=== PATIENT | female | born 1955 | race Two or more races ===

== ENCOUNTER 2020-11-15 09:48 | Outpatient (REF) | payer OTHER, SELFPAY ==
[2020-11-15 10:21] LABS: MANUAL DIFF FLAG NO
[2020-11-15 10:27] LABS: Basophils Percent Auto 0.5 % (0-2); Eosinophils Absolute Auto 0.2 X10*3/uL (0.0-0.4); Eosinophils Percent Auto 2.9 % (0-4); Hematocrit 39.3 % (37-47); Hemoglobin 12.4 g/dl (12.0-16.0); Imm Gran Abs Auto 0.01 X10*3/uL (0.00-0.03); Imm Gran Pct Auto 0.2 % (0.0-0.4); Lymphocytes Absolute Auto 2.2 X10*3/uL (1.2-4.9); Lymphocytes Percent Auto 37.9 % (20-40); Mean Corpuscular HGB Conc 31.6 g/dl (31.0-35.0); Mean Corpuscular Hemoglobin 28.5 pg (27.0-33.0); Mean Corpuscular Volume 90.3 fL (80-98); Mean Platelet Volume 10.1 fL (9.4-12.3); Monocytes Absolute Auto 0.3 X10*3/uL (0.1-1.2); Monocytes Percent Auto 5.8 % (2-11); Neutrophils Absolute Auto 3.1 X10*3/uL (2.0-8.3); Neutrophils Percent Auto 52.7 % (45-73); Platelet Count 253 X10*3/uL (160-400); Red Blood Count 4.35 X10*6/uL (4.20-5.50); Red Cell Distribution Width 13.2 % (11.0-16.0); White Blood Count 5.8 X10*3/uL (4.8-10.8)
[2020-11-15 11:10] LABS: HIV AB/AG Nonreactive (Nonreactive); HIV Num 1 0.16 S/CO (0.00-0.99)
[2020-11-15 11:30] LABS: Syphilis Screen Nonreactive (Nonreactive)
[2020-11-17 13:02] LABS: C. trachomatis RNA TMA NOT DETECTED; N. gonorrhoeae RNA TMA NOT DETECTED
== END 2020-11-15 09:49 | disposition home or self-care (01) ==
LOC: HO.LAB 09:48
DX: Z11.4 Encounter for screening for human immunodeficiency virus [HIV] (principal); Z11.3 Encounter for screening for infections with a predominantly sexual mode of transmission; Z01.84 Encounter for antibody response examination; Z20.2 Contact with and (suspected) exposure to infections with a predominantly sexual mode of transmission
CPT/HCPCS: 36415; 85025; 86780; 87389; 87491; 87591

== ENCOUNTER 2021-10-14 08:28 | Outpatient (REF) | payer OTHER, SELFPAY ==
[2021-10-14 08:46] LABS: MANUAL DIFF FLAG NO
[2021-10-14 09:32] LABS: Basophils Percent Auto 0.5 % (0-2); Eosinophils Absolute Auto 0.2 X10*3/uL (0.0-0.4); Eosinophils Percent Auto 3.6 % (0-4); Hematocrit 39.4 % (37.0-47.0); Hemoglobin 12.5 g/dl (12.0-16.0); Imm Gran Abs Auto 0.01 X10*3/uL (0.00-0.03); Imm Gran Pct Auto 0.2 % (0.0-0.4); Immature Retic Fraction 9.4 % (3.0-15.9); Lymphocytes Absolute Auto 2.6 X10*3/uL (1.2-4.9); Lymphocytes Percent Auto 40.7 % (20-40); Mean Corpuscular HGB Conc 31.7 g/dl (31.0-35.0); Mean Corpuscular Hemoglobin 28.6 pg (27.0-33.0); Mean Corpuscular Volume 90.2 fL (80.0-98.0); Mean Platelet Volume 10.5 fL (9.4-12.3); Monocytes Absolute Auto 0.4 X10*3/uL (0.1-1.2); Monocytes Percent Auto 6.2 % (2-11); Neutrophils Absolute Auto 3.2 x10*3/uL (2.0-8.3); Neutrophils Percent Auto 48.8 % (45-73); Platelet Count 249 X10*3/uL (160-400); Red Blood Count 4.37 X10*6/uL (4.20-5.50); Red Cell Distribution Width 13.3 % (11.0-16.0); Retic HGB Equivalent 32.9 pg (30.0-35.0); Reticulocyte Percent 1.1 % (0.5-1.8); Reticulocytes Absolute 0.049 X10*6/uL (0.026-0.095); White Blood Count 6.4 X10*3/uL (4.8-10.8)
[2021-10-14 09:43] LABS: Estimated Average Glucose 126 mg/dL
[2021-10-14 10:00] LABS: Alanine Aminotransferase 17 U/L (0-31); Albumin Level 4.1 g/dL (3.5-5.0); Alkaline Phosphatase 65 U/L (39-117); Anion Gap 14 (12-20); Aspartate Amino Transferase 21 U/L (5-31); Bilirubin Total 0.4 mg/dL (0.0-1.0); Blood Urea Nitrogen 17 mg/dL (9-16); Calcium 9.5 mg/dL (8.4-10.2); Carbon Dioxide 27 mmol/L (22-29); Chloride 107 mmol/L (96-108); Cholesterol 177 mg/dL; Estimated Glomerular Filt Rate > 60; Glucose Random 117 mg/dL (60-115); HDL Cholesterol 73 mg/dL; Iron 54 mcg/dL (30-160); LDL Cholesterol Calculated 89 mg/dl; Percent Iron Saturation 17 % (15-50); Potassium 4.7 mmol/L (3.3-5.1); Sodium 143 mmol/L (135-145); Total Iron Binding Capacity 315 mcg/dL (228-428); Total Protein 6.9 g/dL (6.5-8.0); Triglycerides 77 mg/dL; Unsaturated Iron Binding 261 ug/dL
[2021-10-14 10:23] LABS: Ferritin 31 ng/mL (10-250); Free T4 (Free Thyroxine) 1.11 ng/dL (0.71-1.85); Thyroid Stimulating Hormone 0.75 uIU/mL (0.32-4.0); Vitamin D 25-OH Total 28.7 ng/mL (>30)
[2021-10-14 11:20] LABS: Folate 15.6 ng/mL (> or = 4.0); Vitamin B12 161 pg/mL (200-900)
== END 2021-10-14 08:29 | disposition home or self-care (01) ==
LOC: HO.LAB 08:28
PROVIDERS: PCP Internal Medicine; Visit Provider Internal Medicine
DX: R73.02 Impaired glucose tolerance (oral) (principal); E78.00 Pure hypercholesterolemia, unspecified; I10 Essential (primary) hypertension; E03.9 Hypothyroidism, unspecified
CPT/HCPCS: 36415; 80053; 80061; 82306; 82607; 82728; 82746; 83036; 83540; 84439; 84443; 85025; 85045

== ENCOUNTER 2022-01-10 08:25 | Outpatient (REF) | payer OTHER, SELFPAY ==
[2022-01-11 13:11] LABS: BV Int Neg Control Negative (Negative); BV Int Pos Control Positive (Positive)
[2022-01-13 20:02] LABS: HPV mRNA E6/E7 rflx Not Detected (Not Detected)
== END 2022-01-10 08:26 | disposition home or self-care (01) ==
LOC: HO.LAB 08:25
PROVIDERS: PCP Internal Medicine; Visit Provider Advanced Practice Midwife
DX: Z01.411 Encounter for gynecological examination (general) (routine) with abnormal findings (principal); Z11.51 Encounter for screening for human papillomavirus (HPV); L29.2 Pruritus vulvae
CPT/HCPCS: 87480; 87510; 87624; 87660; 88142

== ENCOUNTER 2022-03-21 08:23 | Outpatient (REF) | payer OTHER, SELFPAY ==
--- NOTE | ~2022-03-21 | MM_ITS ---
EXAMINATION: MM SCREENING DIGITAL BREAST TOMOSYNTHESIS, BILATERAL CLINICAL INFORMATION: Screening. Asymptomatic. No prior breast imaging. Age 67. Family history breast cancer, sister. The lifetime risk of breast cancer based on the Tyrer-Cuzick Model is 8%. COMPARISON: None (current study represents initial baseline exam). TECHNIQUE: Digital breast tomosynthesis is performed in both the craniocaudal and mediolateral oblique views along with computer-aided detection (CAD). Synthesized 2D images are generated from the tomosynthesis. FINDINGS: There are scattered areas of fibroglandular density (ACR BI-RADS breast composition Category b). There is fine fibronodular parenchymal pattern. Left breast shows no dominant nodularity. Neither breast shows architectural abnormality or abnormal calcifications. The bilateral axilla and skin contours are unremarkable. Right breast has nodule posterior upper outer quadrant measuring approximately 0.9 x 0.5 cm. Margins are incompletely defined. There may be some punctate rim calcifications. As this represents initial mammography, patient will be recalled for additional views to fully characterize baseline appearance. MM/MM tomosynthesis screening BI IMPRESSION: Right: -Nodule posterior upper outer quadrant with incompletely defined margins and question of punctate rim calcification. As this represents initial mammography, patient will be recalled for additional views to fully characterize baseline appearance. Left: -No mammographic evidence of malignancy. ASSESSMENT: BI-RADS 0: Incomplete - Need Additional Imaging Evaluation RECOMMENDATION: 1. Additional views of the right breast (spot magnification CC, spot magnification ML). 2. Targeted ultrasound right breast. 3. Radiology department staff will contact the patient for additional imaging. This patient's information was entered into a reminder system with a target due date for their next mammogram.
== END 2022-03-21 08:24 | disposition home or self-care (01) ==
LOC: HO.MAMMO 08:23
PROVIDERS: PCP Internal Medicine; Visit Provider Internal Medicine
DX: Z12.31 Encounter for screening mammogram for malignant neoplasm of breast (principal)
CPT/HCPCS: 77063; 77067

== ENCOUNTER 2022-03-28 07:45 | Outpatient (REF) | payer OTHER, SELFPAY ==
--- NOTE | ~2022-03-28 | US_ITS ---
EXAMINATION: MM DIAGNOSTIC DIGITAL MAMMOGRAPHY, RIGHT US DIAGNOSTIC ULTRASOUND BREAST, RIGHT CLINICAL INFORMATION: Recall from screening for nodule with incompletely defined margins and possible calcification posterior upper outer right breast on baseline mammography. Age 67. Family history breast cancer, sister. TC score 8%. COMPARISON: Mammography: 03/21/2022 (baseline, BI-RADS 0). TECHNIQUE: Digital mammography is performed in the following views: Magnification CC, magnification ML. Ultrasound right breast is targeted to the upper outer quadrant. Grayscale imaging and color Doppler are performed without and with harmonics. FINDINGS: There are scattered areas of fibroglandular density (ACR BI-RADS breast composition Category b). The additional views confirm a nodule posterior upper outer breast with a few fine calcifications overlying this area. Margins are incompletely defined. Chronicity is unknown Ultrasound demonstrates hypoechoic nearly anechoic nodule posterior 9:00-10:00 position approximately 10 cm from nipple measuring around 0.5 cm. Some of the margins are slightly ill-defined. There is an internal echogenic focus without shadowing. On some images, scant color flow is questionably present. There is mild increased through-transmission of sound. Results are discussed with the patient at time of visit, using an cobol programmer. Ultrasound-guided core biopsy of the nodule is recommended. Results and recommendation called to office (CHELY Ayala) for Dr. Lazaro on 03/28/2022. US/US breast RT limited IMPRESSION: -Subcentimeter strongly hypoechoic nodule with incompletely defined margins posterior upper outer right breast. ASSESSMENT: BI-RADS 4: Suspicious RECOMMENDATION: Ultrasound-guided core biopsy.
== END 2022-03-28 07:46 | disposition home or self-care (01) ==
LOC: HO.MAMMO 07:45
PROVIDERS: Visit Provider Internal Medicine
DX: R92.2 Inconclusive mammogram (principal)
CPT/HCPCS: 76642; 77061; 77065

== ENCOUNTER 2022-03-31 09:33 | Outpatient (REF) | payer OTHER, SELFPAY ==
--- NOTE | ~2022-03-31 | MM_ITS ---
PROCEDURE: US GUIDED BREAST BIOPSY, RIGHT CLINICAL INFORMATION: Right breast nodule 9:00 position COMPARISON: March 28, 2022 and March 21, 2022 PROCEDURAL DETAILS: The details of the procedure, as well as the risks, benefits, and alternatives to the procedure were explained to the patient in detail and all of her questions were answered, after which written informed consent was obtained. Site and side were confirmed. Prior to the procedure, sonography revealed 2 adjacent circumscribed hypoechoic lesions one which appears to contain calcification at the 9:00 position approximately 10 cm from the nipple.. A time-out was performed, the lesion intended for biopsy was targeted, and the skin of the right breast was then prepped and draped in the usual sterile fashion. Using sonographic guidance, sterile technique, and 1% lidocaine without epinephrine for local anesthesia, multiple automated core biopsies were obtained through the targeted area with a 14G spring loaded Achieve core biopsy device. There was real-time confirmation of appropriate needle passage. Sampling was documented. At the completion of tissue sampling, a single butterfly shaped metallic clip was deposited at the biopsy site. There was no evidence of immediate complication. SPECIMEN: 3 14-gauge core samples were obtained prior to the lesions no longer being seen with them being partially cystic. DIGITAL POST-PROCEDURE MAMMOGRAPHY: Breast density: The tissue is heterogeneously dense which may obscure small masses. BI-RADS version 5, category C. There are no new mammographic findings demonstrated. The postprocedure 2-view direct digital mammogram reveals satisfactory positioning of the biopsy clip. The patient tolerated the procedure well and, after assuring adequate hemostasis, was discharged in good condition after reviewing postbiopsy breast care instructions. Final pathology results are pending. MM/MM diagnostic mammo unilat RT IMPRESSION: 1. No immediate complication from ultrasound-guided percutaneous biopsy right breast. 2. Ultrasound was used to localize and guide marker clip placement. 3. The 2-view direct digital postprocedure mammogram reveals satisfactory positioning of the biopsy clip. 4. Final pathology results are pending. A separate report with final recommendations will be issued once these results are made available.
[2022-03-31] MEDS: Lidocaine HCl 1 % 20 ML VIAL 9 ML SUBCUT (11:29)
[2022-03-31] MEDS: Sodium Bicarbonate 8.4% 50 MEQ/50 ML VIAL SUBCUT (11:31)
== END 2022-03-31 09:34 | disposition home or self-care (01) ==
LOC: HO.MAMMO 09:33
PROVIDERS: PCP Internal Medicine; Visit Provider Surgery
DX: R92.8 Other abnormal and inconclusive findings on diagnostic imaging of breast (principal)
CPT/HCPCS: 19083; 77062; 77065; 88305; 99202

== ENCOUNTER → 2022-04-04 13:43 | Outpatient (BNVA) | payer OTHER, SELFPAY | PROVIDERS: PCP Internal Medicine; Referring Provider Internal Medicine; Visit Provider Surgery | DX: R92.8 Other abnormal and inconclusive findings on diagnostic imaging of breast (principal) | CPT/HCPCS: 99212 ==

== ENCOUNTER 2022-05-08 10:28 | Outpatient (REF) | payer OTHER, SELFPAY ==
--- NOTE | ~2022-05-08 | XR_ITS ---
EXAMINATION: XR HIP, RIGHT CLINICAL INFORMATION: Pain COMPARISON: None TECHNIQUE: Two views of the right hip. FINDINGS: Bones and soft tissues are normal. No fracture. Alignment is anatomic. Hip joint space is maintained. XR/XR hip RT min 2V IMPRESSION: Unremarkable right hip exam.
== END 2022-05-08 10:29 | disposition home or self-care (01) ==
LOC: HO.XRAY 10:28
PROVIDERS: PCP Internal Medicine; Visit Provider Internal Medicine
DX: M25.551 Pain in right hip (principal)
CPT/HCPCS: 73502

== ENCOUNTER 2022-08-16 07:36 | Outpatient (REF) | payer OTHER, SELFPAY ==
[2022-08-16 08:22] LABS: Estimated Average Glucose 126 mg/dL
[2022-08-16 08:31] LABS: Alanine Aminotransferase 18 U/L (0-31); Albumin Level 4.1 g/dL (3.5-5.0); Alkaline Phosphatase 66 U/L (39-117); Anion Gap 15 (12-20); Aspartate Amino Transferase 21 U/L (5-31); Bilirubin Total 0.5 mg/dL (0.0-1.0); Blood Urea Nitrogen 20 mg/dL (9-16); Calcium 9.7 mg/dL (8.4-10.2); Carbon Dioxide 27 mmol/L (22-29); Chloride 106 mmol/L (96-108); Estimated Glomerular Filt Rate > 60; Glucose Random 123 mg/dL (60-115); Potassium 4.3 mmol/L (3.3-5.1); Sodium 144 mmol/L (135-145); Total Protein 6.9 g/dL (6.5-8.0)
[2022-08-16 08:52] LABS: Vitamin D 25-OH Total 28.8 ng/mL (>30)
[2022-08-16 09:03] LABS: Folate 14.5 ng/mL (> or = 4.0); Vitamin B12 683 pg/mL (200-900)
[2022-08-20 14:32] LABS: Intrinsic Factor Antibodies Negative (Negative)
[2022-08-23 00:33] LABS: Parietal Cell Antibody 77.7 Unit (<=20.0)
== END 2022-08-16 07:37 | disposition home or self-care (01) ==
LOC: HO.LAB 07:36
PROVIDERS: PCP Internal Medicine; Visit Provider Internal Medicine
DX: R73.02 Impaired glucose tolerance (oral) (principal); E53.8 Deficiency of other specified B group vitamins
CPT/HCPCS: 36415; 80053; 82306; 82607; 82746; 83036; 83516; 86340

== ENCOUNTER 2022-11-27 14:18 | Emergency (ER) | payer OTHER, SELFPAY ==
--- NOTE | ~2022-11-27 | XR_ITS ---
EXAMINATION: XR LUMBAR SPINE CLINICAL INFORMATION: Reason for Exam back pain s/p heavy lifting bags COMPARISON: None TECHNIQUE: Frontal lateral and coned-down L5-S1 frontal lateral FINDINGS: Five [id number] lumbar vertebrae were identified maintaining normal height and alignments. Narrowing of intervertebral disc spaces suggest underlying degenerative disc disease. Paravertebral soft tissues are unremarkable. There are radiolucencies, most likely superimposed bowel gas.. No radiographic evidence of osteolytic or osteoblastic lesions. XR/XR lumbar spine 2-3V IMPRESSION: Degenerative disc disease, no fracture.
[2022-11-27 16:29] VITALS: BP 146/66; PULSE 75; RESP 16; TEMP 36.4; O2SAT 98; BMI 27.3
--- NOTE | 2022-11-27 16:30 | ED_ITS ---
HPI - Back Pain/Injury General Chief Complaint: Back Pain/Injury Stated Complaint: back pain Time Seen by Provider: 11/27/22 20:04 Source: patient Mode of arrival: ambulatory Limitations: language barrier (Kazakh-speaking) History of Present Illness HPI Narrative: 67-year-old female who is Kazakh-speaking presenting to the ED with complaints of lower back pain since Sunday after she was heavy lifting some bags. Reports she has had this pain in the past and was so she had a muscle spasm and was given muscle relaxants in the past that helped although she took those muscle relaxants and no symptomatic relief. She denies any fevers, chest pain or shortness of breath, urinary symptoms, saddle anesthesias, bladder or bowel incontinence or retention, IV drug use, recent falls, hematuria, abdominal pain or any other symptoms complaints or concerns at this time. MD elicited complaint: back pain and back injury Onset (ago): day(s) (4) Timing: constant Severity: mild Similar Symptoms Previously: Yes Quality: aching Location: lumbar spine Radiation: none Exacerbating factors: movement and lifting Relieving factors: none Context: while lifting, turning/twisting and bending Associated symptoms: denies other symptoms Treatments prior to arrival: NSAIDS, acetaminophen and other (And tramadol along with muscle relaxers and no symptomatic relief) Work related injury: No Related Data Previous Rx's Medication Instructions Recorded cetirizine 10 mg tablet 10 mg PO DAILY 90 days #90 tabs 10/27/21 metoprolol succinate 25 mg 25 mg PO DAILY #90 tabs 03/23/22 tablet,extended release 24 hr simvastatin 20 mg tablet 20 mg PO DAILY #90 tabs 05/22/22 cyanocobalamin (vitamin B-12) 1,000 mcg PO DAILY #90 caps 06/05/22 1,000 mcg capsule tizanidine 4 mg tablet 4 mg PO BID PRN muscle spasticity 07/17/22 #30 tabs betamethasone, augmented 0.05 % 1 appl topical BID allergic 09/21/22 topical ointment reaction 7 days #45 grams levothyroxine 75 mcg tablet 75 mcg PO DAILY #90 tabs 10/04/22 tramadol 50 mg tablet 50 mg PO BID 30 days #60 tabs 10/23/22 albuterol sulfate 90 mcg/actuation 2 puff inhalation Q4-6H PRN for 10/29/22 aerosol inhaler muscle spasm #8.5 ea zolpidem 5 mg tablet 5 mg PO BEDTIME #30 tabs 11/21/22 cyclobenzaprine 10 mg tablet 10 mg PO Q8H #10 tabs 11/27/22 naproxen 500 mg tablet 500 mg PO BID PRN pain #10 tabs 11/27/22 oxycodone 5 mg tablet 5 mg PO Q6H PRN pain #10 tabs 11/27/22 Allergies Allergy/AdvReac Type Severity Reaction Status Date / Time No Known Allergies Allergy Verified 08/18/22 09:56 Review of Systems Review of Systems: Constitutional : No trauma, No Weight loss, No Fever, No Chills, ENT/Mouth : No Hearing loss, No Ear Pain, No Nasal Congestion, No Sinus Pain, No Hoarseness, No sore throat, No Rhinorrhea, No Swallowing Difficulty Cardiovascular : No Chest Pain, No SOB Respiratory : No Cough, No Dyspnea Gastrointestinal : No Nausea, No Vomiting, No Diarrhea, No abdominal Pain, No Hematochezia, No Melena Genitourinary : No Dysuria, No Urinary Frequency, No Hematuria, No Urinary or Bowel Incontinence/retention Musculoskeletal : + Back pain, No neck pain, No joint stiffness, No joint swelling Skin : No Skin Lesions, No rash or signs of infection Neuro : No Weakness, No radiation, No Numbness, No Paresthesias, No headache, no loss of bowel or bladder incontinence, no saddle anesthesia, Focal weakness, No radiation Denies history of IV drug usage. Yes all other systems are reviewed and are ne [facility] Past Medical History Attestation statement: The following information was validated with the patient. Source: old records reviewed and nursing notes reviewed Medical History Breast cancer screening by mammogram Carpal tunnel syndrome Hypercholesterolemia Hypertension Hypothyroid Impaired glucose tolerance Insomnia Overweight (BMI 25.0-29.9) Vitamin B12 deficiency Family History Family History Father No problems noted. Mother No problems noted. Sister History of breast cancer, Onset Age: 50 Social History Social History Housing: Apartment Alcohol intake: never Patient Tobacco Use Status: Never used Tobacco Tobacco use type: Cigarette e-Cigarette/Vaping Use: Never Used Second Hand Smoke Exposure: No Advance Directives: No Advance Directives Information Provided: No service: No Current occupational status: retired Cognitive needs: No Hearing needs: No Vision needs: Yes Physical Exam Vital Signs: Vital Signs: Last Vital Signs Temp 98.8 F 11/27/22 20:05 Pulse 73 11/27/22 20:05 Resp 16 11/27/22 20:05 BP 152/82 H 11/27/22 20:05 Pulse Ox 98 11/27/22 20:05 O2 Del Method 11/27/22 20:05 BMI result Body Mass Index 27.3 vital signs have been reviewed as normal and appeared to be correct. Blood pressure normal. Heart rate normal. Respiration rate normal. Temperature normal. Oxygen saturation normal. Appearance: Alert. Oriented X3. No acute distress. Head: Normal external exam. Normocephalic. Atraumatic. No Lewis signs noted. No raccoon eyes noted Eyes: PERRLA. EOMI. Conjunctiva and sclera normal. Eyelids normal. ENT: EAC normal. TM's Normal. Pharynx normal. Uvula midline. Moist mucous membranes. No trismus noted. No drooling noted. No muffled voice noted. Neck: Normal inspection. Neck supple. FROM. No adenopathy. Thyroid Normal. No meningeal signs. No neck mass noted. CVS: Normal heart rate and rhythm. Heart sound normal. No murmurs noted. Pulses normal throughout. Respiratory: No respiratory distress. Painless inspiration. Breath sounds normal. No wheezes/rales/rhonchi noted. Chest nontender. No accessory muscle usage noted or decreased air movement noted. Abdomen: Soft and nontender. Bowel sounds normal in all 4 quadrants. No distention noted. No organomegaly noted. No visible injury noted. Back: No CVA tenderness. Full range of motion noted. No obvious deformities, or edema. Mild para-spinal muscular tenderness from lumbar region to coccyx. Full ROM in back and lower extremities. 5/5 strength hip extension/flexion, abduction, adduction. Mild Lumbar pain with hip flexion against resistance. Straight leg raise test negative on right; Straight leg raise test negative on left; Reflexes normal ankle and knee bilaterally; EHL motor strength normal bilaterally. No rashes/lesion/induration/fluctuance or signs infection noted. Skin: Skin warm and dry. Normal skin color. Normal skin turgor. No rashes/lesions/lacerations noted. Extremities: No lower extremity edema. Extremities exhibit normal range of motion. Extremities nontender. Neuro: Oriented X 3. No motor deficit. No sensory deficit. Reflexes normal. Patient has a normal steady gait. Course Course Course Narrative: Pt c likely muscular pain, but could be herniated disc. Neuro exam shows no deficits. Not c/w AAA/epidural abscess/dissection.No high risk Hx (Incont, fever, immunosupp, recent surgery/LP, coag, signif trauma, wt loss, puls mass, hx/o Ca, TB, or IVDU) to warrant MRI/CT today. Not c/w Pyelo/UTI/kidney stone/spinal fx. Not cauda equina syndrome. X-ray imaging obtained and negative for any acute processes only revealed chronic changes. Therefore at this time will DC home with symptomatic treatment instructions return if any new or worsening symptoms follow up with primary care provider. Patient understands agrees with this plan. Medical Decision Making Independent Interpretation I performed an independent interpretation of an: Plain X-Ray Interpretation: Lumbar spine x-ray FINDINGS:? Five [id number] lumbar vertebrae were identified maintaining normal height and alignments. Narrowing of intervertebral disc spaces suggest underlying degenerative disc disease. ? Paravertebral soft tissues are unremarkable. There are radiolucencies, most likely superimposed bowel gas.. No radiographic evidence of osteolytic or osteoblastic lesions. XR/XR lumbar spine 2-3V IMPRESSION: Degenerative disc disease, no fracture. Radiology Impression Discussion of test interpretation with radiology: I have reviewed the radiologist's reading. Discharge Plan Discharge Clinical Impression: Degenerative disc disease, lumbar Patient Disposition: Home, Self-Care Instructions: Degenerative Disc Disease (ED) Prescriptions: New naproxen 500 mg tablet 500 mg PO BID PRN (Reason: pain) Qty: 10 0RF cyclobenzaprine 10 mg tablet 10 mg PO Q8H Qty: 10 0RF oxycodone 5 mg tablet 5 mg PO Q6H PRN (Reason: pain) Qty: 10 0RF Rx Instructions: Partial Fill upon patient request. No Action cetirizine 10 mg tablet 10 mg PO DAILY 90 Days Qty: 90 3RF metoprolol succinate 25 mg tablet extended release 24 hr 25 mg PO DAILY Qty: 90 3RF simvastatin 20 mg tablet 20 mg PO DAILY Qty: 90 3RF cyanocobalamin (vitamin B-12) 1,000 mcg capsule 1,000 mcg PO DAILY Qty: 90 3RF tizanidine 4 mg tablet 4 mg PO BID PRN (Reason: muscle spasticity) Qty: 30 3RF betamethasone, augmented 0.05 % ointment 1 appl topical BID 7 Days Qty: 45 0RF Rx Instructions: may use for up to 2 wks then every other day for 2 wks, then prn for two wks levothyroxine 75 mcg tablet 75 mcg PO DAILY Qty: 90 1RF tramadol 50 mg tablet 50 mg PO BID 30 Days Qty: 60 1RF albuterol sulfate 90 mcg/actuation HFA aerosol inhaler 2 puff inhalation Q4-6H PRN (Reason: for muscle spasm) Qty: 8.5 0RF zolpidem 5 mg tablet 5 mg PO BEDTIME Qty: 30 1RF Referrals: Po,Fran Childers MD [Primary Care Provider] - Print Language: Kazakh
[2022-11-27 20:05] VITALS: BP 152/82; PULSE 73; RESP 16; TEMP 37.1; O2SAT 98
== END 2022-11-27 20:36 | disposition home or self-care (01) ==
PROVIDERS: Emergency Provider Internal Medicine; PCP Internal Medicine
DX: M51.36 Other intervertebral disc degeneration, lumbar region (principal); I10 Essential (primary) hypertension; E78.00 Pure hypercholesterolemia, unspecified; Z79.02 Long term (current) use of antithrombotics/antiplatelets; Z79.899 Other long term (current) drug therapy
CPT/HCPCS: 72100; 99282; 99283

== ENCOUNTER 2022-12-21 08:20 | Outpatient (REF) | payer OTHER, SELFPAY ==
[2022-12-21 08:32] LABS: MANUAL DIFF FLAG NO
[2022-12-21 08:57] LABS: Basophils Absolute Auto 0.1 X10*3/uL (0.0-0.2); Basophils Percent Auto 0.8 % (0-2); Eosinophils Absolute Auto 0.3 X10*3/uL (0.0-0.4); Eosinophils Percent Auto 5.1 % (0-4); Hematocrit 37.6 % (37.0-47.0); Imm Gran Abs Auto 0.02 X10*3/uL (0.00-0.03); Imm Gran Pct Auto 0.3 % (0.0-0.4); Lymphocytes Absolute Auto 2.9 X10*3/uL (1.2-4.9); Lymphocytes Percent Auto 44.1 % (20-40); Mean Corpuscular HGB Conc 31.9 g/dl (31.0-35.0); Mean Corpuscular Volume 87.6 fL (80.0-98.0); Mean Platelet Volume 10.2 fL (9.4-12.3); Monocytes Absolute Auto 0.4 X10*3/uL (0.1-1.2); Monocytes Percent Auto 6.5 % (2-11); Neutrophils Absolute Auto 2.8 x10*3/uL (2.0-8.3); Neutrophils Percent Auto 43.2 % (45-73); Platelet Count 284 X10*3/uL (160-400); Red Blood Count 4.29 X10*6/uL (4.20-5.50); Red Cell Distribution Width 14.3 % (11.0-16.0); White Blood Count 6.5 X10*3/uL (4.8-10.8)
[2022-12-21 09:15] LABS: Estimated Average Glucose 128 mg/dL; Hemoglobin A1c % 6.1 %
[2022-12-21 09:43] LABS: Alanine Aminotransferase 39 U/L (0-31); Albumin Level 4.1 g/dL (3.5-5.0); Alkaline Phosphatase 67 U/L (39-117); Anion Gap 14 (12-20); Aspartate Amino Transferase 35 U/L (5-31); Bilirubin Total 0.4 mg/dL (0.0-1.0); Blood Urea Nitrogen 19 mg/dL (9-16); Calcium 9.4 mg/dL (8.4-10.2); Carbon Dioxide 27 mmol/L (22-29); Chloride 105 mmol/L (96-108); Cholesterol 176 mg/dL; Estimated Glomerular Filt Rate > 60; Glucose Random 121 mg/dL (60-115); HDL Cholesterol 76 mg/dL; Iron 55 mcg/dL (30-160); LDL Cholesterol Calculated 90 mg/dl; Percent Iron Saturation 18 % (15-50); Potassium 4.1 mmol/L (3.3-5.1); Sodium 142 mmol/L (135-145); Total Iron Binding Capacity 311 mcg/dL (228-428); Total Protein 6.9 g/dL (6.5-8.0); Triglycerides 53 mg/dL; Unsaturated Iron Binding 256 ug/dL
[2022-12-21 10:00] LABS: Ferritin 14 ng/mL (10-250); Free T4 (Free Thyroxine) 1.09 ng/dL (0.71-1.85); Thyroid Stimulating Hormone 1.91 uIU/mL (0.32-4.0); Vitamin D 25-OH Total 26.1 ng/mL (>30)
[2022-12-21 10:12] LABS: Folate 16.7 ng/mL (> or = 4.0); Vitamin B12 841 pg/mL (200-900)
== END 2022-12-21 08:21 | disposition home or self-care (01) ==
LOC: HO.LAB 08:20
PROVIDERS: PCP Internal Medicine; Visit Provider Internal Medicine
DX: E03.9 Hypothyroidism, unspecified (principal); R73.02 Impaired glucose tolerance (oral); E78.00 Pure hypercholesterolemia, unspecified
CPT/HCPCS: 36415; 80053; 80061; 82306; 82607; 82728; 82746; 83036; 83540; 84439; 84443; 85025

== ENCOUNTER → 2023-01-17 08:36 | Outpatient (BNVA) | payer OTHER, SELFPAY | PROVIDERS: PCP Internal Medicine; Visit Provider Anesthesiology | DX: M46.1 Sacroiliitis, not elsewhere classified (principal); M54.50 Low back pain, unspecified | CPT/HCPCS: 99202 ==

== ENCOUNTER 2023-03-23 07:45 | Outpatient (REF) | payer OTHER, SELFPAY ==
--- NOTE | ~2023-03-23 | MM_ITS ---
EXAMINATION: MM SCREENING DIGITAL BREAST TOMOSYNTHESIS, BILATERAL CLINICAL INFORMATION: Screening. Asymptomatic. Benign right ultrasound guided biopsy 03/31/2022 (breast parenchyma with portion of cyst wall and associated stromal fibrosis and mild chronic inflammation. No atypia or malignancy). The lifetime risk of breast cancer based on the Tyrer-Cuzick Model is 8%. COMPARISON: Mammography: 03/31/2022, 03/28/2022, 03/21/2022 (baseline), ultrasound right breast 03/31/2022, 03/28/2022. TECHNIQUE: Digital breast tomosynthesis is performed in both the craniocaudal and mediolateral oblique views along with computer-aided detection (CAD). Synthesized 2D images are generated from the tomosynthesis. FINDINGS: There are scattered areas of fibroglandular density (ACR BI-RADS breast composition Category b). There is fine fibronodular parenchymal pattern without significant mass or architectural abnormality or developing density. No abnormal calcifications. Small circumscribed nodularity periareolar 12:00 right breast is stable. There is a biopsy clip marker overlying the nodular asymmetry posterior 9:30 right breast. The axilla and skin contours are unremarkable. MM/MM tomosynthesis screening BI IMPRESSION: No mammographic evidence of malignancy. ASSESSMENT: BI-RADS 2: Benign RECOMMENDATION: Routine annual mammography screening. This patient's information was entered into a reminder system with a target due date for their next mammogram.
== END 2023-03-23 07:46 | disposition home or self-care (01) ==
LOC: HO.MAMMO 07:45
PROVIDERS: PCP Internal Medicine; Visit Provider Internal Medicine
DX: Z12.31 Encounter for screening mammogram for malignant neoplasm of breast (principal)
CPT/HCPCS: 77063; 77067

== ENCOUNTER → 2023-04-05 08:35 | Outpatient (BNVA) | payer OTHER, SELFPAY | PROVIDERS: PCP Internal Medicine; Visit Provider Advanced Practice Midwife ==

== ENCOUNTER 2023-04-16 08:19 | Emergency (ER) | payer OTHER, SELFPAY ==
--- NOTE | ~2023-04-16 | XR_ITS ---
EXAMINATION: XR FOOT, RIGHT CLINICAL INFORMATION: Right foot pain COMPARISON: None available. TECHNIQUE: AP, lateral, and oblique views of the right foot. FINDINGS: The bones and soft tissues are normal. No fracture. There is a small calcaneal heel enthesophyte. Alignment is anatomic. Joint spaces are maintained. XR/XR foot RT 2V IMPRESSION: Small calcaneal heel enthesophyte. No visible acute fracture, dislocation or subluxation seen.
[2023-04-16 08:24] VITALS: BP 100/77; PULSE 81; RESP 16; TEMP 36.6; O2SAT 96; BMI 26.4
[2023-04-16 08:58] VITALS: BP 106/70; PULSE 74; RESP 18; TEMP 36.8; O2SAT 95
--- NOTE | 2023-04-16 09:10 | ED_ITS ---
HPI - General Adult General Chief complaint: Extremity Problem Stated complaint: r heel pain Time Seen by Provider: 04/16/23 09:08 Source: patient and youth development specialist Mode of arrival: ambulatory Limitations: language barrier History of Present Illness HPI narrative: Patient is a 68 year old assigned female at with a history of HTN presenting to the emergency department today with right foot pain. Patient states that for the last month she has had right heel pain that goes into the rest of her foot and up into her knee. Patient states that she was seen at a clinic where she was given oral steroids and NSAIDs but they do not seem to be helping. Patient denies any dizziness, lightheadedness, abdominal pain, nausea, vomiting, fever, chills, blurry vision, double vision, loss of vision, chest pain, difficulty breathing, shortness of breath, back pain, night sweats, pain with urination, increased urinary frequency, increased urinary urgency, blood in her urine or stool, syncope or a near syncopal episode, recent trauma or falls, bowel incontinence, bladder incontinence, bowel retention, bladder retention, or any other complaints at this time. Onset (ago): month(s) (1) Location: right and lower extremity Severity: mild Severity scale (1-10): 3 Relieving factors: none Exacerbating factors: movement Associated symptoms: denies other symptoms Treatments prior to arrival: NSAID and other (oral steroids) Related Data Previous Rx's Medication Instructions Recorded cetirizine 10 mg tablet 10 mg PO DAILY 90 days #90 tabs 10/27/21 simvastatin 20 mg tablet 20 mg PO DAILY #90 tabs 05/22/22 cyanocobalamin (vitamin B-12) 1,000 mcg PO DAILY #90 caps 06/05/22 1,000 mcg capsule betamethasone, augmented 0.05 % 1 appl topical BID allergic 09/21/22 topical ointment reaction 7 days #45 grams cyclobenzaprine 10 mg tablet 10 mg PO Q8H #10 tabs 11/27/22 lidocaine 5 % topical patch 1 patch topical DAILY #30 ea 12/22/22 tizanidine 4 mg tablet 4 mg PO BID PRN muscle spasticity 01/26/23 #30 tabs albuterol sulfate 90 mcg/actuation 2 puff inhalation Q4-6H PRN for 01/28/23 aerosol inhaler (Ventolin HFA) wheezing #18 ea metoprolol succinate 25 mg 25 mg PO DAILY #90 tabs 03/08/23 tablet,extended release 24 hr tramadol 50 mg tablet 50 mg PO BID 30 days #60 tabs 03/26/23 zolpidem 5 mg tablet 5 mg PO BEDTIME #30 tabs 03/26/23 levothyroxine 75 mcg tablet 75 mcg PO DAILY #90 tabs 03/28/23 Allergies Allergy/AdvReac Type Severity Reaction Status Date / Time No Known Allergies Allergy Verified 04/05/23 08:48 Review of Systems Constitutional: Constitutional: Reports no additional constitutional complaints, Denies chills, Denies fever(s) and Denies night sweats Eyes: Eyes: Reports no additional eye complaints, Denies blurry vision, Denies change in vision, Denies diplopia, Denies eye discharge, Denies loss of vision and Denies eye pain ENT: Denies dizziness Cardiovascular: Cardiovascular: Reports no additional cardiovascular complaints, Denies chest pain, Denies lightheadedness, Denies Loss of Consciousness and Denies dyspnea Respiratory: Respiratory: Reports no additional respiratory complaints and Denies dyspnea Gastrointestinal: Gastrointestinal: Reports no additional gastrointestinal complaints, Denies abdominal pain, Denies melena, Denies hematochezia, Denies change in bowel habits and Denies change in stool character Genitourinary: Genitourinary: Denies hematuria, Denies urinary frequency, Denies dysuria, Denies urinary incontinence, Denies urinary hesitancy and Denies urinary urgency Musculoskeletal: Musculoskeletal: Reports no additional musculoskeletal complaints, Denies numbness and Denies tingling Comments: right foot pain Neurologic: Denies dizziness, Denies loss of vision, Denies numbness and Denies tingling Psychiatric: Psychiatric: Reports no additional psychiatric complaints Endocrine: Endocrine: Reports no additional endocrine complaints Hematologic/Lymphatic: Hematologic/Lymphatic: Reports no additional hematologic/lymphatic complaints Allergic/Immunologic: Allergic/Immunologic: Reports no additional allergic/immunologic complaints PMFSH Past Medical History Attestation statement: The following information was validated with the patient. Source: old records reviewed and nursing notes reviewed Medical History Breast cancer screening by mammogram Carpal tunnel syndrome Hypercholesterolemia Hypertension Hypothyroid Impaired glucose tolerance Insomnia Overweight (BMI 25.0-29.9) Vitamin B12 deficiency Family History Family History Father No problems noted. Mother No problems noted. Sister History of breast cancer, Onset Age: 50 Social History Social History Housing: Apartment Alcohol intake: never Patient Tobacco Use Status: Never used Tobacco Tobacco use type: Cigarette Smoked in Last 30 Days: No e-Cigarette/Vaping Use: Never Used Second Hand Smoke Exposure: No Use of substances other than those prescribed or required for medical reasons: No Advance Directives: No Advance Directives Information Provided: No service: No Current occupational status: retired Sexual orientation: Straight/Heterosexual Gender identity: Female Cognitive needs: No Hearing needs: No Vision needs: Yes Physical Exam ED Vital Signs: Vital Signs - 24 hr 04/16/23 08:24 04/16/23 08:58 Temperature 98 F 98.2 F Pulse Rate 81 74 Respiratory Rate 16 18 Blood Pressure 100/77 106/70 Pulse Oximetry 96 95 Oxygen Delivery Method Room Air Room Air BMI result Body Mass Index 26.4 Const General: cooperative, no acute distress, alert and awake Nutritional Appearance: well nourished Orientation/consciousness: patient oriented x3 Limitations: no limitations HENMT Head: Yes normal to inspection and Yes atraumatic Ears: hearing grossly normal bilaterally and external ears normal General nose exam: Normal external nose present, no nasal discharge noted and no epistaxis Face and sinus: Yes normal facial exam, No abrasion and No laceration Mouth: Normal oral and palatal mucosa present, no drooling and no muffled voice Eyes General: appearance normal, both eyes and all related structures Periorbital: periorbital findings normal Eyelids: Yes eyelids normal Conjunctivae: conjunctivae normal Pupils: Equal, round and reactive pupils present EOM: EOMs intact bilaterally Neck Neck: Yes normal visual inspection, Yes full ROM and Yes no lymphadenopathy Chest Chest palpation & inspection: normal inspection of the chest Resp Effort & Inspection: normal respiratory effort and able to speak in complete sentences GI Inspection: Yes normal to inspection Neuro General: patient oriented x3 and moves all extremities Cranial nerves: Yes Equal, round and reactive pupils present Cognition (Neuro): normal cognition Motor exam (neuro): 5/5 motor strength present throughout Sensory Exam: Normal double simultaneous stimulation for sensation Coordination: [id number] test normal Extrem General: Yes normal to inspection, Yes full ROM and Yes capillary refill normal Psych Appearance: grossly normal Mental Status: mental status grossly normal Affect: normal affect Attitude: cooperative Thought process: Normal thought process present Thought content: Normal thought content present Insight: Good insight present (Psych) Medical Decision Making Medical Decision Making MDM Narrative: Patient is a 68 year old assigned female at with a history of HTN presenting to the emergency department today with right heel pain. Patient's physical exam was unremarkable. Patient's right foot x-ray showed no acute process. I explained my physical exam findings as well as all test results to the patient. I answered all questions asked by the patient. I stressed the importance of the patient taking her medication as prescribed. I stressed the importance of the patient following up with her primary care provider and an orthopedic provider or papier mache molder. I stressed the importance of the patient returning to the emergency department immediately if her symptoms were to worsen or if she were to develop any dizziness, shortness of breath, difficulty breathing, chest pain, blurry vision, loss of vision, nausea, vomiting, abdominal pain, fever, chills, back pain, or any other complaints. Patient verbalized agreement and understanding with this treatment plan and discharge. Differential Diagnosis Differential Diagnoses: The differential diagnosis associated with the presentation includes right foot pain, plantar fasciitis Independent Interpretation I performed an independent interpretation of an: Plain X-Ray Interpretation: My interpretation is in agreement with the radiologist's impression of this imaging study. EXAMINATION: XR FOOT, RIGHT CLINICAL INFORMATION: Right foot pain? COMPARISON: None available.? TECHNIQUE: AP, lateral, and oblique views of the right foot. FINDINGS: The bones and soft tissues are normal. No fracture. There is a small calcaneal heel enthesophyte. Alignment is anatomic. Joint spaces are maintained.? XR/XR foot RT 2V IMPRESSION: Small calcaneal heel enthesophyte. No visible acute fracture, dislocation or subluxation seen. Dictated By: Edgard Hernandez MD Signed By: Electronically signed by Edgard Hernandez MD 04/16/23 0920 Discharge Plan Discharge Clinical Impression: Plantar fasciitis Patient Disposition: Home, Self-Care Instructions: Plantar Fasciitis (ED), Plantar Fasciitis Exercises (ED) Additional Instructions: Follow up with your primary care provider and an orthopedic provider or social media content specialist. Return to the emergency department immediately if your symptoms worsen or if you develop any dizziness, shortness of breath, difficulty breathing, chest pain, blurry vision, loss of vision, nausea, vomiting, abdominal pain, fever, chills, back pain, or any other complaints. Dominic un seguimiento con ortiz proveedor de atenci?n primaria y un proveedor ortop?dico o un especialista en pies. Regrese al departamento de emergencias de inmediato si sergey s?ntomas empeoran o si presenta mareos, falta de aire, dificultad para respirar, dolor de pecho, visi?n borrosa, p?rdida de la visi?n, n?useas, v?mitos, dolor abdominal, fiebre, escalofr?os, dolor de espalda o cualquier otras quejas. Prescriptions: No Action cetirizine 10 mg tablet 10 mg PO DAILY 90 Days Qty: 90 3RF simvastatin 20 mg tablet 20 mg PO DAILY Qty: 90 3RF cyanocobalamin (vitamin B-12) 1,000 mcg capsule 1,000 mcg PO DAILY Qty: 90 3RF betamethasone, augmented 0.05 % ointment 1 appl topical BID 7 Days Qty: 45 0RF Rx Instructions: may use for up to 2 wks then every other day for 2 wks, then prn for two wks tizanidine 4 mg tablet 4 mg PO BID PRN (Reason: muscle spasticity) Qty: 30 3RF albuterol sulfate [Ventolin HFA] 90 mcg/actuation HFA aerosol inhaler 2 puff inhalation Q4-6H PRN (Reason: for wheezing) Qty: 18 2RF metoprolol succinate 25 mg tablet extended release 24 hr 25 mg PO DAILY Qty: 90 3RF tramadol 50 mg tablet 50 mg PO BID 30 Days Qty: 60 1RF zolpidem 5 mg tablet 5 mg PO BEDTIME Qty: 30 1RF levothyroxine 75 mcg tablet 75 mcg PO DAILY Qty: 90 1RF cyclobenzaprine 10 mg tablet 10 mg PO Q8H Qty: 10 0RF lidocaine 5 % adhesive patch,medicated 1 patch topical DAILY Qty: 30 0RF Rx Instructions: leave on most painful area for up to 12 hrs [place] [facility] [place] [facility] [place]Provider Group] (Call to establish and follow up with an orthopedic provider. Llame para establecer y hacer un seguimiento con un proveedor ortop?dico.) Asim Almendarez DPM [Physician] - (Call to establish and follow up with a social media content specialist. Llame para establecer y hacer un seguimiento con un especialista en pies.) Fran Lazaro MD [Primary Care Provider] - Interventions: ED Discharge Assessment Last Done: 04/16/23 09:37 Discharge Date/Time: 04/16/23 09:39 Print Language: Australian
== END 2023-04-16 09:39 | disposition home or self-care (01) ==
PROVIDERS: Emergency Provider Emergency Medicine; PCP Internal Medicine
DX: M72.2 Plantar fascial fibromatosis (principal); M79.671 Pain in right foot; Z79.899 Other long term (current) drug therapy
CPT/HCPCS: 73620; 99283; 99284

== ENCOUNTER 2023-06-12 08:25 | Outpatient (REF) | payer OTHER, SELFPAY ==
[2023-06-12 09:28] LABS: Estimated Average Glucose 120 mg/dL; Hemoglobin A1c % 5.8 %
[2023-06-12 09:44] LABS: Alanine Aminotransferase 13 U/L (0-31); Albumin Level 3.9 g/dL (3.5-5.0); Alkaline Phosphatase 65 U/L (39-117); Anion Gap 11 (12-20); Aspartate Amino Transferase 17 U/L (5-31); Bilirubin Total 0.4 mg/dL (0.0-1.0); Blood Urea Nitrogen 18 mg/dL (9-16); Calcium 9.5 mg/dL (8.4-10.2); Carbon Dioxide 28 mmol/L (22-29); Chloride 107 mmol/L (96-108); Cholesterol 170 mg/dL; Estimated Glomerular Filt Rate > 60; Glucose Random 115 mg/dL (60-115); HDL Cholesterol 77 mg/dL; LDL Cholesterol Calculated 83 mg/dl; Potassium 4.2 mmol/L (3.3-5.1); Sodium 142 mmol/L (135-145); Total Protein 7.1 g/dL (6.5-8.0); Triglycerides 54 mg/dL
== END 2023-06-12 08:26 | disposition home or self-care (01) ==
LOC: HO.LAB 08:25
PROVIDERS: PCP Internal Medicine; Visit Provider Internal Medicine
DX: E78.00 Pure hypercholesterolemia, unspecified (principal); R73.02 Impaired glucose tolerance (oral)
CPT/HCPCS: 36415; 80053; 80061; 83036

== ENCOUNTER 2023-06-15 10:24 | Outpatient (AMB) | payer OTHER, SELFPAY ==
--- NOTE | 2023-06-15 10:33 | A.OFFPC_ITS ---
Vital Signs 06/15/23 10:35 06/15/23 11:49 Height 5 ft Weight 131 lb 2 oz BMI 25.6 BP 104/60 130/70 Blood Pressure Location Lt brachial Lt brachial Position Sitting Sitting Pulse 64 Pulse Source Pulse Oximeter Pulse Oximetry (%) 96 Oxygen Delivery Method Room Air Intake Visit Reasons: PE Intake Note: pt is here for her annual exam [employer]ate Of Chiropract[employer] Required: Yes [employer] Language: Georgian Allergies No Known Allergies Allergy (Verified 06/15/23 10:34) Medication List - Last Reconciled 06/15/23 by Fran Lazaro MD albuterol sulfate 90 mcg/actuation (Ventolin HFA) 2 puffs inhalation Q4-6H PRN betamethasone, augmented 0.05 % 1 appl topical BID 7 days cyanocobalamin (vitamin B-12) 1,000 mcg PO DAILY cyclobenzaprine 10 mg PO Q8H levothyroxine 75 mcg PO DAILY lidocaine 5% 1 patch topical DAILY metoprolol succinate ER 25 mg PO DAILY miscellaneous medical supply 1 ea miscellaneous DAILY naproxen 500 mg PO BID PRN simvastatin 20 mg PO DAILY tramadol 50 mg PO BID 30 days zolpidem 5 mg PO BEDTIME Tobacco use date assessed: 04/24/23 Fall risk assessment: No Falls in past year Last assessed Fall Risk: 06/15/23 Dental Screening Dental Screen Date: 06/15/23 Did you have a dental visit in the last 12 months?: No Did you have a dental problem in the last 6 months where you did not have access to dental care?: No Was dental information given to patient?: Patient declined HPI PE HPI Details 68-year-old overweight female with impaired glucose tolerance hypothyroidism hypercholesterolemia hypertension asthma last seen in November 2022 blood work was requested is here for physical exam mammogram is up-to-date patient refused colonoscopy. Patient was seen by the nurse practitioner in March 2023 for heel pain podiatry referral done. Patient has complained of back pain and was sent to pain management after review of procedures advised physical therapy patient has refused. Patient is here for physical exam. Robb [id number] R foot pain- has not seen information security officer. but pain is better. vertigo PFSH Medical History (Updated 06/15/23 @ 11:15 by Fran Lazaro MD) Annual physical exam Breast cancer screening by mammogram Carpal tunnel syndrome Cervical cancer screening Colon cancer screening declined Colonoscopy refused Headache Hypercholesterolemia Hypertension Hypothyroid Impaired glucose tolerance Insomnia Overweight (BMI 25.0-29.9) Plantar fasciitis Vitamin B12 deficiency Family History Father No problems noted. Mother No problems noted. Sister History of breast cancer, Onset Age: 50 Social History Housing: Apartment Alcohol intake: never Patient Tobacco Use Status: Never used Tobacco Tobacco use type: Cigarette e-Cigarette/Vaping Use: Never Used Second Hand Smoke Exposure: No service: No Current occupational status: retired Sexual orientation: Straight/Heterosexual Gender identity: Female Cognitive needs: No Hearing needs: No Vision needs: Yes Female Reproductive History Menstrual Age of Menarche: 16 Questionnaire Thrive Questionnaire Date Thrive assessed: 04/24/23 DAVID-7 AMB Questionnaire DAVID-7 Date DAVID - 7 assessed: 04/24/23 Source: Developed by Drs. Torres Anderson, Leida Obrien, Sony Treadwell and colleagues, with an educational farooq from [employer]. Review of Systems Const Denies poor appetite and Denies weakness Eyes Denies no additional complaints ENT Reports Normal hearing present, Denies dizziness, Denies nasal congestion, Denies tinnitus and Denies sore throat Card Denies chest pain, Denies syncope, Denies rapid heart rate and Denies dyspnea Resp Denies cough and Denies dyspnea GI Denies change in stool character, Reports constipation, Denies diarrhea, Denies nausea and Denies vomiting Denies urinary frequency, Denies difficulty voiding and Denies dysuria Neuro Reports Normal hearing present, Denies confusion, Denies dizziness, Denies syncope and Denies weakness Psych Denies confusion Physical exam (Primary Care) Vital Signs: Last Vital Signs Pulse 64 06/15/23 10:35 BP 130/70 06/15/23 11:49 Pulse Ox 96 06/15/23 10:35 Oxygen Delivery Method Room Air 06/15/23 10:35 BMI result Body Mass Index 25.6 Tobacco/Smoking Status: Tobacco use Status Tobacco use date assessed 04/24/23 06/15/23 10:35 Patient Tobacco Use Status Never used Tobacco 06/15/23 10:35 Tobacco use type Cigarette 06/15/23 10:35 e-Cigarette/Vaping Use Never Used 06/15/23 10:35 Thrive Assessment: Date of Thrive Assessment Date Thrive assessed 04/24/23 06/15/23 10:35 Const General: No confusion Orientation/consciousness: No confusion HENMT Head: Yes normocephalic Ears: external ears normal and TM's normal bilaterally Face and sinus: Yes normal facial exam Mouth: moist mucous membranes Throat: Yes tonsils normal Eyes Conjunctivae: conjunctivae normal Pupils: Equal, round and reactive pupils present and Pupil accommodation reflex normal Direct Ophthalmoscopy: normal light reflex Neck Neck: No lymphadenopathy Thyroid: Thyroid normal Chest Chest palpation & inspection: normal inspection of the chest Resp Effort & Inspection: normal respiratory effort and no audible wheezes Auscultation: clear to auscultation bilaterally, no crackles, no wheezes and lung sounds not diminished Cardio Rate: regular rate Rhythm: regular rhythm Peripheral pulses: radial pulses present and dorsalis pedis present GI Palpation (GI): no masses Auscultation: normal bowel sounds and normoactive bowel sounds Rectal Exam - Female: deferred Skin General skin exam: no rashes or lesions noted Rashes: no rashes Neuro General: No confusion Cranial nerves: Yes Equal, round and reactive pupils present and Yes Normal hearing present Cognition (Neuro): normal cognition Gait exam (Neuro): Normal gait present Motor exam (neuro): 5/5 motor strength present throughout Deep tendon reflexes (DTR's): Right brachioradialis reflex intensity grade: 2+, Left brachioradialis reflex intensity grade: 2+, Right patellar reflex intensity grade: 2+ and Left patellar reflex intensity grade: 2+ Extrem General: No edema Immunizations Tenivac (PF) Performing Provider: Fran Lazaro MD Administered by: Omar Sanchez CMA on 06/15/23 11:59 Dose Route Admin Location Lot Number Expiration Date NDC Adult Care Provider 0.5 mL IM Left Deltoid [id number] 03/31/24 [address]-4 [employer] VIS Given Date VIS Provided VIS Publication Date 06/15/23 Single Vaccine 21 Eligibility Eligibility Date Funding Source Not VFC Eligible 06/15/23 State funds Assessment and Plan Assessment & Plan (1) Annual physical exam: Code(s): Z00.00 - Encounter for general adult medical examination without abnormal findings (2) Plantar fasciitis: Code(s): M72.2 - Plantar fascial fibromatosis Plan: Patient was sent to podiatry but this has resolved (3) Low back pain: Code(s): M54.50 - Low back pain, unspecified Plan: Patient has been advised physical therapy (4) Pernicious anemia: Comment: July 2022 positive anti parietal cell antibody Code(s): D51.0 - Vitamin B12 deficiency anemia due to intrinsic factor deficiency Plan: Continue with vitamin B12 (5) Osteopenia: Code(s): M85.80 - Other specified disorders of bone density and structure, unspecified site Plan: Patient is advised to have bone density but declined (6) Overweight (BMI 25.0-29.9): Code(s): E66.3 - Overweight Plan: Diet and exercise (7) Impaired glucose tolerance: Code(s): R73.02 - Impaired glucose tolerance (oral) Plan: Decrease the amount of carbohydrate intake, pasta, bread, rice and potatoes are all sugar and that is aside from all the sweet stuff, remember that fruits are good but they are Sweet also. (8) Asthma: Code(s): J45.909 - Unspecified asthma, uncomplicated Plan: Continue with inhaler as needed (9) Hypothyroid: Code(s): E03.9 - Hypothyroidism, unspecified Plan: Continue with thyroid medication (10) Hypercholesterolemia: Code(s): E78.00 - Pure hypercholesterolemia, unspecified Plan: Avoid fried foods, chicken skin, eggs, butter margarine, pastries and meat. Be it pork or beef they have a lot of cholesterol LDL goal of less than 130 and triglyceride of less than 150 patient is on simvastatin 20 mg once a day (11) Hypertension: Code(s): I10 - Essential (primary) hypertension Plan: Continue with blood pressure medication. Decrease salt intake and exercise Orders: Orders Free T4 (Free Thyroxine) Today E03.9 - Hypothyroidism, unspecified Thyroid Stimulating Hormone Today E03.9 - Hypothyroidism, unspecified Complete Blood Count Auto Diff Today I10 - Essential (primary) hypertension Td Immunization Today Z23 - Encounter for immunization Coding Level of Care Code Est Pt Prev Care >65y(64115) Diagnoses Annual physical exam Z00.00 Plantar fasciitis M72.2 Low back pain M54.50 Pernicious anemia D51.0 Osteopenia M85.80 Overweight (BMI 25.0-29.9) E66.3 Impaired glucose tolerance R73.02 Asthma J45.909 Hypothyroid E03.9 Hypercholesterolemia E78.00 Hypertension I10
[2023-06-15 10:35] VITALS: BP 104/60; PULSE 64; O2SAT 96; BMI 25.6
[2023-06-15 11:49] VITALS: BP 130/70
== END 2023-06-15 12:01 | disposition home or self-care (01) ==
PROVIDERS: Visit Provider Internal Medicine
DX: Z00.00 Encounter for general adult medical examination without abnormal findings (principal); M72.2 Plantar fascial fibromatosis; M54.50 Low back pain, unspecified; J45.909 Unspecified asthma, uncomplicated; D51.0 Vitamin B12 deficiency anemia due to intrinsic factor deficiency; M85.80 Other specified disorders of bone density and structure, unspecified site; E66.3 Overweight; R73.02 Impaired glucose tolerance (oral); E03.9 Hypothyroidism, unspecified; E78.00 Pure hypercholesterolemia, unspecified; I10 Essential (primary) hypertension; Z23 Encounter for immunization
CPT/HCPCS: 90471; 90714; 99397

== ENCOUNTER 2023-06-15 12:04 | Outpatient (REF) | payer OTHER, SELFPAY ==
[2023-06-15 13:55] LABS: MANUAL DIFF FLAG NO
[2023-06-15 15:04] LABS: Basophils Absolute Auto 0.1 X10*3/uL (0.0-0.2); Basophils Percent Auto 0.9 % (0-2); Eosinophils Absolute Auto 0.1 X10*3/uL (0.0-0.4); Eosinophils Percent Auto 2.4 % (0-4); Hematocrit 34.9 % (37.0-47.0); Hemoglobin 10.9 g/dl (12.0-16.0); Imm Gran Abs Auto 0.01 X10*3/uL (0.00-0.03); Imm Gran Pct Auto 0.2 % (0.0-0.4); Lymphocytes Absolute Auto 2.1 X10*3/uL (1.2-4.9); Lymphocytes Percent Auto 35.8 % (20-40); Mean Corpuscular HGB Conc 31.2 g/dl (31.0-35.0); Mean Corpuscular Hemoglobin 26.8 pg (27.0-33.0); Mean Corpuscular Volume 85.7 fL (80.0-98.0); Mean Platelet Volume 10.7 fL (9.4-12.3); Monocytes Absolute Auto 0.4 X10*3/uL (0.1-1.2); Monocytes Percent Auto 6.3 % (2-11); Neutrophils Absolute Auto 3.1 x10*3/uL (2.0-8.3); Neutrophils Percent Auto 54.4 % (45-73); Platelet Count 286 X10*3/uL (160-400); Red Blood Count 4.07 X10*6/uL (4.20-5.50); Red Cell Distribution Width 14.2 % (11.0-16.0); White Blood Count 5.8 X10*3/uL (4.8-10.8)
[2023-06-15 15:53] LABS: Free T4 (Free Thyroxine) 1.32 ng/dL (0.71-1.85)
== END 2023-06-15 12:05 | disposition home or self-care (01) ==
LOC: HO.LAB 12:04
PROVIDERS: PCP Internal Medicine; Visit Provider Internal Medicine
DX: E03.9 Hypothyroidism, unspecified (principal); I10 Essential (primary) hypertension
CPT/HCPCS: 36415; 84439; 84443; 85025

== ENCOUNTER 2023-09-18 08:19 | Emergency (ER) | payer OTHER, SELFPAY ==
[2023-09-18 08:41] VITALS: BP 135/89; PULSE 76; RESP 18; TEMP 36.6; O2SAT 99; BMI 25.4
[2023-09-18 09:01] LABS: MANUAL DIFF FLAG NO
[2023-09-18 09:03] LABS: Appearance Urine Clear; Color Urine Yellow; Glucose Urine UA Negative (Negative); Leukocyte Esterase Urine Moderate (2+) (Negative); Nitrite Urine Negative (Negative); PH 5.5 (5.0-9.0); UMIC TRIGGER UACC YES; Urine Blood Negative (Negative); Urine Ketones Negative (Negative); Urine Protein Negative (Neg-Trace)
[2023-09-18 09:04] LABS: Basophils Absolute Auto 0.1 X10*3/uL (0.0-0.2); Basophils Percent Auto 0.8 % (0-2); Eosinophils Absolute Auto 0.3 X10*3/uL (0.0-0.4); Eosinophils Percent Auto 4.2 % (0-4); Hematocrit 36.9 % (37.0-47.0); Hemoglobin 11.6 g/dl (12.0-16.0); Imm Gran Abs Auto 0.02 X10*3/uL (0.00-0.03); Imm Gran Pct Auto 0.3 % (0.0-0.4); Lymphocytes Absolute Auto 2.2 X10*3/uL (1.2-4.9); Mean Corpuscular HGB Conc 31.4 g/dl (31.0-35.0); Mean Corpuscular Hemoglobin 27.1 pg (27.0-33.0); Mean Corpuscular Volume 86.2 fL (80.0-98.0); Mean Platelet Volume 10.1 fL (9.4-12.3); Monocytes Absolute Auto 0.4 X10*3/uL (0.1-1.2); Monocytes Percent Auto 5.6 % (2-11); Neutrophils Absolute Auto 3.5 x10*3/uL (2.0-8.3); Neutrophils Percent Auto 55.1 % (45-73); Platelet Count 285 X10*3/uL (160-400); Red Blood Count 4.28 X10*6/uL (4.20-5.50); Red Cell Distribution Width 14.9 % (11.0-16.0); White Blood Count 6.4 X10*3/uL (4.8-10.8)
[2023-09-18 09:20] LABS: Bacteria Urine None Seen (None Seen); Hyaline Casts Urine 0-2 /LPF (0-2); Other Crystals Urine Present; Squamous Epithelial Cell Urine 0-2 /HPF (0-2); UACC Culture Trigger YES
[2023-09-18 09:30] LABS: Alanine Aminotransferase 15 U/L (0-31); Albumin Level 4.1 g/dL (3.5-5.0); Alkaline Phosphatase 70 U/L (39-117); Anion Gap 16 (12-20); Aspartate Amino Transferase 21 U/L (5-31); Bilirubin Total 0.3 mg/dL (0.0-1.0); Blood Urea Nitrogen 14 mg/dL (9-16); Calcium 9.7 mg/dL (8.4-10.2); Carbon Dioxide 26 mmol/L (22-29); Chloride 105 mmol/L (96-108); Estimated Glomerular Filt Rate > 60; Glucose Random 128 mg/dL (60-115); Sodium 143 mmol/L (135-145); Total Protein 7.3 g/dL (6.5-8.0)
[2023-09-18 13:46] VITALS: BP 156/79; PULSE 89; RESP 22; TEMP 36.6; O2SAT 99
--- NOTE | 2023-09-18 13:51 | PC.NURSE ---
md chen @ bedside. talking well. +CMS.
--- NOTE | 2023-09-18 13:59 | ED_ITS ---
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 Recent epigastric pain and reflux with a lot of gas. Patient with some dysuria MD elicited complaint: abdominal pain Pertinent past history: gastrointestinal bleeding and past UTI Onset (ago): day(s) Pain Consistency: intermittent Related Data Previous Rx's Medication Instructions Recorded betamethasone, augmented 0.05 % 1 appl topical BID allergic 09/21/22 topical ointment reaction 7 days #45 grams cyclobenzaprine 10 mg tablet 10 mg PO Q8H #10 tabs 11/27/22 metoprolol succinate 25 mg 25 mg PO DAILY #90 tabs 03/08/23 tablet,extended release 24 hr levothyroxine 75 mcg tablet 75 mcg PO DAILY #90 tabs 03/28/23 miscellaneous medical supply 1 ea miscellaneous DAILY #1 ea 04/24/23 naproxen 500 mg tablet 500 mg PO BID PRN pain #14 tabs 04/24/23 lidocaine 5 % topical patch 1 patch topical DAILY #30 ea 05/02/23 simvastatin 20 mg tablet 20 mg PO DAILY #90 tabs 05/11/23 ferrous sulfate 325 mg (65 mg 325 mg PO DAILY #90 tabs 06/18/23 iron) tablet (Feosol) tramadol 50 mg tablet 50 mg PO BID 30 days #60 tabs 07/04/23 albuterol sulfate 90 mcg/actuation 2 puff inhalation Q4-6H PRN for 07/08/23 aerosol inhaler (Ventolin HFA) wheezing #18 ea cyanocobalamin (vitamin B-12) 1,000 mcg PO DAILY #90 caps 07/23/23 1,000 mcg capsule zolpidem 5 mg tablet 5 mg PO BEDTIME #30 tabs 07/23/23 ascorbate calcium (vitamin C) 500 500 mg PO DAILY #90 tabs 09/14/23 mg tablet cephalexin 500 mg capsule 500 mg PO Q6H 7 days #28 caps 09/18/23 pantoprazole 40 mg tablet,delayed 40 mg PO DAILY #20 tabs 09/18/23 release (Protonix) Allergies Allergy/AdvReac Type Severity Reaction Status Date / Time No Known Allergies Allergy Verified 09/18/23 08:45 Review of Systems Review of Systems Yes all other systems are reviewed and are negative Denies Sensory deficit (Neuro) [facility] Past Medical History Medical History Plantar fasciitis Annual physical exam Headache Cervical cancer screening Breast cancer screening by mammogram Colon cancer screening declined Colonoscopy refused Overweight (BMI 25.0-29.9) Vitamin B12 deficiency Impaired glucose tolerance Hypothyroid Hypercholesterolemia Hypertension Insomnia Carpal tunnel syndrome Family History Family History Father No problems noted. Mother No problems noted. Sister History of breast cancer, Onset Age: 50 Social History Social History Housing: Apartment Alcohol intake: never Patient Tobacco Use Status: Never used Tobacco Tobacco use type: Cigarette Smoked in Last 30 Days: No e-Cigarette/Vaping Use: Never Used Second Hand Smoke Exposure: No Use of substances other than those prescribed or required for medical reasons: No Advance Directives: No Advance Directives Information Provided: Yes service: No Current occupational status: retired Sexual orientation: Straight/Heterosexual Gender identity: Female Cognitive needs: No Hearing needs: No Vision needs: Yes Physical Exam ED Vital Signs: Vital Signs - 24 hr 09/18/23 08:41 09/18/23 13:46 Temperature 97.9 F 98 F Pulse Rate 76 89 Respiratory Rate 18 22 H Blood Pressure 135/89 156/79 H Pulse Oximetry 99 99 Oxygen Delivery Method Room Air Room Air BMI result Body Mass Index 25.4 Const General: healthy appearing Nutritional Appearance: average body habitus Orientation/consciousness: oriented to person and patient oriented x3 Limitations: no limitations HENMT Head: Yes normal to inspection Ears: external ears normal General nose exam: Normal external nose present Mouth: Normal oral and palatal mucosa present and oropharynx normal Throat: Yes posterior oropharynx normal Eyes General: appearance normal, both eyes and all related structures Neck Neck: Yes normal visual inspection Chest Chest palpation & inspection: normal inspection of the chest Resp Auscultation: clear to auscultation bilaterally Cardio Jugular venous distension: no JVD Rate: regular rate Rhythm: regular rhythm Heart sounds: S1 normal heart sound present and S2 normal heart sound present GI Inspection: Yes normal to inspection Palpation (GI): Soft to palpation, nontender and No hepatosplenomegaly present Auscultation: normal bowel sounds General: Yes no CVA tenderness Back/Spine/Pelvis Back: no CVA tenderness Skin General skin exam: no rashes or lesions noted Neuro General: oriented to person and patient oriented x3 Cranial nerves: Yes CN's II-XII intact bilaterally Motor exam (neuro): 5/5 motor strength present throughout Sensory Exam: No Sensory deficit (Neuro) Extrem General: Yes normal to inspection Psych Appearance: grossly normal Course Reevaluation(s) Reevaluation #1: pateint with symptoms consistent with gastritis and reflux and symptoms and UA consistent with UTI will start protonix and keflex and dc home Time: 14:04 Medical Decision Making Differential Diagnosis Differential Diagnoses: The differential diagnosis associated with the presentation includes (biliary colic, appendicitis, UTI, renal colic diverticulitis were all considered) Admission/Observation Consideration of admission/observation: Escalation of care including admission/observation considered (upon arrival patient considered for admission) Lab Data MDM Lab Attestation statement: I reviewed the patient's lab results. (normal wBC, normal LFTs, UA consistent with infection) 09/18/23 08:56 09/18/23 08:56 Labs: Lab Results 09/18/23 Range/Units 08:56 WBC 6.4 (4.8-10.8) X10*3/uL RBC 4.28 (4.20-5.50) X10*6/uL Hgb 11.6 L (12.0-16.0) g/dl Hct 36.9 L (37.0-47.0) % MCV 86.2 (80.0-98.0) fL MCH 27.1 (27.0-33.0) pg MCHC 31.4 (31.0-35.0) g/dl RDW 14.9 (11.0-16.0) % Plt Count 285 (160-400) X10*3/uL MPV 10.1 (9.4-12.3) fL Immature Gran % (Auto) 0.3 (0.0-0.4) % Neut % (Auto) 55.1 (45-73) % Lymph % (Auto) 34.0 (20-40) % [place] % (Auto) 5.6 (2-11) % Eos % (Auto) 4.2 H (0-4) % Baso % (Auto) 0.8 (0-2) % Lymph # (Auto) 2.2 (1.2-4.9) X10*3/uL [place] # (Auto) 0.4 (0.1-1.2) X10*3/uL Eos # (Auto) 0.3 (0.0-0.4) X10*3/uL Baso # (Auto) 0.1 (0.0-0.2) X10*3/uL Abs Immat Gran (auto) 0.02 (0.00-0.03) X10*3/uL Absolute Neuts (auto) 3.5 (2.0-8.3) x10*3/uL Absolute Nucleated RBC 0.000 (0.0-0.012) X10*3/uL Nucleated RBC % (auto) 0.0 (0.0-0.2) /100WBC Sodium 143 (135-145) mmol/L Potassium 4.0 (3.3-5.1) mmol/L Chloride 105 (96-108) mmol/L Carbon Dioxide 26 (22-29) mmol/L Anion Gap 16 (12-20) BUN 14 (9-16) mg/dL Creatinine 0.73 (0.5-1.4) mg/dL Estim Creat Clear Calc 60.0 Estimated GFR > 60 Random Glucose 128 H (60-115) mg/dL Calcium 9.7 (8.4-10.2) mg/dL Total Bilirubin 0.3 (0.0-1.0) mg/dL AST 21 (5-31) U/L ALT 15 (0-31) U/L Alkaline Phosphatase 70 (39-117) U/L Total Protein 7.3 (6.5-8.0) g/dL Albumin 4.1 (3.5-5.0) g/dL Urine Color Yellow Urine Appearance Clear Urine pH 5.5 (5.0-9.0) Ur Specific [place] 1.020 (1.005-1.025) Urine Protein Negative (Neg-Trace) mg/dL Urine Glucose (UA) Negative (Negative) mg/dL Urine Ketones Negative (Negative) mg/dL Urine Blood Negative (Negative) Urine Nitrite Negative (Negative) Ur Leukocyte Esterase Moderate (2+) H (Negative) Urine RBC 3-5 H (0-2) /HPF Urine WBC 11-20 H (0-5) /HPF Ur Squamous Epith Cells 0-2 (0-2) /HPF Other Crystals Present Urine Bacteria None Seen (None Seen) Hyaline Casts 0-2 (0-2) /LPF Tests considered The following testing was considered but not selected: Ct of abdomen considered but patient with nonfocal abdominal exam Discharge Plan Discharge Clinical Impression: Gastritis and duodenitis, Urinary tract infection Patient Disposition: Home, Self-Care Instructions: Gastritis (DC), Urinary Tract Infection in Women (DC), Duodenitis (ED) Prescriptions: New pantoprazole [Protonix] 40 mg tablet,delayed release (DR/EC) 40 mg PO DAILY Qty: 20 0RF cephalexin 500 mg capsule 500 mg PO Q6H 7 Days Qty: 28 0RF No Action betamethasone, augmented 0.05 % ointment 1 appl topical BID 7 Days Qty: 45 0RF Rx Instructions: may use for up to 2 wks then every other day for 2 wks, then prn for two wks metoprolol succinate 25 mg tablet extended release 24 hr 25 mg PO DAILY Qty: 90 3RF levothyroxine 75 mcg tablet 75 mcg PO DAILY Qty: 90 1RF lidocaine 5 % adhesive patch,medicated 1 patch topical DAILY Qty: 30 3RF Rx Instructions: leave on most painful area for up to 12 hrs simvastatin 20 mg tablet 20 mg PO DAILY Qty: 90 3RF ferrous sulfate [Feosol] 325 mg (65 mg iron) tablet 325 mg PO DAILY Qty: 90 1RF tramadol 50 mg tablet 50 mg PO BID 30 Days Qty: 60 1RF albuterol sulfate [Ventolin HFA] 90 mcg/actuation HFA aerosol inhaler 2 puff inhalation Q4-6H PRN (Reason: for wheezing) Qty: 18 2RF cyanocobalamin (vitamin B-12) 1,000 mcg capsule 1,000 mcg PO DAILY Qty: 90 3RF zolpidem 5 mg tablet 5 mg PO BEDTIME Qty: 30 1RF ascorbate calcium (vitamin C) 500 mg tablet 500 mg PO DAILY Qty: 90 1RF cyclobenzaprine 10 mg tablet 10 mg PO Q8H Qty: 10 0RF naproxen 500 mg tablet 500 mg PO BID PRN (Reason: pain) Qty: 14 0RF miscellaneous medical supply Kit 1 ea miscellaneous DAILY Qty: 1 0RF Rx Instructions: Plantar fasciitis daily support relief size Medium x 1 pair. Referrals: Fran Lazaro MD [Primary Care Provider] - 1 week
[2023-09-18 14:27] VITALS: BP 139/70; PULSE 69; RESP 14; O2SAT 100
[2023-09-18] MEDS: Famotidine 20 MG TABLET PO (15:11)
[2023-09-18 15:12] VITALS: BP 142/71; PULSE 68; RESP 16; O2SAT 98
== END 2023-09-18 15:22 | disposition home or self-care (01) ==
PROVIDERS: Emergency Provider Emergency Medicine; PCP Internal Medicine
DX: K29.70 Gastritis, unspecified, without bleeding (principal); K29.80 Duodenitis without bleeding; N39.0 Urinary tract infection, site not specified; I10 Essential (primary) hypertension; E78.00 Pure hypercholesterolemia, unspecified; Z79.899 Other long term (current) drug therapy
CPT/HCPCS: 36415; 80053; 81001; 81003; 85025; 87086; 99283; 99284

== ENCOUNTER 2023-09-28 08:21 | Outpatient (AMB) | payer OTHER, SELFPAY ==
[2023-09-28 08:39] VITALS: BP 140/72; PULSE 67; O2SAT 97; BMI 25.6
--- NOTE | 2023-09-28 08:39 | A.OFFPC_ITS ---
Vital Signs 09/28/23 08:39 Height 5 ft Weight 131 lb BMI 25.6 BP 140/72 H Blood Pressure Location Lt brachial Position Sitting Pulse 67 Pulse Source Pulse Oximeter Pulse Oximetry (%) 97 Oxygen Delivery Method Room Air Intake Visit Reasons: 3 month f/u Allergies No Known Allergies Allergy (Verified 09/28/23 08:40) Medication List - Last Reconciled 09/28/23 by Fran Lazaro MD albuterol sulfate 90 mcg/actuation (Ventolin HFA) 2 puffs inhalation Q4-6H PRN ascorbate calcium (vitamin C) 500 mg PO DAILY betamethasone, augmented 0.05 % 1 appl topical BID 7 days cyanocobalamin (vitamin B-12) 1,000 mcg PO DAILY cyclobenzaprine 10 mg PO Q8H ferrous sulfate (Feosol) 325 mg PO DAILY levothyroxine 75 mcg PO DAILY lidocaine 5% 1 patch topical DAILY metoprolol succinate ER 25 mg PO DAILY miscellaneous medical supply 1 ea miscellaneous DAILY naproxen 500 mg PO BID PRN sennosides-docusate sodium 8.6-50 mg (Senna-S) 2 tab-caps (2 x 8.6-50 mg) PO BEDTIME simvastatin 20 mg PO DAILY tramadol 50 mg PO BID 30 days zolpidem 5 mg PO BEDTIME Tobacco use date assessed: 04/24/23 Fall risk assessment: No Falls in past year Last assessed Fall Risk: 09/28/23 Dental Screening Dental Screen Date: 09/28/23 Did you have a dental visit in the last 12 months?: Yes Did you have a dental problem in the last 6 months where you did not have access to dental care?: No Was dental information given to patient?: Patient has dentist HPI 3 month f/u HPI Details Ckant-giwqt-fdnm-old overweight female with a history of anemia impaired glucose tolerance hypothyroidism asthma hypercholesterolemia hypertension last seen in May 2023. Patient had some back pain sent for physical therapy as well as plantar fasciitis sent for podiatry. Mammogram is up-to-date. Review of the notes August 2023 was in the ER for abdominal pain with ladder gas diagnosis UTI and gastritis placed on pantoprazole as well as an antibiotic. Paitnet still complains of lower abd pain Mary [phone] ( [phone]) lower abd pain lower. interpret, no n no v dicsused that lower abd - 3 weeks nonradiating, intermittent BM this week constipated. as for urination no dysuria, no frequency. had treatment. [facility] Medical History Plantar fasciitis Annual physical exam Headache Cervical cancer screening Breast cancer screening by mammogram Colon cancer screening declined Colonoscopy refused Overweight (BMI 25.0-29.9) Vitamin B12 deficiency Impaired glucose tolerance Hypothyroid Hypercholesterolemia Hypertension Insomnia Carpal tunnel syndrome Family History Father No problems noted. Mother No problems noted. Sister History of breast cancer, Onset Age: 50 Social History Housing: Apartment Alcohol intake: never Patient Tobacco Use Status: Never used Tobacco Tobacco use type: Cigarette e-Cigarette/Vaping Use: Never Used Second Hand Smoke Exposure: No service: No Current occupational status: retired Sexual orientation: Straight/Heterosexual Gender identity: Female Cognitive needs: No Hearing needs: No Vision needs: Yes Female Reproductive History Menstrual Age of Menarche: 16 Questionnaire Thrive Questionnaire Date Thrive assessed: 04/24/23 DAVID-7 AMB Questionnaire DAVID-7 Date DAVID - 7 assessed: 04/24/23 Source: Developed by Drs. Torres Anderson, Leida Obrien, Sony Treadwell and colleagues, with an educational farooq from [employer]. Physical exam (Primary Care) Vital Signs: Last Vital Signs Pulse 67 09/28/23 08:39 BP 140/72 H 09/28/23 08:39 Pulse Ox 97 09/28/23 08:39 Oxygen Delivery Method Room Air 09/28/23 08:39 BMI result Body Mass Index 25.6 Tobacco/Smoking Status: Tobacco use Status Tobacco use date assessed 04/24/23 09/28/23 08:46 Patient Tobacco Use Status Never used Tobacco 09/28/23 08:46 Tobacco use type Cigarette 09/28/23 08:46 e-Cigarette/Vaping Use Never Used 09/28/23 08:46 Thrive Assessment: Date of Thrive Assessment Date Thrive assessed 04/24/23 09/28/23 08:46 Const General: alert; No acute distress Eyes Conjunctivae: conjunctivae normal Resp Auscultation: clear to auscultation bilaterally Cardio Rate: regular rate Rhythm: regular rhythm GI Inspection: Yes normal to inspection Extrem General: Yes normal to inspection and No edema Assessment and Plan Assessment & Plan (1) Overweight (BMI 25.0-29.9): Code(s): E66.3 - Overweight Plan: Diet and exercise (2) Impaired glucose tolerance: Code(s): R73.02 - Impaired glucose tolerance (oral) Plan: Decrease the amount of carbohydrate intake, pasta, bread, rice and potatoes are all sugar and that is aside from all the sweet stuff, remember that fruits are good but they are Sweet also. (3) Hypothyroid: Code(s): E03.9 - Hypothyroidism, unspecified Plan: Continue with thyroid medication May 2023 last blood work had low tsh and has been advised to repeat test 4 weeks after but this was not done - advised to continue (4) Hypercholesterolemia: Code(s): E78.00 - Pure hypercholesterolemia, unspecified Plan: Avoid fried foods, chicken skin, eggs, butter margarine, pastries and meat. Be it pork or beef they have a lot of cholesterol LDL goal of less than 130 and triglyceride of less than 150 patient is on simvastatin 20 mg once a day (5) Hypertension: Code(s): I10 - Essential (primary) hypertension Plan: Continue with blood pressure medication. Decrease salt intake and exercise on metoprolol 25 mg once a day (6) Constipation: Code(s): K59.00 - Constipation, unspecified Plan: increase oral fruids, eat more fiber and keep active- do understand iron makes the problem of constipation- (7) Vitamin B12 deficiency: Code(s): E53.8 - Deficiency of other specified B group vitamins Plan: retest (8) Colon cancer screening: Code(s): Z12.11 - Encounter for screening for malignant neoplasm of colon Orders: Referrals Gastroenterology Referral Z12.11 - Encounter for screening for malignant neoplasm of colon Medications: New sennosides-docusate sodium 8.6-50 mg (Senna-S) 2 tab-caps (2 x 8.6-50 mg) PO BEDTIME 60 tabs 1RF K59.00 - Constipation, unspecified simethicone 125 mg PO TID-QID PRN 30 caps 1RF abdominal distention K59.00 - Constipation, unspecified Coding Level of Care Code Est Pt Level 4 (87018) Diagnoses Overweight (BMI 25.0-29.9) E66.3 Impaired glucose tolerance R73.02 Hypothyroid E03.9 Hypercholesterolemia E78.00 Hypertension I10 Constipation K59.00 Vitamin B12 deficiency E53.8 Colon cancer screening Z12.11
== END 2023-09-28 09:25 | disposition home or self-care (01) ==
PROVIDERS: PCP Internal Medicine; Visit Provider Internal Medicine
DX: E66.3 Overweight (principal); R73.02 Impaired glucose tolerance (oral); E03.9 Hypothyroidism, unspecified; E78.00 Pure hypercholesterolemia, unspecified; I10 Essential (primary) hypertension; K59.00 Constipation, unspecified; E53.8 Deficiency of other specified B group vitamins; Z12.11 Encounter for screening for malignant neoplasm of colon
CPT/HCPCS: 99214

== ENCOUNTER 2023-09-28 09:36 | Outpatient (REF) | payer OTHER, SELFPAY ==
[2023-09-28 10:03] LABS: MANUAL DIFF FLAG NO
[2023-09-28 10:53] LABS: Basophils Absolute Auto 0.1 X10*3/uL (0.0-0.2); Eosinophils Absolute Auto 0.4 X10*3/uL (0.0-0.4); Eosinophils Percent Auto 6.2 % (0-4); Hematocrit 37.6 % (37.0-47.0); Hemoglobin 11.7 g/dl (12.0-16.0); Imm Gran Abs Auto 0.02 X10*3/uL (0.00-0.03); Imm Gran Pct Auto 0.3 % (0.0-0.4); Immature Retic Fraction 7.5 % (3.0-15.9); Lymphocytes Percent Auto 34.8 % (20-40); Mean Corpuscular HGB Conc 31.1 g/dl (31.0-35.0); Mean Corpuscular Hemoglobin 26.8 pg (27.0-33.0); Mean Corpuscular Volume 86.2 fL (80.0-98.0); Mean Platelet Volume 10.1 fL (9.4-12.3); Monocytes Absolute Auto 0.3 X10*3/uL (0.1-1.2); Monocytes Percent Auto 5.1 % (2-11); Neutrophils Absolute Auto 3.1 x10*3/uL (2.0-8.3); Neutrophils Percent Auto 52.6 % (45-73); Platelet Count 279 X10*3/uL (160-400); Red Blood Count 4.36 X10*6/uL (4.20-5.50); Red Cell Distribution Width 14.7 % (11.0-16.0); Retic HGB Equivalent 30.7 pg (30.0-35.0); Reticulocyte Percent 0.8 % (0.5-1.8); Reticulocytes Absolute 0.034 X10*6/uL (0.026-0.095); White Blood Count 5.8 X10*3/uL (4.8-10.8)
[2023-09-28 11:32] LABS: Iron 41 mcg/dL (30-160); Percent Iron Saturation 15 % (15-50); Total Iron Binding Capacity 280 mcg/dL (228-428); Unsaturated Iron Binding 239 ug/dL
[2023-09-28 11:55] LABS: Ferritin 20 ng/mL (10-250); Free T4 (Free Thyroxine) 1.15 ng/dL (0.71-1.85); Thyroid Stimulating Hormone 0.65 uIU/mL (0.32-4.0)
[2023-09-28 11:58] LABS: Folate 13.6 ng/mL (> or = 4.0); Vitamin B12 620 pg/mL (200-900)
== END 2023-09-28 09:37 | disposition home or self-care (01) ==
LOC: HO.LAB 09:36
PROVIDERS: PCP Internal Medicine; Visit Provider Internal Medicine
DX: D64.9 Anemia, unspecified (principal); E03.9 Hypothyroidism, unspecified
CPT/HCPCS: 36415; 82607; 82728; 82746; 83540; 84439; 84443; 85025; 85045

== ENCOUNTER 2023-10-02 08:23 | Outpatient (REF) | payer OTHER, SELFPAY ==
[2023-10-02 09:39] LABS: Appearance Urine Clear; Color Urine Yellow; Glucose Urine UA Negative (Negative); Leukocyte Esterase Urine Moderate (2+) (Negative); Nitrite Urine Negative (Negative); PH 5.5 (5.0-9.0); Specific Gravity - Urine 1.025 (1.005-1.025); UMIC TRIGGER UACC YES; Urine Blood Negative (Negative); Urine Ketones Negative (Negative); Urine Protein Negative (Neg-Trace)
[2023-10-02 09:44] LABS: Bacteria Urine None Seen (None Seen); Hyaline Casts Urine 0-2 /LPF (0-2); UACC Culture Trigger YES; WBC Urine 21-50 /HPF (0-5)
== END 2023-10-02 08:24 | disposition home or self-care (01) ==
LOC: HO.LAB 08:23
PROVIDERS: PCP Internal Medicine; Visit Provider Internal Medicine
DX: R30.0 Dysuria (principal); M54.50 Low back pain, unspecified
CPT/HCPCS: 81001; 87086

== ENCOUNTER 2023-10-23 08:18 | Emergency (ER) | payer OTHER, SELFPAY ==
--- NOTE | ~2023-10-23 | XR_ITS ---
EXAMINATION: XR WRIST, RIGHT CLINICAL INFORMATION: Pain after fall 2 months ago. COMPARISON: None available. TECHNIQUE: PA, lateral, and oblique views of the right wrist. FINDINGS: The bones and soft tissues are normal. No fracture. Alignment is anatomic with normal joint spaces. No erosions or abnormal soft tissue calcifications. XR/XR wrist RT min 3V IMPRESSION: Unremarkable right wrist exam
[2023-10-23 08:29] VITALS: BP 112/69; PULSE 69; RESP 16; TEMP 36.4; O2SAT 98; BMI 25.5
--- NOTE | 2023-10-23 09:27 | ED.EXTPRO ---
HPI - Extremity Problem General Chief complaint: Extremity Injury, Upper Stated complaint: R Wrist Hand Pain S/P Fall 2 Months Ago Time Seen by Provider: 10/23/23 09:02 Source: patient and manager international Mode of arrival: ambulatory Limitations: language barrier History of Present Illness HPI Narrative: Patient is a 68-year-old szyos-hsxy-ezrvffzh Georgian-speaking female presenting to the emergency department with complaint of right hand pain. Patient reports that she slipped due to her slippers 2 months ago and fell onto outstretched hands. States she initially had an abrasion to which she applied [id number] ointment to. States abrasion has since improved and denies pain at rest but reports pain when she bumps affected area of hand. Has used Tylenol intermittently with good relief. Denies any numbness or tingling. MD Complaint: extremity pain Onset (ago): month(s) Pain Consistency: intermittent Location: right and upper extremity Quality: aching Radiation: none Relieving factors: rest Associated symptoms: denies other symptoms Related Data Previous Rx's Medication Instructions Recorded betamethasone, augmented 0.05 % 1 appl topical BID allergic 09/21/22 topical ointment reaction 7 days #45 grams cyclobenzaprine 10 mg tablet 10 mg PO Q8H #10 tabs 11/27/22 metoprolol succinate 25 mg 25 mg PO DAILY #90 tabs 03/08/23 tablet,extended release 24 hr miscellaneous medical supply 1 ea miscellaneous DAILY #1 ea 04/24/23 naproxen 500 mg tablet 500 mg PO BID PRN pain #14 tabs 04/24/23 lidocaine 5 % topical patch 1 patch topical DAILY #30 ea 05/02/23 simvastatin 20 mg tablet 20 mg PO DAILY #90 tabs 05/11/23 ferrous sulfate 325 mg (65 mg 325 mg PO DAILY #90 tabs 06/18/23 iron) tablet (Feosol) cyanocobalamin (vitamin B-12) 1,000 mcg PO DAILY #90 caps 07/23/23 1,000 mcg capsule ascorbate calcium (vitamin C) 500 500 mg PO DAILY #90 tabs 09/14/23 mg tablet zolpidem 5 mg tablet 5 mg PO BEDTIME #30 tabs 09/24/23 levothyroxine 75 mcg tablet 75 mcg PO DAILY #90 tabs 09/25/23 sennosides 8.6 mg-docusate sodium 2 tab-cap (2 x 8.6-50 mg) PO 09/28/23 50 mg tablet (Senna-S) BEDTIME #60 tabs simethicone 125 mg capsule 125 mg PO TID-QID PRN abdominal 09/28/23 distention #30 caps tramadol 50 mg tablet 50 mg PO BID 30 days #60 tabs 09/28/23 albuterol sulfate 90 mcg/actuation 2 puff inhalation Q4-6H PRN for 10/02/23 aerosol inhaler (Ventolin HFA) wheezing #18 ea Allergies Allergy/AdvReac Type Severity Reaction Status Date / Time No Known Allergies Allergy Verified 09/28/23 08:40 Review of Systems Review of Systems: As per HPI. Yes all other systems are reviewed and are negative Constitutional: Constitutional: Reports as per HPI [facility] Past Medical History Medical History Plantar fasciitis Annual physical exam Headache Cervical cancer screening Breast cancer screening by mammogram Colon cancer screening declined Colonoscopy refused Overweight (BMI 25.0-29.9) Vitamin B12 deficiency Impaired glucose tolerance Hypothyroid Hypercholesterolemia Hypertension Insomnia Carpal tunnel syndrome Family History Family History Father No problems noted. Mother No problems noted. Sister History of breast cancer, Onset Age: 50 Social History Housing: Apartment Alcohol intake: never Patient Tobacco Use Status: Never used Tobacco Tobacco use type: Cigarette e-Cigarette/Vaping Use: Never Used Second Hand Smoke Exposure: No Advance Directives: No service: No Current occupational status: retired Sexual orientation: Straight/Heterosexual Gender identity: Female Cognitive needs: No Hearing needs: No Vision needs: Yes Physical Exam Vital Signs: Vital Signs: Last Vital Signs Temp 97.6 F 10/23/23 08:29 Pulse 69 10/23/23 08:29 Resp 16 10/23/23 08:29 BP 112/69 10/23/23 08:29 Pulse Ox 98 10/23/23 08:29 O2 Del Method Room Air 10/23/23 08:29 BMI result Body Mass Index 25.5 Vital signs have been reviewed and appear to be correct. Blood pressure normal. Heart rate normal. Respiratory rate normal. Temperature normal. Oxygen saturation normal. Const: General: cooperative, healthy appearing and no acute distress Orientation/consciousness: oriented to person, oriented to place, oriented to time and patient oriented x3 Limitations: no limitations HEENT: Head: Yes normocephalic and Yes atraumatic Ears: external ears normal General nose exam: Normal external nose present Face and sinus: Yes face symmetric Mouth: oropharynx normal and moist mucous membranes Throat: Yes uvula midline Eyes: Pupils: Equal, round and reactive pupils present Neck: Neck: Yes normal visual inspection and Yes supple Resp: Effort & Inspection: normal respiratory effort and able to speak in complete sentences Auscultation: clear to auscultation bilaterally Cardio: Rate: regular rate Rhythm: regular rhythm Heart sounds: S1 normal heart sound present and S2 normal heart sound present GI: Palpation (GI): Soft to palpation and nontender Auscultation: normoactive bowel sounds : General: Yes no CVA tenderness Back/Spine/Pelvis: Back: no CVA tenderness Skin: General skin exam: elasticity normal and turgor normal Neuro: General: oriented to person, oriented to place, oriented to time, patient oriented x3, moves all extremities, no focal motor deficits and CN's II-XI intact bilaterally Cranial nerves: Yes Equal, round and reactive pupils present Cognition (Neuro): normal cognition Extrem: General: Yes full ROM, Yes no pedal edema and Yes no calf tenderness Right upper extremity: Extremity exam: right hand Details: normal to inspection, normal capillary refill, neuromotor exam abnormal, neurosensory exam normal, tenderness Location: of the palm (over pisiform) and normal ROM of fingers Psych: Mental Status: mental status grossly normal Affect: normal affect Thought process: Normal thought process present Medical Decision Making Medical Decision Making MDM Narrative: Patient is a 68-year-old fjeqf-gtvi-ibtynkzz Georgian-speaking female presenting to the emergency department with complaint of right hand pain. On exam patient is awake, A+Ox3, VS WNL, afebrile, normal neurological exam without focal deficits, physical exam findings as above. Given reported symptoms and physical exam findings, initial differential includes contusion, fracture. X-ray notable for no acute fracture. My interpretation is in agreement with the radiologist's interpretation. Discussed with patient that it is possible she had minor fracture initially which has since healed, but pain is likely due to contusion. Advised patient to apply ice to affected area with acute episodes of pain. Will refer to ortho for any ongoing symptoms. Return precautions discussed. Patient verbalized understanding of and agreement with plan. Differential Diagnosis Differential Diagnoses: The differential diagnosis associated with the presentation includes As per MDM. Independent Interpretation I performed an independent interpretation of an: Plain X-Ray Interpretation: no acute fracture Radiology Impression Discussion of test interpretation with radiology: I have reviewed the radiologist's reading. Radiologist Impression: XR/XR wrist RT min 3V IMPRESSION: Unremarkable right wrist exam External Record Review External record reviewed: Inpatient record, Office record and Outpatient record Discharge Plan Discharge Clinical Impression: Hand pain, right Patient Disposition: Home, Self-Care Instructions: Contusion in Adults (ED) Additional Instructions: Hoy lo evaluaron en el departamento de emergencias por dolor en la mano derecha. Ortiz radiograf?a no mostr? evidencia de fractura. Es posible que haya tenido pascual daisy?a fractura en el momento inicial de la lesi?n y que ya haya sanado. Si es necesario, puede karyn 650 mg de Tylenol o 600 mg de ibuprofeno cada 6 horas seg?n sea necesario para el dolor. Tambi?n puede aplicar hielo en el ?valorie judie 10 a 15 minutos seguidos varias veces al d?a, teniendo cuidado de no aplicar hielo directamente sobre la piel. Lo derivan a [employer] por cualquier s?ntoma continuo; llame a ortiz consultorio para programar pascual angus si es necesario. Regrese al departamento de emergencias si presenta nuevo entumecimiento, hormigueo, debilidad o cambio de color en la mano. Prescriptions: No Action betamethasone, augmented 0.05 % ointment 1 appl topical BID 7 Days Qty: 45 0RF Rx Instructions: may use for up to 2 wks then every other day for 2 wks, then prn for two wks metoprolol succinate 25 mg tablet extended release 24 hr 25 mg PO DAILY Qty: 90 3RF lidocaine 5 % adhesive patch,medicated 1 patch topical DAILY Qty: 30 3RF Rx Instructions: leave on most painful area for up to 12 hrs simvastatin 20 mg tablet 20 mg PO DAILY Qty: 90 3RF ferrous sulfate [Feosol] 325 mg (65 mg iron) tablet 325 mg PO DAILY Qty: 90 1RF cyanocobalamin (vitamin B-12) 1,000 mcg capsule 1,000 mcg PO DAILY Qty: 90 3RF ascorbate calcium (vitamin C) 500 mg tablet 500 mg PO DAILY Qty: 90 1RF zolpidem 5 mg tablet 5 mg PO BEDTIME Qty: 30 1RF levothyroxine 75 mcg tablet 75 mcg PO DAILY Qty: 90 1RF tramadol 50 mg tablet 50 mg PO BID 30 Days Qty: 60 1RF albuterol sulfate [Ventolin HFA] 90 mcg/actuation HFA aerosol inhaler 2 puff inhalation Q4-6H PRN (Reason: for wheezing) Qty: 18 2RF cyclobenzaprine 10 mg tablet 10 mg PO Q8H Qty: 10 0RF naproxen 500 mg tablet 500 mg PO BID PRN (Reason: pain) Qty: 14 0RF miscellaneous medical supply Kit 1 ea miscellaneous DAILY Qty: 1 0RF Rx Instructions: Plantar fasciitis daily support relief size Medium x 1 pair. sennosides-docusate sodium [Senna-S] 8.6-50 mg tablet 2 tab-cap PO BEDTIME Qty: 60 1RF simethicone 125 mg capsule 125 mg PO TID-QID PRN (Reason: abdominal distention) Qty: 30 1RF Referrals: [facility] [Provider Group] Print Language: Georgian
--- NOTE | 2023-10-23 09:57 | PC.NURSE ---
patient a&ox3, pt c/o rt hand pain 03/05, pt + csm/pulses, will be discharged shortly
== END 2023-10-23 10:02 | disposition home or self-care (01) ==
PROVIDERS: Emergency Provider Emergency Medicine; PCP Internal Medicine
DX: M79.641 Pain in right hand (principal); I10 Essential (primary) hypertension; E78.00 Pure hypercholesterolemia, unspecified; Z79.899 Other long term (current) drug therapy; Z79.02 Long term (current) use of antithrombotics/antiplatelets
CPT/HCPCS: 73110; 99282; 99283

== ENCOUNTER 2023-11-09 09:34 | Outpatient (AMB) | payer OTHER, SELFPAY ==
--- NOTE | 2023-11-09 09:41 | MHC.OFFVIS ---
Intake Vital Signs 11/09/23 09:48 Height 5 ft Weight 129 lb 3.054 oz BMI 25.2 BP 143/73 H Blood Pressure Location Lt brachial Position Sitting Pulse 76 Intake Visit Reasons: Colonoscopy Screening Intake Note: Patient presents to in office visit today as a new patient for colonoscopy screening. CC: Patient c/o abdominal pain for about 2 months, a lot of gas, acid reflux, and heartburn. Patient has never had colonoscopy done before. Assistant Distribution Manager Required: Yes Accompanied by: Self / Same As Patient Allergies No Known Allergies Allergy (Verified 11/09/23 09:51) HPI Colonoscopy Screening HPI Details 68-year-old female here for a preprocedural meeting to discuss a screening colonoscopy. She is referred by Fran Lazaro of [facility] primary care. PMX Asthma Hypertension Hypothyroid High cholesterol Pernicious anemia Impaired glucose tolerance Osteopenia Shingles Sacroiliitis Plantar fasciitis Constipation Insomnia Carpal tunnel syndrome * SURGICAL HISTORY Pt denies * ALLERGIES: NKDA * [employer] LABS: Laboratory Tests 09/18/23 09/18/23 09/28/23 08:56 08:56 10:02 WBC 5.8 Hgb 11.7 L Hct 37.6 MCV 86.2 MCH Plt Count Estimated GFR > 60 Ferritin 20 Total Bilirubin 0.3 AST 21 ALT 15 Alkaline Phosphata se 70 TSH 09/28/23 10:02 WBC Hgb Hct MCV MCH 26.8 L Plt Count 279 Estimated GFR Ferritin Total Bilirubin AST ALT Alkaline Phosphata se TSH 0.65 TODAY'S VISIT [place] [facility] She has declined colonoscopy in the past because she was fearful of anesthesia. I spend a great deal of time educating her about the difference between full anesthesia and sedation and how safe the current sedation is. In the end she agrees to the procedure. This is a very long appointment because I have to go over much of the sedation and the procedure in great and gentle detail in order to ease her fears. She has occasional CIC that resolves with diet/water changes, no rectal bleeding. She experiences pain in the mid to lower abdomen that happens frequently and then I will start burping. She was given a gas pill by her PCP but it does not help. She also has borborygmus. This was of sudden onset about 2 mos ago and she thought it was because I was using vitamin C, so I stopped, but this did not help it. She has a LOT of bloating and gas. Her appetite is good and I eat a lot, but she is losing weight. She has lost 15 lbs over the past 8 mos, but admits I walk a lot, but her exercise level has not changed. She is completely naive to anesthesia and sedation. Her asthma is well controlled and she denies any cardiac problems. NO ID problems. No know FHX of crc o r polyps Return office visit in 6 weeks to go over labs and of course after the procedure. [facility] Medical History Plantar fasciitis Annual physical exam Headache Cervical cancer screening Breast cancer screening by mammogram Colon cancer screening declined Colonoscopy refused Overweight (BMI 25.0-29.9) Vitamin B12 deficiency Impaired glucose tolerance Hypothyroid Hypercholesterolemia Hypertension Insomnia Carpal tunnel syndrome Surgical History No pertinent past surgical history Family History Father No problems noted. Mother No problems noted. Sister History of breast cancer, Onset Age: 50 Social History Housing: Apartment Alcohol intake: never Patient Tobacco Use Status: Never used Tobacco Tobacco use type: Cigarette e-Cigarette/Vaping Use: Never Used Second Hand Smoke Exposure: No service: No Current occupational status: retired Sexual orientation: Straight/Heterosexual Gender identity: Female Cognitive needs: No Hearing needs: No Vision needs: Yes Female Reproductive History Menstrual Age of Menarche: 16 Review of Systems Const Denies fatigue, Denies fever(s), Denies night sweats, Denies poor appetite and Denies weight loss Eyes Reports requires corrective lenses ENT Reports Normal hearing present, Denies dental pain, Denies dysphagia, Denies hearing loss, Denies mouth pain, Denies odynophagia, Denies throat swelling, Denies tongue swelling and Reports other (Dentition adequate) GI Denies abdominal pain, Denies melena, Denies bloating, Denies hematochezia, Denies constipation, Denies GI cramping, Denies dysphagia, Denies excessive flatus, Denies early satiety, Denies heartburn, Denies diarrhea, Denies nausea, Denies odynophagia, Denies vomiting and Denies hematemesis Skin/Breast Denies pruritus, Denies lesions, Denies rash and Denies jaundice Neuro Reports Normal hearing present and Denies Abnormal speech present Endo Denies fatigue Aller/Immun Denies throat swelling and Denies tongue swelling Physical Exam Vital Signs: Last Vital Signs Pulse 76 11/09/23 09:48 BP 143/73 H 11/09/23 09:48 BMI result Body Mass Index 25.2 Const General: cooperative, no acute distress, well developed and well groomed Nutritional Appearance: average body habitus and well nourished Orientation/consciousness: oriented to person, oriented to place and oriented to time Limitations: language barrier HEENT Head: Yes normocephalic and Yes atraumatic Eyes General: appearance normal, both eyes and all related structures Pupils: Equal, round and reactive pupils present Neck Neck: Yes normal visual inspection and Yes no lymphadenopathy Thyroid: Thyroid normal Resp Effort & Inspection: normal respiratory effort and able to speak in complete sentences Auscultation: clear to auscultation bilaterally Cardio Rate: regular rate Rhythm: regular rhythm Heart sounds: Normal, physiologic split S2 sound present Peripheral pulses: radial pulses present and posterior tibial pulses present GI Inspection: No distended and No Abdominal panniculus present Palpation (GI): Soft to palpation, nontender, no guarding, not rigid and No hepatosplenomegaly present Percussion: Yes normal to percussion Auscultation: normal bowel sounds Rectal Exam - Female: deferred Skin General skin exam: no rashes or lesions noted, turgor normal, skin not dry, no jaundice, No spider nevi and no striae Rashes: no rashes Nails: normal Neuro General: oriented to person, oriented to place and oriented to time Cranial nerves: Yes Equal, round and reactive pupils present and Yes Normal hearing present Speech: No Abnormal speech present Extrem General: Yes normal to inspection, No clubbing, No cyanosis and No edema Psych Appearance: grossly normal and well kempt Mental Status: mental status grossly normal Speech and movement: Normal speech and movement present Affect: normal affect Attitude: cooperative Thought process: Normal thought process present and not confabulating Thought content: Normal thought content present Insight: Limited insight present (Psych) Judgement: Limited judgement present (Psych) Assessment & Plan Assessment & Plan (1) Pre-op examination: Code(s): Z01.818 - Encounter for other preprocedural examination (2) Asthma: Code(s): J45.909 - Unspecified asthma, uncomplicated (3) Abdominal cramping: Code(s): R10.9 - Unspecified abdominal pain (4) Abdominal pain: Code(s): R10.9 - Unspecified abdominal pain (5) Impaired glucose tolerance: Code(s): R73.02 - Impaired glucose tolerance (oral) (6) Abnormal weight loss: Code(s): R63.4 - Abnormal weight loss Plan [place] [employer] She has declined colonoscopy in the past because she was fearful of anesthesia. I spend a great deal of time educating her about the difference between full anesthesia and sedation and how safe the current sedation is. In the end she agrees to the procedure. This is a very long appointment because I have to go over much of the sedation and the procedure in great and gentle detail in order to ease her fears. She has occasional CIC that resolves with diet/water changes, no rectal bleeding. She experiences pain in the mid to lower abdomen that happens frequently and then I will start burping. She was given a gas pill by her PCP but it does not help. She also has borborygmus. This was of sudden onset about 2 mos ago and she thought it was because I was using vitamin C, so I stopped, but this did not help it. She has a LOT of bloating and gas. Her appetite is good and I eat a lot, but she is losing weight. She has lost 15 lbs over the past 8 mos, but admits I walk a lot, but her exercise level has not changed. She is completely naive to anesthesia and sedation. Her asthma is well controlled and she denies any cardiac problems. NO ID problems. No know FHX of crc o r polyps Return office visit in 6 weeks to go over labs and of course after the procedure. Orders: Orders US abdomen complete Today R10.9 - Unspecified abdominal pain Glucose 2 Hour PP Today R63.4 - Abnormal weight loss, R73.02 - Impaired glucose tolerance (oral) Colonoscopy - GI Use Only Today Z01.818 - Encounter for other preprocedural examination Hemoglobin A1c Today R63.4 - Abnormal weight loss, R73.02 - Impaired glucose tolerance (oral) UA CC w/rflx Micro + Cult Today R63.4 - Abnormal weight loss, R73.02 - Impaired glucose tolerance (oral) Medications: New sodium,potassium,mag sulfates 17.5-3.13-1.6 gram (Suprep Bowel Prep Kit) 480 mL orally; FOR COLONOSCOPY PREP 354 mL 0RF dicyclomine 10 mg PO QID 120 caps 6RF R10.9 - Unspecified abdominal pain Coding Level of Care Code New Pt Level 3 (98784) Diagnoses Pre-op examination Z01.818 Asthma J45.909 Abdominal cramping R10.9 Abdominal pain R10.9 Impaired glucose tolerance R73.02 Abnormal weight loss R63.4
[2023-11-09 09:48] VITALS: BP 143/73; PULSE 76; BMI 25.2
== END 2023-11-09 11:11 | disposition home or self-care (01) ==
PROVIDERS: PCP Internal Medicine; Visit Provider Nurse Practitioner
DX: R10.9 Unspecified abdominal pain (principal); R63.4 Abnormal weight loss; Z01.818 Encounter for other preprocedural examination; Z12.11 Encounter for screening for malignant neoplasm of colon; R73.02 Impaired glucose tolerance (oral)
CPT/HCPCS: 99203

== ENCOUNTER 2023-11-09 09:34 | Outpatient (REF) | payer OTHER, SELFPAY ==
[2023-11-09 12:14] LABS: Glucose 2 Hour PP 104 mg/dL (60-115)
[2023-11-09 12:23] LABS: Estimated Average Glucose 126 mg/dL
[2023-11-09 18:45] LABS: Appearance Urine Clear; Color Urine Yellow; Glucose Urine UA Negative (Negative); Leukocyte Esterase Urine Trace (Negative); Nitrite Urine Negative (Negative); Specific Gravity - Urine >= 1.030 (1.005-1.025); UMIC TRIGGER UACC YES; Urine Blood Negative (Negative); Urine Ketones Trace mg/dL (Negative); Urine Protein Negative (Neg-Trace)
[2023-11-09 18:54] LABS: Bacteria Urine None Seen (None Seen); Hyaline Casts Urine 0-2 /LPF (0-2); WBC Urine 0-5 /HPF (0-5)
== END 2023-11-09 09:35 | disposition home or self-care (01) ==
LOC: HO.LAB 09:34
PROVIDERS: PCP Internal Medicine; Visit Provider Nurse Practitioner
DX: Z01.818 Encounter for other preprocedural examination (principal); R63.4 Abnormal weight loss; R73.02 Impaired glucose tolerance (oral)
CPT/HCPCS: 36415; 81001; 82947; 83036; 99202

== ENCOUNTER 2023-12-11 08:35 | Outpatient (REF) | payer OTHER, SELFPAY ==
--- NOTE | ~2023-12-11 | US_ITS ---
EXAMINATION: US ABDOMEN COMPLETE CLINICAL INFORMATION: Unspecified abdominal pain. COMPARISON: None available. TECHNIQUE: Real-time imaging of the abdominal viscera. FINDINGS: PANCREAS: Normal. ABDOMINAL AORTA: The proximal, mid, and distal segments are normal in caliber. INFERIOR VENA CAVA: Visualized portions are normal. LIVER: Liver has normal size and contour. 2 x 1.8 x 2.4 cm lobulated cyst in the left lobe has thin septation. There is a 1.2 x 1 x 1 cm simple cyst in the right lobe. No liver imaging follow-up is recommended for these cysts. No intrahepatic bile duct dilatation. GALLBLADDER: Normal. The gallbladder is physiologically distended without evidence of stones, sludge, polyps, wall thickening or pericholecystic fluid. COMMON BILE DUCT: Normal in caliber measuring 0.5 cm in diameter. RIGHT KIDNEY: Normal. No hydronephrosis. No renal calculi or focal parenchymal lesions. The kidney measures 8.7 cm in maximum dimension. LEFT KIDNEY: No hydronephrosis or renal calculi. The kidney measures 9.9 cm in maximum dimension. There are 1.8 cm and 1 cm simple cysts of the left kidney. No renal imaging follow-up is recommended for simple cysts. SPLEEN: Normal. The spleen measures 8.7 cm in maximum dimension. FREE FLUID: None. US/US abdomen complete IMPRESSION: * No specific source of abdominal pain is identified. * No evidence of cholelithiasis, cholecystitis or biliary tract obstruction. * Incidentally noted are benign liver and renal cysts.
== END 2023-12-11 08:36 | disposition home or self-care (01) ==
LOC: HO.US 08:35
PROVIDERS: PCP Internal Medicine; Visit Provider Nurse Practitioner
DX: R10.9 Unspecified abdominal pain (principal)
CPT/HCPCS: 76700

== ENCOUNTER 2023-12-13 16:08 | Emergency (ER) | payer OTHER, SELFPAY ==
[2023-12-13 16:30] VITALS: BP 152/67; PULSE 74; RESP 16; TEMP 36.4; O2SAT 98; BMI 24.4
[2023-12-13 16:55] LABS: MANUAL DIFF FLAG NO
[2023-12-13 17:04] LABS: Basophils Percent Auto 0.2 % (0-2); Eosinophils Absolute Auto 0.1 X10*3/uL (0.0-0.4); Eosinophils Percent Auto 1.2 % (0-4); Hematocrit 37.1 % (37.0-47.0); Hemoglobin 11.6 g/dl (12.0-16.0); Imm Gran Abs Auto 0.01 X10*3/uL (0.00-0.03); Imm Gran Pct Auto 0.2 % (0.0-0.4); Lymphocytes Absolute Auto 2.4 X10*3/uL (1.2-4.9); Lymphocytes Percent Auto 40.3 % (20-40); Mean Corpuscular HGB Conc 31.3 g/dl (31.0-35.0); Mean Corpuscular Hemoglobin 26.1 pg (27.0-33.0); Mean Corpuscular Volume 83.4 fL (80.0-98.0); Mean Platelet Volume 9.8 fL (9.4-12.3); Monocytes Absolute Auto 0.4 X10*3/uL (0.1-1.2); Monocytes Percent Auto 6.2 % (2-11); Neutrophils Absolute Auto 3.1 x10*3/uL (2.0-8.3); Neutrophils Percent Auto 51.9 % (45-73); Platelet Count 279 X10*3/uL (160-400); Red Blood Count 4.45 X10*6/uL (4.20-5.50); Red Cell Distribution Width 14.1 % (11.0-16.0); White Blood Count 5.9 X10*3/uL (4.8-10.8)
[2023-12-13 17:10] LABS: IDNOW Serial# 152EDE1D; Influenza A Negative (Negative); Influenza B2 Negative (Negative)
[2023-12-13 17:11] LABS: Anion Gap 16 (12-20); Blood Urea Nitrogen 12 mg/dL (9-16); Calcium 9.4 mg/dL (8.4-10.2); Carbon Dioxide 25 mmol/L (22-29); Chloride 105 mmol/L (96-108); Estimated Glomerular Filt Rate > 60; Glucose Random 102 mg/dL (60-115); Potassium 3.9 mmol/L (3.3-5.1); Sodium 142 mmol/L (135-145)
[2023-12-13 19:42] VITALS: BP 158/83; PULSE 68; RESP 16; TEMP 36.8; O2SAT 99
[2023-12-13 20:05] LABS: COVID-19 Test Positive (Negative); IDNOW Serial# 6674DD1D
--- NOTE | 2023-12-13 22:00 | ED_ITS ---
HPI - Fever General Chief Complaint: Fever Stated Complaint: dizziness, nausea, vomiting Time Seen by Provider: 12/13/23 21:58 Source: patient and family Mode of arrival: ambulatory Limitations: no limitations History of Present Illness HPI Narrative: Patient complaining of increased lethargy body ache fever nausea for last 5 days does have dry cough no increased shortness of breath no family member sick no nausea no vomiting no abdominal pain Related Data Home Medications Medication Instructions Recorded Confirmed cyclobenzaprine 10 mg tablet 10 mg PO Q8H PRN 11/09/23 Previous Rx's Medication Instructions Recorded betamethasone, augmented 0.05 % 1 appl topical BID allergic 09/21/22 topical ointment reaction 7 days #45 grams metoprolol succinate 25 mg 25 mg PO DAILY #90 tabs 03/08/23 tablet,extended release 24 hr miscellaneous medical supply 1 ea miscellaneous DAILY #1 ea 04/24/23 naproxen 500 mg tablet 500 mg PO BID PRN pain #14 tabs 04/24/23 simvastatin 20 mg tablet 20 mg PO DAILY #90 tabs 05/11/23 ascorbate calcium (vitamin C) 500 500 mg PO DAILY #90 tabs 09/14/23 mg tablet levothyroxine 75 mcg tablet 75 mcg PO DAILY #90 tabs 09/25/23 sennosides 8.6 mg-docusate sodium 2 tab-cap (2 x 8.6-50 mg) PO 09/28/23 50 mg tablet (Senna-S) BEDTIME #60 tabs simethicone 125 mg capsule 125 mg PO TID-QID PRN abdominal 09/28/23 distention #30 caps HUMIDIFIER #1 ea 10/26/23 cyanocobalamin (vitamin B-12) 1,000 mcg PO DAILY #90 tabs 10/31/23 1,000 mcg tablet dicyclomine 10 mg capsule 10 mg PO QID #120 caps 11/09/23 sodium,potassium,mag sulfates 17.5 480 ml PO .COMPLEX #354 mL 11/09/23 gram-3.13 gram-1.6 gram oral soln (Suprep Bowel Prep Kit) zolpidem 5 mg tablet 5 mg PO BEDTIME #30 tabs 11/22/23 lidocaine 5 % topical patch 1 patch topical DAILY #30 ea 11/27/23 tramadol 50 mg tablet 50 mg PO BID 30 days #60 tabs 01/07/24 albuterol sulfate 90 mcg/actuation 2 puff inhalation Q4-6H PRN for 12/13/23 aerosol inhaler (Ventolin HFA) wheezing #18 ea benzonatate 200 mg capsule 200 mg PO TID PRN cough #30 caps 12/13/23 ferrous sulfate 325 mg (65 mg 325 mg PO DAILY #90 tabs 12/13/23 iron) tablet (Feosol) ibuprofen 600 mg tablet 600 mg PO Q6H PRN fever or pain 12/13/23 #30 tabs ondansetron 4 mg disintegrating 4 mg PO Q6-8H PRN nausea and 12/13/23 tablet vomiting #7 tabs Allergies Allergy/AdvReac Type Severity Reaction Status Date / Time No Known Allergies Allergy Verified 11/09/23 09:51 Review of Systems 2 Review of Systems: Yes all other systems are reviewed and are negative PMFSH Past Medical History Onset Date is defined in the Problem List Problems that require an onset date and time if occurred within 24 hrs of arrival to the ED Aortic Dissection and Rupture; Neurologic impairment; Cardiopulmonary Arrest; Endotracheal Intubation; Insertion or Replacement of Mechanical Circulatory Assist Device Medical History Plantar fasciitis Annual physical exam Headache Cervical cancer screening Breast cancer screening by mammogram Colon cancer screening declined Colonoscopy refused Overweight (BMI 25.0-29.9) Vitamin B12 deficiency Impaired glucose tolerance Hypothyroid Hypercholesterolemia Hypertension Insomnia Carpal tunnel syndrome Surgical History No pertinent past surgical history Family History Family History Father No problems noted. Mother No problems noted. Sister History of breast cancer, Onset Age: 50 Social History Social History Housing: Apartment Alcohol intake: never Patient Tobacco Use Status: Never used Tobacco Tobacco use type: Cigarette Smoked in Last 30 Days: No e-Cigarette/Vaping Use: Never Used Second Hand Smoke Exposure: No Use of substances other than those prescribed or required for medical reasons: No Advance Directives: No Advance Directives Information Provided: No service: No Current occupational status: retired Sexual orientation: Straight/Heterosexual Gender identity: Female Cognitive needs: No Hearing needs: No Vision needs: Yes Physical Exam 2 Vital Signs: Vital Signs: Last Vital Signs Temp 98.4 F 12/13/23 22:29 Pulse 63 12/13/23 22:29 Resp 16 12/13/23 22:29 BP 145/67 H 12/13/23 22:29 Pulse Ox 97 12/13/23 22:29 O2 Del Method Room Air 12/13/23 22:29 BMI result Body Mass Index 24.4 Appearance: Alert. Oriented X3. No acute distress. Eyes: PERRLA, No Nystagmus ENT: Pharynx normal. Oral Mucosa moist Neck: Normal inspection. Neck supple. CVS: Normal heart rate and rhythm. Pulses normal. Respiratory: No respiratory distress. Equal air entry bilateral, no wheezing/rales/rhonchi Abdomen: Soft and nontender. Bowel sounds are present, no mass palpable, no CVA tenderness Skin: Skin warm and dry. Normal skin color. Normal skin turgor. Extremities: No lower extremity edema. No calf tenderness Neuro: Oriented X 3. No motor deficit. Medications Administered Discontinued Medications Generic Name Dose Route Start Last Admin Trade Name Freq PRN Reason Stop Dose Admin Guaifenesin/Codeine Phosphate 10 ml 12/13/23 22:29 12/13/23 23:22 Guaifen/Codeine Sf 200/20/10ml 10 Ml Liquid PO 12/13/23 22:30 10 ml ONCE ONE Administration Ondansetron HCl 4 mg 12/13/23 22:29 12/13/23 23:22 Ondansetron Odt 4 Mg Tab.Rapdis TRANSLINGU 12/13/23 22:30 4 mg ONCE ONE Administration Medical Decision Making Medical Decision Making [facility] Narrative: Patient's workup showed COVID positive leg the cause of her symptoms vitals are stable no hypoxia noticed lungs are clear patient advised supportive treatment Differential Diagnosis Differential Diagnoses: The differential diagnosis associated with the presentation includes Viral syndrome/bronchitis Lab Data [facility] Lab Attestation statement: I reviewed the patient's lab results. 12/13/23 16:45 12/13/23 16:45 Labs: Lab Results 12/13/23 12/13/23 Range/Units 16:45 19:48 WBC 5.9 (4.8-10.8) X10*3/uL RBC 4.45 (4.20-5.50) X10*6/uL Hgb 11.6 L (12.0-16.0) g/dl Hct 37.1 (37.0-47.0) % MCV 83.4 (80.0-98.0) fL MCH 26.1 L (27.0-33.0) pg MCHC 31.3 (31.0-35.0) g/dl RDW 14.1 (11.0-16.0) % Plt Count 279 (160-400) X10*3/uL MPV 9.8 (9.4-12.3) fL Immature Gran % (Auto) 0.2 (0.0-0.4) % Neut % (Auto) 51.9 (45-73) % Lymph % (Auto) 40.3 H (20-40) % [place] % (Auto) 6.2 (2-11) % Eos % (Auto) 1.2 (0-4) % Baso % (Auto) 0.2 (0-2) % Lymph # (Auto) 2.4 (1.2-4.9) X10*3/uL [place] # (Auto) 0.4 (0.1-1.2) X10*3/uL Eos # (Auto) 0.1 (0.0-0.4) X10*3/uL Baso # (Auto) 0.0 (0.0-0.2) X10*3/uL Abs Immat Gran (auto) 0.01 (0.00-0.03) X10*3/uL Absolute Neuts (auto) 3.1 (2.0-8.3) x10*3/uL Absolute Nucleated RBC 0.000 (0.0-0.012) X10*3/uL Nucleated RBC % (auto) 0.0 (0.0-0.2) /100WBC Sodium 142 (135-145) mmol/L Potassium 3.9 (3.3-5.1) mmol/L Chloride 105 (96-108) mmol/L Carbon Dioxide 25 (22-29) mmol/L Anion Gap 16 (12-20) BUN 12 (9-16) mg/dL Creatinine 0.73 (0.5-1.4) mg/dL Estim Creat Clear Calc 59.0 Estimated GFR > 60 Random Glucose 102 (60-115) mg/dL Calcium 9.4 (8.4-10.2) mg/dL COVID-19 ([place]) Positive A (Negative) COVID-19 Clin Com See Note Influenza Type A ([place]) Negative (Negative) Influenza Type B ([facility]) Negative (Negative) Influenza A & B Note See Note Discharge Plan Discharge Clinical Impression: COVID-19 Patient Disposition: Home, Self-Care Instructions: COVID-19 (Coronavirus Disease 2019) (ED) Additional Instructions: Drink plenty of fluid Tylenol/Motrin for fever/body aches Med for nausea as prescribed Prescriptions: New ibuprofen 600 mg tablet 600 mg PO Q6H PRN (Reason: fever or pain) Qty: 30 0RF ondansetron 4 mg tablet,disintegrating 4 mg PO Q6-8H PRN (Reason: nausea and vomiting) Qty: 7 0RF benzonatate 200 mg capsule 200 mg PO TID PRN (Reason: cough) Qty: 30 0RF No Action betamethasone, augmented 0.05 % ointment 1 appl topical BID 7 Days Qty: 45 0RF Rx Instructions: may use for up to 2 wks then every other day for 2 wks, then prn for two wks metoprolol succinate 25 mg tablet extended release 24 hr 25 mg PO DAILY Qty: 90 3RF simvastatin 20 mg tablet 20 mg PO DAILY Qty: 90 3RF ascorbate calcium (vitamin C) 500 mg tablet 500 mg PO DAILY Qty: 90 1RF levothyroxine 75 mcg tablet 75 mcg PO DAILY Qty: 90 1RF (DME) HUMIDIFIER See Rx Instructions .Route .MEDSUPPLY Qty: 1 0RF Rx Instructions: As directed cyanocobalamin (vitamin B-12) 1,000 mcg tablet 1,000 mcg PO DAILY Qty: 90 3RF zolpidem 5 mg tablet 5 mg PO BEDTIME Qty: 30 1RF lidocaine 5 % adhesive patch,medicated 1 patch topical DAILY Qty: 30 3RF Rx Instructions: leave on most painful area for up to 12 hrs tramadol 50 mg tablet 50 mg PO BID 30 Days Qty: 60 1RF ferrous sulfate [Feosol] 325 mg (65 mg iron) tablet 325 mg PO DAILY Qty: 90 1RF albuterol sulfate [Ventolin HFA] 90 mcg/actuation HFA aerosol inhaler 2 puff inhalation Q4-6H PRN (Reason: for wheezing) Qty: 18 2RF naproxen 500 mg tablet 500 mg PO BID PRN (Reason: pain) Qty: 14 0RF miscellaneous medical supply Kit 1 ea miscellaneous DAILY Qty: 1 0RF Rx Instructions: Plantar fasciitis daily support relief size Medium x 1 pair. sennosides-docusate sodium [Senna-S] 8.6-50 mg tablet 2 tab-cap PO BEDTIME Qty: 60 1RF simethicone 125 mg capsule 125 mg PO TID-QID PRN (Reason: abdominal distention) Qty: 30 1RF sodium,potassium,mag sulfates [Suprep Bowel Prep Kit] 17.5-3.13-1.6 gram recon soln 480 ml PO .COMPLEX Qty: 354 0RF Rx Instructions: 480 mL orally; FOR COLONOSCOPY PREP cyclobenzaprine 10 mg tablet 10 mg PO Q8H PRN dicyclomine 10 mg capsule 10 mg PO QID Qty: 120 6RF Discharge Date/Time: 12/13/23 23:33
[2023-12-13 22:29] VITALS: BP 145/67; PULSE 63; RESP 16; TEMP 36.9; O2SAT 97
[2023-12-13] MEDS: Ondansetron ODT 4 MG TAB.RAPDIS TRANSLINGU (23:22)
[2023-12-13] MEDS: guaiFEN/Codeine SF 200/20/10ML 10 ML LIQUID PO (23:22)
== END 2023-12-13 23:33 | disposition home or self-care (01) ==
PROVIDERS: Emergency Provider Internal Medicine; PCP Internal Medicine
DX: U07.1 COVID-19 (principal); R50.9 Fever, unspecified; R11.2 Nausea with vomiting, unspecified; R05.9 Cough, unspecified; Z11.52 Encounter for screening for COVID-19; Z79.899 Other long term (current) drug therapy
CPT/HCPCS: 80048; 85025; 87502; 87635; 99283; 99284

== ENCOUNTER 2024-01-11 09:24 | Outpatient (REF) | payer OTHER, SELFPAY ==
[2024-01-11 09:54] LABS: Appearance Urine Clear; Color Urine Yellow; Glucose Urine UA Negative (Negative); Leukocyte Esterase Urine Small (1+) (Negative); Nitrite Urine Negative (Negative); PH 5.5 (5.0-9.0); Specific Gravity - Urine >= 1.030 (1.005-1.025); UMIC TRIGGER UACC YES; Urine Blood Negative (Negative); Urine Ketones Trace mg/dL (Negative); Urine Protein Negative (Neg-Trace)
[2024-01-11 09:59] LABS: Bacteria Urine None Seen (None Seen); Hyaline Casts Urine 0-2 /LPF (0-2); RBC Urine 0-2 /HPF (0-2); UACC Culture Trigger YES
== END 2024-01-11 09:25 | disposition home or self-care (01) ==
LOC: HO.LAB 09:24
PROVIDERS: PCP Internal Medicine; Visit Provider Internal Medicine
DX: Z13.89 Encounter for screening for other disorder (principal)
CPT/HCPCS: 81001; 87086

== ENCOUNTER 2024-01-15 09:25 | Outpatient (AMB) | payer OTHER, SELFPAY ==
[2024-01-15 09:26] VITALS: BP 130/82; PULSE 65; O2SAT 99; BMI 24.4
--- NOTE | 2024-01-15 09:26 | MHC.PC.OV ---
Vital Signs 01/15/24 09:26 Height 5 ft Weight 125 lb BMI 24.4 BP 130/82 Blood Pressure Location Lt brachial Position Sitting Pulse 65 Pulse Source Pulse Oximeter Pulse Oximetry (%) 99 Oxygen Delivery Method Room Air Intake Visit Reasons: constipation Composition Board Press Operator Required: Yes Composition Board Press Operator Language: Kyrgyz Allergies No Known Allergies Allergy (Verified 01/15/24 09:40) Tobacco use date assessed: 01/15/24 Fall risk assessment: No Falls in past year HPI constipation HPI Details [age] year old overweight female with impaired glucose tolerance hypothyroidism hypercholesterolemia hypertension and constipation last seen in September 2023. Patient has mammogram is up-to-date Pap smear is up-to-date PAtient is doing good Pennie Bergeron [id number] willhave colon test January. concern on [facility] Medical History (Updated 01/15/24 @ 09:52 by Fran Lazaro MD) Pre-op examination Colon cancer screening Plantar fasciitis Annual physical exam Headache Cervical cancer screening Breast cancer screening by mammogram Colon cancer screening declined Colonoscopy refused Overweight (BMI 25.0-29.9) Vitamin B12 deficiency Impaired glucose tolerance Hypothyroid Hypercholesterolemia Hypertension Insomnia Carpal tunnel syndrome Surgical History No pertinent past surgical history Family History Father No problems noted. Mother No problems noted. Sister History of breast cancer, Onset Age: 50 Social History Housing: Apartment Alcohol intake: never Patient Tobacco Use Status: Never used Tobacco Tobacco use type: Cigarette e-Cigarette/Vaping Use: Never Used Second Hand Smoke Exposure: No service: No Current occupational status: retired Sexual orientation: Straight/Heterosexual Gender identity: Female Cognitive needs: No Hearing needs: No Vision needs: Yes Female Reproductive History Menstrual Age of Menarche: 16 Questionnaire Thrive Questionnaire Date Thrive assessed: 04/24/23 AUDIT C Alcohol Use Questionnaire (AUDIT-C) 1. How often do you have a drink containing alcohol?: Never 2. How many drinks containing alcohol do you have on a typical day when you are drinking?: 1 or 2 3. How often do you have six or more drinks on one occasion?: Never Total Score: 0 DAVID-7 AMB Questionnaire DAVID-7 Date DAVID - 7 assessed: 04/24/23 Source: Developed by Drs. Torres Anderson, Leida Obrien, Sony Treadwell and colleagues, with an educational farooq from [employer]. Physical exam (Primary Care) Vital Signs: Last Vital Signs Pulse 65 01/15/24 09:26 BP 130/82 01/15/24 09:26 Pulse Ox 99 01/15/24 09:26 Oxygen Delivery Method Room Air 01/15/24 09:26 BMI result Body Mass Index 24.4 Tobacco/Smoking Status: Tobacco use Status Tobacco use date assessed 01/15/24 01/15/24 09:31 Patient Tobacco Use Status Never used Tobacco 01/15/24 09:28 Tobacco use type Cigarette 01/15/24 09:28 e-Cigarette/Vaping Use Never Used 01/15/24 09:28 Thrive Assessment: Date of Thrive Assessment Date Thrive assessed 04/24/23 01/15/24 09:28 Const General: alert; No acute distress Eyes Conjunctivae: conjunctivae normal Resp Auscultation: clear to auscultation bilaterally Cardio Rate: regular rate Rhythm: regular rhythm GI Inspection: Yes normal to inspection Extrem General: Yes normal to inspection and No edema Assessment and Plan Assessment & Plan (1) Hypertension: Code(s): I10 - Essential (primary) hypertension Plan: Continue with blood pressure medication. Decrease salt intake and exercise patient takes metoprolol 25 mg once a day (2) Hypercholesterolemia: Code(s): E78.00 - Pure hypercholesterolemia, unspecified Plan: Avoid fried foods, chicken skin, eggs, butter margarine, pastries and meat. Be it pork or beef they have a lot of cholesterol LDL goal of less than 130 and triglyceride of less than 150 patient takes simvastatin 20 mg once a day (3) Hypothyroid: Code(s): E03.9 - Hypothyroidism, unspecified Plan: Continue with thyroid medication (4) Asthma: Code(s): J45.909 - Unspecified asthma, uncomplicated Plan: Continue with the inhaler as needed (5) Impaired glucose tolerance: Code(s): R73.02 - Impaired glucose tolerance (oral) Plan: Decrease the amount of carbohydrate intake, pasta, bread, rice and potatoes are all sugar and that is aside from all the sweet stuff, remember that fruits are good but they are Sweet also. (6) Anemia: Code(s): D64.9 - Anemia, unspecified Plan: Continue to monitor. Mild unstable (7) Constipation: Code(s): K59.00 - Constipation, unspecified Plan: Three rules for constipation 1. Diet need to have a high fiber diet less of meat 2. Increase oral fluids 3. Exercise patient on iron right now (8) Recurrent UTI: Code(s): N39.0 - Urinary tract infection, site not specified Plan: discussed about reasons for UTI in post menopausal Orders: Orders UA CC w/rflx Micro + Cult Today R30.0 - Dysuria Ferritin 3 Months D64.9 - Anemia, unspecified Comprehensive Met. Panel 3 Months D64.9 - Anemia, unspecified Free T4 (Free Thyroxine) 3 Months D64.9 - Anemia, unspecified Lipid Panel 3 Months D64.9 - Anemia, unspecified, E78.00 - Pure hypercholesterolemia, unspecified Vitamin B12 and Folate 3 Months D64.9 - Anemia, unspecified IRON PROFILE 3 Months D64.9 - Anemia, unspecified Vitamin D 25-OH Total 3 Months D64.9 - Anemia, unspecified Complete Blood Count Auto Diff 3 Months D64.9 - Anemia, unspecified Reticulocyte Count 3 Months D64.9 - Anemia, unspecified Thyroid Stimulating Hormone 3 Months D64.9 - Anemia, unspecified Coding Level of Care Code Est Pt Level 4 (88554) Diagnoses Hypertension I10 Hypercholesterolemia E78.00 Hypothyroid E03.9 Asthma J45.909 Impaired glucose tolerance R73.02 Anemia D64.9 Constipation K59.00 Recurrent UTI N39.0
== END 2024-01-15 10:01 | disposition home or self-care (01) ==
PROVIDERS: PCP Internal Medicine; Visit Provider Internal Medicine
DX: I10 Essential (primary) hypertension (principal); E78.00 Pure hypercholesterolemia, unspecified; E03.9 Hypothyroidism, unspecified; J45.909 Unspecified asthma, uncomplicated; R73.02 Impaired glucose tolerance (oral); D64.9 Anemia, unspecified; K59.00 Constipation, unspecified; N39.0 Urinary tract infection, site not specified
CPT/HCPCS: 99214

== ENCOUNTER 2024-01-24 08:32 | Outpatient (REF) | payer OTHER, SELFPAY ==
[2024-01-24 09:56] LABS: Appearance Urine Clear; Color Urine Yellow; Glucose Urine UA Negative (Negative); Leukocyte Esterase Urine Trace (Negative); Nitrite Urine Negative (Negative); PH 6.5 (5.0-9.0); Specific Gravity - Urine 1.025 (1.005-1.025); UMIC TRIGGER UACC YES; Urine Blood Negative (Negative); Urine Ketones Negative (Negative); Urine Protein Negative (Neg-Trace)
[2024-01-24 09:59] LABS: Bacteria Urine None Seen (None Seen); Hyaline Casts Urine 0-2 /LPF (0-2); RBC Urine 0-2 /HPF (0-2); Squamous Epithelial Cell Urine 0-2 /HPF (0-2); WBC Urine 0-5 /HPF (0-5)
== END 2024-01-24 08:33 | disposition home or self-care (01) ==
LOC: HO.LAB 08:32
PROVIDERS: Nurse Practitioner; PCP Internal Medicine; Visit Provider Internal Medicine
DX: R30.0 Dysuria (principal); R73.02 Impaired glucose tolerance (oral); R63.4 Abnormal weight loss; M54.50 Low back pain, unspecified
CPT/HCPCS: 81001

== ENCOUNTER 2024-02-28 12:53 | Day surgery (SDC) | payer OTHER, SELFPAY ==
--- NOTE | 2024-02-26 15:33 | HO.ANESPROP2 ---
Documented by User: Janet Williamson NP 02/26/24 15:34 HPI - Anesthesia Eval Consult details Narrative: 69yo F for Colonoscopy PMFSH Active Problems Active Problems: All Active Problems (Updated 01/15/24 @ 09:52 by Fran Lazaro MD) Recurrent UTI (Acute) COVID-19 (Acute) Abnormal weight loss (Acute) Abdominal pain (Acute) Abdominal cramping (Acute) Constipation (Acute) Anemia (Acute) Annual physical exam (Acute) Plantar fasciitis (Acute) Sacroiliitis (Acute) Low back pain (Acute) Vitamin D deficiency (Acute) Shingles (Acute) Low back pain (Acute) Pernicious anemia (Acute) Pain of right hip (Acute) Abnormal ultrasound of breast (Acute) Colonoscopy refused (Acute) Vitamin B12 deficiency (Acute) Vulvar itching (Acute) Encounter for annual routine gynecological examination (Acute) Osteopenia (Acute) Insomnia (Acute) Overweight (BMI 25.0-29.9) (Acute) Impaired glucose tolerance (Acute) Asthma (Acute) Hypothyroid (Acute) Hypercholesterolemia (Acute) Hypertension (Acute) Carpal tunnel syndrome (Acute) Past Medical History Medical History Pre-op examination Colon cancer screening Plantar fasciitis Annual physical exam Headache Cervical cancer screening Breast cancer screening by mammogram Colon cancer screening declined Colonoscopy refused Overweight (BMI 25.0-29.9) Vitamin B12 deficiency Impaired glucose tolerance Hypothyroid Hypercholesterolemia Hypertension Insomnia Carpal tunnel syndrome Family History Family History Father No problems noted. Mother No problems noted. Sister History of breast cancer, Onset Age: 50 Surgical History Surgical History No pertinent past surgical history Social History Social History Housing: Apartment Alcohol intake: never Patient Tobacco Use Status: Never used Tobacco Tobacco use type: Cigarette e-Cigarette/Vaping Use: Never Used Second Hand Smoke Exposure: No Are you DNR?: No Advance Directives: No Advance Directives Information Provided: Yes Nutrition Risks: No Nutritional Risk service: No Current occupational status: retired Sexual orientation: Straight/Heterosexual Gender identity: Female Cognitive needs: No Hearing needs: No Vision needs: Yes Meds Allergies Allergy/AdvReac Type Severity Reaction Status Date / Time No Known Allergies Allergy Verified 02/28/24 13:19 Home Medications ?Medication ?Instructions ?Recorded ?Confirmed ?Last Taken ?Type cyclobenzaprine 10 mg tablet 10 mg PO Q8H PRN Muscle Spasm 11/09/23 02/28/24 Unknown History Assessment and Plan Assessment Anesthesia Assessment: Chart Reviewed Documented by User: Juan Manuel Daniel MD 02/28/24 14:00 PMFSH Past Medical History Medical History Pre-op examination Colon cancer screening Plantar fasciitis Annual physical exam Headache Cervical cancer screening Breast cancer screening by mammogram Colon cancer screening declined Colonoscopy refused Overweight (BMI 25.0-29.9) Vitamin B12 deficiency Impaired glucose tolerance Hypothyroid Hypercholesterolemia Hypertension Insomnia Carpal tunnel syndrome Family History Family History Father No problems noted. Mother No problems noted. Sister History of breast cancer, Onset Age: 50 Family history of problems with anesthesia: No Surgical History Surgical History No pertinent past surgical history History of Problems with Anesthesia: No Social History Social History Housing: Apartment Alcohol intake: never Patient Tobacco Use Status: Never used Tobacco Tobacco use type: Cigarette e-Cigarette/Vaping Use: Never Used Second Hand Smoke Exposure: No Are you DNR?: No Advance Directives: No Advance Directives Information Provided: Yes Nutrition Risks: No Nutritional Risk service: No Current occupational status: retired Sexual orientation: Straight/Heterosexual Gender identity: Female Cognitive needs: No Hearing needs: No Vision needs: Yes Meds Allergies Allergy/AdvReac Type Severity Reaction Status Date / Time No Known Allergies Allergy Verified 02/28/24 13:19 Home Medications ?Medication ?Instructions ?Recorded ?Confirmed ?Last Taken ?Type cyclobenzaprine 10 mg tablet 10 mg PO Q8H PRN Muscle Spasm 11/09/23 02/28/24 Unknown History Exam Airway Mallampati Class: II TM Dist: >3cm Neck ROM: Full Denture: Upper and Lower Loose/Missing/Broken Teeth: No Heart: rrr Lungs: cta Assessment and Plan Assessment Anesthesia Assessment: Anesthesia Plan Discussed Final Anesthetic Review Family History of Problems with Anesthesia: No History of Problems with Anesthesia: No NPO: Yes ASA Class: III Final Preanesthetic Review: No Changes in Pt Med Stat, Meds/Allgs Chart Reviewed, Consent Obtained/Reviewed and Anes Risks/Benef Reviewed Patient Risk: Intermediate Procedure Risk: Intermediate Anesthetic Plan Anesthetic Plan: MAC: Disposition: Standard PACU
[2024-02-28 13:16] VITALS: BP 148/81; PULSE 104; RESP 18; TEMP 36.6; O2SAT 96; BMI 25.4
[2024-02-28] MEDS: Lactated Ringers 1,000 ML 100 ML IVCONT (13:22)
--- NOTE | 2024-02-28 14:21 | MHC.SHP ---
Pre-Procedural Eval Section A - 24 Hr Update-Section A only Date of Service: 02/28/24 Section B - Complete if H&P > 30 days Chief Complaint: Screening Details of Present Illness: PMX Asthma Hypertension Hypothyroid High cholesterol Pernicious anemia Impaired glucose tolerance Osteopenia Shingles Sacroiliitis Plantar fasciitis Constipation Insomnia Carpal tunnel syndrome * SURGICAL HISTORY Pt denies * ALLERGIES: NKDA Allergies: Allergies Allergy/AdvReac Type Severity Reaction Status Date / Time No Known Allergies Allergy Verified 02/28/24 13:19 Review of Systems Review of Systems Comment: Ten point ROS negative Exam Exam Comment: Gen appear: No acute distress HEENT: no icterus Chest: No overt resp distress Abd: soft, nontender, nondistended Psych: Stable affect, answering questions appropriately Neuro: A/Ox3 noted to move all extremities spontaneously Ext: no peripheral edema Plan Diagnosis/Plan: Unchanged I have reviewed the history and physical and performed a pertinent physical examination on my patient. No changes have occurred unless specified. Time Spent With Patient Time: Total time managing care of this patient today ____ minutes.
--- NOTE | 2024-02-28 14:55 | P.OP_ITS ---
Operative Note Operative Note Date of Service: 02/28/24 Narrative: Procedure: Colonoscopy Indication: Abd pain Endoscopist: Caren Alvarez MD Anesthesia Provider: Dr Juan Manuel Daniel Anesthesia type: MAC Instrument: Olympus [id number]-H190L Consent: Indication, risks vs benefits, and alternatives were discussed with the patient who gave written informed consent to proceed. An music theory teacher was utilized to assist with the consent. EKG, pulse, pulse oximetry and blood pressure were monitored throughout the procedure. Please see anesthesia flowsheet. Procedure: The patient was brought to the procedure room and placed in the left lateral decubitus position. IV medications were administered by the anesthesia provider in attendance. A digital rectal exam was performed which was normal. Distal attachment cap was affixed to the tip of the scope and the colonoscope was then inserted through the anus and advanced through the colon to the sigmoid colon. Mucosa was carefully examined under high definition white light as the instrument was slowly withdrawn in a retrograde panoramic fashion. Retroflexion was performed in rectum. The procedure was not difficult. There were no immediate obvious complications. The quality of the prep was BBPS: N/A+N/A+2 = Incomplete Limitations: No limitations. Findings: Mucosa: Spontaneously bleeding, ulcerated friable mass was noted in sigmoid colon at 35 cm. The mass was partially obstructing and scope could not traverse through it. Cold forceps biopsies were taken for histology. Hemospray applied towards the end of the procedure to cease bleeding temporarily. Protruding lesions: * Medium internal hemorrhoids without stigmata of recent bleeding. Impression: 1. Bleeding malignant appearing mass in sigmoid colon, partially obstructing 2. Incomplete colonoscopy. 3. Internal hemorrhoids Recommendations: - Follow path results. - CT abd/pel and chest ordered - Will likely need Onc +/- surgery referral depending on above - Pt advised to stay on low residue diet and to take miralax BID to keep stools liquid to avoid obstruction Above reviewed in detail with pt and her daughter at bedside iwth the help of cytotechnologist supervisor.
[2024-02-28 15:19] VITALS: BP 122/80; PULSE 85; RESP 16; TEMP 37.3; O2SAT 97
== END 2024-02-28 16:12 | disposition home or self-care (01) ==
PROVIDERS: PCP Internal Medicine; Visit Provider Internal Medicine
PROC: 0DJD8ZZ Inspection of Lower Intestinal Tract, Via Natural or Artificial Opening Endoscopic (ICD-10-PCS; CPT 45378; principal; 2024-02-28 14:20)
DX: K63.89 Other specified diseases of intestine (principal); K64.8 Other hemorrhoids; I10 Essential (primary) hypertension; J45.909 Unspecified asthma, uncomplicated
CPT/HCPCS: 45331; 88305; 88341; 88342; J2704

== ENCOUNTER → 2024-02-28 12:53 | Outpatient (BNV) | payer OTHER, SELFPAY | PROVIDERS: PCP Internal Medicine; Visit Provider Internal Medicine | DX: Z12.11 Encounter for screening for malignant neoplasm of colon (principal); R10.9 Unspecified abdominal pain; C18.7 Malignant neoplasm of sigmoid colon; K64.8 Other hemorrhoids | CPT/HCPCS: 45331 ==

== ENCOUNTER → 2024-03-24 12:12 | Outpatient (BNV) | payer OTHER, SELFPAY | PROVIDERS: PCP Internal Medicine; Referring Provider Internal Medicine; Visit Provider Internal Medicine Medical Oncology | DX: C18.7 Malignant neoplasm of sigmoid colon (principal) | CPT/HCPCS: 99205; 99213; 99214 ==

== ENCOUNTER 2024-03-28 07:37 | Outpatient (REF) | payer OTHER, SELFPAY ==
--- NOTE | ~2024-03-28 | MM_ITS ---
EXAMINATION: MM SCREENING DIGITAL BREAST TOMOSYNTHESIS, BILATERAL CLINICAL INFORMATION: Screening. Asymptomatic. COMPARISON: Mammography: This study is compared with prior exams dating back to 2021. TECHNIQUE: Digital breast tomosynthesis is performed in both the craniocaudal and mediolateral oblique views along with computer-aided detection (CAD). Synthesized 2D images are generated from the tomosynthesis. FINDINGS: There are scattered areas of fibroglandular density (ACR BI-RADS breast composition Category b). There are no significant masses, abnormal calcifications, or other abnormalities. There is a tissue marker present in the superior aspect of the right chest from prior benign percutaneous biopsy. MM/MM tomosynthesis screening BI IMPRESSION: No mammographic evidence of malignancy. ASSESSMENT: BI-RADS BI-RADS 2 - Benign Findings RECOMMENDATION: Routine annual mammography screening. 1 year F/U This examination should not preclude the clinical evaluation of a suspicious palpable abnormality. This patient's information was entered into a reminder system with a target due date for their next mammogram.
== END 2024-03-28 07:38 | disposition home or self-care (01) ==
LOC: HO.MAMMO 07:37
PROVIDERS: PCP Internal Medicine; Visit Provider Internal Medicine
DX: Z12.31 Encounter for screening mammogram for malignant neoplasm of breast (principal)
CPT/HCPCS: 77063; 77067

== ENCOUNTER → 2024-03-28 08:00 | Outpatient (BNV) | payer OTHER, SELFPAY | PROVIDERS: PCP Internal Medicine; Visit Provider Radiology Diagnostic Radiology | DX: Z12.31 Encounter for screening mammogram for malignant neoplasm of breast (principal) | CPT/HCPCS: 77063; 77067 ==

== ENCOUNTER 2024-03-31 11:18 | Outpatient (REF) | payer OTHER, SELFPAY ==
--- NOTE | ~2024-03-31 | CT_ITS ---
EXAMINATION: CT ABDOMEN AND PELVIS WITH CONTRAST CLINICAL INFORMATION: Colon cancer. Initial staging. COMPARISON: Abdominal ultrasound November 2023 TECHNIQUE: Multidetector volumetric images were obtained from the superior aspect of the liver through the pubic symphysis following administration 85 mL of Omnipaque 350 intravenous contrast. Sagittal and coronal reformatted images were obtained on the technologist's workstation. Oral contrast: Yes This CT examination was performed using dose optimization techniques as appropriate, variously including the following: *Automated exposure control *Adjustment of mA and/or kV according to patient size (this includes techniques or standardized protocols for targeted exams where dose is matched to indication/reason for exam; i.e. extremities or head) *Use of iterative reconstruction technique DLP: 270 mGy-cm FINDINGS: LIVER, GALLBLADDER, AND BILIARY TREE: There are 3 low-attenuation liver lesions suggestive of cysts measuring 1.6 cm in the lateral segment, 0.5 cm in the medial segment and measuring 5 mm in the peripheral medial segment of the left lobe of the liver axial image 18, 19 and 22 series 3. There is an additional small low-attenuation lesion not compatible with a simple cyst measuring 9 mm in the high posterior segment of the right lobe axial image 18 series 3 and question smaller 5 mm lesion at the junction of the anterior segment right lobe and medial segment left lobe axial image 18 series 3 PANCREAS: Unremarkable. SPLEEN: Unremarkable. ADRENAL GLANDS: Unremarkable. KIDNEYS AND URETERS: The kidneys are normal in size, shape, and attenuation. No hydronephrosis, hydroureter, or calculi seen. Bilateral renal cysts. No imaging follow-up recommended. No perinephric stranding. BLADDER: Unremarkable. GASTROINTESTINAL TRACT: There is apical core lesion in the sigmoid colon suggestive of neoplasm. This measures 5 cm in length. The lumen appears narrowed by the mass. There is no evidence of obstruction at this time. There is constipation and diverticulosis of the colon. Normal small bowel. Normal appendix. ABDOMINAL WALL: No significant hernia is appreciated. LYMPH NODES: There are small mesenteric lymph nodes surrounding the sigmoid colon mass. No enlarged lymph nodes are seen. VASCULAR: Unremarkable. PELVIC VISCERA: There is a 1 cm left ovarian cyst. This most likely represents a benign cyst and no imaging follow-up recommended. Uterus and right ovary are unremarkable. OSSEOUS STRUCTURES: Mild degenerative changes of the spine and curvature of the lower lumbar spine to the right. No fracture or suspicious bone lesion. CT/CT abdomen pelvis w IV con IMPRESSION: Large apple core lesion in the sigmoid colon suggestive of neoplasm. This measures 5 cm in length. Small adjacent mesenteric lymph nodes. Constipation and diverticulosis. Several liver cysts. There is a 1 cm lesion high in the dome of the right lobe of the liver not suggestive of a simple cyst by CT. Further evaluation with liver MRI recommended. Fleischner guidelines were followed.
--- NOTE | ~2024-03-31 | CT_ITS ---
EXAMINATION: CT CHEST WITH CONTRAST CLINICAL INFORMATION: Colon cancer. Initial staging. COMPARISON: None available. TECHNIQUE: Multidetector volumetric CT imaging of the chest was obtained after the administration of 85 mL of Omnipaque 350 intravenous contrast without immediate adverse reactions. Axial MIP volume rendering provided. Sagittal and coronal reformatted images were obtained. This CT examination was performed using dose optimization techniques as appropriate, variously including the following: *Automated exposure control *Adjustment of mA and/or kV according to patient size (this includes techniques or standardized protocols for targeted exams where dose is matched to indication/reason for exam; i.e. 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 2 mm left upper lobe nodule axial image 72 series 5. Lungs are otherwise clear. No emphysema or bronchiectasis or endobronchial or endotracheal lesion. MEDIASTINUM: The mediastinum is normal. PLEURA: There is no pleural effusion. No pleural mass or thickening. AXILLA: No lymphadenopathy. UPPER ABDOMEN: See abdominal and pelvic CT from the same day OSSEOUS STRUCTURES: Unremarkable. CT/CT chest w IV con IMPRESSION: Small pulmonary nodules largest measuring 3 mm in the right upper lobe. Chest CT follow-up as per oncology protocol. Fleischner guidelines were followed.
[2024-03-31] MEDS: Barium Sulfate Oral (Mocha) 450 ML ORAL.SUSP 900 ML PO (14:02)
[2024-03-31] MEDS: iohexoL 350 MG/ML 100 ML INFUS..BTL 85 ML IV (14:02)
== END 2024-03-31 11:19 | disposition home or self-care (01) ==
LOC: HO.CT 11:18
PROVIDERS: PCP Internal Medicine; Visit Provider Internal Medicine Medical Oncology
DX: C18.7 Malignant neoplasm of sigmoid colon (principal)
CPT/HCPCS: 71260; 74177; Q9967

== ENCOUNTER 2024-04-02 14:15 | Outpatient (AMB) | payer OTHER, SELFPAY ==
--- NOTE | 2024-04-02 14:32 | MHC.OFFVIS ---
Vital Signs 04/02/24 14:54 Height 5 ft Weight 124 lb BMI 24.2 BP 120/64 Blood Pressure Location Lt brachial Position Sitting Pulse 77 Intake Visit Reasons: Sigmoid Colonic Cancer Intake Note: This patient presents for an assessment for sigmoid colon. Patient c/o; reports no rectal bleeding or blood in stools, reports lower abdominal pain, reports no rectal pain or pressure. Vacuum Drier Tender Required: Yes Vacuum Drier Tender Language: Hospital Cleaning Specialist Name: Signed form- declined ([facility]) Accompanied by: Daughter Allergies No Known Allergies Allergy (Verified 04/02/24 14:53) Medication List - Last Reconciled 04/02/24 by Diego Decker MD albuterol sulfate 90 mcg/actuation (Ventolin HFA) 2 puffs inhalation Q4-6H PRN ascorbate calcium (vitamin C) 500 mg PO DAILY cyanocobalamin (vitamin B-12) 1,000 mcg PO DAILY cyclobenzaprine 10 mg PO Q8H PRN dicyclomine 10 mg PO QID ferrous sulfate (Feosol) 325 mg PO DAILY [HUMIDIFIER As directed] levothyroxine 75 mcg PO DAILY lidocaine 5% 1 patch topical DAILY metoprolol succinate ER 25 mg PO DAILY miscellaneous medical supply 1 ea miscellaneous DAILY oxycodone 5 mg PO Q8H PRN polyethylene glycol 3350 (Miralax) 17 grams PO BID PRN sennosides-docusate sodium 8.6-50 mg (Senna-S) 2 tab-caps (2 x 8.6-50 mg) PO BEDTIME simethicone 125 mg PO TID-QID PRN simvastatin 20 mg PO DAILY tramadol 50 mg PO BID 30 days zolpidem 5 mg PO BEDTIME HPI HPI Sigmoid Colonic Cancer: Details: [age] year old female referred for a recently diagnosed sigmoid cancer. She had undergone a colonoscopy last 02/28/2024 because of complaints of lower abdominal pain. At that time, she was noted to have a circumferential friable mass at level 35 cm and biopsies of this showed an invasive adenocarcinoma She has never had a colonoscopy prior to that. She denies significant GI complaints although admits to some occasional constipation. She denies any GI bleeding. She has a son and daughter who were both diagnosed to have colon cancer and tested positive for genetic mutation. The patient has never been tested before and did not want to. [facility] Medical History Pre-op examination Colon cancer screening Plantar fasciitis Annual physical exam Headache Cervical cancer screening Breast cancer screening by mammogram Colon cancer screening declined Colonoscopy refused Overweight (BMI 25.0-29.9) Vitamin B12 deficiency Impaired glucose tolerance Hypothyroid Hypercholesterolemia Hypertension Insomnia Carpal tunnel syndrome Surgical History No pertinent past surgical history Family History Father No problems noted. Mother No problems noted. Sister History of breast cancer, Onset Age: 50 Social History Housing: Apartment Alcohol intake: never Patient Tobacco Use Status: Never used Tobacco Tobacco use type: Cigarette e-Cigarette/Vaping Use: Never Used Second Hand Smoke Exposure: No service: No Current occupational status: retired Sexual orientation: Straight/Heterosexual Gender identity: Female Cognitive needs: No Hearing needs: No Vision needs: Yes Female Reproductive History Menstrual Age of Menarche: 16 Review of Systems Const Denies chills and Denies fever(s) Card Denies chest pain, Denies dyspnea and Denies dyspnea on exertion Resp Denies cough, Denies dyspnea and Denies dyspnea on exertion GI Denies hematochezia and Denies change in bowel habits Denies hematuria Musc Denies back pain and Denies limited range of motion Neuro Denies focal weakness and Denies convulsions Psych Reports anxiety, Denies depression and Denies mood swings Physical Exam Vital Signs: Last Vital Signs Pulse 77 04/02/24 14:54 BP 120/64 04/02/24 14:54 BMI result Body Mass Index 24.2 Const General: comfortable and no acute distress Orientation/consciousness: patient oriented x3 Neck Neck: Yes no lymphadenopathy Resp Auscultation: clear to auscultation bilaterally Cardio Rhythm: regular rhythm GI Palpation (GI): Soft to palpation, nontender and no guarding Neuro General: patient oriented x3 Assessment & Plan Assessment & Plan (1) Cancer of sigmoid colon: Code(s): C18.7 - Malignant neoplasm of sigmoid colon Category: Medical Plan: Her colonoscopy last 02/28/2024 showed a large, friable mass level 35 cm. The path report shows at least an intramucosal adenocarcinoma. This is likely to be an invasive adenocarcinoma as this is bulky and friable. I explained to her it would be best to proceed with sigmoid resection. I explained to her the technique of hand assisted laparoscopic sigmoid resection, possible, and possible conversion to open. I discussed the risks including but not limited to bleeding, infections, injury to other organs including bowel and the urinary tract, anastomotic leak, blood clots, pneumonia, RI, as well as the benefits and alternatives. I reviewed with her what to expect postoperatively. She has given consent. We will also plan on doing an intraop flexible sigmoidoscopy. I have reviewed her CAT scan and this does not reveal metastatic disease at this time She has been seen by Dr. Rosado of Oncology. Her daughter was with her during the entire visit. Medications: New erythromycin Take 2 500mg tablets (1000mg) at 2pm, 3pm and 10pm on the day prior to the surgery. 1,000 mg (2 x 500 mg) PO .3 times 6 tabs 0RF pre-op prep 1 day Z93.3 - Colostomy status neomycin Take 2 500mg tablets (1000mg) at 2pm, 3pm, and 10pm on the day prior to the surgery 1 g (2 x 500 mg) PO .3 times 6 tabs 0RF for pre-op prep for colon surgery 3 doses Z93.3 - Colostomy status sodium,potassium,mag sulfates 17.5-3.13-1.6 gram (Suprep Bowel Prep Kit) DILUTE; drink full amount early evening before AND next morning at least 2 hr before procedure; follow w 960 mL water PO 354 mL 0RF polyethylene glycol 3350 (Miralax) Mix entire bottle with 64 oz of clear liquid (no red or purple dye) and divide in half. At 6 pm, begin drinking the first half of the mixture (approx. 1 8oz glass every 15 minutes) until gone. At 11pm, begin drinking the second half of the mixture in the same fashion, until gone. 238 grams PO ONCE 238 grams 0RF for colonoscopy prep 1 day Z12.11 - Encounter for screening for malignant neoplasm of colon Coding Level of Care Code New Pt Level 4 (91923) Diagnoses Cancer of sigmoid colon C18.7
[2024-04-02 14:54] VITALS: BP 120/64; PULSE 77; BMI 24.2
== END 2024-04-02 15:06 | disposition home or self-care (01) ==
PROVIDERS: PCP Internal Medicine; Referring Provider Internal Medicine Medical Oncology; Visit Provider Surgery
DX: C18.7 Malignant neoplasm of sigmoid colon (principal)
CPT/HCPCS: 99204

== ENCOUNTER → 2024-04-02 14:15 | Outpatient (BNVA) | payer OTHER, SELFPAY | PROVIDERS: PCP Internal Medicine; Referring Provider Internal Medicine Medical Oncology; Visit Provider Surgery | DX: C18.7 Malignant neoplasm of sigmoid colon (principal) | CPT/HCPCS: 99202 ==

== ENCOUNTER 2024-04-10 09:03 | Outpatient (AMB) | payer OTHER, SELFPAY ==
--- NOTE | 2024-04-10 09:06 | A.OFFVIS_ITS ---
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 She is doing well with no concerns. Having surgery this month for a sigmoid mass. Attempting to eat a healthy diet with calcium and vitamin D and stays active with exercise. Currently sexually active. Denies any vaginal irritation. Admits to vaginal dryness, not using ant OTC product. STI testing offered; she accepts. Last pap smear; 2021. Last mammogram; pending report. Colonoscopy is UTD. Denies any family history of breast, ovarian or colon cancer. [facility] Medical History Pre-op examination Colon cancer screening Plantar fasciitis Annual physical exam Headache Cervical cancer screening Breast cancer screening by mammogram Colon cancer screening declined Colonoscopy refused Overweight (BMI 25.0-29.9) Vitamin B12 deficiency Impaired glucose tolerance Hypothyroid Hypercholesterolemia Hypertension Insomnia Carpal tunnel syndrome Surgical History No pertinent past surgical history Family History Father No problems noted. Mother No problems noted. Sister History of breast cancer, Onset Age: 50 Social History Housing: Apartment Alcohol intake: never Patient Tobacco Use Status: Never used Tobacco Tobacco use type: Cigarette e-Cigarette/Vaping Use: Never Used Second Hand Smoke Exposure: No Patient : No service: No Current occupational status: retired Sexual orientation: Straight/Heterosexual Gender identity: Female Cognitive needs: No Hearing needs: No Vision needs: Yes Female Reproductive History Menstrual Age of Menarche: 16 control method: none Total pregnancies: 2 Full term: 2 Number of Living Children: 2 Date of last pap smear: 01/12/22 (negative) Date of Mammogram: 03/28/24 Review of Systems Const All systems reviewed & are unremarkable except as noted in HPI and below Reports as per HPI Eyes Reports no additional complaints ENT Reports no additional complaints Card Reports no additional complaints Resp Reports no additional complaints GI Reports as per HPI and Reports no additional complaints Reports as per HPI Musc Reports no additional complaints Skin/Breast Reports as per HPI Neuro Reports no additional complaints Psych Reports no additional complaints Endo Reports no additional complaints Ken/Lymph Reports no additional complaints Aller/Immun Reports no additional complaints Physical Exam Vital Signs: Last Vital Signs BP 126/68 04/10/24 09:08 BMI result Body Mass Index 24.0 Const General: cooperative, healthy appearing, no acute distress, well developed and alert Orientation/consciousness: patient oriented x3 HEENT Head: Yes normal to inspection Eyes General: appearance normal, both eyes and all related structures Neck Neck: Yes normal visual inspection Thyroid: Thyroid normal Chest Chest palpation & inspection: normal inspection of the chest and other (no puckering, dimpling, peau de orange, retraction, discharge, masses) Breast/axilla inspection: normal inspection of the breasts Breast/axilla palpation: normal palpation of the breasts Resp Effort & Inspection: normal respiratory effort GI Inspection: Yes normal to inspection Palpation (GI): Soft to palpation and Palpable mass present LLQ Rectal Exam - Female: deferred General: Yes bladder normal to palpation External Female Exam: normal external appearance and normal appearance of the urethra Speculum Exam - Vagina: normal appearance of the vagina, normal palpation, normal vaginal discharge and vagina atrophic Speculum Exam - Cervix: normal appearance of the cervix and normal palpation Bimanual exam- vagina & uterus: normal bimanual exam, normal palpation, uterine size normal, bladder normal to palpation, normal palpation and non-tender Bimanual Exam- Adnexa, other: no masses Skin General skin exam: no rashes or lesions noted Rashes: no rashes Neuro General: patient oriented x3 Cognition (Neuro): normal cognition Extrem General: Yes normal to inspection Psych Attitude: cooperative Thought process: Normal thought process present Assessment & Plan Assessment & Plan (1) Encounter for well woman exam with routine gynecological exam: Code(s): Z01.419 - Encounter for gynecological examination (general) (routine) without abnormal findings Category: Medical Plan: Discussed: Current recommendations for pap smears per ASCCP guidelines. Breast awareness, periodic self breast exams and yearly mammogram. Maintain a healthy lifestyle, well balanced diet including Calcium 1,200 mg and Vitamin D 600 IU daily, and routine exercise. Follow up with her PCP for support post surgery possible therapeutic counseling. She has currently not interested in bone density screening due to our upcoming surgeries and worries, she plans to discuss bone density screening with her PCP in the future. Contact the office with any postmenopausal bleeding. Replens moisturizer and vaginal lubricants. Patient verbalizes understanding and agrees to the plan of care. She was given opportunity to ask questions and all questions were answered to the best of my ability. RTO in 1 year for annual senior applications engineer exam. This note is constructed using voice recognition software. While every effort has been made to ensure accuracy, demurrage man errors may have been included. Coding Level of Care Code Est Pt Prev Care >65y(20015) Diagnoses Encounter for well woman exam with routine gynecological exam Z01.419
[2024-04-10 09:08] VITALS: BP 126/68; BMI 24.0
== END 2024-04-10 09:42 | disposition home or self-care (01) ==
LOC: HO.HWS 09:03
PROVIDERS: PCP Internal Medicine; Visit Provider Advanced Practice Midwife
DX: Z01.419 Encounter for gynecological examination (general) (routine) without abnormal findings (principal)
CPT/HCPCS: 99397

== ENCOUNTER → 2024-04-10 09:03 | Outpatient (BNVA) | payer OTHER, SELFPAY | PROVIDERS: PCP Internal Medicine; Visit Provider Advanced Practice Midwife ==

== ENCOUNTER → 2024-04-15 14:07 | Outpatient (BNV) | payer OTHER, SELFPAY | PROVIDERS: Admitting Provider Surgery; PCP Internal Medicine; Visit Provider Internal Medicine Cardiovascular Disease | DX: I44.0 Atrioventricular block, first degree (principal) | CPT/HCPCS: 93010 ==

== ENCOUNTER 2024-04-18 08:20 | Outpatient (AMB) | payer OTHER, SELFPAY ==
[2024-04-18 08:33] VITALS: BP 130/64; PULSE 62; O2SAT 98; BMI 23.8
--- NOTE | 2024-04-18 08:33 | MHC.PC.OV ---
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: No Allergies No Known Allergies Allergy (Verified 04/18/24 08:33) Medication List - Last Reconciled 04/18/24 by Fran Lazaro MD albuterol sulfate 90 mcg/actuation (Ventolin HFA) 2 puffs inhalation Q4-6H PRN amoxicillin-pot clavulanate 875-125 mg 1 tab PO BID ascorbate calcium (vitamin C) 500 mg PO DAILY dicyclomine 10 mg PO QID erythromycin 1,000 mg (2 x 500 mg) PO .3 times 1 day ferrous sulfate (Feosol) 325 mg PO DAILY [HUMIDIFIER As directed] levothyroxine 75 mcg PO DAILY lidocaine 5% 1 patch topical DAILY metoprolol succinate ER 25 mg PO DAILY miscellaneous medical supply 1 ea miscellaneous DAILY neomycin 1 g (2 x 500 mg) PO .3 times 3 doses oxycodone 5 mg PO Q8H PRN polyethylene glycol 3350 (Miralax) 17 grams PO BID PRN polyethylene glycol 3350 (Miralax) 238 grams PO ONCE 1 day sennosides-docusate sodium 8.6-50 mg (Senna-S) 2 tab-caps (2 x 8.6-50 mg) PO BEDTIME simethicone 125 mg PO TID-QID PRN simvastatin 20 mg PO DAILY sodium,potassium,mag sulfates 17.5-3.13-1.6 gram (Suprep Bowel Prep Kit) DILUTE; drink full amount early evening before AND next morning at least 2 hr before procedure; follow w 960 mL water PO tramadol 50 mg PO BID 30 days zolpidem 5 mg PO BEDTIME Tobacco use date assessed: 04/18/24 Fall risk assessment: No Falls in past year Last assessed Fall Risk: 04/18/24 Dental Screening Dental Screen Date: 09/28/23 HPI anemia, Cholesterol HPI Details 69-year-old female with a history of hypertension hypercholesterolemia hypothyroidism asthma impaired glucose tolerance last seen in 01/15/2024. Patient complained of abdominal pain February for 2023 rodriguez d colonoscopy done and noted to have a mass with biopsy showing invasive adenocarcinoma patient is advised to have sigmoid resection with intraop flexible sigmoidoscopy. Chinese interpret 100-77 ([id number]) long explanation regarding why she has colon cancer . [facility] Medical History (Updated 04/18/24 @ 08:50 by Fran Lazaro MD) Encounter for well woman exam with routine gynecological exam Anemia Pre-op examination Colon cancer screening Plantar fasciitis Annual physical exam Headache Cervical cancer screening Breast cancer screening by mammogram Colon cancer screening declined Colonoscopy refused Overweight (BMI 25.0-29.9) Vitamin B12 deficiency Impaired glucose tolerance Hypothyroid Hypercholesterolemia Hypertension Insomnia Carpal tunnel syndrome Surgical History (Updated 04/14/24 @ 10:02 by Catina Honeycutt RN) H/O colonoscopy Family History Father No problems noted. Mother No problems noted. Sister History of breast cancer, Onset Age: 50 Social History (Updated 04/15/24 @ 13:25 by Laila Haile RN) Household Members: None Housing: Apartment Are you a primary health care consultant to a significant other at home: No Do you presently have visiting nurse or other home services: No Alcohol intake: never Patient Tobacco Use Status: Never used Tobacco e-Cigarette/Vaping Use: Never Used Second Hand Smoke Exposure: No service: No Current occupational status: retired Sexual orientation: Straight/Heterosexual Gender identity: Female Cognitive needs: No Hearing needs: No Vision needs: Yes Female Reproductive History Menstrual Age of Menarche: 16 Questionnaire Thrive Questionnaire Date Thrive assessed: 04/18/24 AUDIT C Alcohol Use Questionnaire (AUDIT-C) 1. How often do you have a drink containing alcohol?: Never 2. How many drinks containing alcohol do you have on a typical day when you are drinking?: 1 or 2 3. How often do you have six or more drinks on one occasion?: Never Total Score: 0 DAVID-7 AMB Questionnaire DAVID-7 Date DAVID - 7 assessed: 04/24/23 Source: Developed by Drs. Torres Anderson, Leida Obrien, Sony Treadwell and colleagues, with an educational farooq from [employer]. Physical exam (Primary Care) Vital Signs: Oxygen Delivery Method Room Air 04/18/24 08:33 Tobacco/Smoking Status: Tobacco use Status Tobacco use date assessed 01/15/24 01/15/24 09:31 Patient Tobacco Use Status Never used Tobacco 04/15/24 12:55 Tobacco use type 04/15/24 13:25 e-Cigarette/Vaping Use Never Used 01/15/24 09:28 Thrive Assessment: Date of Thrive Assessment Date Thrive assessed 04/24/23 01/15/24 09:28 Const General: alert; No acute distress Eyes Conjunctivae: conjunctivae normal Resp Auscultation: clear to auscultation bilaterally Cardio Rate: regular rate Rhythm: regular rhythm GI Inspection: Yes normal to inspection Extrem General: Yes normal to inspection and No edema Assessment and Plan Assessment & Plan (1) Colon cancer: Comment: February 2024 Intramucosal adenocarcinoma, at least. Code(s): C18.9 - Malignant neoplasm of colon, unspecified Plan: Patient has a planned sigmoid colectomy with intraop flex sig (2) Hypercholesterolemia: Code(s): E78.00 - Pure hypercholesterolemia, unspecified Plan: Avoid fried foods, chicken skin, eggs, butter margarine, pastries and meat. Be it pork or beef they have a lot of cholesterol on simvastatin 20 mg once a day (3) Hypertension: Code(s): I10 - Essential (primary) hypertension Plan: Continue with blood pressure medication. Decrease salt intake and exercise continue with metoprolol 25 mg once a day (4) Hypothyroid: Code(s): E03.9 - Hypothyroidism, unspecified Plan: Continue with thyroid medication (5) Impaired glucose tolerance: Code(s): R73.02 - Impaired glucose tolerance (oral) Plan: Decrease the amount of carbohydrate intake, pasta, bread, rice and potatoes are all sugar and that is aside from all the sweet stuff, remember that fruits are good but they are Sweet also. (6) Asthma: Code(s): J45.909 - Unspecified asthma, uncomplicated Plan: Continue with albuterol inhaler (7) Paronychia of finger: Comment: L 3rd finger Code(s): L03.019 - Cellulitis of unspecified finger Medications: New amoxicillin-pot clavulanate 875-125 mg 1 tab PO BID 14 tabs 0RF L03.019 - Cellulitis of unspecified finger Refilled tramadol 50 mg PO BID 30 days 60 tabs 1RF G56.00 - Carpal tunnel syndrome, unspecified upper limb Coding Level of Care Code Est Pt Level 4 (20388) Diagnoses Colon cancer C18.9 Hypercholesterolemia E78.00 Hypertension I10 Hypothyroid E03.9 Impaired glucose tolerance R73.02 Asthma J45.909 Paronychia of finger L03.019
== END 2024-04-18 08:59 | disposition home or self-care (01) ==
PROVIDERS: PCP Internal Medicine; Visit Provider Internal Medicine
DX: C18.9 Malignant neoplasm of colon, unspecified (principal); E78.00 Pure hypercholesterolemia, unspecified; I10 Essential (primary) hypertension; E03.9 Hypothyroidism, unspecified; R73.02 Impaired glucose tolerance (oral); J45.909 Unspecified asthma, uncomplicated; L03.019 Cellulitis of unspecified finger
CPT/HCPCS: 99214

== ENCOUNTER 2024-04-22 07:22 | Inpatient (IN) | payer OTHER, SELFPAY ==
--- NOTE | 2024-04-15 | ECG_ITS ---
Test Reason : PREOP Blood Pressure : / mmHG Vent. Rate : 065 BPM Atrial Rate : 065 BPM P-R Int : 234 ms QRS Dur : 110 ms QT Int : 402 ms P-R-T Axes : 072 -20 019 degrees QTc Int : 418 ms Sinus rhythm with sinus arrhythmia with 1st degree A-V block Minimal voltage criteria for LVH, may be normal variant ( Domingo product ) Borderline ECG No previous ECGs available Referred By: Janet Williamson Electronically Signed By:AMERICA CATALAN MD
[2024-04-15 12:55] VITALS: BP 125/72; PULSE 80; RESP 16; O2SAT 96; BMI 24.0
--- NOTE | 2024-04-15 13:35 | P.CONAN_ITS ---
Documented by User: Janet Williamson NP 04/18/24 11:45 HPI - Anesthesia Eval Consult details Narrative: NEED REPEAT CBC H&H low - started on Fe PO by pcp and to receive Fe IV x 1 04/18/24, 69yo F for Hand Assist Laparoscopic Sigmoid Resection,possible OPEN,possible Stoma, Intraop Flex Sig s/p colo 02/2024 with TIVA - no issues, other anesthesia No recent illness No CP/SOB with walking, housework PMFSH Active Problems Active Problems: All Active Problems Encounter for well woman exam with routine gynecological exam (Acute) Cancer of sigmoid colon (Acute) Colon cancer (Acute) Colonic mass (Acute) Recurrent UTI (Acute) COVID-19 (Acute) Abnormal weight loss (Acute) Abdominal pain (Acute) Abdominal cramping (Acute) Constipation (Acute) Anemia (Acute) Sacroiliitis (Acute) Low back pain (Acute) Vitamin D deficiency (Acute) Shingles (Acute) Low back pain (Acute) Pernicious anemia (Acute) Pain of right hip (Acute) Abnormal ultrasound of breast (Acute) Colonoscopy refused (Acute) Vulvar itching (Acute) Encounter for annual routine gynecological examination (Acute) Osteopenia (Acute) Asthma (Acute) Annual physical exam (Acute) Plantar fasciitis (Acute) Vitamin B12 deficiency (Acute) Insomnia (Acute) Overweight (BMI 25.0-29.9) (Acute) Impaired glucose tolerance (Acute) Hypothyroid (Acute) Hypercholesterolemia (Acute) Hypertension (Acute) Carpal tunnel syndrome (Acute) Past Medical History Medical History Encounter for well woman exam with routine gynecological exam Anemia Pre-op examination Colon cancer screening Plantar fasciitis Annual physical exam Headache Cervical cancer screening Breast cancer screening by mammogram Colon cancer screening declined Colonoscopy refused Overweight (BMI 25.0-29.9) Vitamin B12 deficiency Impaired glucose tolerance Hypothyroid Hypercholesterolemia Hypertension Insomnia Carpal tunnel syndrome Family History Family History Father No problems noted. Mother No problems noted. Sister History of breast cancer, Onset Age: 50 Daughter Colon cancer Son Colon cancer Family history of problems with anesthesia: No Surgical History Surgical History H/O colonoscopy History of Problems with Anesthesia: No Social History Social History Household Members: None Housing: Apartment Are you a primary pediatric critical care nurse to a significant other at home: No Do you presently have visiting nurse or other home services: No Alcohol intake: never Patient Tobacco Use Status: Never used Tobacco e-Cigarette/Vaping Use: Never Used Second Hand Smoke Exposure: No Use of substances other than those prescribed or required for medical reasons: No Have you been hit, kicked, punched, or otherwise hurt by someone within the past year? If so, by whom?: No Spiritual Healthcare Practices: none Confucianist Healthcare Practices: none Cultural Healthcare Practices: none Are you DNR?: No Advance Directives: No Advance Directives Information Provided: Yes Advance Directives on File: No Recently lost weight without trying: Yes How much weight loss: 2-13 pounds Eating poorly because of decreased appetite: No Nutrition screen score: 3 service: No Current occupational status: retired Sexual orientation: Straight/Heterosexual Gender identity: Female Cognitive needs: No Hearing needs: No Vision needs: Yes Meds Allergies Allergy/AdvReac Type Severity Reaction Status Date / Time No Known Allergies Allergy Verified 04/18/24 08:33 Exam Height,Weight and Vital Signs: Height 5 ft Weight 55.792 kg Last Vital Signs Pulse 80 04/15/24 12:55 Resp 16 04/15/24 12:55 BP 125/72 04/15/24 12:55 Pulse Ox 96 04/15/24 12:55 O2 Del Method Room Air 04/15/24 12:55 Pertinent Lab Results Pertinent Lab Results: Laboratory Tests 03/24/24 14:46 Sodium 141 Potassium 3.7 Chloride 105 Carbon Dioxide 25 BUN 14 Creatinine 0.80 Narrative Narrative: EKG 03/2024 Vent. Rate : 065 BPM Atrial Rate : 065 BPM P-R Int : 234 ms QRS Dur : 110 ms QT Int : 402 ms P-R-T Axes : 072 -20 019 degrees QTc Int : 418 ms Sinus rhythm with sinus arrhythmia with 1st degree A-V block Minimal voltage criteria for LVH, may be normal variant ( [place] product ) Borderline ECG No previous ECGs available Airway Denture: Upper and Lower Heart: RRR Lungs: CTAB Assessment and Plan Assessment Anesthesia Assessment: Anesthesia Plan Discussed and PAT Visit Final Anesthetic Review Family History of Problems with Anesthesia: No History of Problems with Anesthesia: No Documented by User: Vera Myers MD 04/22/24 08:54 PMFSH Active Problems Active Problems: All Active Problems Encounter for well woman exam with routine gynecological exam (Acute) Cancer of sigmoid colon (Acute) Colonic mass (Acute) Recurrent UTI (Acute) COVID-19 (Acute) Abnormal weight loss (Acute) Abdominal pain (Acute) Abdominal cramping (Acute) Constipation (Acute) Anemia (Acute) Sacroiliitis (Acute) Low back pain (Acute) Vitamin D deficiency (Acute) Shingles (Acute) Pernicious anemia (Acute) Pain of right hip (Acute) Abnormal ultrasound of breast (Acute) Colonoscopy refused (Acute) Vulvar itching (Acute) Osteopenia (Acute) Asthma (Acute) Annual physical exam (Acute) Plantar fasciitis (Acute) Vitamin B12 deficiency (Acute) Insomnia (Acute) Impaired glucose tolerance (Acute) Hypothyroid (Acute) Hypercholesterolemia (Acute) Hypertension (Acute) Carpal tunnel syndrome (Acute) Past Medical History Medical History Encounter for well woman exam with routine gynecological exam Anemia Pre-op examination Colon cancer screening Plantar fasciitis Annual physical exam Headache Cervical cancer screening Breast cancer screening by mammogram Colon cancer screening declined Colonoscopy refused Overweight (BMI 25.0-29.9) Vitamin B12 deficiency Impaired glucose tolerance Hypothyroid Hypercholesterolemia Hypertension Insomnia Carpal tunnel syndrome Family History Family History Father No problems noted. Mother No problems noted. Sister History of breast cancer, Onset Age: 50 Daughter Colon cancer Son Colon cancer Family history of problems with anesthesia: No Surgical History Surgical History H/O colonoscopy History of Problems with Anesthesia: No Social History Social History Household Members: None Housing: Apartment Are you a primary pediatric critical care nurse to a significant other at home: No Do you presently have visiting nurse or other home services: No Alcohol intake: never Patient Tobacco Use Status: Never used Tobacco e-Cigarette/Vaping Use: Never Used Second Hand Smoke Exposure: No Use of substances other than those prescribed or required for medical reasons: No Have you been hit, kicked, punched, or otherwise hurt by someone within the past year? If so, by whom?: No Spiritual Healthcare Practices: none Confucianist Healthcare Practices: none Cultural Healthcare Practices: none Are you DNR?: No Advance Directives: No Advance Directives Information Provided: Yes Advance Directives on File: No Recently lost weight without trying: Yes How much weight loss: 2-13 pounds Eating poorly because of decreased appetite: No Nutrition screen score: 3 service: No Current occupational status: retired Sexual orientation: Straight/Heterosexual Gender identity: Female Cognitive needs: No Hearing needs: No Vision needs: Yes Meds Allergies Allergy/AdvReac Type Severity Reaction Status Date / Time No Known Allergies Allergy Verified 04/18/24 08:33 Exam Height,Weight and Vital Signs: Height 5 ft Weight 55.792 kg Last Vital Signs Pulse 80 04/15/24 12:55 Resp 16 04/15/24 12:55 BP 125/72 04/15/24 12:55 Pulse Ox 96 04/15/24 12:55 O2 Del Method Room Air 04/15/24 12:55 Vital Signs Temp Pulse Resp BP Pulse Ox O2 Del Method 04/22/24 07:16 97.7 F 74 16 141/70 H 100 Room Air Pertinent Lab Results Pertinent Lab Results: Laboratory Tests 03/24/24 14:46 Sodium 141 Potassium 3.7 Chloride 105 Carbon Dioxide 25 BUN 14 Creatinine 0.80 Lab Results 04/15/24 04/22/24 Range/Units 14:20 08:06 WBC 5.5 (4.8-10.8) X10*3/uL RBC 4.12 L (4.20-5.50) X10*6/uL Hgb 11.0 L (12.0-16.0) g/dl Hct 34.8 L (37.0-47.0) % MCV 84.5 (80.0-98.0) fL MCH 26.7 L (27.0-33.0) pg MCHC 31.6 (31.0-35.0) g/dl RDW 14.0 (11.0-16.0) % Plt Count 271 (160-400) X10*3/uL MPV 9.8 (9.4-12.3) fL Absolute Nucleated RBC 0.000 (0.0-0.012) X10*3/uL Nucleated RBC % (auto) 0.0 (0.0-0.2) /100WBC Blood Type O Positive Antibody Screen NEGATIVE Airway Mallampati Class: II TM Dist: >3cm Neck ROM: Full Loose/Missing/Broken Teeth: Yes (Edentulous) Assessment and Plan Assessment Anesthesia Assessment: Anesthesia Plan Discussed, PAT Visit and Chart Reviewed Final Anesthetic Review Family History of Problems with Anesthesia: No History of Problems with Anesthesia: No NPO: Yes ASA Class: III Final Preanesthetic Review: No Changes in Pt Med Stat, Meds/Allgs Chart Reviewed, Consent Obtained/Reviewed and Anes Risks/Benef Reviewed Patient Risk: Intermediate Procedure Risk: Intermediate Assessment/Block/Sedation in SS: Assess/Block/Sedation-SS Anesthetic Plan Anesthetic Plan: GA Disposition: Standard PACU and Inp. Admit - Standard Bed
[2024-04-22] VITALS (12 sets, daily range): BP systolic 118–164; BP diastolic 55–70; PULSE 47–81; RESP 11–19; TEMP 36.3–36.7; O2SAT 95–100; BMI 24.4
--- NOTE | 2024-04-22 07:22 | MHC.SHP ---
Pre-Procedural Eval Section A - 24 Hr Update-Section A only Date of Service: 04/22/24 The patient is an INPATIENT: No Changes since office visit: No Cold of Flu in the past 2 weeks, No New Medical Problems, No Changes in Medication and No Patient answered all questions The patient has been examined within 24 hours of the surgical procedure. The History & Physical has been completed within 30 days and I have reviewed it.: Yes Section B - Complete if H&P > 30 days Chief Complaint: Malignant neoplasm of sigmoid colon Allergies: Allergies Allergy/AdvReac Type Severity Reaction Status Date / Time No Known Allergies Allergy Verified 04/18/24 08:33 Plan I have reviewed the history and physical and performed a pertinent physical examination on my patient. No changes have occurred unless specified. Time Spent With Patient Time: Total time managing care of this patient today ____ minutes.
[2024-04-22] MEDS: Lactated Ringers 1,000 ML 100 ML IVCONT ×2 (07:46→16:57)
--- NOTE | 2024-04-22 07:58 | PC.NURSE ---
first call to lab was 710am for lab draw and bb. recalled two more times and still hasnt arrived.
--- NOTE | 2024-04-22 08:08 | PC.NURSE ---
labs being drawn
[2024-04-22 08:27] LABS: Hematocrit 34.8 % (37.0-47.0); Mean Corpuscular HGB Conc 31.6 g/dl (31.0-35.0); Mean Corpuscular Hemoglobin 26.7 pg (27.0-33.0); Mean Corpuscular Volume 84.5 fL (80.0-98.0); Mean Platelet Volume 9.8 fL (9.4-12.3); Platelet Count 271 X10*3/uL (160-400); Red Blood Count 4.12 X10*6/uL (4.20-5.50); White Blood Count 5.5 X10*3/uL (4.8-10.8)
--- NOTE | 2024-04-22 09:29 | PHA.MEDREC ---
Addendum entered by Feroz Hunt 04/22/24 09:33: Added Augmentin Rx into home med list after calling Pharmacy and confirming that patient picked up 7 days supply on 04/18/24. Original Note: Pharmacy Consult ? Medication Reconciliation Pharmacy has completed the medication reconciliation. Reviewed med rec done by nursing (Rosalia).
--- NOTE | 2024-04-22 09:30 | PC.NURSE ---
late entry-md valencia aware of output being mckenzie.
--- NOTE | 2024-04-22 11:22 | W.PM.OPN ---
Operative Note Operative Note Date of Service: 04/22/24 Narrative: Preop diagnosis: Colon cancer, at the proximal sigmoid Postop diagnosis: The same Procedure: Hand assisted laparoscopic sigmoid resection, with splenic flexure mobilization, end-to-end anastomosis with the EEA, flexible sigmoidoscopy Surgeon: Diego Decker MD election assistant: GUSTAVO Zamudio The patient is a 69 year old female recently diagnosed to have large apple-core lesion in the proximal sigmoid with colonoscopic biopsy showing intramucosal adenocarcinoma. This appeared to be invasive however based on the size, and appearance. I explained to her it would be best to proceed with sigmoid resection. She understood the technique of the planned procedure as well as the risks, benefits, and alternatives She was brought to the operating room placed in modified lithotomy position under general anesthesia via endotracheal tube. The abdomen and the perineum were prepped and draped in the usual sterile fashion. A surgical time-out was done. The patient received Cefotan 2 g IV preoperatively. A Britton catheter was inserted. I made a short incision in the lower midline using blade 15. This carried down with electrocautery through the full-thickness of the skin and thick subcutaneous fat down to the fascia. The fascia was incised. The peritoneum was entered. We positioned an Omar wound retractor and attached the GelPort onto this. We insufflated with a port to a pressure of 15 mm Hg. We used this port for laparoscopic visualization. We were using the cm 30 degree scope and with this, I proceeded to insert a 5/12 mm port epigastric area of the midline. We moved the camera to this and inserted a 5 mm port in the right lower quadrant We placed the patient in head-down and a right side down position. I palpated for the rectosigmoid and visualized this. This was followed I was able to feel the large tumor in the proximal sigmoid. There was note of dimpling of the serosa as well on the area. There was note of some adhesions tethering this segment to the omentum which I divided with the LigaSure. I then proceeded to free up the left colon by dividing the attachments along the white line of Toldt. We used the LigaSure for this. I proceeded to incise the peritoneum as well of the rectosigmoid both on the left and the right side all the way to the anterior aspect of rectosigmoid to free this up. I then proceeded to insert a another 5 mm port in the left lower quadrant. I used this port to mobilize the splenic flexure with LigaSure. I freed up the splenic flexure and it appeared that we had good mobilization enough length to bring down our left colon for our end-to-end anastomosis I then proceeded to create a mesenteric window in the rectosigmoid. Once this was created, I proceeded to use the Endo-JONAS 60 mm stapler to divide this segment. Because there was attached thickened fat, I have to apply another firing of a 30 mm stapler to completely divide and resect this area. I then proceeded to continue to mobilize the distal sigmoid by dividing the peritoneum to thin this mesentery. I then proceeded to test for length and it appeared that we had adequate mobilization to do the rest of the resection of the mesentery through the small incision. I therefore desufflated and removed the GelPort. I brought out the distal aspect of the transected rectosigmoid. I divided the mesentery until was able to identify the pedicle which appeared to be the ELIZABETH I identified my line of resection in the left colon away from the tumor. I created a mesenteric window and this was transected with the Endo-JONAS 60 mm stapler as well. I completed the resection by dividing the rest of the mesentery all the way to the pedicle. I did a high ligation of the pedicle and clamped this with a right angle clamp. I divided this and doubly ligated this pedicle with a Polysorb 2-0 tie. I made sure that we had included the lymphatic basin of the tumor to allow examination of adequate number of lymph nodes. I then observed for hemostasis. I proceeded to excise the staple line of the proximal stump. I entered the lumen and dilated this up to the large dilator. I created my pursestring with a Polysorb 2-0 tie. I used the 31 mm anvil and positioned this within the lumen. I tightened the pursestring around this. I then brought the colon back into the peritoneal cavity. We did the rest of the procedure laparoscopically. The 1st insurance legal assistant then proceeded to advance the catheter into the anus and rectum all the way to the distal staple line. We then used the 31 mm EEA stapler and this was advanced to just anterior to the staple line. I attached the anvil to this stapler until it was locked in place. We tightened the EEA stapler, making sure that there was no bowel loop or any other structure caught between the circular stapler. The stapler was fired. The EEA apparatus was removed. The anastomotic donuts were examined and this appeared to be intact on both proximal and distal . We insufflated the rectum with a bulb syringe with the staple line immersed in irrigation fluid. There was no bubbling noted . I then proceeded to do a flexible sigmoidoscopy. I inserted the scope gently with insufflation passed the staple line. We withdrew the scope and examined the stapler line. This appeared to be intact. No bleeding. There was no bubbling within the area as well on laparoscopic examination. I then proceeded to withdraw the colonoscope completely. We then proceeded to change gloves and gown. I then irrigated the pelvis. I suctioned out some clots likely from the divided mesentery earlier . I observed for hemostasis. Once hemostasis confirmed, I proceeded to then examined all 4 quadrants. There was no evidence of any bowel injury or any other pathology . I removed the GelPort. I closed the fascia with a running Maxon 1 stitch . I examined this closure laparoscopically and there was no bowel caught by the sutures . I removed the laparoscope and all the remaining ports. Skin incisions were closed with subcuticular running Polysorb 4-0 sutures. All incisions were infiltrated with Marcaine 0.5% for postop analgesia. Dressings were applied. The procedure was completed. The patient tolerated the procedure well. There were no immediate complications. Initial and final counts of sponges and instruments were correct. Estimated blood loss was about 100 cc . The patient was extubated without difficulty and transferred to the recovery room with stable vital signs. Colon Resection Tumor location: Sigmoid colon Extent of lymphovascular resection Sigmoid colon: From the distal left colon to the rectosigmoid; high ligation of ELIZABETH done If anatomic guidance other than listed, document why: Not applicable General Surg. - Synoptic Notes Colon Resection Tumor location: Sigmoid colon Extent of Lymphovascular Resection: Sigmoid colon: From the distal left colon to the rectosigmoid; high ligation of ELIZABETH done If anatomic guidance other than listed, document why: Not applicable
--- NOTE | 2024-04-22 14:19 | HO.PM.IMCN ---
History of Present Illness Data of Consult Service Date: 04/22/24 Primary Care Provider: Fran Lazaro MD HPI 61-year-old woman with a history of colon cancer admitted by general surgery and is status post sigmoid resection. Surgery was unremarkable. Patient's vital signs are stable. She is hemodynamically stable. She has been able to drink fluids but has some nausea. at this time pain is controlled and she is resting in bed with family. Review of Systems Review of Systems: Denies any recent fever chills or decrease in appetite respiratory denies any shortness of breath coverage production cardiovascular is adjustment of any PND or edema gastrointestinal denies any dysphagia abdominal pain nausea vomiting or diarrhea genitourinary denies any dysuria frequency or hematuria musculoskeletal denies any joint pain or swelling neuropsych denies any weakness or seizures all other systems reviewed are negative [facility] Medical History (Updated 05/03/24 @ 00:02 by Marina Wilson) Encounter for well woman exam with routine gynecological exam Anemia Pre-op examination Colon cancer screening Plantar fasciitis Annual physical exam Headache Cervical cancer screening Breast cancer screening by mammogram Colon cancer screening declined Colonoscopy refused Overweight (BMI 25.0-29.9) Vitamin B12 deficiency Impaired glucose tolerance Hypothyroid Hypercholesterolemia Hypertension Insomnia Carpal tunnel syndrome Family History Father No problems noted. Mother No problems noted. Sister History of breast cancer, Onset Age: 50 Daughter Colon cancer Son Colon cancer Surgical History (Updated 05/02/24 @ 14:39 by TACO Mayo) Hx of surgical procedure (~04/22/24) H/O colonoscopy Social History Household Members: None Housing: Apartment Are you a primary career professional to a significant other at home: No Do you presently have visiting nurse or other home services: No Alcohol intake: never Patient Tobacco Use Status: Never used Tobacco e-Cigarette/Vaping Use: Never Used Second Hand Smoke Exposure: No service: No Current occupational status: retired Sexual orientation: Straight/Heterosexual Gender identity: Female Cognitive needs: No Hearing needs: No Vision needs: Yes Meds Allergies Allergy/AdvReac Type Severity Reaction Status Date / Time No Known Allergies Allergy Verified 04/18/24 08:33 Active Medications: Current Medications Albuterol Sulfate (Albuterol Sulfate 90 Mcg 8 Gm Inhaler) 2 puff INHALE Q6H PRN PRN Reason: for wheezing Atorvastatin Calcium (Atorvastatin Calcium 10 Mg Tablet) 10 mg PO DAILY [facility] Heparin Sodium (Porcine) (Heparin Sodium,Porcine 5,000 Unit/Ml Vial) 5,000 unit SUBCUT Q8H [facility] Hydromorphone HCl (Hydromorphone Hcl 0.5 Mg/0.5 Ml Syringe) 0.5 mg IVPUSH Q4H PRN; Protocol PRN Reason: Pain, Severe (Pain Scale 7-10) Lactated Ringer's (Lr) 1,000 mls @ 100 mls/hr IVCONT .Q10H [facility] Last Admin: 04/22/24 07:46 Dose: 100 mls/hr Acetaminophen (Ofirmev) 1,000 mg in 100 mls @ 400 mls/hr IV Q6H [facility] Levothyroxine Sodium (Levothyroxine Sodium 75 Mcg Tablet) 75 mcg PO DAILY@0600 [facility] Lidocaine (Lidocaine 4 % Patch Adh..Patch) 1 patch TRANSDERMA DAILY [facility] Metoprolol Succinate (Metoprolol Succinate Er 25 Mg Tab.Er.24h) 25 mg PO DAILY [facility]; Protocol Oxycodone HCl (Oxycodone Hcl Immed Release 5 Mg Tablet) 5 mg PO Q4H PRN PRN Reason: Pain, Moderate(Pain Scale 4-6) Sodium Chloride (0.9 % Sodium Chloride Flush 3 Ml Syringe) 3 ml IVFLUSH QSHIFT [facility] Last Admin: 04/22/24 13:45 Dose: Not Given Zolpidem Tartrate (Zolpidem Tartrate 5 Mg Tablet) 5 mg PO BEDTIME [facility] Home Medications ?Medication ?Instructions ?Recorded ?Confirmed ?Last Taken ?Type albuterol sulfate 90 mcg/actuation 2 puff inhalation Q6H PRN for 04/22/24 04/22/24 04/15/24 History aerosol inhaler (Ventolin HFA) wheezing amoxicillin 875 mg-potassium 1 tab PO BID 04/22/24 04/22/24 Unknown History clavulanate 125 mg tablet levothyroxine 75 mcg tablet 75 mcg PO DAILY@0600 04/22/24 04/22/24 04/21/24 History Physical Exam Vital Signs and Narrative: Vital Signs: Last Vital Signs Temp 97.4 F 04/22/24 13:29 Pulse 81 04/22/24 13:29 Resp 12 04/22/24 13:29 BP 124/60 04/22/24 13:29 Pulse Ox 98 04/22/24 13:29 O2 Del Method Nasal Cannula wit h Capnography 04/22/24 13:29 O2 Flow Rate 2 04/22/24 13:29 BMI result Body Mass Index 24.4 Appearing in no acute distress head is normocephalic atraumatic eyes pupils are PERRLA sclera is anicteric mouth throat mucous membranes are intact and moist neck is supple no lymphadenopathy, no JVD noted lung sounds are clear to auscultation heart regular rate rhythm, clear S1, S2 positive bowel sounds, abdomen is soft, nontender neuro patient is alert x3, no focal deficits Results Labs 04/23/24 06:19 04/23/24 06:19 Labs: Laboratory Results - last 24 hr 04/22/24 08:06 MCV 84.5 MCH 26.7 L MCHC 31.6 RDW 14.0 Plt Count 271 MPV 9.8 Absolute Nucleated RBC 0.000 Nucleated RBC % (auto) 0.0 Assessment and Plan (1) Cancer of sigmoid colon: Status: Acute Plan 69 year old women admitted by general surgery due to colon cancer and is status post sigmoid resection Colon resection secondary to colon cancer Management as per surgical team Pain management antiemetics as needed clear diet Hypertension Stable blood pressure Continue metoprolol Asthma No exacerbation Continue albuterol as needed Pernicious Anemia Continue iron supplementation Hypothyroidism Continue levothyroxine Hyperlipidemia Statin DVT prophylaxis with heparin Full code Medical consultation complete. Will sign off
--- NOTE | 2024-04-22 14:22 | PM.EVENT ---
Event Note Date of Service: 04/23/24 Event Note: seen postop seems to have good pain control stable VS good UO abd soft pain mgt on clear liquids daughter Glanda updated by phone Time Spent With Patient Time: Total time managing care of this patient today ____ minutes.
[2024-04-22] MEDS: Acetaminophen 1,000 MG/100 ML PIGGYBACK 400 MG IV ×2 (15:25→21:40)
[2024-04-22] MEDS: 0.9 % Sodium Chloride Flush 3 ML SYRINGE IVFLUSH ×2 (15:25→21:48)
[2024-04-22] MEDS: oxyCODONE HCl Immed Release 5 MG TABLET PO ×2 (15:26→21:49)
[2024-04-22] MEDS: ondansetron HCL 4 MG/2 ML VIAL IVPUSH (16:15)
[2024-04-23 03:50] VITALS: BP 100/51; PULSE 65; RESP 20; TEMP 36.3; O2SAT 99
[2024-04-23] MEDS: Acetaminophen 1,000 MG/100 ML PIGGYBACK 400 MG IV ×4 (04:30→21:55)
[2024-04-23] MEDS: Lactated Ringers 1,000 ML 100 ML IVCONT ×2 (04:32→16:25)
[2024-04-23] MEDS: Levothyroxine Sodium 75 MCG TABLET PO (04:36)
[2024-04-23 07:00] LABS: MANUAL DIFF FLAG NO
[2024-04-23 07:05] LABS: Basophils Percent Auto 0.1 % (0-2); Hemoglobin 8.8 g/dl (12.0-16.0); Imm Gran Abs Auto 0.07 X10*3/uL (0.00-0.03); Imm Gran Pct Auto 0.5 % (0.0-0.4); Lymphocytes Absolute Auto 2.2 X10*3/uL (1.2-4.9); Lymphocytes Percent Auto 14.5 % (20-40); Mean Corpuscular HGB Conc 32.6 g/dl (31.0-35.0); Mean Corpuscular Hemoglobin 27.5 pg (27.0-33.0); Mean Corpuscular Volume 84.4 fL (80.0-98.0); Mean Platelet Volume 10.3 fL (9.4-12.3); Monocytes Absolute Auto 0.8 X10*3/uL (0.1-1.2); Monocytes Percent Auto 5.2 % (2-11); Neutrophils Absolute Auto 12.1 x10*3/uL (2.0-8.3); Neutrophils Percent Auto 79.7 % (45-73); Platelet Count 228 X10*3/uL (160-400); Red Cell Distribution Width 14.2 % (11.0-16.0); White Blood Count 15.1 X10*3/uL (4.8-10.8)
[2024-04-23 07:18] LABS: Anion Gap 12 (12-20); Blood Urea Nitrogen 10 mg/dL (9-16); Calcium 8.3 mg/dL (8.4-10.2); Carbon Dioxide 29 mmol/L (22-29); Chloride 104 mmol/L (96-108); Creatinine Clr Calc Pharmacy 59.8; Estimated Glomerular Filt Rate > 60; Glucose Fasting 124 mg/dL (60-99); Potassium 3.3 mmol/L (3.3-5.1); Sodium 142 mmol/L (135-145)
--- NOTE | 2024-04-23 07:35 | P.PNGS_ITS ---
Subjective Subjective Date of Service: 04/23/24 <Samantha Zamudio PA-C - Last Filed: 04/23/24 07:39> 04/23/24 <Diego Decker MD - Last Filed: 04/23/24 08:40> Interval history: Asked to have lance out so RN took out catheter this morning. Pain well controlled. Passing flatus and had large BM yesterday. Tolerating clears and would like solid food. <Samantha Zamudio PA-C - Last Filed: 04/23/24 07:39> Physical Exam 2 Vital Signs: Vital Signs: Last Vital Signs Temp 97.4 F 04/23/24 03:50 Pulse 65 04/23/24 03:50 Resp 20 04/23/24 03:50 BP 100/51 L 04/23/24 03:50 Pulse Ox 99 04/23/24 03:50 O2 Del Method Room Air 04/23/24 03:50 O2 Flow Rate 2 04/22/24 13:29 BMI result Body Mass Index 24.4 <Samantha Zamudio PA-C - Last Filed: 04/23/24 07:39> Const: General: comfortable, no acute distress and alert <DANIELLA Cardona Last Filed: 04/23/24 07:39> Orientation/consciousness: patient oriented x3 <DANIELLA Cardona Last Filed: 04/23/24 07:39> Resp: Effort & Inspection: normal respiratory effort <Samantha Zamudio PA-C - Last Filed: 04/23/24 07:39> GI: Inspection: No distended and Yes incision (clean/intact ) <Samantha Zamudio PA-C - Last Filed: 04/23/24 07:39> Palpation (GI): Soft to palpation, Tenderness to palpation present (GI) and no guarding <DANIELLA Cardona Last Filed: 04/23/24 07:39> Percussion: Yes normal to percussion <DANIELLA Cardona Last Filed: 04/23/24 07:39> Skin: General skin exam: no rashes or lesions noted <DANIELLA Cardona Last Filed: 04/23/24 07:39> Neuro: General: patient oriented x3 and moves all extremities <Samantha Zamudio PA-C - Last Filed: 04/23/24 07:39> Objective Data Active Medications Albuterol Sulfate (Albuterol Sulfate 90 Mcg 8 Gm Inhaler) 2 puff INHALE Q6H PRN PRN Reason: for wheezing Atorvastatin Calcium (Atorvastatin Calcium 10 Mg Tablet) 10 mg PO DAILY [facility] Heparin Sodium (Porcine) (Heparin Sodium,Porcine 5,000 Unit/Ml Vial) 5,000 unit SUBCUT Q8H [facility] Hydromorphone HCl (Hydromorphone Hcl 0.5 Mg/0.5 Ml Syringe) 0.5 mg IVPUSH Q4H PRN; Protocol PRN Reason: Pain, Severe (Pain Scale 7-10) Lactated Ringer's (Lr) 1,000 mls @ 100 mls/hr IVCONT .Q10H [facility] Last Infusion: 04/23/24 05:06 Dose: 100 mls/hr Documented By: PHILIP Acetaminophen (Ofirmev) 1,000 mg in 100 mls @ 400 mls/hr IV Q6H [facility] Last Infusion: 04/23/24 04:59 Dose: Infused Documented By: PHILIP Levothyroxine Sodium (Levothyroxine Sodium 75 Mcg Tablet) 75 mcg PO DAILY@0600 [facility] Last Admin: 04/23/24 04:36 Dose: 75 mcg Documented By: PHILIP Lidocaine (Lidocaine 4 % Patch Adh..Patch) 1 patch TRANSDERMA DAILY [facility] Metoprolol Succinate (Metoprolol Succinate Er 25 Mg Tab.Er.24h) 25 mg PO DAILY [facility]; Protocol Ondansetron HCl (Ondansetron Hcl 4 Mg/2 Ml Vial) 4 mg IVPUSH Q6H PRN PRN Reason: Nausea Stop: 04/28/24 23:59 Last Admin: 04/22/24 16:15 Dose: 4 mg Documented By: BRIANA Oxycodone HCl (Oxycodone Hcl Immed Release 5 Mg Tablet) 5 mg PO Q4H PRN PRN Reason: Pain, Moderate(Pain Scale 4-6) Last Admin: 04/22/24 21:49 Dose: 5 mg Documented By: PHILIP Sodium Chloride (0.9 % Sodium Chloride Flush 3 Ml Syringe) 3 ml IVFLUSH QSHIFT [facility] Last Admin: 04/22/24 21:48 Dose: 3 ml Documented By: PHILIP Zolpidem Tartrate (Zolpidem Tartrate 5 Mg Tablet) 5 mg PO BEDTIME [facility] Last Admin: 04/22/24 21:00 Dose: Not Given Documented By: PHILIP Non-Admin Reason: Patient Refused <Samantha Zamudio PA-C - Last Filed: 04/23/24 07:39> Labs CBC & Chem 7: 04/23/24 06:19 04/23/24 06:19 <DANIELLA Cardona Last Filed: 04/23/24 07:39> Labs: Laboratory Results - last 24 hr 04/22/24 04/23/24 08:06 06:19 MCV 84.5 84.4 MCH 26.7 L 27.5 MCHC 31.6 32.6 RDW 14.0 14.2 Plt Count 271 228 MPV 9.8 10.3 Immature Gran % (Auto) 0.5 H Neut % (Auto) 79.7 H Lymph % (Auto) 14.5 L Bertie % (Auto) 5.2 Eos % (Auto) 0.0 Baso % (Auto) 0.1 Lymph # (Auto) 2.2 Bertie # (Auto) 0.8 Eos # (Auto) 0.0 Baso # (Auto) 0.0 Abs Immat Gran (auto) 0.07 H Absolute Neuts (auto) 12.1 H Absolute Nucleated RBC 0.000 0.000 Nucleated RBC % (auto) 0.0 0.0 Anion Gap 12 Estim Creat Clear Calc 59.8 Estimated GFR > 60 Fasting Glucose 124 H Calcium 8.3 L D <Samantha Zamudio PA-C - Last Filed: 04/23/24 07:39> Procedures Date of Service Date of Service: 04/23/24 <DANIELLA Cardona Last Filed: 04/23/24 07:39> 04/23/24 <Diego Decker MD - Last Filed: 04/23/24 08:40> Progress Note: A&P Assessment and plan (1) Cancer of sigmoid colon: Status: Acute <DANIELLA Cardona Last Filed: 04/23/24 07:39> Assessment and Plan: Doing well Passing flatus Pain minimal Abdomen soft Okay to advance diet Ambulate Seen and examined independently <Diego Decker MD - Last Filed: 04/23/24 08:40> Assessment and Plan: POD #1 s/p hand assisted laparoscopic sigmoid resection, with splenic flexure mobilization, end-to-end anastomosis with the EEA, flexible sigmoidoscopy. Doing well post op. Pain well controlled. Passing flatus and had BM. VSS. Abd exam benign with appropriate post op tenderness, dressings intact. Will advance to full liquids. Decrease IVF. Encouraged OOB/ambulation and IS use. Leukocytosis this AM, likely reactive. <Samantha Zamudio PA-C - Last Filed: 04/23/24 07:39> Time Spent With Patient Time: Total time managing care of this patient today ____ minutes. <Samantha Zamudio PA-C - Last Filed: 04/23/24 07:39> Quality Stroke Does the patient have a stroke diagnosis?: No <Samantha Zamudio PA-C - Last Filed: 04/23/24 07:39> VTE Prior VTE?: No <Samantha Zamudio PA-C - Last Filed: 04/23/24 07:39> VTE Risk Level:: Medical - moderate - high <Samantha Zamudio PA-C - Last Filed: 04/23/24 07:39> VTE Device Contraindication: N/A - Device Ordered <Samantha Zamudio PA-C - Last Filed: 04/23/24 07:39> VTE Drug Contraindication: N/A - Med Ordered <DANIELLA Cardona Last Filed: 04/23/24 07:39>
[2024-04-23 08:00] VITALS: BP 109/59; PULSE 69; RESP 16; TEMP 36.6; O2SAT 97
[2024-04-23] MEDS: Atorvastatin Calcium 10 MG TABLET PO (08:30)
[2024-04-23] MEDS: Heparin Sodium,Porcine 5,000 UNIT/ML VIAL 5000 UNIT SUBCUT ×2 (08:30→16:24)
[2024-04-23] MEDS: 0.9 % Sodium Chloride Flush 3 ML SYRINGE IVFLUSH ×3 (08:31→21:55)
[2024-04-23] MEDS: Metoprolol Succinate ER 25 MG TAB.ER.24H PO (08:31)
[2024-04-23] MEDS: Lidocaine 4 % Patch ADH..PATCH 1 PATCH TRANSDERMA (08:39)
--- NOTE | 2024-04-23 09:11 | MHC.CM.PN ---
CM met with Patient at bedside and addressed IMM with her(original IMM given to Patient and a copy has been placed on the chart). 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 PCP is Dr. Fran Lazaro & Daughter/Anahy is the HCP.
--- NOTE | 2024-04-23 09:40 | HO.POSTANES ---
Post Anesthesia Evaluation Post Anesthesia Evaluation Date of Service: 04/23/24 Vital Signs: Vital Signs Temp Pulse Resp BP Pulse Ox O2 Del Method 04/23/24 08:00 98 F 69 16 109/59 L 97 Room Air 04/23/24 03:50 97.4 F 65 20 100/51 L 99 Room Air Anesthesia: General Endotracheal-GETA Mental Status: Awake Pain Control: Satisfactory Nausea/Vomiting: None Hydration: Adequate Anesthesia-Related Issues: No Anes. Related Issues
[2024-04-23 15:18] VITALS: BP 117/57; PULSE 68; RESP 20; TEMP 37.2; O2SAT 100
[2024-04-23 19:35] VITALS: BP 119/50; PULSE 57; RESP 18; TEMP 36.9; O2SAT 99
[2024-04-23] MEDS: Melatonin 3 MG TABLET PO (21:54)
[2024-04-24] MEDS: Heparin Sodium,Porcine 5,000 UNIT/ML VIAL 5000 UNIT SUBCUT ×3 (02:15→17:28)
[2024-04-24 04:00] VITALS: BP 144/63; PULSE 61; RESP 18; TEMP 36.7; O2SAT 96
[2024-04-24] MEDS: Levothyroxine Sodium 75 MCG TABLET PO (05:00)
[2024-04-24] MEDS: Acetaminophen 1,000 MG/100 ML PIGGYBACK 400 MG IV ×4 (05:00→21:37)
[2024-04-24 08:00] VITALS: BP 121/55; PULSE 55; RESP 18; TEMP 36.6; O2SAT 97
--- NOTE | 2024-04-24 08:15 | P.PNGS_ITS ---
Subjective Subjective Date of Service: 04/25/24 Interval history: Passing flatus Adequate pain control Says she has ambulated within the room Feels well overall Physical Exam 2 Vital Signs: Vital Signs: Last Vital Signs Temp 97.9 F 04/24/24 08:00 Pulse 55 04/24/24 08:00 Resp 18 04/24/24 08:00 BP 121/55 L 04/24/24 08:00 Pulse Ox 97 04/24/24 08:00 O2 Del Method Room Air 04/24/24 08:00 O2 Flow Rate 2 04/22/24 13:29 BMI result Body Mass Index 24.4 Const: General: comfortable and no acute distress Resp: Effort & Inspection: normal respiratory effort Cardio: Rate: regular rate GI: Other: Incision clean and dry Palpation (GI): Soft to palpation, not firm and nontender Objective Data Active Medications Albuterol Sulfate (Albuterol Sulfate 90 Mcg 8 Gm Inhaler) 2 puff INHALE Q6H PRN PRN Reason: for wheezing Atorvastatin Calcium (Atorvastatin Calcium 10 Mg Tablet) 10 mg PO DAILY [facility] Last Admin: 04/23/24 08:30 Dose: 10 mg Documented By: BRIANA Heparin Sodium (Porcine) (Heparin Sodium,Porcine 5,000 Unit/Ml Vial) 5,000 unit SUBCUT Q8H [facility] Last Admin: 04/24/24 02:15 Dose: 5,000 unit Documented By: CAROLYN Hydromorphone HCl (Hydromorphone Hcl 0.5 Mg/0.5 Ml Syringe) 0.5 mg IVPUSH Q4H PRN; Protocol PRN Reason: Pain, Severe (Pain Scale 7-10) Lactated Ringer's (Lr) 1,000 mls @ 100 mls/hr IVCONT .Q10H [facility] Last Admin: 04/24/24 04:22 Dose: Not Given Documented By: CAROLYN Non-Admin Reason: IV Running Acetaminophen (Ofirmev) 1,000 mg in 100 mls @ 400 mls/hr IV Q6H [facility] Last Infusion: 04/24/24 06:16 Dose: Infused Documented By: CAROLYN Levothyroxine Sodium (Levothyroxine Sodium 75 Mcg Tablet) 75 mcg PO DAILY@0600 [facility] Last Admin: 04/24/24 05:00 Dose: 75 mcg Documented By: CAROLYN Lidocaine (Lidocaine 4 % Patch Adh..Patch) 1 patch TRANSDERMA DAILY [facility] Last Admin: 04/23/24 08:39 Dose: 1 patch Documented By: BRIANA Melatonin (Melatonin 3 Mg Tablet) 3 mg PO BEDTIME PRN PRN Reason: Insomnia Last Admin: 04/23/24 21:54 Dose: 3 mg Documented By: CAROLYN Metoprolol Succinate (Metoprolol Succinate Er 25 Mg Tab.Er.24h) 25 mg PO DAILY [facility]; Protocol Last Admin: 04/23/24 08:31 Dose: 25 mg Documented By: BRIANA Ondansetron HCl (Ondansetron Hcl 4 Mg/2 Ml Vial) 4 mg IVPUSH Q6H PRN PRN Reason: Nausea Stop: 04/28/24 23:59 Last Admin: 04/22/24 16:15 Dose: 4 mg Documented By: BRIANA Oxycodone HCl (Oxycodone Hcl Immed Release 5 Mg Tablet) 5 mg PO Q4H PRN PRN Reason: Pain, Moderate(Pain Scale 4-6) Last Admin: 04/22/24 21:49 Dose: 5 mg Documented By: PHILIP Sodium Chloride (0.9 % Sodium Chloride Flush 3 Ml Syringe) 3 ml IVFSH [facility] Last Admin: 04/23/24 21:55 Dose: 3 ml Documented By: CAROLYN Labs 04/23/24 06:19 04/23/24 06:19 Procedures Date of Service Date of Service: 04/25/24 Progress Note: A&P Assessment and plan (1) Cancer of sigmoid colon: Status: Acute Assessment and Plan: Status post resection Doing well clinically Has chronic anemia Abdomen soft, benign Advance diet today Ambulate more Likely DC home tomorrow Time Spent With Patient Time: Total time managing care of this patient today ____ minutes. Quality Stroke Does the patient have a stroke diagnosis?: No VTE Prior VTE?: No VTE Risk Level:: Medical - moderate - high VTE Device Contraindication: N/A - Device Ordered VTE Drug Contraindication: N/A - Med Ordered
[2024-04-24] MEDS: Lidocaine 4 % Patch ADH..PATCH 1 PATCH TRANSDERMA (09:15)
[2024-04-24] MEDS: Metoprolol Succinate ER 25 MG TAB.ER.24H PO (09:18)
[2024-04-24] MEDS: Atorvastatin Calcium 10 MG TABLET PO (09:18)
[2024-04-24] MEDS: 0.9 % Sodium Chloride Flush 3 ML SYRINGE IVFLUSH ×3 (09:19→21:36)
[2024-04-24] MEDS: Lactated Ringers 1,000 ML 100 ML IVCONT (09:50)
[2024-04-24 16:00] VITALS: BP 140/68; PULSE 64; RESP 16; TEMP 35; O2SAT 96
[2024-04-24 20:00] VITALS: BP 145/64; PULSE 64; RESP 16; TEMP 36.7; O2SAT 98
[2024-04-24] MEDS: Melatonin 3 MG TABLET PO (22:24)
[2024-04-24] MEDS: oxyCODONE HCl Immed Release 5 MG TABLET PO (22:24)
[2024-04-25 03:28] VITALS: BP 140/71; PULSE 65; RESP 16; TEMP 36.4; O2SAT 96
[2024-04-25] MEDS: Heparin Sodium,Porcine 5,000 UNIT/ML VIAL 5000 UNIT SUBCUT ×2 (03:33→09:23)
[2024-04-25] MEDS: Acetaminophen 1,000 MG/100 ML PIGGYBACK 400 MG IV ×2 (03:33→09:23)
[2024-04-25] MEDS: oxyCODONE HCl Immed Release 5 MG TABLET PO (05:17)
[2024-04-25] MEDS: Levothyroxine Sodium 75 MCG TABLET PO (05:17)
[2024-04-25 08:00] VITALS: BP 132/93; PULSE 61; RESP 12; TEMP 36.1; O2SAT 97
[2024-04-25] MEDS: Lidocaine 4 % Patch ADH..PATCH 1 PATCH TRANSDERMA (08:36)
[2024-04-25] MEDS: 0.9 % Sodium Chloride Flush 3 ML SYRINGE IVFLUSH (08:37)
[2024-04-25] MEDS: Atorvastatin Calcium 10 MG TABLET PO (08:39)
[2024-04-25] MEDS: Metoprolol Succinate ER 25 MG TAB.ER.24H PO (08:39)
--- NOTE | 2024-04-25 09:00 | P.PNGS_ITS ---
Subjective Subjective Date of Service: 04/29/24 Interval history: Continues to feel well Tolerating diet well Has BMs and flatus Denies significant pain Has been ambulating Physical Exam 2 Vital Signs: Vital Signs: Last Vital Signs Temp 97 F 04/25/24 08:00 Pulse 61 04/25/24 08:00 Resp 12 04/25/24 08:00 BP 132/93 H 04/25/24 08:00 Pulse Ox 97 04/25/24 08:00 O2 Del Method Room Air 04/25/24 08:00 O2 Flow Rate 2 04/22/24 13:29 BMI result Body Mass Index 24.4 Const: General: comfortable and no acute distress Resp: Effort & Inspection: normal respiratory effort Cardio: Rate: regular rate GI: Other: Incisions clean and dry Palpation (GI): Soft to palpation, not firm and no guarding Objective Data Active Medications Albuterol Sulfate (Albuterol Sulfate 90 Mcg 8 Gm Inhaler) 2 puff INHALE Q6H PRN PRN Reason: for wheezing Atorvastatin Calcium (Atorvastatin Calcium 10 Mg Tablet) 10 mg PO DAILY [facility] Last Admin: 04/25/24 08:39 Dose: 10 mg Documented By: SUNNY Heparin Sodium (Porcine) (Heparin Sodium,Porcine 5,000 Unit/Ml Vial) 5,000 unit SUBCUT Q8H [facility] Last Admin: 04/25/24 03:33 Dose: 5,000 unit Documented By: GINO Hydromorphone HCl (Hydromorphone Hcl 0.5 Mg/0.5 Ml Syringe) 0.5 mg IVPUSH Q4H PRN; Protocol PRN Reason: Pain, Severe (Pain Scale 7-10) Acetaminophen (Ofirmev) 1,000 mg in 100 mls @ 400 mls/hr IV Q6H [facility] Last Infusion: 04/25/24 03:51 Dose: Infused Documented By: GINO Levothyroxine Sodium (Levothyroxine Sodium 75 Mcg Tablet) 75 mcg PO DAILY@0600 [facility] Last Admin: 04/25/24 05:17 Dose: 75 mcg Documented By: FREDY Lidocaine (Lidocaine 4 % Patch Adh..Patch) 1 patch TRANSDERMA DAILY [facility] Last Admin: 04/25/24 08:36 Dose: 1 patch Documented By: SUNNY Melatonin (Melatonin 3 Mg Tablet) 3 mg PO BEDTIME PRN PRN Reason: Insomnia Last Admin: 04/24/24 22:24 Dose: 3 mg Documented By: GINO Metoprolol Succinate (Metoprolol Succinate Er 25 Mg Tab.Er.24h) 25 mg PO DAILY [facility]; Protocol Last Admin: 04/25/24 08:39 Dose: 25 mg Documented By: SUNNY Ondansetron HCl (Ondansetron Hcl 4 Mg/2 Ml Vial) 4 mg IVPUSH Q6H PRN PRN Reason: Nausea Stop: 04/28/24 23:59 Last Admin: 04/22/24 16:15 Dose: 4 mg Documented By: BRIANA Oxycodone HCl (Oxycodone Hcl Immed Release 5 Mg Tablet) 5 mg PO Q4H PRN PRN Reason: Pain, Moderate(Pain Scale 4-6) Last Admin: 04/25/24 05:17 Dose: 5 mg Documented By: FREDY Sodium Chloride (0.9 % Sodium Chloride Flush 3 Ml Syringe) 3 ml IVFLUSH [facility] Last Admin: 04/25/24 08:37 Dose: 3 ml Documented By: SUNNY Labs 04/23/24 06:19 04/23/24 06:19 Procedures Date of Service Date of Service: 04/29/24 Progress Note: A&P Assessment and plan (1) Cancer of sigmoid colon: Status: Acute Assessment and Plan: Status post sigmoid resection Doing well Good GI function Has been ambulating Patient says she is ready to be discharged Discharge instructions explained to patient We will see in the office for follow-up Await path report Time Spent With Patient Time: Total time managing care of this patient today ____ minutes. Quality Stroke Does the patient have a stroke diagnosis?: No VTE Prior VTE?: No VTE Risk Level:: Medical - moderate - high VTE Device Contraindication: N/A - Device Ordered VTE Drug Contraindication: N/A - Med Ordered
--- NOTE | 2024-04-25 09:42 | MHC.CM.PN ---
EMR reviewed. Patient is medically cleared for dc home self care. Daughter will provide transport at 11am. RN aware.
--- NOTE | 2024-04-29 14:09 | P.DS_ITS ---
DS: Providers Provider Date of Service: 04/25/24 Date of admission: 04/22/24 07:22 Date of discharge: 04/25/24 Primary care physician: Fran Lazaro MD Admitting clinician: Diego Decker Attending physician on admission: Diego Decker Consults: 04/22/24 13:44 Consult to Hospitalist Routine Comment: Consulting Provider: Hospitalist Reason For Exam: medical management DS: Diagnosis Discharge Diagnosis (1) Cancer of sigmoid colon: Status: Acute DS: Summary Hospital Course Hospital Course: 69-year-old female, admitted on 04/22/2024 for elective hand assisted laparoscopic sigmoid resection because of newly diagnosed colon cancer. She underwent this surgery with primary anastomosis that same day. She had an unev entful intraoperative course. She was transferred [facility] postoperatively. She was started on clear liquids. She had some passage of flatus on her 1st postop day. She was started on full liquids and she tolerated this. She denied any abdominal pain. She had good bowel movements thereafter. She was on regular diet on postop day 2. She continued to tolerate this. She was ambulating well. She remained afebrile. She had good GI functions She was therefore discharged on 04/25/2024. At the time of her discharge, she was tolerating regular diet. She had been passing flatus and BMs. She was ambulating and had remained afebrile. She had good pain control on oral pain medications. Time Attestation Total time managing care of this patient today: 30 mintues. Discharge Coordination Time (in mins): 30 minutes Quality: Safe Use of Opioids Does Pt have an Active Cancer Diagnosis on the Problem List?: Yes Opioid Measure Date for [facility] Report: 03/30/24 Opioid Measure Time for [facility] Report: 14:12 Quality: Stroke Does the patient have a stroke diagnosis?: No Physical Exam Vital Signs: Vital Signs: Last Vital Signs Temp 97 F 04/25/24 08:00 Pulse 61 04/25/24 08:00 Resp 12 04/25/24 08:00 BP 132/93 H 04/25/24 08:00 Pulse Ox 97 04/25/24 08:00 O2 Del Method Room Air 04/25/24 08:00 O2 Flow Rate 2 04/22/24 13:29 BMI result Body Mass Index 24.4 Const: General: comfortable and no acute distress Orientation/consciousness: patient oriented x3 Neck: Neck: Yes no lymphadenopathy Resp: Auscultation: clear to auscultation bilaterally Cardio: Rhythm: regular rhythm GI: Other: Incisions clean and dry Palpation (GI): Soft to palpation, nontender and no guarding Neuro: General: patient oriented x3 DS: Data Data Completed and Pending Completed studies during hospitalization [Text1]: Pending at discharge 04/22/24 10:41 Surgical [PTH] Routine Laboratory Results WBC 15.1 X10*3/uL (4.8-10.8) H 04/23/24 06:19 RBC 3.20 X10*6/uL (4.20-5.50) L D 04/23/24 06:19 Hgb 8.8 g/dl (12.0-16.0) L 04/23/24 06:19 Hct 27.0 % (37.0-47.0) L D 04/23/24 06:19 MCV 84.4 fL (80.0-98.0) 04/23/24 06:19 MCH 27.5 pg (27.0-33.0) 04/23/24 06:19 MCHC 32.6 g/dl (31.0-35.0) 04/23/24 06:19 RDW 14.2 % (11.0-16.0) 04/23/24 06:19 Plt Count 228 X10*3/uL (160-400) 04/23/24 06:19 MPV 10.3 fL (9.4-12.3) 04/23/24 06:19 Immature Gran % (Auto) 0.5 % (0.0-0.4) H 04/23/24 06:19 Neut % (Auto) 79.7 % (45-73) H 04/23/24 06:19 Lymph % (Auto) 14.5 % (20-40) L 04/23/24 06:19 [place] % (Auto) 5.2 % (2-11) 04/23/24 06:19 Eos % (Auto) 0.0 % (0-4) 04/23/24 06:19 Baso % (Auto) 0.1 % (0-2) 04/23/24 06:19 Lymph # (Auto) 2.2 X10*3/uL (1.2-4.9) 04/23/24 06:19 [place] # (Auto) 0.8 X10*3/uL (0.1-1.2) 04/23/24 06:19 Eos # (Auto) 0.0 X10*3/uL (0.0-0.4) 04/23/24 06:19 Baso # (Auto) 0.0 X10*3/uL (0.0-0.2) 04/23/24 06:19 Abs Immat Gran (auto) 0.07 X10*3/uL (0.00-0.03) H 04/23/24 06:19 Absolute Neuts (auto) 12.1 x10*3/uL (2.0-8.3) H 04/23/24 06:19 Absolute Nucleated RBC 0.000 X10*3/uL (0.0-0.012) 04/23/24 06:19 Nucleated RBC % (auto) 0.0 /100WBC (0.0-0.2) 04/23/24 06:19 Sodium 142 mmol/L (135-145) 04/23/24 06:19 Potassium 3.3 mmol/L (3.3-5.1) 04/23/24 06:19 Chloride 104 mmol/L (96-108) 04/23/24 06:19 Carbon Dioxide 29 mmol/L (22-29) 04/23/24 06:19 Anion Gap 12 (12-20) 04/23/24 06:19 BUN 10 mg/dL (9-16) 04/23/24 06:19 Creatinine 0.71 mg/dL (0.5-1.4) 04/23/24 06:19 Estim Creat Clear Calc 59.8 04/23/24 06:19 Estimated GFR > 60 04/23/24 06:19 Fasting Glucose 124 mg/dL (60-99) H 04/23/24 06:19 Calcium 8.3 mg/dL (8.4-10.2) L D 04/23/24 06:19 Blood Type O Positive 04/15/24 14:20 Antibody Screen NEGATIVE 04/15/24 14:20 Discharge Plan Discharge Anticipated Discharge Date/Time: 04/25/24 09:02 Patient Disposition: Home, Self-Care Discharge Diagnosis: colon cancer Referrals: Diego Decker MD [Physician] - 2 Weeks Discharge Medications: New oxycodone-acetaminophen [Percocet] 5-325 mg tablet 1 tab PO Q4-6H PRN (Reason: pain) Qty: 20 0RF Rx Instructions: Partial Fill upon patient request. Continued simvastatin 20 mg tablet 20 mg PO DAILY Qty: 90 3RF (DME) HUMIDIFIER See Rx Instructions .Route .MEDSUPPLY Qty: 1 0RF Rx Instructions: As directed lidocaine 5 % adhesive patch,medicated 1 patch topical DAILY Qty: 30 3RF Rx Instructions: leave on most painful area for up to 12 hrs ferrous sulfate [Feosol] 325 mg (65 mg iron) tablet 325 mg PO DAILY Qty: 90 1RF metoprolol succinate 25 mg tablet extended release 24 hr 25 mg PO DAILY Qty: 90 3RF ascorbate calcium (vitamin C) 500 mg tablet 500 mg PO DAILY Qty: 90 1RF zolpidem 5 mg tablet 5 mg PO BEDTIME Qty: 30 1RF levothyroxine 75 mcg tablet 75 mcg PO DAILY@0600 albuterol sulfate [Ventolin HFA] 90 mcg/actuation HFA aerosol inhaler 2 puff inhalation Q6H PRN (Reason: for wheezing) amoxicillin-pot clavulanate 875-125 mg tablet 1 tab PO BID Rx Instructions: END DATE: 04/24/24 tramadol 50 mg tablet 50 mg PO BID 30 Days Qty: 60 1RF dicyclomine 10 mg capsule 10 mg PO QID Qty: 120 6RF Discharge Orders: Discharge Order (Routine); Ordered 04/25/24 Ordered By: Diego Decker Diet: Regular diet Activity on Discharge: No heavy lifting Stand Alone Forms: Patient Portal Discharge page Print Language: Croatian Activity Restrictions/Additional Instructions: If the incision area is tender, you may apply an ice pack for short intervals (No more than 20 minutes on, followed by at least 20 minutes off). Do not apply heat. Do not use creams, lotions, or topical antibiotics unless instructed to do so by your surgeon. These can cause infection or allergic reaction. No lifting more than 20 lbs Okay to shower No strenuous activities Call the office for follow-up in 2 weeks - with Dr. Decker Call Your Doctor If: -Your temperature exceeds 101.5? F -You experience excessive pain or swelling -You have an unexpected reaction to medication -You have excessive bleeding -You experience continued vomiting/nausea -Your incision begins to separate -Your incision shows signs of infection such as increased redness, swelling, excessive pain, drainage (light blood or clear fluid is normal) or heat Care Plan Goals: return to baseline health cancer treatment Health Concerns: colon cancer Plan of Treatment: [facility] pain meds office ffup Assessment: doing well Discharge Date/Time: 04/25/24 11:49
== END 2024-04-25 11:49 | disposition home or self-care (01) | DRG 331 ==
LOC: HO.SSSA 07:27 → HO.IMC 13:03 → HO.S3 04-24 15:25
PROVIDERS: Nurse Practitioner; Physician Assistant Surgical; Admitting Provider Surgery; PCP Internal Medicine; Visit Provider Surgery
PROC: 0DTE0ZZ Resection of Large Intestine, Open Approach (ICD-10-PCS; principal; 2024-04-22 08:30)
DX: C18.7 Malignant neoplasm of sigmoid colon (principal); E03.9 Hypothyroidism, unspecified; D63.0 Anemia in neoplastic disease; J45.909 Unspecified asthma, uncomplicated; E78.5 Hyperlipidemia, unspecified; D51.0 Vitamin B12 deficiency anemia due to intrinsic factor deficiency; Z79.890 Hormone replacement therapy; Z79.899 Other long term (current) drug therapy
CPT/HCPCS: 36415; 80048; 85025; 85027; 86850; 86900; 86901; 88305; 88309; 93005; C1758; J0131; J1100; J1170; J1644; J2250; J2405; J2704; J2795; J3010; J7120

== ENCOUNTER → 2024-04-22 07:22 | Outpatient (BNV) | payer OTHER, SELFPAY | PROVIDERS: Admitting Provider Surgery; PCP Internal Medicine; Visit Provider Nurse Practitioner Acute Care | DX: C18.7 Malignant neoplasm of sigmoid colon (principal) | CPT/HCPCS: 99222 ==

== ENCOUNTER → 2024-04-22 07:22 | Outpatient (BNV) | payer OTHER, SELFPAY | PROVIDERS: Admitting Provider Surgery; PCP Internal Medicine; Visit Provider Physician Assistant Surgical | DX: C18.7 Malignant neoplasm of sigmoid colon (principal) | CPT/HCPCS: 44204; 44213; 99024; 99499 ==

== ENCOUNTER 2024-05-05 09:47 | Outpatient (AMB) | payer OTHER, SELFPAY ==
--- NOTE | 2024-05-05 09:56 | A.OFFVIS_ITS ---
Vital Signs 05/05/24 10:05 Weight 120 lb Intake Visit Reasons: S/P sigmoid resection Intake Note: This patient presents for a post-op assessment status post Hand assisted laparoscopic sigmoid resection, with splenic flexure mobilization, end-to-end anastomosis with the EEA, flexible sigmoidoscopy. Patient c/o; reports no complaints pertaining to surgery. 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 She tolerated procedure well. She was discharged on postop day 3. She says she is doing well at home. She has good oral intake and has good GI functions. [facility] Medical History Encounter for well woman exam with routine gynecological exam Anemia Pre-op examination Colon cancer screening Plantar fasciitis Annual physical exam Headache Cervical cancer screening Breast cancer screening by mammogram Colon cancer screening declined Colonoscopy refused Overweight (BMI 25.0-29.9) Vitamin B12 deficiency Impaired glucose tolerance Hypothyroid Hypercholesterolemia Hypertension Insomnia Carpal tunnel syndrome Surgical History Hx of surgical procedure (~04/22/24) H/O colonoscopy Family History Father No problems noted. Mother No problems noted. Sister History of breast cancer, Onset Age: 50 Daughter Colon cancer Son Colon cancer Social History Household Members: None Housing: Apartment Are you a primary career specialist to a significant other at home: No Do you presently have visiting nurse or other home services: No Alcohol intake: never Patient Tobacco Use Status: Never used Tobacco e-Cigarette/Vaping Use: Never Used Second Hand Smoke Exposure: No service: No Current occupational status: retired Sexual orientation: Straight/Heterosexual Gender identity: Female Cognitive needs: No Hearing needs: No Vision needs: Yes Female Reproductive History Menstrual Age of Menarche: 16 Review of Systems Const Denies chills and Denies fever(s) Card Denies chest pain, Denies dyspnea and Denies dyspnea on exertion Resp Denies cough, Denies dyspnea and Denies dyspnea on exertion GI Denies hematochezia and Denies change in bowel habits Denies hematuria Musc Denies back pain and Denies limited range of motion Neuro Denies focal weakness and Denies convulsions Psych Denies depression and Denies mood swings Physical Exam Const General: comfortable and no acute distress Resp Effort & Inspection: normal respiratory effort GI Other: Incisions well healed, clean and dry Palpation (GI): Soft to palpation, not firm, nontender and no guarding Assessment & Plan Assessment & Plan (1) Colon cancer: Comment: February 2024 Intramucosal adenocarcinoma, at least. Code(s): C18.9 - Malignant neoplasm of colon, unspecified Category: Medical Plan: Status post sigmoid colectomy,HALS. She is doing well postoperatively. She has good GI functions. I had advised her to avoid any lifting or strenuous activities for at least 3 more weeks Her path report shows a T4 N1 adenocarcinoma. She is to follow up with Dr. Rosado. I will see her in the office again in about 1 month. Coding Level of Care Code Global (33443) Diagnoses Colon cancer C18.9
== END 2024-05-05 10:17 | disposition home or self-care (01) ==
PROVIDERS: PCP Internal Medicine; Visit Provider Surgery
DX: C18.9 Malignant neoplasm of colon, unspecified (principal)
CPT/HCPCS: 99024

== ENCOUNTER → 2024-05-05 09:47 | Outpatient (BNVA) | payer OTHER, SELFPAY | PROVIDERS: PCP Internal Medicine; Visit Provider Surgery | DX: C18.9 Malignant neoplasm of colon, unspecified (principal); Z90.49 Acquired absence of other specified parts of digestive tract | CPT/HCPCS: 99212 ==

== ENCOUNTER → 2024-06-04 10:40 | Outpatient (BNVA) | payer OTHER, SELFPAY | PROVIDERS: PCP Internal Medicine; Visit Provider Surgery ==

== ENCOUNTER 2024-06-17 08:19 | Outpatient (REF) | payer OTHER, SELFPAY ==
--- NOTE | ~2024-06-17 | US_ITS ---
EXAMINATION: US ABDOMEN COMPLETE CLINICAL INFORMATION: Sigmoid: Cancer and liver lesion on CT. Further evaluation.. COMPARISON: CT abdomen and pelvis 03/31/2024 TECHNIQUE: Real-time imaging of the abdominal viscera. FINDINGS: PANCREAS: Obscured by midline bowel gas ABDOMINAL AORTA: The proximal, mid, and distal segments are normal in caliber. INFERIOR VENA CAVA: Visualized portions are normal. LIVER: The control center operator demarcates a hypoechoic focus in the left lobe near the caudate at 15 x 19 x 19 mm. There is no specific CT correlation, thus this may reflect normal hepatic tissue. The previously questioned 9 mm low-density structure, in the high posterior segment of the right lobe is not clearly apparent on this ultrasound. I would therefore recommend repeating this CT with a specific liver protocol or an MRI with dynamic gadolinium sequences to better evaluate the liver. There are complex cysts in the left lobe at 20 x 18 x 22 mm and right lobe at 6 x 4 x 8 mm and right lower lobe at 11 x 15 x 11 mm. These correlate well with the recent CT findings. There is no intrahepatic biliary dilatation. GALLBLADDER: Normal. The gallbladder is physiologically distended without evidence of stones, sludge, polyps, wall thickening or pericholecystic fluid. COMMON BILE DUCT: Normal in caliber measuring 0.2 cm in diameter. RIGHT KIDNEY: Normal. No hydronephrosis. No renal calculi or focal parenchymal lesions. The kidney measures 9.6 cm in maximum dimension. LEFT KIDNEY: Normal. No hydronephrosis. No renal calculi or solid focal parenchymal lesions. Lateral lower pole cyst at 9 mm. The medial upper pole cyst at 20 mm. The kidney measures 9.1 cm in maximum dimension. SPLEEN: Normal. The spleen measures 8.5 cm in maximum dimension. FREE FLUID: None. US/US abdomen complete IMPRESSION: The liver lesion of concern as noted on the CT is not clearly seen on this ultrasound. Comments and discussion. Recommendation is to reevaluate the liver with either dynamic gadolinium-enhanced MRI, or dedicated liver protocol contrast enhanced CT.
== END 2024-06-17 08:20 | disposition home or self-care (01) ==
LOC: HO.US 08:19
PROVIDERS: PCP Internal Medicine; Visit Provider Internal Medicine Medical Oncology
DX: K76.9 Liver disease, unspecified (principal)
CPT/HCPCS: 76700

== ENCOUNTER 2024-06-18 08:41 | Day surgery (SDC) | payer OTHER, SELFPAY ==
--- NOTE | ~2024-06-18 | IR_ITS ---
CLINICAL HISTORY: Colon cancer. The patient presents to interventional radiology for placement of a port for chemotherapy. PROCEDURES: 1. Real-time ultrasound-guided access into the right internal jugular vein after documentation of selected vessel patency, and permanent image storing in the patient records. 2. Placement of a 6.0 [place] single-lumen slim power port. CLINICIAN: Tomy Rosales PA-C MEDICATIONS: - Versed 1.5 mg, Fentanyl 75 mcg, Lidocaine 1% 10 mL SQ -Antibiotics: Ancef 2g -For additional details, please see nursing flowsheet. Complications: None. Estimated blood loss: <5 ml Specimens: None. Contrast: None. Fluoroscopy time: 1.1 min MODERATE SEDATION TIME: 34 min PROCEDURE NOTE: The procedure, risks, benefits, and alternatives were carefully explained to the patient and written informed consent was obtained. The patient was placed supine on the fluoroscopy table. A timeout was performed. The right neck and chest was prepped and draped in usual sterile fashion. Maximum barrier technique was utilized. Local anesthesia was administered to the access site with 1% lidocaine. Under ultrasound guidance, the right internal jugular vein was accessed with a 5 fr micropuncture set. A 0.035 in wire was advanced into the IVC. A peel-away sheath was advanced over the wire and into the SVC, and the wire was removed. Next, subcutaneous lidocaine was administered to the chest. The port pocket was created after the skin incision, utilizing blunt dissection. Using blunt dissection, a subcutaneous tunnel was created that connects from the port pocket to the venotomy site. Through the peel-away sheath, the 6.0 [place] port catheter was placed. The catheter position was verified with fluoroscopy to be at the cavoatrial junction. The port was connected to the catheter and was placed in the pocket. The venotomy site was closed with a 3-0 Vicryl subcutaneous suture. The port incision site was closed with interrupted 3-0 Vicryl subcutaneous sutures and surgical glue. Prior to closing the skin, 1 g of Ancef solution was placed in the pocket. The port was tested, flushed, and packed with heparin per routine protocol. The patient tolerated the procedure well. The patient was stable after the procedure and was transferred to the PACU. The procedure was performed under moderate sedation and with a dedicated nurse with continuous monitoring of vital signs. A permanent image of the ultrasound the neck and fluoroscopic image of the chest was saved and sent to PACS. FINDINGS: 1. Patent right internal jugular vein 2. Placement of a 6.0 [place] single lumen slim power port. 3. Port flushes and aspirates very well with a 10 mL syringe. No pneumothorax. IR/IR cvc insert tunnel w prt/admitted attorneys IMPRESSION: Placement of a 6.0 [place] single-lumen power port. PLAN: - The patient will be discharged home when stable by sedation protocol. - Port may be used immediately. This procedure was performed by Tomy Rosales PA-C, and directly supervised by Dr. Stroud
[2024-06-18 09:29] VITALS: BMI 24.0
--- NOTE | 2024-06-18 10:15 | MHC.SHP ---
Pre-Procedural Eval Section A - 24 Hr Update-Section A only Date of Service: 06/18/24 Section B - Complete if H&P > 30 days Chief Complaint: MALIGNANT NEOPLASM OF COLON Details of Present Illness: 69 y/o female with colon cancer and poor iv access Relevant Family History (Specify if Yes): No Relevant Social History: None Present Medications: see Short Stay Collaborative assessment Medical History: Significant History History of Previous Operations: Relevant previous surgery/procedure and date(s) Allergies: Allergies Allergy/AdvReac Type Severity Reaction Status Date / Time No Known Allergies Allergy Verified 06/13/24 15:32 Review of Systems Sugical H&P ROS: Negative: Cardiovascular, Respiratory and Integumentary Exam Surgical H&P Exam: Normal: Heart, Normal: Lungs, Normal: Skin (thin) and Normal: Neurological Plan Port for access for chemotherapy Time Spent With Patient Time: Total time managing care of this patient today ____ minutes.
[2024-06-18 11:52] VITALS: BP 118/95; PULSE 54; RESP 16; TEMP 37.1; O2SAT 98
[2024-06-18 12:00] VITALS: BP 104/60; PULSE 57; RESP 15; O2SAT 98
[2024-06-18 12:15] VITALS: BP 114/60; PULSE 55; RESP 16; TEMP 37.1; O2SAT 99
== END 2024-06-18 12:45 | disposition home or self-care (01) ==
PROVIDERS: Physician Assistant Surgical; PCP Internal Medicine; Visit Provider Internal Medicine Medical Oncology
DX: Z45.2 Encounter for adjustment and management of vascular access device (principal); C18.9 Malignant neoplasm of colon, unspecified
CPT/HCPCS: 36415; 36561; 80053; 80061; 82306; 82607; 82728; 82746; 83540; 84439; 84443; 85025; 85045; 99152; 99153; A4364; C1769; C1788; J0131; J0690; J1642; J1644; J2250; J2310; J3010

== ENCOUNTER → 2024-06-18 10:16 | Outpatient (BNV) | payer OTHER, SELFPAY | PROVIDERS: PCP Internal Medicine; Visit Provider Physician Assistant Surgical | DX: C18.9 Malignant neoplasm of colon, unspecified (principal) | CPT/HCPCS: 36561; 76937; 77001 ==

== ENCOUNTER 2024-06-18 13:48 | Outpatient (REF) | payer OTHER, SELFPAY ==
[2024-06-18 14:18] LABS: MANUAL DIFF FLAG NO
[2024-06-18 15:48] LABS: Basophils Percent Auto 0.4 % (0-2); Eosinophils Absolute Auto 0.1 X10*3/uL (0.0-0.4); Eosinophils Percent Auto 0.9 % (0-4); Hematocrit 35.4 % (37.0-47.0); Hemoglobin 11.2 g/dl (12.0-16.0); Imm Gran Abs Auto 0.01 X10*3/uL (0.00-0.03); Imm Gran Pct Auto 0.1 % (0.0-0.4); Immature Retic Fraction 8.6 % (3.0-15.9); Lymphocytes Absolute Auto 2.6 X10*3/uL (1.2-4.9); Lymphocytes Percent Auto 38.9 % (20-40); Mean Corpuscular HGB Conc 31.6 g/dl (31.0-35.0); Mean Corpuscular Hemoglobin 27.7 pg (27.0-33.0); Mean Corpuscular Volume 87.4 fL (80.0-98.0); Mean Platelet Volume 10.7 fL (9.4-12.3); Monocytes Absolute Auto 0.3 X10*3/uL (0.1-1.2); Neutrophils Absolute Auto 3.7 x10*3/uL (2.0-8.3); Neutrophils Percent Auto 54.7 % (45-73); Platelet Count 248 X10*3/uL (160-400); Red Blood Count 4.05 X10*6/uL (4.20-5.50); Red Cell Distribution Width 16.1 % (11.0-16.0); Retic HGB Equivalent 31.3 pg (30.0-35.0); Reticulocyte Percent 1.1 % (0.5-1.8); Reticulocytes Absolute 0.043 X10*6/uL (0.026-0.095); White Blood Count 6.8 X10*3/uL (4.8-10.8)
[2024-06-18 16:33] LABS: Alanine Aminotransferase 20 U/L (0-31); Alkaline Phosphatase 68 U/L (39-117); Anion Gap 13 (12-20); Aspartate Amino Transferase 21 U/L (5-31); Bilirubin Total 0.3 mg/dL (0.0-1.0); Blood Urea Nitrogen 13 mg/dL (9-16); Calcium 9.5 mg/dL (8.4-10.2); Carbon Dioxide 25 mmol/L (22-29); Chloride 107 mmol/L (96-108); Cholesterol 179 mg/dL (<200); Estimated Glomerular Filt Rate > 60; Glucose Random 119 mg/dL (60-115); HDL Cholesterol 85 mg/dL (>40); Iron 1120 mcg/dL (30-160); LDL Cholesterol Calculated 85 mg/dL (<100); Percent Iron Saturation 98 % (15-50); Potassium 3.7 mmol/L (3.3-5.1); Sodium 141 mmol/L (135-145); Total Iron Binding Capacity 1145 mcg/dL (228-428); Total Protein 6.9 g/dL (6.5-8.0); Triglycerides 46 mg/dL (<150); Unsaturated Iron Binding < 25 ug/dL
[2024-06-18 16:50] LABS: Ferritin 20 ng/mL (10-250); Vitamin D 25-OH Total 39.9 ng/mL (>30)
[2024-06-18 16:54] LABS: Folate 14.5 ng/mL (> or = 4.0); Vitamin B12 400 pg/mL (200-900)
== END 2024-06-18 13:49 | disposition home or self-care (01) ==
LOC: HO.LAB 13:48
PROVIDERS: PCP Internal Medicine; Visit Provider Internal Medicine Medical Oncology
DX: Z13.89 Encounter for screening for other disorder (principal)
CPT/HCPCS: 36415; 80053; 80061; 82306; 82607; 82728; 82746; 83540; 84439; 84443; 85025; 85045

== ENCOUNTER 2024-06-19 10:28 | Outpatient (AMB) | payer OTHER, SELFPAY ==
--- NOTE | 2024-06-19 10:30 | A.OFFVIS_ITS ---
Vital Signs 3 06/19/24 10:35 Height 5 ft BP 124/70 Blood Pressure Location Lt brachial Position Sitting Pulse 68 Pulse Source Pulse Oximeter Pulse Oximetry (%) 99 Oxygen Delivery Method Room Air Intake Visit Reasons: s/p colonoscopy Intake Note: Sandra presents in office today for a scheduled post op FUV. CC; Pt denies any new complications following the procedure. Pt already was aware of the results from the procedure. Pt reports new onset of bloating and gas related issues, as well as GERD related sx. Pt would like to discuss a rx to treat these sx. Pt is questioning the possibility of simethicone. Pt would also like to discuss an alternative to the pantoprazole as they did not find it effective. Hydrodynamics Professor Required: Yes Hydrodynamics Professor Services: Hydrodynamics Professor Present Hydrodynamics Professor Name: Anthony [id number] Information Interpreted: non-clinical & clinical Accompanied by: Self / Same As Patient Allergies No Known Allergies Allergy (Verified 06/19/24 10:33) HPI HPI s/p colonoscopy: Details: Assessment & Plan (1) Pre-op examination: Code(s): Z01.818 - Encounter for other preprocedural examination (2) Asthma: Code(s): J45.909 - Unspecified asthma, uncomplicated (3) Abdominal cramping: Code(s): R10.9 - Unspecified abdominal pain (4) Abdominal pain: Code(s): R10.9 - Unspecified abdominal pain (5) Impaired glucose tolerance: Code(s): R73.02 - Impaired glucose tolerance (oral) (6) Abnormal weight loss: Code(s): R63.4 - Abnormal weight loss Plan [facility] She has declined colonoscopy in the past because she was fearful of anesthesia. I spend a great deal of time educating her about the difference between full anesthesia and sedation and how safe the current sedation is. In the end she agrees to the procedure. This is a very long appointment because I have to go over much of the sedation and the procedure in great and gentle detail in order to ease her fears. She has occasional CIC that resolves with diet/water changes, no rectal bleeding. She experiences pain in the mid to lower abdomen that happens frequently and then I will start burping. She was given a gas pill by her PCP but it does not help. She also has borborygmus. This was of sudden onset about 2 mos ago and she thought it was because I was using vitamin C, so I stopped, but this did not help it. She has a LOT of bloating and gas. Her appetite is good and I eat a lot, but she is losing weight. She has lost 15 lbs over the past 8 mos, but admits I walk a lot, but her exercise level has not changed. She is completely naive to anesthesia and sedation. Her asthma is well controlled and she denies any cardiac problems. NO ID problems. No know FHX of crc o r polyps Return office visit in 6 weeks to go over labs and of course after the procedure. Orders: Orders US abdomen complete Today R10.9 - Unspecified abdominal pain Glucose 2 Hour PP Today R63.4 - Abnormal weight loss, R73.02 - Impaired glucose tolerance (oral) Colonoscopy - GI Use Only Today Z01.818 - Encounter for other preprocedural examination Hemoglobin A1c Today R63.4 - Abnormal weight loss, R73.02 - Impaired glucose tolerance (oral) UA CC w/rflx Micro + Cult Today R63.4 - Abnormal weight loss, R73.02 - Impaired glucose tolerance (oral) Medications: New sodium,potassium,mag sulfates 17.5-3.13-1.6 gram (Suprep Bowel Prep Kit) 480 mL orally; FOR COLONOSCOPY PREP 354 mL 0RF dicyclomine 10 mg PO QID 120 caps 6RF R10.9 - Unspecified abdominal pain LABS: Not obtained ULTRASOUND OF THE ABDOMEN 12/12/23 FINDINGS: PANCREAS: Normal. ABDOMINAL AORTA: The proximal, mid, and distal segments are normal in caliber. INFERIOR VENA CAVA: Visualized portions are normal. LIVER: Liver has normal size and contour. 2 x 1.8 x 2.4 cm lobulated cyst in the left lobe has thin septation. There is a 1.2 x 1 x 1 cm simple cyst in the right lobe. No liver imaging follow-up is recommended for these cysts. No intrahepatic bile duct dilatation. GALLBLADDER: Normal. The gallbladder is physiologically distended without evidence of stones, sludge, polyps, wall thickening or pericholecystic fluid. COMMON BILE DUCT: Normal in caliber measuring 0.5 cm in diameter. RIGHT KIDNEY: Normal. No hydronephrosis. No renal calculi or focal parenchymal lesions. The kidney measures 8.7 cm in maximum dimension. LEFT KIDNEY: No hydronephrosis or renal calculi. The kidney measures 9.9 cm in maximum dimension. There are 1.8 cm and 1 cm simple cysts of the left kidney. No renal imaging follow-up is recommended for simple cysts. SPLEEN: Normal. The spleen measures 8.7 cm in maximum dimension. FREE FLUID: None. US/US abdomen complete IMPRESSION: * No specific source of abdominal pain is identified. * No evidence of cholelithiasis, cholecystitis or biliary tract obstruction. * Incidentally noted are benign liver and renal cysts. COLONOSCOPY 02/29/24 Findings: Mucosa: Spontaneously bleeding, ulcerated friable mass was noted in sigmoid colon at 35 cm. The mass was partially obstructing and scope could not traverse through it. Cold forceps biopsies were taken for histology. Hemospray applied towards the end of the procedure to cease bleeding temporarily. Protruding lesions: * Medium internal hemorrhoids without stigmata of recent bleeding. Impression: 1. Bleeding malignant appearing mass in sigmoid colon, partially obstructing 2. Incomplete colonoscopy. 3. Internal hemorrhoids Recommendations: - Follow path results. - CT abd/pel and chest ordered - Will likely need Onc +/- surgery referral depending on above - Pt advised to stay on low residue diet and to take miralax BID to keep stools liquid to avoid obstruction BIOPSY Received: 02/29/24 Diagnosis Colon, sigmoid mass, biopsy: Intramucosal adenocarcinoma, at least. NOTE: Results are NEGATIVE for Mismatch repair defect/ Anthony Syndrome-related tumor, however a small percentage of this form of heritable cancer may not be identified by this technique. TODAY'S VISIT [facility] She already had a resection of the mass with Dr. Decker. She just saw oncology and will be undergoing chemo and has a central line/port in the4 right clavicular area. She is healing well except for occasional abd discomfort that seems to be gas related. She was given Gas X but this did not work for her. She is not constipated and is moving her bowels well. She has had iron transfusions and is feeling better. ROV 8 mos. COnsider if she needs repeat scope for polyp evaluation. Since we could not pass the sigmoid. [facility] Medical History (Updated 06/19/24 @ 13:28 by Zulma Roque [facility]) Anemia Encounter for well woman exam with routine gynecological exam Colon cancer Colonic mass Recurrent UTI COVID-19 Abnormal weight loss Abdominal pain Abdominal cramping Pre-op examination Colon cancer screening Anemia Plantar fasciitis Low back pain Low back pain Pain of right hip Vulvar itching Encounter for annual routine gynecological examination Annual physical exam Headache Cervical cancer screening Breast cancer screening by mammogram Colon cancer screening declined Colonoscopy refused Overweight (BMI 25.0-29.9) Vitamin B12 deficiency Impaired glucose tolerance Hypothyroid Hypercholesterolemia Hypertension Insomnia Carpal tunnel syndrome Surgical History Hx of surgical procedure (~04/22/24) H/O colonoscopy Family History Father No problems noted. Mother No problems noted. Sister History of breast cancer, Onset Age: 50 Daughter Colon cancer Son Colon cancer Social History Household Members: None Housing: Apartment Are you a primary manager wound care to a significant other at home: No Do you presently have visiting nurse or other home services: No Alcohol intake: never Patient Tobacco Use Status: Never used Tobacco e-Cigarette/Vaping Use: Never Used Second Hand Smoke Exposure: No service: No Current occupational status: retired Sexual orientation: Straight/Heterosexual Gender identity: Female Cognitive needs: No Hearing needs: No Vision needs: Yes Female Reproductive History Menstrual Age of Menarche: 16 Review of Systems Const Denies fatigue, Denies fever(s), Denies night sweats, Denies poor appetite and Denies weight loss ENT Reports Normal hearing present, Denies dental pain, Denies dysphagia, Denies hearing loss, Denies mouth pain, Denies odynophagia, Denies throat swelling, Denies tongue swelling and Reports other (Dentition adequate) Card Reports no additional complaints Resp Reports no additional complaints GI Details: Reports abdominal pain, Denies melena, Reports bloating, Denies hematochezia, Denies constipation, Denies GI cramping, Denies dysphagia, Denies excessive flatus, Denies early satiety, Denies heartburn, Denies diarrhea, Denies nausea, Denies odynophagia, Denies vomiting and Denies hematemesis Skin/Breast Denies pruritus, Denies lesions, Denies rash and Denies jaundice Neuro Reports Normal hearing present and Denies Abnormal speech present Endo Denies fatigue Aller/Immun Denies throat swelling and Denies tongue swelling Physical Exam Vital Signs: Last Vital Signs Pulse 68 06/19/24 10:35 BP 124/70 06/19/24 10:35 Pulse Ox 99 06/19/24 10:35 Oxygen Delivery Method Room Air 06/19/24 10:35 Const General: cooperative, no acute distress, well developed and well groomed Nutritional Appearance: average body habitus and well nourished Orientation/consciousness: oriented to person, oriented to place and oriented to time Limitations: language barrier HEENT Head: Yes normocephalic and Yes atraumatic Eyes General: appearance normal, both eyes and all related structures Pupils: Equal, round and reactive pupils present Neck Neck: Yes normal visual inspection and Yes no lymphadenopathy Thyroid: Thyroid normal Chest Other: Port-A-Cath or central line right clavicular area Resp Effort & Inspection: normal respiratory effort and able to speak in complete sentences Auscultation: clear to auscultation bilaterally Cardio Rate: regular rate Rhythm: regular rhythm Heart sounds: Normal, physiologic split S2 sound present Peripheral pulses: radial pulses present and posterior tibial pulses present GI Inspection: No distended and No Abdominal panniculus present Palpation (GI): Soft to palpation, nontender, no guarding, not rigid, No hepatosplenomegaly present and Hepatosplenomegaly present Percussion: Yes normal to percussion Auscultation: normal bowel sounds Rectal Exam - Female: deferred Abdomen image: 2 1. well healing surgical scar Skin General skin exam: no rashes or lesions noted, turgor normal, skin not dry, no jaundice, No spider nevi and no striae Rashes: no rashes Nails: normal Neuro General: oriented to person, oriented to place and oriented to time Cranial nerves: Yes Equal, round and reactive pupils present and Yes Normal hearing present Speech: No Abnormal speech present Extrem General: Yes normal to inspection, No clubbing, No cyanosis and No edema Psych Appearance: grossly normal and well kempt Mental Status: mental status grossly normal Speech and movement: Normal speech and movement present Affect: normal affect Attitude: cooperative Thought process: Normal thought process present and not confabulating Thought content: Normal thought content present Insight: Fair insight present (Psych) Judgement: Fair judgement present (Psych) Assessment & Plan Assessment & Plan (1) Cancer of sigmoid colon: Comment: Sigmoid resection 03/2024 Dr. Decker Code(s): C18.7 - Malignant neoplasm of sigmoid colon Category: Medical (2) Colon cancer: Comment: February 2024 Intramucosal adenocarcinoma, at least. Code(s): C18.9 - Malignant neoplasm of colon, unspecified Category: Medical Plan [facility] She already had a resection of the mass with Dr. Decker. She just saw oncology and will be undergoing chemo and has a central line/port in the4 right clavicular area. She is healing well except for occasional abd discomfort that seems to be gas related. She was given Gas X but this did not work for her. She is not constipated and is moving her bowels well. She has had iron transfusions and is feeling better. ROV 8 mos. COnsider if she needs repeat scope for polyp evaluation. Since we could not pass the sigmoid. Coding Level of Care Code Est Pt Level 3 (76474) Diagnoses Cancer of sigmoid colon C18.7 Colon cancer C18.9
[2024-06-19 10:35] VITALS: BP 124/70; PULSE 68; O2SAT 99
== END 2024-06-19 11:15 | disposition home or self-care (01) ==
PROVIDERS: PCP Internal Medicine; Visit Provider Nurse Practitioner
DX: C18.7 Malignant neoplasm of sigmoid colon (principal); C18.9 Malignant neoplasm of colon, unspecified
CPT/HCPCS: 99213

== ENCOUNTER → 2024-06-19 10:28 | Outpatient (BNVA) | payer OTHER, SELFPAY | PROVIDERS: PCP Internal Medicine; Visit Provider Nurse Practitioner | DX: Z09 Encounter for follow-up examination after completed treatment for conditions other than malignant neoplasm (principal); C18.7 Malignant neoplasm of sigmoid colon; C18.9 Malignant neoplasm of colon, unspecified; Z95.828 Presence of other vascular implants and grafts | CPT/HCPCS: 99212 ==

== ENCOUNTER 2024-06-20 10:17 | Outpatient (AMB) | payer OTHER, SELFPAY ==
[2024-06-20 10:22] VITALS: BP 122/58; PULSE 59; O2SAT 97; BMI 24.0
--- NOTE | 2024-06-20 10:22 | MHC.PC.OV ---
Vital Signs 06/20/24 10:22 Height 5 ft Weight 123 lb 0.2 oz BMI 24.0 BP 122/58 L Blood Pressure Location Lt brachial Position Sitting Pulse 59 Pulse Source Pulse Oximeter Pulse Oximetry (%) 97 Oxygen Delivery Method Room Air Intake Visit Reasons: pe Intake Note: Patient is here today for a physical. Oracle Brm Developer Required: No Allergies No Known Allergies Allergy (Verified 06/20/24 10:22) Medication List - Last Reconciled 06/20/24 by Fran Lazaro MD albuterol sulfate 90 mcg/actuation (Ventolin HFA) 2 puffs inhalation Q6H PRN dexamethasone 4 mg PO BID dicyclomine 10 mg PO QID ferrous sulfate (Feosol) 325 mg PO DAILY [HUMIDIFIER As directed] levothyroxine 75 mcg PO DAILY@0600 lidocaine 5% 1 patch topical DAILY loperamide (Imodium A-D) 2 mg PO Q6H PRN metoprolol succinate ER 25 mg PO DAILY ondansetron 8 mg PO Q8H simvastatin 20 mg PO DAILY tramadol 50 mg PO BID 30 days zolpidem 5 mg PO BEDTIME Tobacco use date assessed: 04/18/24 Fall risk assessment: No Falls in past year Last assessed Fall Risk: 06/20/24 Dental Screening Dental Screen Date: 06/20/24 Did you have a dental visit in the last 12 months?: Yes Did you have a dental problem in the last 6 months where you did not have access to dental care?: No Was dental information given to patient?: Patient has dentist HPI pe HPI Details 69-year-old female with a history of colon cancer hypercholesterolemia hypertension hypothyroid impaired glucose tolerance asthma last seen in March 2024. Patient's mammogram is up-to-date colonoscopy up-to-date review of the notes has seen gastroenterology June 19 colonoscopy done in 04/14/2024 bleeding malignant appearing mass in the sigmoid colon partially obstructing with incomplete colonoscopy internal hemorrhoids. Patient had a resection of the mass march 2024. and on chemotherapy having a central line.. Patient also follows up with Hematology-Oncology [facility] ever [id number] startying next week chemotherapy. Hansel is not familiar with her med . occ dizzy. new bathtub to prevent for fall preventing slippage FOR[facility]LY [facility], [facility] Medical History (Updated 06/20/24 @ 11:25 by Fran Lazaro MD) Annual physical exam Anemia Encounter for well woman exam with routine gynecological exam Colon cancer Colonic mass Recurrent UTI COVID-19 Abnormal weight loss Abdominal pain Abdominal cramping Pre-op examination Colon cancer screening Anemia Plantar fasciitis Low back pain Low back pain Pain of right hip Vulvar itching Encounter for annual routine gynecological examination Headache Cervical cancer screening Breast cancer screening by mammogram Colon cancer screening declined Colonoscopy refused Overweight (BMI 25.0-29.9) Vitamin B12 deficiency Impaired glucose tolerance Hypothyroid Hypercholesterolemia Hypertension Insomnia Carpal tunnel syndrome Surgical History Hx of surgical procedure (~04/22/24) H/O colonoscopy Family History Father No problems noted. Mother No problems noted. Sister History of breast cancer, Onset Age: 50 Daughter Colon cancer Son Colon cancer Social History Household Members: None Housing: Apartment Are you a primary long term care pharmacist to a significant other at home: No Do you presently have visiting nurse or other home services: No Alcohol intake: never Patient Tobacco Use Status: Never used Tobacco e-Cigarette/Vaping Use: Never Used Second Hand Smoke Exposure: No service: No Current occupational status: retired Sexual orientation: Straight/Heterosexual Gender identity: Female Cognitive needs: No Hearing needs: No Vision needs: Yes Female Reproductive History Menstrual Age of Menarche: 16 Questionnaire PHQ-9 Over the last 2 weeks, how often have you been bothered by any of the following problems? 1. Little interest or pleasure in doing things: several days 2. Feeling down, depressed, or hopeless: several days 3. Trouble falling or staying asleep, or sleeping too much: several days 4. Feeling tired or having little energy: several days 5. Poor appetite or overeating: several days 6. Feeling bad about yourself - or that you are a failure or have let yourself or your family down: several days 7. Trouble concentrating on things, such as reading the newspaper or watching television: several days 8. Moving or speaking so slowly that other people could have noticed. Or the opposite - being so fidgety or restless that you have been moving around a lot more than usual: several days 9. Thoughts that you would be better off or of hurting yourself in some way: not at all Total score: 8 Depression Screening Interpretation: Positive Depression Screening Follow-up: Existing condition Depression Screening Done: Yes 00175 - PHQ-9 Billing: Yes Source: Developed by Drs. Torres Anderson, Sony Galvin and colleagues, with an educational farooq from [employer]. Thrive Questionnaire Date Thrive assessed: 04/23/24 DAVID-7 AMB Questionnaire DAVID-7 Date DAVID - 7 assessed: 06/20/24 Feeling nervous, anxious, or on edge: 2 = More than half the days Not being able to stop or control worryin = More than half the days Worrying too much about different things: 2 = More than half the days Trouble relaxin = More than half the days Being so restless that it is hard to sit still: 2 = More than half the days Becoming easily annoyed or irritable: 2 = More than half the days Feeling afraid as if something awful might happen: 0 = Not at all Total DAVID-7 score (0-4 normal; 5-9 mild; 10-14 moderate; 15-21 severe): 12 Source: Developed by Drs. Torres Anderson, Leida Obrien, Sony Treadwell and colleagues, with an educational farooq from [employer]. DAVID-7 Assessment Billing DAVID-7 Assessment Tool: DAVID-7 Assessment 17319 Review of Systems Const Denies poor appetite and Denies weakness Eyes Denies no additional complaints ENT Reports Normal hearing present, Denies dizziness, Denies nasal congestion, Denies tinnitus and Denies sore throat Card Denies chest pain, Denies syncope, Denies rapid heart rate and Denies dyspnea Resp Denies cough and Denies dyspnea GI Denies change in stool character, Reports constipation, Denies diarrhea, Denies nausea and Denies vomiting Denies urinary frequency, Denies difficulty voiding and Denies dysuria Neuro Reports Normal hearing present, Denies confusion, Denies dizziness, Denies syncope and Denies weakness Psych Denies confusion Physical exam (Primary Care) Vital Signs: Last Vital Signs Pulse 59 06/20/24 10:22 BP 122/58 L 06/20/24 10:22 Pulse Ox 97 06/20/24 10:22 Oxygen Delivery Method Room Air 06/20/24 10:22 Next steps: R chest with portacath BMI result Body Mass Index 24.0 Tobacco/Smoking Status: Tobacco use Status Tobacco use date assessed 04/18/24 06/20/24 10:24 Patient Tobacco Use Status Never used Tobacco 06/20/24 10:24 Tobacco use type 04/15/24 13:25 e-Cigarette/Vaping Use Never Used 06/20/24 10:24 PHQ-9: PHQ-9 Score PHQ-9: Total score 8 06/20/24 10:32 Depression Screening Interpretation: Positive Depression Screening Follow-up: Existing condition Thrive Assessment: Date of Thrive Assessment Date Thrive assessed 04/23/24 06/20/24 10:24 Const General: No confusion Orientation/consciousness: No confusion HENMT Other: impacter cerume bilateral L > R Head: Yes normocephalic Ears: external ears normal Face and sinus: Yes normal facial exam Mouth: moist mucous membranes Throat: Yes tonsils normal Eyes Conjunctivae: conjunctivae normal Pupils: Equal, round and reactive pupils present and Pupil accommodation reflex normal Direct Ophthalmoscopy: normal light reflex Neck Neck: No lymphadenopathy Thyroid: Thyroid normal Chest Chest palpation & inspection: normal inspection of the chest Resp Effort & Inspection: normal respiratory effort and no audible wheezes Auscultation: clear to auscultation bilaterally, no crackles, no wheezes and lung sounds not diminished Cardio Rate: regular rate Rhythm: regular rhythm Peripheral pulses: radial pulses present and dorsalis pedis present GI Palpation (GI): no masses Auscultation: normal bowel sounds and normoactive bowel sounds Rectal Exam - Female: deferred Skin General skin exam: no rashes or lesions noted Rashes: no rashes Neuro General: No confusion Cranial nerves: Yes Equal, round and reactive pupils present and Yes Normal hearing present Cognition (Neuro): normal cognition Gait exam (Neuro): Normal gait present Motor exam (neuro): 5/5 motor strength present throughout Deep tendon reflexes (DTR's): Right brachioradialis reflex intensity grade: 2+, Left brachioradialis reflex intensity grade: 2+, Right patellar reflex intensity grade: 2+ and Left patellar reflex intensity grade: 2+ Extrem General: No edema Assessment and Plan Assessment & Plan (1) Annual physical exam: Code(s): Z00.00 - Encounter for general adult medical examination without abnormal findings Plan: Patient is advised to eat healthy, keep well hydrated, keep active and have adequate sleep. (2) Cancer of sigmoid colon: Comment: Sigmoid resection 03/2024 Dr. Decker Code(s): C18.7 - Malignant neoplasm of sigmoid colon Plan: Continue to follow-up with Hematology-Oncology on chemotherapy (3) Hypertension: Code(s): I10 - Essential (primary) hypertension Plan: Continue with blood pressure medication. Decrease salt intake and exercise takes metoprolol 25 mg once a day (4) Hypercholesterolemia: Code(s): E78.00 - Pure hypercholesterolemia, unspecified Plan: Avoid fried foods, chicken skin, eggs, butter margarine, pastries and meat. Be it pork or beef they have a lot of cholesterol LDL goal of less than 130 and triglyceride of less than 150 on simvastatin 20 mg once a day (5) Hypothyroid: Code(s): E03.9 - Hypothyroidism, unspecified Plan: Continue with thyroid medication (6) Asthma: Code(s): J45.909 - Unspecified asthma, uncomplicated Plan: Continue with the albuterol inhaler as needed (7) Impacted cerumen of both ears: Code(s): H61.23 - Impacted cerumen, bilateral (8) Major depression: Code(s): F32.9 - Major depressive disorder, single episode, unspecified Plan: referral for counselling and started on sertraline Orders: Referrals Psychiatry Outpatient Consultation Service F32.9 - Major depressive disorder, single episode, unspecified Medications: New sertraline 25 mg PO DAILY 30 tabs 3RF F32.9 - Major depressive disorder, single episode, unspecified carbamide peroxide 6.5% (Debrox) 5 drps otic (ear) left Q12H 4 days 15 mL 0RF H61.23 - Impacted cerumen, bilateral Coding Level of Care Code Est Pt Prev Care >65y(82674) Diagnoses Annual physical exam Z00.00 Cancer of sigmoid colon C18.7 Hypertension I10 Hypercholesterolemia E78.00 Hypothyroid E03.9 Asthma J45.909 Impacted cerumen of both ears H61.23 Major depression F32.9 Additional Codes DAVID-7 Assessment Billing - DAVID-7 Assessment Tool: DAVID-7 Assessment 66036 ([id number])
== END 2024-06-20 11:42 | disposition home or self-care (01) ==
PROVIDERS: PCP Internal Medicine; Visit Provider Internal Medicine
DX: Z00.00 Encounter for general adult medical examination without abnormal findings (principal); C18.7 Malignant neoplasm of sigmoid colon; I10 Essential (primary) hypertension; E78.00 Pure hypercholesterolemia, unspecified; E03.9 Hypothyroidism, unspecified; J45.909 Unspecified asthma, uncomplicated; H61.23 Impacted cerumen, bilateral; F32.9 Major depressive disorder, single episode, unspecified
CPT/HCPCS: 99397

== ENCOUNTER 2024-06-23 13:34 | Outpatient (REF) | payer OTHER, SELFPAY ==
--- NOTE | ~2024-06-23 | CT_ITS ---
EXAMINATION: CT ABDOMEN AND PELVIS WITHOUT AND WITH CONTRAST CLINICAL INFORMATION: Cancer and liver lesion on CT COMPARISON: CT chest abdomen pelvis 03/31/2024, ultrasound abdomen 12/11/2023 TECHNIQUE: Multidetector volumetric imaging was performed of the abdomen and pelvis before and after the IV administration of 85 mL of Omnipaque 350 intravenous contrast. 2 sets of post IV contrast imaging were obtained, one during the arterial phase and one during the portal venous phase. No delayed images were obtained. Sagittal and coronal reformatted images were obtained on the technologist's workstation. This CT examination was performed using dose optimization techniques as appropriate, variously including the following: *Automated exposure control *Adjustment of mA and/or kV according to patient size (this includes techniques or standardized protocols for targeted exams where dose is matched to indication/reason for exam; i.e. extremities or head) *Use of iterative reconstruction technique DLP: 557 mGy-cm FINDINGS: LUNG BASES: The visualized lung bases are unremarkable. LIVER, GALLBLADDER, AND BILIARY TREE: The liver is normal in size, shape, and attenuation. At least 11 liver masses are seen ranging in size from a few millimeters to up to 1.9 cm. The 1.9 cm lesion in the left lobe of the liver is simple cyst (5:31) and unchanged. A few of the other lesions are likely benign simple cysts. However, at least 2 larger lesions seen in the caudate and in the posterior right lobe of the liver that are not simple cysts measuring 1.7 cm in size each (3:17 and 5:27). One of these could be seen previously measuring only 0.9 cm and the other was not present. Findings are suspicious for metastatic disease. No biliary ductal dilatation is present. The gallbladder is unremarkable with no evidence of radiopaque gallstones, gallbladder wall thickening, or obvious pericholecystic inflammatory changes. PANCREAS: Unremarkable SPLEEN: Unremarkable ADRENAL GLANDS: Unremarkable KIDNEYS AND URETERS: The kidneys are normal in size, shape, and attenuation. No hydronephrosis, hydroureter, or calculi seen. No perinephric stranding. Again seen are bilateral benign Bosniak class I renal cysts which require no additional imaging or follow-up. No solid renal masses are seen. BLADDER: Unremarkable GASTROINTESTINAL TRACT: Status post resection of the sigmoid apple core lesion with a suture line present. There is an area of soft tissue thickening seen on the right of the suture line and this should be followed on future studies. ABDOMINAL WALL: No significant hernia is appreciated. LYMPH NODES: Normal VASCULAR: Unremarkable PELVIC VISCERA: Unremarkable OSSEOUS STRUCTURES: Unremarkable CT/CT abdomen pelvis wo/w IV con IMPRESSION: 1. At least 2 liver lesions are not simple cysts and are new/larger and suspicious for metastatic disease. 2. Status post resection of sigmoid colon cancer with some soft tissue thickening seen on the right of the suture line. This should be followed on future studies to assess if local recurrence. Fleischner guidelines were followed.
[2024-06-23] MEDS: iohexoL 350 MG/ML 75 ML INFUS..BTL 85 ML IV (14:20)
== END 2024-06-23 13:35 | disposition home or self-care (01) ==
LOC: HO.CT 13:34
PROVIDERS: PCP Internal Medicine; Visit Provider Internal Medicine Medical Oncology
DX: K76.9 Liver disease, unspecified (principal)
CPT/HCPCS: 74178; Q9967

== ENCOUNTER 2024-06-26 10:24 | Day surgery (SDC) | payer OTHER, SELFPAY ==
[2024-06-26] VITALS (7 sets, daily range): BP systolic 120–139; BP diastolic 57–86; PULSE 54–65; RESP 14–18; TEMP 36.2–36.5; O2SAT 97–99; BMI 24.3
--- NOTE | ~2024-06-26 | CT_ITS ---
Colon cancer with new liver lesions concerning for metastases. PROCEDURES: 1. Limited preprocedure CT of the abdomen. Permanent images saved in PACS. 2. CT-guided biopsy of the right lobe liver mass. 3. Limited postprocedure CT of the abdomen. Permanent images saved in PACS. CLINICIANS: Tomy Rosales PA-C MEDICATIONS: -Versed 1.5 mg, Fentanyl 75 mcg, and lidocaine 1% 10 mL SQ -Antibiotics: None -For additional details, please see nursing flowsheet. COMPLICATIONS: None ESTIMATED BLOOD LOSS: < 5 ml CONTRAST: None SPECIMENS: 4 x 20 g cores were sent for pathology MODERATE SEDATION TIME: 34 min PROCEDURE NOTE: The procedure, risks, benefits, and alternatives were carefully explained to the patient and written informed consent was obtained. The patient was placed supine on the CT table. A timeout was performed. A limited CT of the abdomen was performed to localize the right posterior liver lesion and choose appropriate needle entry and trajectory. The patient was prepped and draped in usual sterile fashion. The skin and deeper soft tissues were anesthetized with lidocaine. Under CT guidance, a 19 gague trocar needle was advanced to the right lobe liver lesion. A 20 gauge biopsy device was inserted through the trocar needle and advanced into the mass. A total of 4 cores were performed. The specimens were placed in formalin and sent to pathology. A total of 2 Gelfoam torpedoes were then administered through the trocar needle into the biopsy tract and at the level of the liver capsule. The needle was removed. A dry dressing was applied and secured with Tegaderm. There were no immediate complications. The patient was stable after the procedure and was transferred to the post anesthesia care unit. The procedure was done under moderate sedation with a dedicated nurse for monitoring of vital signs. CT/CT biopsy liver Impression: CT-guided right posterior lobe liver mass biopsy This procedure was performed by Tomy Rosales PA-C and supervised by Dr. Marquez.
--- NOTE | 2024-06-26 13:06 | MHC.SHP ---
Pre-Procedural Eval Section A - 24 Hr Update-Section A only Date of Service: 06/26/24 Section B - Complete if H&P > 30 days Chief Complaint: LIVER, LIVER LESION Details of Present Illness: 69 y/o female with colon cancer and new liver lesions on CT Relevant Family History (Specify if Yes): No Relevant Social History: None Present Medications: see Short Stay Collaborative assessment Medical History: Significant History History of Previous Operations: Relevant previous surgery/procedure and date(s) Allergies: Allergies Allergy/AdvReac Type Severity Reaction Status Date / Time No Known Allergies Allergy Verified 06/20/24 10:22 Review of Systems Sugical H&P ROS: Negative: Constitution, Cardiovascular, Respiratory, Musculoskeletal (soreness at right port) and Integumentary Exam Surgical H&P Exam: Normal: Heart, Normal: Lungs, Normal: Abdomen, Normal: Skin and Normal: Neurological Plan 69 y/o female with colon cancer and new liver lesions -Image guided liver biopsy Time Spent With Patient Time: Total time managing care of this patient today ____ minutes.
[2024-06-26 13:22] LABS: INTERNATIONAL NORM RATIO 0.9 (0.9-1.1); Prothrombin Time 11.1 SEC (11.1-13.3)
== END 2024-06-26 16:00 | disposition home or self-care (01) ==
PROVIDERS: Pathology Anatomic Pathology & Clinical Pathology; Physician Assistant Surgical; Student in an Organized Health Care Education/Training Program; PCP Internal Medicine; Visit Provider Internal Medicine Medical Oncology
DX: C78.7 Secondary malignant neoplasm of liver and intrahepatic bile duct (principal); C18.9 Malignant neoplasm of colon, unspecified
CPT/HCPCS: 36415; 47000; 77012; 81210; 81275; 81276; 81311; 81403; 85610; 85730; 86850; 86900; 86901; 88307; 88313; 88341; 88342; 99152; 99153; J0131; J2250; J2310; J3010

== ENCOUNTER 2024-06-27 10:25 | Outpatient (AMB) | payer OTHER, SELFPAY ==
[2024-06-27 10:28] VITALS: BP 118/76; PULSE 70; O2SAT 98; BMI 24.2
--- NOTE | 2024-06-27 10:28 | A.OFFPC_ITS ---
Vital Signs 06/27/24 10:28 Height 5 ft Weight 124 lb BMI 24.2 BP 118/76 Blood Pressure Location Lt brachial Position Sitting Pulse 70 Pulse Source Pulse Oximeter Pulse Oximetry (%) 98 Oxygen Delivery Method Room Air Intake Visit Reasons: Ear Irrigation Hair Mixer Required: No Allergies No Known Allergies Allergy (Verified 06/27/24 10:28) Tobacco use date assessed: 04/18/24 Fall risk assessment: No Falls in past year Last assessed Fall Risk: 06/27/24 Dental Screening Dental Screen Date: 06/20/24 HPI Ear Irrigation HPI Details 69-year-old female with past medical his tory of hypertension, hypercholesterolemia, hypothyroid, impaired glucose tolerance, asthma, cancer of sigmoid colon last seen 05/2024 coming in for ear cleaning.? In review of the notes, patient was seen by Hematology Oncology 06/24/2024, s/p sigmoid resection on 03/2024, planned a biopsy of a larger liver lesion, arranged for IV iron to address anemia, started back on IV Venofer and added a new biologic to the regimen.? Return in 1 week for chemotherapy and follow up. Patient has been having issues with ear pain and pressure worse in the left ear. She also mentions the ears have been itchy. Has been using Debrox wax drops for the last 4 days. [facility] Medical History (Updated 06/24/24 @ 10:23 by Papa Rosado MD) Annual physical exam Anemia Encounter for well woman exam with routine gynecological exam Colon cancer Colonic mass Recurrent UTI COVID-19 Abnormal weight loss Abdominal pain Abdominal cramping Pre-op examination Colon cancer screening Anemia Plantar fasciitis Low back pain Low back pain Pain of right hip Vulvar itching Encounter for annual routine gynecological examination Headache Cervical cancer screening Breast cancer screening by mammogram Colon cancer screening declined Colonoscopy refused Overweight (BMI 25.0-29.9) Vitamin B12 deficiency Impaired glucose tolerance Hypothyroid Hypercholesterolemia Hypertension Insomnia Carpal tunnel syndrome Surgical History Hx of surgical procedure (~04/22/24) H/O colonoscopy Family History Father No problems noted. Mother No problems noted. Sister History of breast cancer, Onset Age: 50 Daughter Colon cancer Son Colon cancer Social History Household Members: None Housing: Apartment Are you a primary geriatric care manager to a significant other at home: No Do you presently have visiting nurse or other home services: No Alcohol intake: never Patient Tobacco Use Status: Never used Tobacco e-Cigarette/Vaping Use: Never Used Second Hand Smoke Exposure: No service: No Current occupational status: retired Sexual orientation: Straight/Heterosexual Gender identity: Female Cognitive needs: No Hearing needs: No Vision needs: Yes Female Reproductive History Menstrual Age of Menarche: 16 Questionnaire Thrive Questionnaire Date Thrive assessed: 04/23/24 AUDIT C Alcohol Use Questionnaire (AUDIT-C) 1. How often do you have a drink containing alcohol?: Never 2. How many drinks containing alcohol do you have on a typical day when you are drinking?: 1 or 2 3. How often do you have six or more drinks on one occasion?: Never Total Score: 0 DAVID-7 AMB Questionnaire DAVID-7 Date DAVID - 7 assessed: 06/20/24 Source: Developed by Drs. Torres Anderson, Leida Obrien, Sony Treadwell and colleagues, with an educational farooq from [employer]. Review of Systems Const Denies body aches, Denies chills, Denies fever(s), Denies headache(s) and Denies poor appetite Eyes Reports no additional complaints ENT Denies dizziness, Reports otalgia and Denies headache(s) Skin/Breast Reports system reviewed and no additional complaints, except as documented Neuro Denies dizziness and Denies headache(s) Psych Reports no additional complaints Physical exam (Primary Care) Vital Signs: Last Vital Signs Pulse 70 06/27/24 10:28 BP 118/76 06/27/24 10:28 Pulse Ox 98 06/27/24 10:28 Oxygen Delivery Method Room Air 06/27/24 10:28 BMI result Body Mass Index 24.2 Tobacco/Smoking Status: Tobacco use Status Tobacco use date assessed 04/18/24 06/27/24 10:28 Patient Tobacco Use Status Never used Tobacco 06/27/24 10:28 Tobacco use type 04/15/24 13:25 e-Cigarette/Vaping Use Never Used 06/27/24 10:28 Thrive Assessment: Date of Thrive Assessment Date Thrive assessed 04/23/24 06/27/24 10:28 Const General: cooperative, healthy appearing, comfortable and no acute distress HENMT Head: Yes normocephalic Ears: hearing grossly normal bilaterally, Abnormal EAC present cerumen impaction bilateral and unable to visualize TM bilaterally General nose exam: Normal external nose present Resp Effort & Inspection: normal respiratory effort Auscultation: clear to auscultation bilaterally, no crackles, no rales, no rhonchi and no wheezes Cardio Rate: regular rate Rhythm: regular rhythm Office Procedures Cerumen Removal From which ear canal was the cerumen removed: bilateral Removal: otoscope w/curette Notes: patient tolerated procedure well, no complications and ear canal clear (TM visualized as intact bilaterally) [id number] Wax Removal by Spoon/Curette Assessment and Plan Assessment & Plan (1) Impacted cerumen of both ears: Code(s): H61.23 - Impacted cerumen, bilateral Plan: Bilateral ear canals were impacted with cerumen. Cerumen was removed with loop as well as irrigation on the left side. EACs were normal and atraumatic and bilateral TMs were visualized as intact with well aerated middle ear spaces. Will follow up as needed for this problem. Avoid the use of Q tips. Plan This note was constructed using voice recognition software. While every effort has been made to ensure accuracy and mannequin mold maker, still areas may have been included sometimes these areas may affect the content or meeting of the given symptoms. Total time spent caring for the patient today was 15 minutes. This includes time spent before the visit reviewing the chart, time spent during the visit, and time spent after the visit and documentation. Coding Level of Care Code Est Pt Level 3 (28080) Diagnoses Impacted cerumen of both ears H61.23 CPT Codes Office Procedure - CPT: 97215-Qxb Wax Removal by Spoon/Curette ([id number])
== END 2024-06-27 10:57 | disposition home or self-care (01) ==
PROVIDERS: PCP Internal Medicine
DX: H61.23 Impacted cerumen, bilateral (principal)
CPT/HCPCS: 69210; 99213

== ENCOUNTER 2024-07-02 11:30 | Outpatient (RCR) | payer OTHER, SELFPAY ==
[2024-04-18 09:16] VITALS: BP 138/63; PULSE 56; RESP 16; TEMP 37; O2SAT 100
[2024-04-18] MEDS: 0.9 % Sodium Chloride Flush 10 ML SYRINGE 5 ML IVFLUSH (09:26)
[2024-04-18] MEDS: Iron Sucrose Complex 200 MG in 0.9 % Sodium Chloride 100 ML 440 MG IV (09:26)
[2024-06-18 13:11] VITALS: BP 133/66; PULSE 56; RESP 14; TEMP 36.7; O2SAT 99
[2024-06-18] MEDS: Iron Sucrose Complex 200 MG in 0.9 % Sodium Chloride 100 ML 440 MG IV (13:22)
[2024-06-25 10:27] VITALS: BP 121/54; PULSE 56; RESP 14; TEMP 36.6; O2SAT 99
[2024-06-25] MEDS: Iron Sucrose Complex 200 MG in 0.9 % Sodium Chloride 100 ML 440 MG IV (10:37)
[2024-06-25] MEDS: 0.9 % Sodium Chloride Flush 10 ML SYRINGE 5 ML IVFLUSH (10:58)
[2024-07-02 11:25] VITALS: BP 111/57; PULSE 67; RESP 14; TEMP 36.8; O2SAT 98
[2024-07-02] MEDS: Iron Sucrose Complex 200 MG in 0.9 % Sodium Chloride 100 ML 440 MG IV (11:34)
[2024-07-02] MEDS: 0.9 % Sodium Chloride Flush 10 ML SYRINGE 5 ML IVFLUSH (11:56)
== END 2024-07-02 12:02 | disposition home or self-care (01) ==
LOC: HO.INF 11:30
PROVIDERS: Visit Provider Internal Medicine Medical Oncology
DX: D50.9 Iron deficiency anemia, unspecified (principal)
CPT/HCPCS: 96365; 96374; J1756

== ENCOUNTER 2024-07-21 23:38 | Emergency (ER) | payer OTHER, SELFPAY ==
[2024-07-22 00:01] VITALS: BP 128/76; PULSE 62; RESP 18; TEMP 36.5; O2SAT 99; BMI 30.5
[2024-07-22 00:28] LABS: Basophils Percent Auto 0.4 % (0-2); Eosinophils Absolute Auto 0.5 X10*3/uL (0.0-0.4); Eosinophils Percent Auto 9.8 % (0-4); Hematocrit 38.4 % (37.0-47.0); Hemoglobin 12.6 g/dl (12.0-16.0); Imm Gran Abs Auto 0.01 X10*3/uL (0.00-0.03); Imm Gran Pct Auto 0.2 % (0.0-0.4); Lymphocytes Absolute Auto 3.2 X10*3/uL (1.2-4.9); Lymphocytes Percent Auto 60.1 % (20-40); MANUAL DIFF FLAG SCAN; Mean Corpuscular HGB Conc 32.8 g/dl (31.0-35.0); Mean Corpuscular Hemoglobin 28.6 pg (27.0-33.0); Mean Corpuscular Volume 87.3 fL (80.0-98.0); Mean Platelet Volume 9.3 fL (9.4-12.3); Monocytes Absolute Auto 0.2 X10*3/uL (0.1-1.2); Monocytes Percent Auto 4.1 % (2-11); Neutrophils Absolute Auto 1.4 x10*3/uL (2.0-8.3); Neutrophils Percent Auto 25.4 % (45-73); Platelet Count 174 X10*3/uL (160-400); Red Cell Distribution Width 15.2 % (11.0-16.0); SCAN SMEAR FLAG 1; White Blood Count 5.4 X10*3/uL (4.8-10.8)
[2024-07-22 00:43] LABS: Alanine Aminotransferase 18 U/L (0-31); Albumin Level 3.7 g/dL (3.5-5.0); Alkaline Phosphatase 58 U/L (39-117); Anion Gap 11 (12-20); Aspartate Amino Transferase 17 U/L (5-31); Bilirubin Total 0.3 mg/dL (0.0-1.0); Blood Urea Nitrogen 11 mg/dL (9-16); Calcium 8.5 mg/dL (8.4-10.2); Carbon Dioxide 27 mmol/L (22-29); Chloride 107 mmol/L (96-108); Creatinine Clr Calc Pharmacy 58.3; Estimated Glomerular Filt Rate > 60; Glucose Random 134 mg/dL (60-115); Potassium 3.9 mmol/L (3.3-5.1); Sodium 141 mmol/L (135-145); Total Protein 6.1 g/dL (6.5-8.0)
[2024-07-22 01:15] LABS: SLIDE REVIEW VERIFIED
[2024-07-22 01:33] VITALS: BP 148/97; PULSE 61; RESP 16; TEMP 36.7; O2SAT 98
--- NOTE | 2024-07-22 05:01 | ED.GENADULT ---
HPI - General Adult General Chief complaint: General Medical Stated complaint: lower back pain Time Seen by Provider: 07/22/24 04:42 Source: patient Mode of arrival: ambulatory Limitations: language barrier History of Present Illness ED Provider: Dr. Wells HPI narrative: patient recently had a colon resection for colon cancer. Started chemo and has had 2 treatments. Now with rectal pain and constipation. Patient unable to pass any stool. No vomiting. Onset (ago): day(s) Related Data Home Medications ?Medication ?Instructions ?Recorded ?Confirmed levothyroxine 75 mcg tablet 75 mcg PO DAILY@0600 04/22/24 06/20/24 Previous Rx's ?Medication ?Instructions ?Recorded HUMIDIFIER #1 ea 10/26/23 lidocaine 5 % topical patch 1 patch topical DAILY #30 ea 11/27/23 metoprolol succinate 25 mg 25 mg PO DAILY #90 tabs 02/27/24 tablet,extended release 24 hr simvastatin 20 mg tablet 20 mg PO DAILY #90 tabs 05/02/24 dicyclomine 10 mg capsule 10 mg PO QID #360 caps 05/05/24 albuterol sulfate 90 mcg/actuation 2 puff inhalation Q6H PRN for 05/16/24 aerosol inhaler (Ventolin HFA) wheezing #18 grams tramadol 50 mg tablet 50 mg PO BID 30 days #60 tabs 06/03/24 zolpidem 5 mg tablet 5 mg PO BEDTIME #30 tabs 06/09/24 dexamethasone 4 mg tablet 4 mg PO BID #60 tabs 06/16/24 loperamide 2 mg capsule (Imodium 2 mg PO Q6H PRN Diarrhea #60 caps 06/16/24 A-D) ondansetron 8 mg disintegrating 8 mg PO Q8H #60 tabs 06/16/24 tablet carbamide peroxide 6.5 % ear drops 5 drp otic (ear) left Q12H 4 days 06/20/24 (Debrox) #15 mL sertraline 25 mg tablet 25 mg PO DAILY #30 tabs 06/20/24 Magic Mouthwash 10 ml PO QID #240 mL 07/03/24 Diphen/Lido/Antacid 1:1:1 240 mL suspension ferrous sulfate 325 mg (65 mg 325 mg PO DAILY #90 tabs 07/07/24 iron) tablet (Feosol) lidocaine HCl 2 % mucosal solution 1 appl mucous membrane QID #300 mL 07/07/24 (Lidocaine Viscous) psyllium husk 3.4 gram/5.4 gram 1 tsp PO BID #660 grams 07/22/24 oral powder (Metamucil) Allergies Allergy/AdvReac Type Severity Reaction Status Date / Time No Known Allergies Allergy Verified 07/22/24 00:04 Review of Systems Review of Systems: Yes all other systems are reviewed and are negative Neurologic: Denies Sensory deficit (Neuro) [facility] Past Medical History Medical History Annual physical exam Anemia Encounter for well woman exam with routine gynecological exam Colon cancer Colonic mass Recurrent UTI COVID-19 Abnormal weight loss Abdominal pain Abdominal cramping Pre-op examination Colon cancer screening Anemia Plantar fasciitis Low back pain Low back pain Pain of right hip Vulvar itching Encounter for annual routine gynecological examination Headache Cervical cancer screening Breast cancer screening by mammogram Colon cancer screening declined Colonoscopy refused Overweight (BMI 25.0-29.9) Vitamin B12 deficiency Impaired glucose tolerance Hypothyroid Hypercholesterolemia Hypertension Insomnia Carpal tunnel syndrome Surgical History Hx of surgical procedure (~04/22/24) H/O colonoscopy Family History Family History Father No problems noted. Mother No problems noted. Sister History of breast cancer, Onset Age: 50 Daughter Colon cancer Son Colon cancer Social History Social History Household Members: None Housing: Apartment Are you a primary reservoir caretaker to a significant other at home: No Do you presently have visiting nurse or other home services: No Alcohol intake: never Patient Tobacco Use Status: Never used Tobacco Smoked in Last 30 Days: No e-Cigarette/Vaping Use: Never Used Second Hand Smoke Exposure: No Use of substances other than those prescribed or required for medical reasons: No Advance Directives: No Advance Directives Information Provided: Yes Do you have a plan to hurt others: No Plan service: No Current occupational status: retired Sexual orientation: Straight/Heterosexual Gender identity: Female Cognitive needs: No Hearing needs: No Vision needs: Yes Physical Exam ED Vital Signs: Vital Signs - 24 hr 07/22/24 00:01 07/22/24 01:33 07/22/24 05:07 Temperature 97.7 F 98.1 F 98.2 F Pulse Rate 62 61 69 Respiratory Rate 18 16 18 Blood Pressure 128/76 148/97 H 137/71 Pulse Oximetry 99 98 100 Oxygen Delivery Method Room Air Room Air Room Air BMI result Body Mass Index 30.5 Const General: healthy appearing Nutritional Appearance: average body habitus Orientation/consciousness: oriented to person and patient oriented x3 Limitations: no limitations HENMT Head: Yes normal to inspection Ears: external ears normal General nose exam: Normal external nose present Mouth: Normal oral and palatal mucosa present and oropharynx normal Throat: Yes posterior oropharynx normal Eyes General: appearance normal, both eyes and all related structures Neck Neck: Yes normal visual inspection Chest Chest palpation & inspection: normal inspection of the chest Resp Auscultation: clear to auscultation bilaterally Cardio Jugular venous distension: no JVD Rate: regular rate Rhythm: regular rhythm Heart sounds: S1 normal heart sound present and S2 normal heart sound present GI Inspection: Yes normal to inspection Palpation (GI): Soft to palpation, nontender and No hepatosplenomegaly present Auscultation: normal bowel sounds Other: rectal with severe fecal impaction with very hard stool Skin General skin exam: no rashes or lesions noted Neuro General: oriented to person and patient oriented x3 Cranial nerves: Yes CN's II-XII intact bilaterally Motor exam (neuro): 5/5 motor strength present throughout Sensory Exam: No Sensory deficit (Neuro) Extrem General: Yes normal to inspection Psych Appearance: grossly normal Course Reevaluation(s) Reevaluation #1: procedure: manual disimpaction of large amount of stool. patient then had an enema with excellent results Time: 07:29 Medications Administered Discontinued Medications Generic Name Dose Route Start Last Admin Trade Name Freq PRN Reason Stop Dose Admin Lactulose 20 gm 07/22/24 05:01 07/22/24 05:27 Lactulose 20 Gm/30 Ml Solution PO 07/22/24 05:02 20 gm ONCE ONE Administration Medical Decision Making Differential Diagnosis Differential Diagnoses: The differential diagnosis associated with the presentation includes (constipation, fecal impaction, bowel obstruction) Lab Data 07/22/24 00:23 07/22/24 00:23 Labs: Lab Results 07/22/24 Range/Units 00:23 WBC 5.4 (4.8-10.8) X10*3/uL RBC 4.40 (4.20-5.50) X10*6/uL Hgb 12.6 (12.0-16.0) g/dl Hct 38.4 (37.0-47.0) % MCV 87.3 (80.0-98.0) fL MCH 28.6 (27.0-33.0) pg MCHC 32.8 (31.0-35.0) g/dl RDW 15.2 (11.0-16.0) % Plt Count 174 (160-400) X10*3/uL MPV 9.3 L (9.4-12.3) fL Immature Gran % (Auto) 0.2 (0.0-0.4) % Neut % (Auto) 25.4 L (45-73) % Lymph % (Auto) 60.1 H (20-40) % Richardson % (Auto) 4.1 (2-11) % Eos % (Auto) 9.8 H (0-4) % Baso % (Auto) 0.4 (0-2) % Lymph # (Auto) 3.2 (1.2-4.9) X10*3/uL Richardson # (Auto) 0.2 (0.1-1.2) X10*3/uL Eos # (Auto) 0.5 H (0.0-0.4) X10*3/uL Baso # (Auto) 0.0 (0.0-0.2) X10*3/uL Abs Immat Gran (auto) 0.01 (0.00-0.03) X10*3/uL Absolute Neuts (auto) 1.4 L (2.0-8.3) x10*3/uL Absolute Nucleated RBC 0.000 (0.0-0.012) X10*3/uL Nucleated RBC % (auto) 0.0 (0.0-0.2) /100WBC Smear Tech's Comments VERIFIED Sodium 141 (135-145) mmol/L Potassium 3.9 (3.3-5.1) mmol/L Chloride 107 (96-108) mmol/L Carbon Dioxide 27 (22-29) mmol/L Anion Gap 11 L (12-20) BUN 11 (9-16) mg/dL Creatinine 0.81 (0.5-1.4) mg/dL Estim Creat Clear Calc 58.3 Estimated GFR > 60 Random Glucose 134 H (60-115) mg/dL Calcium 8.5 D (8.4-10.2) mg/dL Total Bilirubin 0.3 (0.0-1.0) mg/dL AST 17 (5-31) U/L ALT 18 (0-31) U/L Alkaline Phosphatase 58 (39-117) U/L Total Protein 6.1 L (6.5-8.0) g/dL Albumin 3.7 (3.5-5.0) g/dL Tests considered The following testing was considered but not selected: KUB considered but patient with large fecal impaction that was removed followed by a large bowel movement Chronic Conditions Patient?s care impacted by: Cancer Discharge Plan Discharge Clinical Impression: Constipation, Fecal impaction in rectum Patient Disposition: Home, Self-Care Instructions: Constipation (ED), Fecal Impaction (ED) Prescriptions: New Metamucil 3.4 gram/5.4 gram powder 1 tsp PO BID Qty: 660 0RF Rx Instructions: mix into at least 4 oz water or juice before administering No Action (DME) HUMIDIFIER See Rx Instructions .Route .MEDSUPPLY Qty: 1 0RF Rx Instructions: As directed lidocaine 5 % adhesive patch,medicated 1 patch topical DAILY Qty: 30 3RF Rx Instructions: leave on most painful area for up to 12 hrs metoprolol succinate 25 mg tablet extended release 24 hr 25 mg PO DAILY Qty: 90 3RF simvastatin 20 mg tablet 20 mg PO DAILY Qty: 90 3RF dicyclomine 10 mg capsule 10 mg PO QID Qty: 360 2RF albuterol sulfate [Ventolin HFA] 90 mcg/actuation HFA aerosol inhaler 2 puff inhalation Q6H PRN (Reason: for wheezing) Qty: 18 2RF tramadol 50 mg tablet 50 mg PO BID 30 Days Qty: 60 1RF zolpidem 5 mg tablet 5 mg PO BEDTIME Qty: 30 1RF ferrous sulfate [Feosol] 325 mg (65 mg iron) tablet 325 mg PO DAILY Qty: 90 1RF ondansetron 8 mg Tablet,Disintegrating 8 mg PO Q8H Qty: 60 3RF dexamethasone 4 mg Tablet 4 mg PO BID Qty: 60 2RF Rx Instructions: Take 4 mg p.o. b.i.d. day 2 and 3 of chemotherapy every 14 days. loperamide [Imodium A-D] 2 mg Capsule 2 mg PO Q6H PRN (Reason: Diarrhea) Qty: 60 2RF Magic Mouthwash Diphen/Lido/Antacid 1:1:1 240 mL Suspension 10 ml PO QID Qty: 240 4RF Rx Instructions: Lidocaine Viscous 2 % 80mL; diphenhydramine 12.5 mg/5 mL 80mL; aluminum-mag hydrox-simeth [id number]/5mL 80mL lidocaine HCl [Lidocaine Viscous] 2 % Solution 1 appl MUCOUS MEMBRANE QID Qty: 300 3RF levothyroxine 75 mcg tablet 75 mcg PO DAILY@0600 Debrox 6.5 % drops 5 drp otic (ear) left Q12H 4 Days Qty: 15 0RF sertraline 25 mg tablet 25 mg PO DAILY Qty: 30 3RF Referrals: Physician,Unknown J [Primary Care Provider] - 3 days Print Language: Vietnamese
[2024-07-22 05:07] VITALS: BP 137/71; PULSE 69; RESP 18; TEMP 36.8; O2SAT 100
[2024-07-22] MEDS: Lactulose 20 GM/30 ML SOLUTION PO (05:27)
--- NOTE | 2024-07-22 07:28 | PC.NURSE ---
report received from previous rn, patient dressed, requesting to leave, awaiting dc paperwork at this time
[2024-07-22 07:38] VITALS: BP 137/71; PULSE 69; RESP 18; TEMP 36.8; O2SAT 100
== END 2024-07-22 07:43 | disposition home or self-care (01) ==
PROVIDERS: Emergency Provider Emergency Medicine
DX: K59.00 Constipation, unspecified (principal); Z79.899 Other long term (current) drug therapy
CPT/HCPCS: 36415; 80053; 85025; 99283; 99284

== ENCOUNTER 2024-08-04 08:23 | Day surgery (SDC) | payer OTHER, SELFPAY ==
[2024-08-04] VITALS (8 sets, daily range): BP systolic 104–119; BP diastolic 53–68; PULSE 48–59; RESP 16; TEMP 36.9; O2SAT 98–99; BMI 24.4
--- NOTE | ~2024-08-04 | US_ITS ---
Metastatic colon cancer. Needs additional tissue for KRAS. PROCEDURES: 1. Limited preprocedure ultrasound of the abdomen. Permanent images saved in PACS. 2. Ultrasound-guided biopsy of the right lobe liver mass. 3. Limited preprocedure ultrasound of the abdomen. Permanent images saved in PACS. CLINICIANS: Tomy Rosales PA-C MEDICATIONS: -Versed 2 mg, Fentanyl 100 mcg, and lidocaine 1% 10 mL SQ -Antibiotics: None -For additional details, please see nursing flowsheet. COMPLICATIONS: None ESTIMATED BLOOD LOSS: < 5 ml CONTRAST: None SPECIMENS: 4 x 20 g cores were sent to pathology MODERATE SEDATION TIME: 16 min PROCEDURE NOTE: The procedure, risks, benefits, and alternatives were carefully explained to the patient and written informed consent was obtained. The patient was placed supine on the exam table. A timeout was performed. A limited ultrasound of the abdomen was performed to localize the right lobe liver lesion and choose appropriate needle entry and trajectory. The patient was prepped and draped in usual sterile fashion. The skin and deeper soft tissues were anesthetized with lidocaine. Under ultrasound guidance, a 19 gauge trocar needle was advanced to the liver lesion. A 20 gauge biopsy device was inserted through the trocar needle advanced into the liver lesion. A total of 4, 20 gauge cores were performed. The specimens were placed in formalin. A total of 2 Gelfoam torpedoes were then administered through the trocar needle into the biopsy tract and at the level of the liver capsule. The needle was removed. A limited post procedure ultrasound was then performed. Images were saved in PACS. A dry dressing was applied and secured with Tegaderm. There were no immediate complications. The patient was stable after the procedure and was transferred to the post anesthesia care unit. The procedure was done under moderate sedation with a dedicated nurse for monitoring of vital signs. US/US biopsy liver Impression: Ultrasound-guided biopsy of a right lobe liver mass. This procedure was performed by Tomy Rosales PA-C and supervised by Dr. Marquez. Electronically signed by: Oc Anand MD 08/20/2024 02:38 PM EDT
[2024-08-04 09:13] LABS: MANUAL DIFF FLAG NO
[2024-08-04 09:16] LABS: Eosinophils Absolute Auto 0.1 X10*3/uL (0.0-0.4); Eosinophils Percent Auto 3.2 % (0-4); Hematocrit 41.1 % (37.0-47.0); Hemoglobin 13.4 g/dl (12.0-16.0); Imm Gran Abs Auto 0.01 X10*3/uL (0.00-0.03); Imm Gran Pct Auto 0.3 % (0.0-0.4); Lymphocytes Percent Auto 59.4 % (20-40); Mean Corpuscular HGB Conc 32.6 g/dl (31.0-35.0); Mean Corpuscular Hemoglobin 29.1 pg (27.0-33.0); Mean Corpuscular Volume 89.2 fL (80.0-98.0); Mean Platelet Volume 9.1 fL (9.4-12.3); Monocytes Absolute Auto 0.1 X10*3/uL (0.1-1.2); Monocytes Percent Auto 2.4 % (2-11); Neutrophils Absolute Auto 1.2 x10*3/uL (2.0-8.3); Neutrophils Percent Auto 34.7 % (45-73); Platelet Count 165 X10*3/uL (160-400); Red Blood Count 4.61 X10*6/uL (4.20-5.50); White Blood Count 3.4 X10*3/uL (4.8-10.8)
[2024-08-04 09:22] LABS: INTERNATIONAL NORM RATIO 0.9 (0.9-1.1); Prothrombin Time 11.2 SEC (11.1-13.3)
--- NOTE | 2024-08-04 10:29 | MHC.SHP ---
Pre-Procedural Eval Section A - 24 Hr Update-Section A only Date of Service: 08/04/24 Section B - Complete if H&P > 30 days Chief Complaint: REPEAT LIVER BIO, Details of Present Illness: 69 y/o female with metastatic colon cancer. She presents for a repeat liver mass biopsy for additional molecular testing. Relevant Family History (Specify if Yes): No Relevant Social History: Tobacco Use Present Medications: see Short Stay Collaborative assessment Medical History: Significant History History of Previous Operations: Relevant previous surgery/procedure and date(s) Allergies: Allergies Allergy/AdvReac Type Severity Reaction Status Date / Time No Known Allergies Allergy Verified 07/22/24 00:04 Review of Systems Sugical H&P ROS: Negative: Constitution, Cardiovascular and Respiratory and Yes, Specify: Neurological (headache) Exam Surgical H&P Exam: Normal: Lungs, Normal: Abdomen, Normal: Skin and Normal: Neurological and Significant Findings: Heart (bradycardic) Plan Image guided liver mass biopsy Time Spent With Patient Time: Total time managing care of this patient today ____ minutes.
[2024-08-04] MEDS: Lidocaine HCl 1 % MPF 5 ML VIAL 10 ML SUBCUT (12:10)
== END 2024-08-04 14:39 | disposition home or self-care (01) ==
PROVIDERS: Pathology Anatomic Pathology & Clinical Pathology; Physician Assistant Surgical; Student in an Organized Health Care Education/Training Program; Visit Provider Internal Medicine Medical Oncology
DX: C18.7 Malignant neoplasm of sigmoid colon (principal); C77.2 Secondary and unspecified malignant neoplasm of intra-abdominal lymph nodes; C78.7 Secondary malignant neoplasm of liver and intrahepatic bile duct; Z90.49 Acquired absence of other specified parts of digestive tract; K76.89 Other specified diseases of liver; K64.8 Other hemorrhoids; K57.30 Diverticulosis of large intestine without perforation or abscess without bleeding; K59.00 Constipation, unspecified; D64.9 Anemia, unspecified; M54.50 Low back pain, unspecified; F41.9 Anxiety disorder, unspecified; I10 Essential (primary) hypertension; E78.00 Pure hypercholesterolemia, unspecified; R73.02 Impaired glucose tolerance (oral); E53.8 Deficiency of other specified B group vitamins; Z79.899 Other long term (current) drug therapy; Z56.0 Unemployment, unspecified
CPT/HCPCS: 36415; 47000; 76942; 81210; 81275; 81276; 81311; 81403; 85025; 85610; 86850; 86900; 86901; 88307; 88313; 88342; 99152; J0131; J2250; J2310; J3010

== ENCOUNTER → 2024-08-04 11:30 | Outpatient (BNV) | payer OTHER, SELFPAY | PROVIDERS: Visit Provider Radiology Vascular & Interventional Radiology | DX: C78.7 Secondary malignant neoplasm of liver and intrahepatic bile duct (principal) | CPT/HCPCS: 47000; 76942 ==

== ENCOUNTER 2024-09-05 09:23 | Observation (INO) | payer OTHER, SELFPAY ==
[2024-09-05] VITALS (7 sets, daily range): BP systolic 70–135; BP diastolic 47–73; PULSE 69–104; RESP 16–18; TEMP 36.7–37.3; O2SAT 96–99; BMI 22.9
--- NOTE | ~2024-09-05 | CT_ITS ---
EXAMINATION: CT ABDOMEN AND PELVIS WITHOUT CONTRAST CLINICAL INFORMATION: Abdominal pain, nausea and vomiting rule out colon cancer . Status post resection of sigmoid colon cancer and liver metastasis in May. COMPARISON: June 23, 2020 TECHNIQUE: Multidetector volumetric imaging was performed from the superior aspect of the liver through the pubic symphysis. Sagittal and coronal reformatted images were obtained on the technologist's workstation. This CT examination was performed using dose optimization techniques as appropriate, variously including the following: *Automated exposure control *Adjustment of mA and/or kV according to patient size (this includes techniques or standardized protocols for targeted exams where dose is matched to indication/reason for exam; i.e. extremities or head) *Use of iterative reconstruction technique DLP: 398 mGy-cm FINDINGS: LUNG BASES: The visualized lung bases are unremarkable. LIVER, GALLBLADDER, AND BILIARY TREE: Seen previously low-attenuation lesions in the liver are stable consistent with appearance of cysts. The largest cyst in the left lobe of the liver, measured 1.5 cm. The largest lesion in the right lobe of the liver The gallbladder is unremarkable with no evidence of radiopaque gallstones, gallbladder wall thickening, or obvious pericholecystic inflammatory changes. PANCREAS: Unremarkable. The rest of bowel is unremarkable. Normal appendix visualized. SPLEEN: Unremarkable. ADRENAL GLANDS: Unremarkable. KIDNEYS AND URETERS: There is an exophytic low-attenuation lesion in the left kidney consistent with appearance of cyst, measured 1.6 cm. BLADDER: Unremarkable. GASTROINTESTINAL TRACT: Patient is status post sigmoid colon resection. ABDOMINAL WALL: No significant hernia is appreciated. LYMPH NODES: Normal. VASCULAR: Unremarkable. PELVIC VISCERA: Unremarkable. OSSEOUS STRUCTURES: Unremarkable. CT/CT abdomen pelvis wo IV con IMPRESSION: 1. No evidence of metastasis. 2. Stable cysts in the liver and left kidney. 3. Status post sigmoid colon resection. Fleischner guidelines were followed. Electronically signed by: Carolyn Lopez MD 09/05/2024 08:34 PM EDT
[2024-09-05 10:13] LABS: Hemoglobin 13.8 g/dl (12.0-16.0); Mean Corpuscular HGB Conc 34.5 g/dl (31.0-35.0); Mean Corpuscular Hemoglobin 30.5 pg (27.0-33.0); Mean Corpuscular Volume 88.5 fL (80.0-98.0); Red Blood Count 4.52 X10*6/uL (4.20-5.50); Red Cell Distribution Width 16.9 % (11.0-16.0)
[2024-09-05 10:14] LABS: WBC ABN SCTR FOR CBC 1
[2024-09-05 10:27] LABS: INTERNATIONAL NORM RATIO 1.5 (0.9-1.1); Prothrombin Time 17.1 SEC (10.9-12.4)
[2024-09-05] MEDS: 0.9 % Sodium Chloride 500 ML IV ×2 (10:34→12:12)
[2024-09-05 10:35] LABS: Atypical Lymphs Percent Manual 1 % (0-6); Band Neutrophils Percent 7 % (3-5); Eosinophils Percent Manual 1 % (0-4); Lymphocytes Percent Manual 58 % (20-40); Monocytes Percent Manual 22 % (2-11); Neutrophils Percent Manual 11 % (45-73)
[2024-09-05 10:36] LABS: Acanthocytes 1+ (0-2) /OIF; Burr Cells 1+ (0-2) /OIF; Dohle Bodies PRESENT; Polychromasia 1+ (0-2) /OIF; RBC Morphology NOTED
[2024-09-05 10:38] LABS: Toxic Granulation PRESENT
[2024-09-05 10:39] LABS: Lymphocytes Absolute Manual 0.8 X10*3/uL (1.2-4.9); Monocytes Absolute Manual 0.3 X10*3/uL (0.1-1.2); Neutrophils Absolute Manual 0.3 X10*3/uL (2.0-8.3); Platelet Count 103 X10*3/uL (160-400); Platelet Estimate DECREASED (NORMAL); Platelet Morphology Comment NORMAL; White Blood Count 1.4 X10*3/uL (4.8-10.8)
[2024-09-05 10:40] LABS: Mean Platelet Volume 10.3 fL (9.4-12.3)
[2024-09-05 10:42] LABS: Alanine Aminotransferase 26 U/L (0-31); Albumin Level 3.6 g/dL (3.5-5.0); Alkaline Phosphatase 69 U/L (39-117); Anion Gap 20 (12-20); Aspartate Amino Transferase 23 U/L (5-31); Bilirubin Direct 0.3 mg/dL (0.0-0.5); Blood Urea Nitrogen 11 mg/dL (9-16); Calcium 8.4 mg/dL (8.4-10.2); Carbon Dioxide 18 mmol/L (22-29); Chloride 97 mmol/L (96-108); Creatinine Clr Calc Pharmacy 33.3; Estimated Glomerular Filt Rate 46; Glucose Random 218 mg/dL (60-115); Lipase 9 U/L (8-78); Potassium 4.1 mmol/L (3.3-5.1); Sodium 131 mmol/L (135-145); Total Protein 6.2 g/dL (6.5-8.0)
[2024-09-05 10:48] LABS: Troponin-I High Sensitivity 32.8 ng/L (<3.5-17.0)
--- NOTE | 2024-09-05 11:57 | ED.GENADULT ---
HPI - General Adult General Chief complaint: Abdominal Pain Stated complaint: Abd pain/diarrhea Time Seen by Provider: 09/05/24 09:50 Source: patient Mode of arrival: ambulatory Limitations: no limitations History of Present Illness ED Provider: Dr. Wells HPI narrative: Patient is a 69yo female with metastatic colon cancer who is followed by Dr. Rosado and is currently getting chemo every 2 weeks. She is 1 week out from her last chemo and has been having diarrhea, not feeling like eating, and is weak. She denies fever. Onset (ago): day(s) Related Data Home Medications ?Medication ?Instructions ?Recorded ?Confirmed levothyroxine 75 mcg tablet 75 mcg PO DAILY@0600 04/22/24 06/20/24 Previous Rx's ?Medication ?Instructions ?Recorded HUMIDIFIER #1 ea 10/26/23 lidocaine 5 % topical patch 1 patch topical DAILY #30 ea 11/27/23 metoprolol succinate 25 mg 25 mg PO DAILY #90 tabs 02/27/24 tablet,extended release 24 hr simvastatin 20 mg tablet 20 mg PO DAILY #90 tabs 05/02/24 dicyclomine 10 mg capsule 10 mg PO QID #360 caps 05/05/24 dexamethasone 4 mg tablet 4 mg PO BID #60 tabs 06/16/24 loperamide 2 mg capsule (Imodium 2 mg PO Q6H PRN Diarrhea #60 caps 06/16/24 A-D) ondansetron 8 mg disintegrating 8 mg PO Q8H #60 tabs 06/16/24 tablet carbamide peroxide 6.5 % ear drops 5 drp otic (ear) left Q12H 4 days 06/20/24 (Debrox) #15 mL sertraline 25 mg tablet 25 mg PO DAILY #30 tabs 06/20/24 ferrous sulfate 325 mg (65 mg 325 mg PO DAILY #90 tabs 07/07/24 iron) tablet (Feosol) lidocaine HCl 2 % mucosal solution 1 appl mucous membrane QID #300 mL 07/07/24 (Lidocaine Viscous) psyllium husk 3.4 gram/5.4 gram 1 tsp PO BID #660 grams 07/22/24 oral powder (Metamucil) albuterol sulfate 90 mcg/actuation 2 puff inhalation Q6H PRN for 07/28/24 aerosol inhaler (Ventolin HFA) wheezing #18 grams tramadol 50 mg tablet 50 mg PO BID 30 days #60 tabs 08/05/24 zolpidem 5 mg tablet 5 mg PO BEDTIME #30 tabs 08/05/24 Magic Mouthwash 10 ml PO QID #240 mL 08/12/24 Diphen/Lido/Antacid 1:1:1 240 mL suspension nutrition tx glu 1 ea PO BID #60 mL 08/12/24 intol,lac-free,soy-fiber 0.08 gram-1.5 kcal/mL liquid (Glucerna 1.5 Xavi) non-slip shower mat #1 ea 08/15/24 Allergies Allergy/AdvReac Type Severity Reaction Status Date / Time No Known Allergies Allergy Verified 09/05/24 09:44 Review of Systems Review of Systems: Yes all other systems are reviewed and are negative Neurologic: Denies Sensory deficit (Neuro) PMFSH Past Medical History Medical History Annual physical exam Anemia Encounter for well woman exam with routine gynecological exam Colon cancer Colonic mass Recurrent UTI COVID-19 Abnormal weight loss Abdominal pain Abdominal cramping Pre-op examination Colon cancer screening Anemia Plantar fasciitis Low back pain Low back pain Pain of right hip Vulvar itching Encounter for annual routine gynecological examination Headache Cervical cancer screening Breast cancer screening by mammogram Colon cancer screening declined Colonoscopy refused Overweight (BMI 25.0-29.9) Vitamin B12 deficiency Impaired glucose tolerance Hypothyroid Hypercholesterolemia Hypertension Insomnia Carpal tunnel syndrome Surgical History Hx of surgical procedure (~04/22/24) H/O colonoscopy Family History Family History Father No problems noted. Mother No problems noted. Sister History of breast cancer, Onset Age: 50 Daughter Colon cancer Son Colon cancer Social History Social History Household Members: None Housing: Apartment Are you a primary live in caregiver to a significant other at home: No Do you presently have visiting nurse or other home services: No Alcohol intake: never Patient Tobacco Use Status: Never used Tobacco Smoked in Last 30 Days: No e-Cigarette/Vaping Use: Never Used Second Hand Smoke Exposure: No Use of substances other than those prescribed or required for medical reasons: No Advance Directives: No Advance Directives Information Provided: Yes service: No Current occupational status: retired Sexual orientation: Straight/Heterosexual Gender identity: Female Cognitive needs: No Hearing needs: No Vision needs: Yes Physical Exam ED Vital Signs: Vital Signs - 24 hr 09/05/24 09:34 09/05/24 09:54 09/05/24 10:34 Temperature 98.1 F Pulse Rate 104 H 97 78 Respiratory Rate 16 16 18 Blood Pressure 70/47 L 106/66 95/60 Pulse Oximetry 99 97 Oxygen Delivery Method Room Air Room Air 09/05/24 12:54 09/05/24 14:58 Temperature Pulse Rate 69 77 Respiratory Rate 18 Blood Pressure 127/69 110/65 Pulse Oximetry 96 Oxygen Delivery Method Room Air BMI result Body Mass Index 22.9 Const Other: female appearing tired Nutritional Appearance: average body habitus Orientation/consciousness: oriented to person and patient oriented x3 Limitations: no limitations HENMT Head: Yes normal to inspection Ears: external ears normal General nose exam: Normal external nose present Mouth: Normal oral and palatal mucosa present and oropharynx normal Throat: Yes posterior oropharynx normal Eyes General: appearance normal, both eyes and all related structures Neck Neck: Yes normal visual inspection Chest Chest palpation & inspection: normal inspection of the chest Resp Auscultation: clear to auscultation bilaterally Cardio Jugular venous distension: no JVD Rate: regular rate Rhythm: regular rhythm Heart sounds: S1 normal heart sound present and S2 normal heart sound present GI Inspection: Yes normal to inspection Palpation (GI): Soft to palpation, nontender and No hepatosplenomegaly present Auscultation: normal bowel sounds General: Yes no CVA tenderness Back/Spine/Pelvis Back: no CVA tenderness Skin General skin exam: no rashes or lesions noted Neuro General: oriented to person and patient oriented x3 Cranial nerves: Yes CN's II-XII intact bilaterally Motor exam (neuro): 5/5 motor strength present throughout Sensory Exam: No Sensory deficit (Neuro) Extrem General: Yes normal to inspection Psych Appearance: grossly normal Course Reevaluation(s) Reevaluation #1: With hydration patients blood pressure responded nicely, discussed with Dr. Rosado at [facility], will dc home as patient is able to tolerate PO. Making sure patients bicarb has improved. Time: 13:41 Reevaluation #2: Patient unable to tolerate orals will admit Time: 15:29 Reevaluation #3: I spent 40 minutes of critical care, with interventions, assessments, speaking to patient, consultants, and family. Time: 15:29 Medications Administered Discontinued Medications Generic Name Dose Route Start Last Admin Trade Name Freq PRN Reason Stop Dose Admin Sodium Chloride 500 mls @ 500 mls/hr 09/05/24 10:15 09/05/24 11:54 Ns IV 09/05/24 11:14 Infused .Q1H [facility] Infusion Sodium Chloride 500 mls @ 500 mls/hr 09/05/24 12:00 09/05/24 13:16 Ns IV 09/05/24 12:59 Infused .Q1H [facility] Infusion Medical Decision Making Differential Diagnosis Differential Diagnoses: The differential diagnosis associated with the presentation includes (Dehydration, renal failure, sepsis, neutropenia, enteritis) Admission/Observation Consideration of admission/observation: Escalation of care including admission/observation considered (upon arrival patient considered for admission) Consult Healthcare Provider Management of the patient was discussed with: [employer] (Dr Rosado oncology) Lab Data 09/05/24 09:59 09/05/24 14:16 Labs: Lab Results 09/05/24 09/05/24 09/05/24 Range/Units 09:59 12:07 14:16 WBC 1.4 L (4.8-10.8) X10*3/uL RBC 4.52 (4.20-5.50) X10*6/uL Hgb 13.8 (12.0-16.0) g/dl Hct 40.0 (37.0-47.0) % MCV 88.5 (80.0-98.0) fL MCH 30.5 (27.0-33.0) pg MCHC 34.5 (31.0-35.0) g/dl RDW 16.9 H (11.0-16.0) % Plt Count 103 L D (160-400) X10*3/uL MPV 10.3 (9.4-12.3) fL Immature Gran % (Auto) Cancelled Neut % (Auto) Cancelled Lymph % (Auto) Cancelled [place] % (Auto) Cancelled Eos % (Auto) Cancelled Baso % (Auto) Cancelled Lymph # (Auto) Cancelled [place] # (Auto) Cancelled Eos # (Auto) Cancelled Baso # (Auto) Cancelled Abs Immat Gran (auto) Cancelled Absolute Neuts (auto) Cancelled Absolute Nucleated RBC 0.000 (0.0-0.012) X10*3/uL Nucleated RBC % (auto) 0.0 (0.0-0.2) /100WBC Neutrophils % (Manual) 11 L (45-73) % Band Neutrophils % 7 H (3-5) % Lymphocytes % (Manual) 58 H (20-40) % Atypical Lymphs % (Man) 1 (0-6) % Monocytes % (Manual) 22 H (2-11) % Eosinophils % (Manual) 1 (0-4) % Abs Neuts (Manual) 0.3 L (2.0-8.3) X10*3/uL Lymphocytes # (Manual) 0.8 L (1.2-4.9) X10*3/uL Monocytes # (Manual) 0.3 (0.1-1.2) X10*3/uL Toxic Granulation PRESENT Dohle Bodies PRESENT Platelet Estimate DECREASED (NORMAL) Plt Morphology Comment NORMAL RBC Morphology NOTED Polychromasia 1+ (0-2) /OIF Lucian Cells 1+ (0-2) /OIF Acanthocytes (Spur) 1+ (0-2) /OIF PT 17.1 H (10.9-12.4) SEC INR 1.5 H (0.9-1.1) Sodium 131 L 133 L (135-145) mmol/L Potassium 4.1 3.6 (3.3-5.1) mmol/L Chloride 97 103 (96-108) mmol/L Carbon Dioxide 18 L 20 L (22-29) mmol/L Anion Gap 20 14 (12-20) BUN 11 10 (9-16) mg/dL Creatinine 1.16 0.82 (0.5-1.4) mg/dL Estim Creat Clear Calc 33.3 47.1 Estimated GFR 46 > 60 Random Glucose 218 H 149 H (60-115) mg/dL Calcium 8.4 8.1 L (8.4-10.2) mg/dL Total Bilirubin 1.0 (0.0-1.0) mg/dL Direct Bilirubin 0.3 (0.0-0.5) mg/dL AST 23 (5-31) U/L ALT 26 (0-31) U/L Alkaline Phosphatase 69 (39-117) U/L Troponin I High Sens 32.8 H 35.5 H (<3.5-17.0) ng/L Total Protein 6.2 L (6.5-8.0) g/dL Albumin 3.6 (3.5-5.0) g/dL Lipase 9 (8-78) U/L Independent Interpretation I performed an independent interpretation of an: EKG (sinus RBBB, no st or twave changes) External Record Review External record reviewed: Outpatient record Prescription Management I considered prescription management with: Antibiotic (no fever no evidence of infection) Chronic Conditions Patient?s care impacted by: Cancer Social Determinants Patient?s care significantly limited by Social Determinants of Health including: Low income Discharge Plan Discharge Clinical Impression: Acute dehydration, Neutropenia Patient Disposition: Admitted As Inpatient Print Language: Moldovan
[2024-09-05 12:40] LABS: Troponin-I High Sensitivity 35.5 ng/L (<3.5-17.0)
--- NOTE | 2024-09-05 12:48 | ECG_ITS ---
Test Reason : high troponin Blood Pressure : / mmHG Vent. Rate : 078 BPM Atrial Rate : 078 BPM P-R Int : 182 ms QRS Dur : 120 ms QT Int : 400 ms P-R-T Axes : 069 -30 -08 degrees QTc Int : 456 ms Normal sinus rhythm Left axis deviation Right bundle branch block Abnormal ECG When compared with ECG of 15-APR-2024 14:07, SC interval has decreased Right bundle branch block is now Present Referred By: Victor M Wells Electronically Signed By:AMERICA CATALAN MD
[2024-09-05 14:37] LABS: Anion Gap 14 (12-20); Blood Urea Nitrogen 10 mg/dL (9-16); Calcium 8.1 mg/dL (8.4-10.2); Carbon Dioxide 20 mmol/L (22-29); Chloride 103 mmol/L (96-108); Creatinine Clr Calc Pharmacy 47.1; Estimated Glomerular Filt Rate > 60; Glucose Random 149 mg/dL (60-115); Potassium 3.6 mmol/L (3.3-5.1); Sodium 133 mmol/L (135-145)
--- NOTE | 2024-09-05 15:10 | PC.NURSE ---
Alert and oriented, reports feel better after IV fluids, reports still having some abdominal pain, family at bedside
--- NOTE | 2024-09-05 17:01 | PHA.MEDREC ---
Addendum entered by Lolis Rod RPh 09/05/24 17:25: Reviewed by [facility] Original Note: Pharmacy Consult ? Medication Reconciliation Pharmacy has completed the medication reconciliation. Spoke to patient through loan approver service (Michelle) to confirm med list. Patient states she is no longer taking Carbamide perixide 6.5 % ear drops, Dicyclomine 10 mg , Ferrous sulfate 325 mg, and Loperamide 2 mg. Patient states the last time she took her any medications was 2 days ago 09/03/24.
--- NOTE | 2024-09-05 17:17 | P.HPHOSP_ITS ---
History of Present Illness Date of Service: 09/05/24 Chief Complaint: Nausea, vomiting and abdominal pain 69 year old female with history of colon cancer diagnosed in February 2024 by colonscopy and had colon resection at the end of March and has been on chemotherapy, last session was 2 weeks ago. She presents here today with 3 days of non-bloody diarrha, nausea vomiting and generalized abdominal pain. As a result, she has been unable to keep oral intake. Labs are unremarkable other sodium of 133. Troponin is 35. She has no chest pain . No imaging done Review of Systems 2 Review of Systems: Gen: no fever Resp: no sob, no cough CV: no chest, no ELLISON, no leg edema GI: + n/v, + abd pain Neuro: No confusion Yes all other systems are reviewed and are negative [facility] Medical History (Updated 09/05/24 @ 17:53 by Fran Lazaro MD) Annual physical exam Anemia Encounter for well woman exam with routine gynecological exam Colon cancer Colonic mass Recurrent UTI COVID-19 Abnormal weight loss Abdominal pain Abdominal cramping Pre-op examination Colon cancer screening Anemia Plantar fasciitis Low back pain Low back pain Pain of right hip Vulvar itching Encounter for annual routine gynecological examination Headache Cervical cancer screening Breast cancer screening by mammogram Colon cancer screening declined Colonoscopy refused Overweight (BMI 25.0-29.9) Vitamin B12 deficiency Impaired glucose tolerance Hypothyroid Hypercholesterolemia Hypertension Insomnia Carpal tunnel syndrome Family History Father No problems noted. Mother No problems noted. Sister History of breast cancer, Onset Age: 50 Daughter Colon cancer Son Colon cancer Surgical History Hx of surgical procedure (~04/22/24) H/O colonoscopy Social History Household Members: None Housing: Apartment Are you a primary neonatal critical care nurse to a significant other at home: No Do you presently have visiting nurse or other home services: No Alcohol intake: never Patient Tobacco Use Status: Never used Tobacco Smoked in Last 30 Days: No e-Cigarette/Vaping Use: Never Used Second Hand Smoke Exposure: No Use of substances other than those prescribed or required for medical reasons: No Advance Directives: No Advance Directives Information Provided: Yes Nutrition Risks: No Nutritional Risk service: No Current occupational status: retired Sexual orientation: Straight/Heterosexual Gender identity: Female Cognitive needs: No Hearing needs: No Vision needs: Yes Meds Allergies Allergy/AdvReac Type Severity Reaction Status Date / Time No Known Allergies Allergy Verified 09/05/24 09:44 Home Medications ?Medication ?Instructions ?Recorded ?Confirmed ?Last Taken ?Type levothyroxine 75 mcg tablet 75 mcg PO DAILY@0600 04/22/24 09/05/24 09/03/24 History Magic Mouthwash 10 ml PO QID PRN sore mouth 09/05/24 09/05/24 Unknown History Diphen/Lido/Antacid 1:1:1 240 mL suspension ascorbic acid (vitamin C) 500 mg 500 mg PO DAILY 09/05/24 09/05/24 09/03/24 History tablet (Vitamin C) Physical Exam 2 Vital Signs and Narrative: Vital Signs: Last Vital Signs Temp 98.1 F 09/05/24 09:34 Pulse 77 09/05/24 14:58 Resp 18 09/05/24 12:54 BP 110/65 09/05/24 14:58 Pulse Ox 96 09/05/24 12:54 O2 Del Method Room Air 09/05/24 12:54 BMI result Body Mass Index 22.9 Const: Other: General: AO X 3, no acute distress Resp: CTA bilateral CVS: S1,S2,RRR GI: +BS, NT, no distention Skin: No rash Neuro: motor grossly intact Psych: appropriate affect Results Labs 09/05/24 09:59 09/05/24 14:16 Labs: Laboratory Results - last 24 hr 09/05/24 09/05/24 09/05/24 09:59 12:07 14:16 MCV 88.5 MCH 30.5 MCHC 34.5 RDW 16.9 H Plt Count 103 L D MPV 10.3 Immature Gran % (Auto) Cancelled Neut % (Auto) Cancelled Lymph % (Auto) Cancelled [place] % (Auto) Cancelled Eos % (Auto) Cancelled Baso % (Auto) Cancelled Lymph # (Auto) Cancelled [place] # (Auto) Cancelled Eos # (Auto) Cancelled Baso # (Auto) Cancelled Abs Immat Gran (auto) Cancelled Absolute Neuts (auto) Cancelled Absolute Nucleated RBC 0.000 Nucleated RBC % (auto) 0.0 Neutrophils % (Manual) 11 L Band Neutrophils % 7 H Lymphocytes % (Manual) 58 H Atypical Lymphs % (Man) 1 Monocytes % (Manual) 22 H Eosinophils % (Manual) 1 Abs Neuts (Manual) 0.3 L Lymphocytes # (Manual) 0.8 L Monocytes # (Manual) 0.3 Toxic Granulation PRESENT Dohle Bodies PRESENT Platelet Estimate DECREASED Plt Morphology Comment NORMAL RBC Morphology NOTED Polychromasia 1+ (0-2) Lucian Cells 1+ (0-2) Acanthocytes (Spur) 1+ (0-2) PT 17.1 H INR 1.5 H Anion Gap 20 14 Estim Creat Clear Calc 33.3 47.1 Estimated GFR 46 > 60 Random Glucose 218 H 149 H Calcium 8.4 8.1 L Total Bilirubin 1.0 Direct Bilirubin 0.3 AST 23 ALT 26 Alkaline Phosphatase 69 Troponin I High Sens 32.8 H 35.5 H Total Protein 6.2 L Albumin 3.6 Lipase 9 Assessment and Plan (1) Acute dehydration: Status: Acute (2) Neutropenia: Status: Acute Plan 69 with history of colon cancer s/p resection on chemo here with nausea, vomiting and abdominal pain Nausea and vomitting possible related to chemo, cancer, or gastritis. -Will get CT of abdomen -check cdif, gi panel -hydrate -pain medications -antiemetics UTI--Ceftriaxone Leukopenia--likely chemo, check ANC Thrombocytopenia--likely related to chemo -monitor Hypertension--resume home meds Mild hyponatremia--d/t dehydration, monitor Asthma No exacerbation Continue albuterol as needed Pernicious Anemia Continue iron supplementation Hypothyroidism Continue levothyroxine Hyperlipidemia Statin DVT prophylaxis: lovenox Full code Medical consultation complete. Will sign off Quality Stroke Does the patient have a stroke diagnosis?: No VTE Prior VTE?: No VTE Risk Level:: Medical - moderate - high VTE Device Contraindication: Treatment Not Indicated VTE Drug Contraindication: N/A - Med Ordered
--- NOTE | 2024-09-05 17:48 | PC.NURSE ---
oob ambulating to bathroom with steady gait , vss
[2024-09-05 17:52] LABS: Appearance Urine Clear; Color Urine Yellow; Glucose Urine UA 100 mg/dL (Negative); Leukocyte Esterase Urine Small (1+) (Negative); Nitrite Urine Negative (Negative); UMIC TRIGGER UACC YES; Urine Blood Trace (Negative); Urine Ketones Negative (Negative); Urine Protein Trace mg/dL (Neg-Trace)
[2024-09-05 17:58] LABS: Bacteria Urine None Seen (None Seen); Hyaline Casts Urine 0-2 /LPF (0-2); RBC Urine 0-2 /HPF (0-2); Squamous Epithelial Cell Urine 0-2 /HPF (0-2); UACC Culture Trigger YES; WBC Urine 21-50 /HPF (0-5)
[2024-09-05] MEDS: Lactated Ringers 1,000 ML 125 ML IVCONT (18:38)
[2024-09-05] MEDS: Enoxaparin Sodium 40 MG/0.4 ML SYRINGE SUBCUT (18:38)
[2024-09-05] MEDS: Morphine Sulfate 2 MG/ML CARTRIDGE IVPUSH (18:38)
--- NOTE | 2024-09-05 18:56 | PC.NURSE ---
this rn assumed care of pt, pt a&ox4, respirations even and unlabored. pt brought back from CT at this time. pt on reverse precautions. pt vss. denies pain at this time.
--- NOTE | 2024-09-05 21:49 | PC.NURSE ---
per , administer antibiotics without blood culture draw.
[2024-09-05] MEDS: cefTRIAXone sodium 1 GM VIAL IVPUSH (21:51)
[2024-09-06] MEDS: Lactated Ringers 1,000 ML 125 ML IVCONT ×3 (03:31→20:50)
[2024-09-06 06:00] VITALS: BP 137/80; PULSE 75; RESP 16; TEMP 36.8; O2SAT 97
[2024-09-06 09:19] VITALS: BP 142/81; PULSE 74
[2024-09-06] MEDS: traMADoL HCL 50 MG TABLET PO (09:19)
[2024-09-06] MEDS: Metoprolol Succinate ER 25 MG TAB.ER.24H PO (09:19)
[2024-09-06] MEDS: Levothyroxine Sodium 75 MCG TABLET PO (09:19)
[2024-09-06] MEDS: Lidocaine 4 % Patch ADH..PATCH 1 PATCH TRANSDERMA (09:21)
[2024-09-06] MEDS: Sertraline HCL 25 MG TABLET PO (09:21)
[2024-09-06] MEDS: Ascorbic Acid 500 MG TABLET PO (09:21)
[2024-09-06 09:24] VITALS: BP 142/81; PULSE 74; RESP 16; TEMP 36.8; O2SAT 99
[2024-09-06] MEDS: Psyllium seed 3.7 GM PACKET PO (12:03)
[2024-09-06] MEDS: Ondansetron ODT 8 MG TAB.RAPDIS TRANSLINGU ×2 (12:03→18:12)
[2024-09-06] MEDS: Lidocaine HCl Viscous 2 % 15 ML SOLUTION MUCOUS MEM ×2 (12:03→18:12)
[2024-09-06] MEDS: dexAMETHasone 4 MG TABLET PO (12:03)
[2024-09-06] MEDS: Morphine Sulfate 2 MG/ML CARTRIDGE IVPUSH ×2 (12:09→18:17)
[2024-09-06 12:50] LABS: Anion Gap 10 (12-20); Blood Urea Nitrogen 8 mg/dL (9-16); Calcium 7.5 mg/dL (8.4-10.2); Carbon Dioxide 23 mmol/L (22-29); Chloride 104 mmol/L (96-108); Creatinine Clr Calc Pharmacy 58.6; Estimated Glomerular Filt Rate > 60; Glucose Random 136 mg/dL (60-115); Potassium 3.2 mmol/L (3.3-5.1); Sodium 134 mmol/L (135-145)
[2024-09-06 12:53] LABS: Hematocrit 31.1 % (37.0-47.0); Hemoglobin 10.9 g/dl (12.0-16.0); Mean Corpuscular Hemoglobin 30.2 pg (27.0-33.0); Mean Corpuscular Volume 86.1 fL (80.0-98.0); Mean Platelet Volume 9.7 fL (9.4-12.3); Red Blood Count 3.61 X10*6/uL (4.20-5.50); White Blood Count 3.7 X10*3/uL (4.8-10.8)
[2024-09-06 12:54] LABS: Platelet Count 84 X10*3/uL (160-400)
--- NOTE | 2024-09-06 12:57 | HO.PM.IMPN ---
Subjective Subjective Date of Service: 09/06/24 Interval History: f/u on uti, n/v history of colon cancer on chemo Physical Exam Vital Signs: Vital Signs: Last Vital Signs Temp 98.2 F 09/06/24 09:24 Pulse 74 09/06/24 09:24 Resp 16 09/06/24 09:24 BP 142/81 H 09/06/24 09:24 Pulse Ox 99 09/06/24 09:24 O2 Del Method Room Air 09/06/24 09:24 BMI result Body Mass Index 22.9 General: AO X 3, no acute distress Resp: CTA bilateral CVS: S1,S2,RRR GI: +BS, NT, no distention Skin: No rash Neuro: motor grossly intact Psych: appropriate affect Objective Data Active Medications Acetaminophen (Acetaminophen 325 Mg Tablet) 650 mg PO Q6H PRN PRN Reason: Pain, Mild (Pain Scale 1-3), fever or headache Albuterol Sulfate (Albuterol Sulfate 90 Mcg 8 Gm Inhaler) 2 puff INHALE Q6H PRN PRN Reason: for wheezing Ascorbic Acid (Ascorbic Acid 500 Mg Tablet) 500 mg PO DAILY [facility] Last Admin: 09/06/24 09:21 Dose: 500 mg Documented By: FERDINAND Atorvastatin Calcium (Atorvastatin Calcium 10 Mg Tablet) 10 mg PO DAILY@2100 [facility] Calcium Carbonate (Calcium Carbonate 750 Mg Tab.Chew) 750 mg PO Q4H PRN PRN Reason: Heartburn Ceftriaxone Sodium (Ceftriaxone Sodium 1 Gm Vial) 1 gm IVPUSH Q24H [facility] Last Admin: 09/05/24 21:51 Dose: 1 gm Documented By: CHRISTIAN Dexamethasone (Dexamethasone 4 Mg Tablet) 4 mg PO BID [facility] Last Admin: 09/06/24 12:03 Dose: 4 mg Documented By: FERDINAND Enoxaparin Sodium (Enoxaparin Sodium 40 Mg/0.4 Ml Syringe) 40 mg SUBCUT Q24H [facility] Last Admin: 09/05/24 18:38 Dose: 40 mg Documented By: KODY Lactated Ringer's (Lr) 1,000 mls @ 125 mls/hr IVCONT .Q8H [facility] Last Admin: 09/06/24 12:09 Dose: 125 mls/hr Documented By: FERDINAND Levothyroxine Sodium (Levothyroxine Sodium 75 Mcg Tablet) 75 mcg PO DAILY@0600 [facility] Last Admin: 09/06/24 09:19 Dose: 75 mcg Documented By: FERDINAND Lidocaine (Lidocaine 4 % Patch Adh..Patch) 1 patch TRANSDERMA DAILY [facility] Last Admin: 09/06/24 09:21 Dose: 1 patch Documented By: FERDINAND Lidocaine HCl (Lidocaine Hcl Viscous 2 % 15 Ml Solution) 15 ml MUCOUS MEM QID [facility] Last Admin: 09/06/24 12:03 Dose: 15 ml Documented By: FERDINAND Lidocaine/Diphenhydr/Alum/Mg/Simeth (Mag&Al/Sim/Diphenhyd/Lidocaine 10 Ml Oral.Susp) 10 ml PO QID PRN PRN Reason: sore mouth Magnesium Hydroxide (Milk Of Magnesia 30 Ml Oral.Susp) 30 ml PO DAILY PRN PRN Reason: Constipation Melatonin (Melatonin 3 Mg Tablet) 6 mg PO BEDTIME PRN PRN Reason: Insomnia Metoprolol Succinate (Metoprolol Succinate Er 25 Mg Tab.Er.24h) 25 mg PO DAILY [facility]; Protocol Last Admin: 09/06/24 09:19 Dose: 25 mg Documented By: FERDINNAD Morphine Sulfate (Morphine Sulfate 2 Mg/Ml Cartridge) 2 mg IVPUSH Q4H PRN; Protocol PRN Reason: Pain, Severe (Pain Scale 7-10) Last Admin: 09/06/24 12:09 Dose: 2 mg Documented By: FERDINAND Ondansetron HCl (Ondansetron Odt 8 Mg Tab.Rapdis) 8 mg TRANSLINGU Q8H [facility] Last Admin: 09/06/24 12:03 Dose: 8 mg Documented By: FERDINAND Potassium Chloride (Potassium Chloride Packet 20 Meq Packet) 40 meq PO ONCE ONE Stop: 09/06/24 12:55 Psyllium Hydrophilic Mucilloid (Psyllium Seed 3.7 Gm Packet) 3.7 gm PO BID [facility] Last Admin: 09/06/24 12:03 Dose: 3.7 gm Documented By: FERDINAND Sertraline HCl (Sertraline Hcl 25 Mg Tablet) 25 mg PO DAILY [facility] Last Admin: 09/06/24 09:21 Dose: 25 mg Documented By: FERDINAND Sodium Chloride (0.9 % Sodium Chloride Flush 3 Ml Syringe) 3 ml IVFLUSH QSHIFT [facility] Last Admin: 09/06/24 08:05 Dose: Not Given Documented By: FERDINAND Non-Admin Reason: IV Running Tramadol HCl (Tramadol Hcl 50 Mg Tablet) 50 mg PO BID [facility] Last Admin: 09/06/24 09:19 Dose: 50 mg Documented By: FERDINAND Zolpidem Tartrate (Zolpidem Tartrate 5 Mg Tablet) 5 mg PO BEDTIME [facility] Labs 09/06/24 12:33 09/06/24 12:33 Labs: Laboratory Results - last 24 hr 09/05/24 09/05/24 09/06/24 14:16 17:34 12:33 MCV 86.1 MCH 30.2 MCHC 35.0 RDW 17.0 H Plt Count 84 L MPV 9.7 Absolute Nucleated RBC 0.000 Nucleated RBC % (auto) 0.0 Anion Gap 14 10 L Estim Creat Clear Calc 47.1 58.6 Estimated GFR > 60 > 60 Random Glucose 149 H 136 H Calcium 8.1 L 7.5 L D Urine Color Yellow Urine Appearance Clear Urine pH 6.0 Ur Specific Mcclellan 1.010 Urine Protein Trace Urine Glucose (UA) 100 H Urine Ketones Negative Urine Blood Trace H Urine Nitrite Negative Ur Leukocyte Esterase Small (1+) H Urine RBC 0-2 Urine WBC 21-50 H Ur Squamous Epith Cells 0-2 Urine Bacteria None Seen Hyaline Casts 0-2 Assessment and Plan (1) Neutropenia: Status: Acute Plan 69 with history of colon cancer s/p resection on chemo here with nausea, vomiting and abdominal pain Nausea and vomitting possible related to chemo, cancer, or gastritis and UTI, she is feeling much better today -CT showed no acute finding -check cdif, gi panel--pending, presently without diarrhea -hydrate with IV -pain medications -antiemetics -advance UTI with neutropenia, Ceftriaxone, culture pending Leukopenia--likely chemo, WBC is higher, check ANC, if less than 1000 give granix Thrombocytopenia--likely related to chemo, lower today, hold Lovenox -monitor Hypertension--resume home meds Mild hyponatremia--d/t dehydration, monitor Asthma No exacerbation Continue albuterol as needed Pernicious Anemia Continue iron supplementation Hypothyroidism Continue levothyroxine Hyperlipidemia Statin DVT prophylaxis: lovenox Full code Medical consultation complete. Will sign off Quality Stroke Does the patient have a stroke diagnosis?: No VTE Prior VTE?: No VTE Risk Level:: Medical - moderate - high VTE Device Contraindication: Treatment Not Indicated VTE Drug Contraindication: N/A - Med Ordered
[2024-09-06 13:19] LABS: Neutrophils Absolute Auto 1.7 x10*3/uL (2.0-8.3)
[2024-09-06] MEDS: Potassium Chloride Packet 20 MEQ PACKET 40 MEQ PO (14:05)
[2024-09-06 14:47] LABS: Estimated Average Glucose 151 mg/dL; Hemoglobin A1C 138.9824 umol/L; Hemoglobin A1c % 6.9 % (<6.0); Total Hemoglobin (HGBA1C) 2676.1346 umol/L
[2024-09-06 19:11] VITALS: BP 158/74; PULSE 51; RESP 16; TEMP 37.5; O2SAT 97
[2024-09-06 20:27] LABS: Glucose, Whole Blood 145 mg/dL (60-115)
[2024-09-06] MEDS: cefTRIAXone sodium 1 GM VIAL IVPUSH (20:44)
[2024-09-06] MEDS: Atorvastatin Calcium 10 MG TABLET PO (22:22)
[2024-09-06 23:37] VITALS: BP 157/86; PULSE 52; RESP 16; TEMP 36; O2SAT 98
[2024-09-07 04:00] VITALS: BP 144/90; PULSE 54; RESP 16; TEMP 36.1; O2SAT 97
[2024-09-07] MEDS: Lactated Ringers 1,000 ML 125 ML IVCONT (04:12)
[2024-09-07] MEDS: Levothyroxine Sodium 75 MCG TABLET PO (05:43)
[2024-09-07 07:12] LABS: Anion Gap 15 (12-20); Blood Urea Nitrogen 7 mg/dL (9-16); Calcium 8.1 mg/dL (8.4-10.2); Carbon Dioxide 24 mmol/L (22-29); Chloride 100 mmol/L (96-108); Creatinine Clr Calc Pharmacy 59.5; Estimated Glomerular Filt Rate > 60; Glucose Random 164 mg/dL (60-115); Potassium 4.4 mmol/L (3.3-5.1); Sodium 135 mmol/L (135-145)
[2024-09-07 07:22] LABS: Hematocrit 32.5 % (37.0-47.0); Hemoglobin 11.1 g/dl (12.0-16.0); Mean Corpuscular HGB Conc 34.2 g/dl (31.0-35.0); Mean Corpuscular Hemoglobin 29.8 pg (27.0-33.0); Mean Corpuscular Volume 87.1 fL (80.0-98.0); Mean Platelet Volume 10.1 fL (9.4-12.3); NRBC Pct Auto 0.2 /100WBC (0.0-0.2); Platelet Count 103 X10*3/uL (160-400); Red Blood Count 3.73 X10*6/uL (4.20-5.50); Red Cell Distribution Width 17.2 % (11.0-16.0); White Blood Count 8.3 X10*3/uL (4.8-10.8)
[2024-09-07 07:42] VITALS: BP 140/70; PULSE 50; RESP 16; TEMP 36.1; O2SAT 97
[2024-09-07 07:42] LABS: Glucose, Whole Blood 141 mg/dL (60-115)
[2024-09-07] MEDS: Lidocaine 4 % Patch ADH..PATCH 1 PATCH TRANSDERMA (08:39)
[2024-09-07] MEDS: Ondansetron ODT 8 MG TAB.RAPDIS TRANSLINGU (08:39)
[2024-09-07] MEDS: Lidocaine HCl Viscous 2 % 15 ML SOLUTION MUCOUS MEM (08:39)
[2024-09-07] MEDS: Ascorbic Acid 500 MG TABLET PO (08:40)
[2024-09-07] MEDS: Sertraline HCL 25 MG TABLET PO (08:40)
--- NOTE | 2024-09-07 09:40 | P.DS_ITS ---
DS: Providers Provider Date of Service: 09/07/24 Date of admission: 09/05/24 17:59 Date of discharge: 09/07/24 Primary care physician: Fran Lazaro MD DS: Diagnosis Discharge Diagnosis (1) Neutropenia: Status: Resolved DS: Summary Hospital Course Hospital Course: Chief Complaint: Nausea, vomiting and abdominal pain 69 year old female with history of colon cancer diagnosed in February 2024 by colonscopy and had colon resection at the end of March and has been on chemotherapy, last session was 2 weeks ago. She presents here today with 3 days of non-bloody diarrha, nausea vomiting and generalized abdominal pain. As a result, she has been unable to keep oral intake. Labs are unremarkable other sodium of 133. Troponin is 35. She has no chest pain . No imaging done Hospital course: The patient, who has been receiving chemotherapy for colon cancer, presented with nausea, vomiting, dehydration, a urinary tract infection (UTI), and acute renal failure. Lab work showed leukopenia. A CT scan of the abdomen revealed no acute findings. She was admitted and treated with IV fluids, which resolved her acute renal failure. The UTI, caused by E. coli, was treated with ceftriaxone in the hospital, and she will be transitioned to oral cefuroxime to complete a 7- day course. Her nausea and vomiting have resolved, and she is tolerating a regular diet. It is also noted that she has prediabetes, with average blood sugars in the 150s and a hemoglobin A1c of 6.9%. She has been advised to follow lifestyle and dietary modifications and to follow up with her primary care provider for further management. Leukopenia--due to chemo, resolved. WBC now 8.3 Thrombocytopenia--likely related to chemo, improved, to follow up with oncology on sunday Hypertension--resume home meds Mild hyponatremia--d/t dehydration, resolved sodium 135 Asthma No exacerbation Continue albuterol as needed Pernicious Anemia Continue iron supplementation Hypothyroidism Continue levothyroxine Hyperlipidemia Statin Home today Time Attestation Discharge Coordination Time (in mins): 35 Quality: Safe Use of Opioids Does Pt have an Active Cancer Diagnosis on the Problem List?: No Quality: Stroke Does the patient have a stroke diagnosis?: No Physical Exam Vital Signs: Vital Signs: Last Vital Signs Temp 96.9 F 09/07/24 07:42 Pulse 50 09/07/24 07:42 Resp 16 09/07/24 07:42 BP 140/70 H 09/07/24 07:42 Pulse Ox 97 09/07/24 07:42 O2 Del Method Room Air 09/07/24 07:42 BMI result Body Mass Index 22.9 DS: Data Data Completed and Pending Completed studies during hospitalization [Text1]: Procedures Excision of Sigmoid Colon, Open Approach (04/22/24) Labs on day of discharge: Laboratory Results - last 24 hr 09/06/24 09/06/24 09/07/24 12:33 20:21 06:24 WBC 3.7 L 8.3 RBC 3.61 L D 3.73 L Hgb 10.9 L D 11.1 L Hct 31.1 L D 32.5 L MCV 86.1 87.1 MCH 30.2 29.8 MCHC 35.0 34.2 RDW 17.0 H 17.2 H Plt Count 84 L 103 L MPV 9.7 10.1 Absolute Neuts (auto) 1.7 L Absolute Nucleated RBC 0.000 0.020 H Nucleated RBC % (auto) 0.0 0.2 Sodium 134 L 135 Potassium 3.2 L 4.4 D Chloride 104 100 Carbon Dioxide 23 24 Anion Gap 10 L 15 BUN 8 L 7 L Creatinine 0.66 0.65 Estim Creat Clear Calc 58.6 59.5 Estimated GFR > 60 > 60 POC Glucose 145 H Random Glucose 136 H 164 H Estimat Average Glucose 151 Hemoglobin A1c % 6.9 H Calcium 7.5 L D 8.1 L D 09/07/24 07:33 WBC RBC Hgb Hct MCV MCH MCHC RDW Plt Count MPV Absolute Neuts (auto) Absolute Nucleated RBC Nucleated RBC % (auto) Sodium Potassium Chloride Carbon Dioxide Anion Gap BUN Creatinine Estim Creat Clear Calc Estimated GFR POC Glucose 141 H Random Glucose Estimat Average Glucose Hemoglobin A1c % Calcium Discharge Plan Discharge Anticipated Discharge Date/Time: 09/07/24 09:36 Patient Disposition: Home, Self-Care Discharge Diagnosis: Dehydration, RAGINI, Neutropenia Referrals: Po,Fran Childers MD [Primary Care Provider] - 1 Week Discharge Medications: New cefuroxime axetil 250 mg Tablet 250 mg PO Q12H Qty: 12 0RF Rx Instructions: next dose evening today 09/07/24 Continued (DME) HUMIDIFIER See Rx Instructions .Route .MEDSUPPLY Qty: 1 0RF Rx Instructions: As directed lidocaine 5 % adhesive patch,medicated 1 patch topical DAILY Qty: 30 3RF Rx Instructions: leave on most painful area for up to 12 hrs metoprolol succinate 25 mg tablet extended release 24 hr 25 mg PO DAILY Qty: 90 3RF simvastatin 20 mg tablet 20 mg PO DAILY Qty: 90 3RF albuterol sulfate [Ventolin HFA] 90 mcg/actuation HFA aerosol inhaler 2 puff inhalation Q6H PRN (Reason: for wheezing) Qty: 18 2RF tramadol 50 mg tablet 50 mg PO BID 30 Days Qty: 60 1RF zolpidem 5 mg tablet 5 mg PO BEDTIME Qty: 30 1RF (DME) non-slip shower mat See Rx Instructions .Route .MEDSUPPLY Qty: 1 0RF Rx Instructions: As directed ondansetron 8 mg Tablet,Disintegrating 8 mg PO Q8H Qty: 60 3RF dexamethasone 4 mg Tablet 4 mg PO BID Qty: 60 2RF Rx Instructions: Take 4 mg p.o. b.i.d. day 2 and 3 of chemotherapy every 14 days. lidocaine HCl [Lidocaine Viscous] 2 % Solution 1 appl MUCOUS MEMBRANE QID Qty: 300 3RF Glucerna 1.5 Xavi 0.08-1.5 gram-kcal/mL Liquid 1 ea PO BID Qty: 60 3RF Rx Instructions: Chocolate flavor. Patient has colon cancer with liver Mets. Metamucil 3.4 gram/5.4 gram powder 1 tsp PO BID Qty: 660 0RF Rx Instructions: mix into at least 4 oz water or juice before administering ascorbic acid (vitamin C) [Vitamin C] 500 mg tablet 500 mg PO DAILY Magic Mouthwash Diphen/Lido/Antacid 1:1:1 240 mL suspension 10 ml PO QID PRN (Reason: sore mouth) Rx Instructions: Lidocaine Viscous 2 % 80mL; diphenhydramine 12.5 mg/5 mL 80mL; aluminum-mag hydrox-simeth [id number]-[id number]/5mL 80mL No Action levothyroxine 75 mcg tablet 75 mcg PO DAILY@0600 Qty: 90 1RF sertraline 25 mg tablet 25 mg PO DAILY Qty: 90 1RF Discharge Orders: Discharge Order (Routine); Ordered 09/07/24 Ordered By: Maksim Mlapah Diet: Diabetic diet Activity on Discharge: As tolerated Stand Alone Forms: Patient Portal Discharge page Print Language: Burkinan Care Plan Goals: recovery from nausea, vomiting and dehydration, utiand kidney failure Health Concerns: same as above Plan of Treatment: Stay well hydrated, drink plenty of fluid, follow up with oncology clinic as scheduled on Sunday Take cefuroxime as directed for UTI you have pre-diabetes and needs to watch your diet for high sugars--see instruction, and follow up with your doctor for this Assessment: see above Patient Instructions: Meal Planning with Diabetes Exchanges (DC), Type 2 Diabetes in the Older Adult (DC), Diabetes and Exercise (DC), Type 2 Diabetes Management for Adults (DC) Discharge Date/Time: 09/07/24 11:39
[2024-09-07] MEDS: cefuroxime axetiL 250 MG TABLET PO (11:03)
== END 2024-09-07 11:39 | disposition home or self-care (01) ==
LOC: HO.ED 15:30 → HO.EDOVER 18:40 → HO.S3 09-06 17:42
PROVIDERS: Admitting Provider Internal Medicine; Emergency Provider Emergency Medicine; PCP Internal Medicine; Visit Provider Internal Medicine
DX: E86.0 Dehydration (principal); D70.9 Neutropenia, unspecified; R11.2 Nausea with vomiting, unspecified; R10.9 Unspecified abdominal pain; R19.7 Diarrhea, unspecified; C18.9 Malignant neoplasm of colon, unspecified; E03.9 Hypothyroidism, unspecified; I10 Essential (primary) hypertension; N39.0 Urinary tract infection, site not specified; D69.6 Thrombocytopenia, unspecified; D51.0 Vitamin B12 deficiency anemia due to intrinsic factor deficiency; J45.909 Unspecified asthma, uncomplicated; E78.5 Hyperlipidemia, unspecified; E87.1 Hypo-osmolality and hyponatremia; Z79.60 Long term (current) use of unspecified immunomodulators and immunosuppressants; Z79.899 Other long term (current) drug therapy
CPT/HCPCS: 36415; 74176; 80048; 80076; 81001; 82947; 83036; 83690; 84484; 85007; 85027; 85610; 87086; 87088; 87186; 93005; 96361; 96372; 96374; 96375; 96376; 99221; 99285; J0696; J1650; J2270; J7120; J8540

== ENCOUNTER → 2024-09-05 12:48 | Outpatient (BNV) | payer OTHER, SELFPAY | PROVIDERS: Emergency Provider Emergency Medicine; PCP Internal Medicine; Visit Provider Internal Medicine Cardiovascular Disease | DX: R79.89 Other specified abnormal findings of blood chemistry (principal); I44.4 Left anterior fascicular block; I45.10 Unspecified right bundle-branch block; R94.31 Abnormal electrocardiogram [ECG] [EKG] | CPT/HCPCS: 93010 ==

== ENCOUNTER → 2024-09-05 17:59 | Outpatient (BNV) | payer OTHER, SELFPAY | PROVIDERS: Admitting Provider Internal Medicine; Emergency Provider Emergency Medicine; PCP Internal Medicine; Visit Provider Internal Medicine | DX: D70.9 Neutropenia, unspecified (principal) | CPT/HCPCS: 99222; 99232; 99239 ==

== ENCOUNTER 2024-10-02 16:02 | Outpatient (REF) | payer OTHER, SELFPAY | END 2024-10-02 16:03 | disposition home or self-care (01) | LOC: HO.CT 16:02 | PROVIDERS: PCP Internal Medicine; Visit Provider Internal Medicine Medical Oncology | DX: Z13.89 Encounter for screening for other disorder (principal) ==

== ENCOUNTER 2024-10-14 09:33 | Outpatient (REF) | payer OTHER, SELFPAY ==
--- NOTE | ~2024-10-14 | CT_ITS ---
EXAMINATION: CT chest w IV con (accession [id number]) CT abdomen pelvis w IV con (accession [id number]) CLINICAL INFORMATION: Pulmonary nodules, colon cancer. Follow-up on colon cancer with liver Mets. COMPARISON: CT abdomen/pelvis 09/05/2024, CT chest 03/31/2024, abdominal ultrasound 12/11/2023 and 06/17/2024 TECHNIQUE: Multidetector volumetric imaging was performed through the chest, abdomen and pelvis following the administration of oral contrast and of 85 mL of Omnipaque 350 intravenous contrast. Sagittal and coronal reformatted images were obtained on the technologist's workstation. Axial MIP volume rendering provided. This CT examination was performed using dose optimization techniques as appropriate, variously including the following: * Automated exposure control * Adjustment of mA and/or kV according to patient size (this includes techniques or standardized protocols for targeted exams where dose is matched to indication/reason for exam; i.e. extremities or head) Use of iterative reconstruction technique DLP: 291 mGy-cm FINDINGS: CHEST: LUNGS: The central airways are patent. Left lingular platelike atelectasis, as before. Stable 0.3 cm pleural-based right upper lobe pulmonary nodule (series #7 axial image 97). Stable 0.3 cm left upper lobe groundglass pulmonary nodule (#7 axial image 84). No new or suspicious pulmonary nodule. No focal consolidation or mass. No pleural effusion or pneumothorax. MEDIASTINUM: The heart is of normal size. There is no pericardial effusion. Central vascular structures are unremarkable. Normal thyroid. No hilar or mediastinal lymphadenopathy. CHEST WALL: No lymphadenopathy. No chest wall mass. Right chest port catheter with tip terminating in the right atrium. ABDOMEN/PELVIS: LIVER, GALLBLADDER, BILIARY TREE: Segment 7 lesion measures 1.6 cm, compared to 1.7 cm on 06/23/2024. Caudate liver lesion measures 1.5 x 1.1 cm compared to 1.7 x 1.7 cm on 06/23/24. No new liver lesion. Stable left liver simple cyst. There are additional scattered subcentimeter hypodense lesions which are too small to characterize. Ill-defined hypodensity along the falciform ligament is favored to represent focal fatty infiltration. The liver is normal in size, shape, and attenuation. No biliary ductal dilatation is present. The gallbladder is unremarkable with no evidence of radiopaque gallstones, gallbladder wall thickening, or obvious pericholecystic inflammatory changes. PANCREAS: Normal; no mass or surrounding fluid. SPLEEN: Normal size. No focal lesion. ADRENAL GLANDS: Normal; no mass. KIDNEYS AND URETERS: Left renal simple fluid attenuating 1.7 cm upper pole cyst and 1.1 cm lower pole cyst, as before. There are additional subcentimeter bilateral hypodense lesions which are too small to characterize, though statistically favored to represent simple cysts The kidneys are normal in size, shape, and attenuation. No hydronephrosis, hydroureter, or calculi seen. No perinephric stranding. BLADDER: No focal mass or wall thickening seen. No bladder calculi. PELVIC VISCERA: Normal CT appearance of uterus. Incidental note is made of stable left adnexal 1.8 cm simple fluid attenuating cyst. GASTROINTESTINAL TRACT: Status post sigmoidectomy with intact anastomotic sutures in the left lower quadrant. The small and large bowel are nondilated. Normal appendix. PERITONEAL SPACE: No significant free air or free fluid identified. ABDOMINAL WALL: No significant hernia is appreciated. LYMPHOVASCULAR STRUCTURES: Lymph nodes: Normal. Vascular: The aorta is normal in caliber. OSSEOUS STRUCTURES: No acute or suspicious osseous abnormality. Mild multilevel thoracolumbar spondylosis. CT/CT chest w IV con IMPRESSION: 1. Stable 0.3 cm pleural-based right upper lobe pulmonary nodule and 0.3 cm left upper lobe groundglass pulmonary nodule. No new or suspicious pulmonary nodule. 2. Liver hypodense metastatic lesions are stable if not slightly smaller as compared to previous contrast enhanced study on 06/23/2024. No new liver lesion. 3. Status post sigmoidectomy. 4. No new or progressive disease within the chest, abdomen, or pelvis. Electronically signed by: Priyanka Meraz DO 10/14/2024 04:54 PM EST
--- NOTE | ~2024-10-14 | CT_ITS ---
EXAMINATION: CT chest w IV con (accession [id number]) CT abdomen pelvis w IV con (accession [id number]) CLINICAL INFORMATION: Pulmonary nodules, colon cancer. Follow-up on colon cancer with liver Mets. COMPARISON: CT abdomen/pelvis 09/05/2024, CT chest 03/31/2024, abdominal ultrasound 12/11/2023 and 06/17/2024 TECHNIQUE: Multidetector volumetric imaging was performed through the chest, abdomen and pelvis following the administration of oral contrast and of 85 mL of Omnipaque 350 intravenous contrast. Sagittal and coronal reformatted images were obtained on the technologist's workstation. Axial MIP volume rendering provided. This CT examination was performed using dose optimization techniques as appropriate, variously including the following: * Automated exposure control * Adjustment of mA and/or kV according to patient size (this includes techniques or standardized protocols for targeted exams where dose is matched to indication/reason for exam; i.e. extremities or head) Use of iterative reconstruction technique DLP: 291 mGy-cm FINDINGS: CHEST: LUNGS: The central airways are patent. Left lingular platelike atelectasis, as before. Stable 0.3 cm pleural-based right upper lobe pulmonary nodule (series #7 axial image 97). Stable 0.3 cm left upper lobe groundglass pulmonary nodule (#7 axial image 84). No new or suspicious pulmonary nodule. No focal consolidation or mass. No pleural effusion or pneumothorax. MEDIASTINUM: The heart is of normal size. There is no pericardial effusion. Central vascular structures are unremarkable. Normal thyroid. No hilar or mediastinal lymphadenopathy. CHEST WALL: No lymphadenopathy. No chest wall mass. Right chest port catheter with tip terminating in the right atrium. ABDOMEN/PELVIS: LIVER, GALLBLADDER, BILIARY TREE: Segment 7 lesion measures 1.6 cm, compared to 1.7 cm on 06/23/2024. Caudate liver lesion measures 1.5 x 1.1 cm compared to 1.7 x 1.7 cm on 06/23/24. No new liver lesion. Stable left liver simple cyst. There are additional scattered subcentimeter hypodense lesions which are too small to characterize. Ill-defined hypodensity along the falciform ligament is favored to represent focal fatty infiltration. The liver is normal in size, shape, and attenuation. No biliary ductal dilatation is present. The gallbladder is unremarkable with no evidence of radiopaque gallstones, gallbladder wall thickening, or obvious pericholecystic inflammatory changes. PANCREAS: Normal; no mass or surrounding fluid. SPLEEN: Normal size. No focal lesion. ADRENAL GLANDS: Normal; no mass. KIDNEYS AND URETERS: Left renal simple fluid attenuating 1.7 cm upper pole cyst and 1.1 cm lower pole cyst, as before. There are additional subcentimeter bilateral hypodense lesions which are too small to characterize, though statistically favored to represent simple cysts The kidneys are normal in size, shape, and attenuation. No hydronephrosis, hydroureter, or calculi seen. No perinephric stranding. BLADDER: No focal mass or wall thickening seen. No bladder calculi. PELVIC VISCERA: Normal CT appearance of uterus. Incidental note is made of stable left adnexal 1.8 cm simple fluid attenuating cyst. GASTROINTESTINAL TRACT: Status post sigmoidectomy with intact anastomotic sutures in the left lower quadrant. The small and large bowel are nondilated. Normal appendix. PERITONEAL SPACE: No significant free air or free fluid identified. ABDOMINAL WALL: No significant hernia is appreciated. LYMPHOVASCULAR STRUCTURES: Lymph nodes: Normal. Vascular: The aorta is normal in caliber. OSSEOUS STRUCTURES: No acute or suspicious osseous abnormality. Mild multilevel thoracolumbar spondylosis. CT/CT abdomen pelvis w IV con IMPRESSION: 1. Stable 0.3 cm pleural-based right upper lobe pulmonary nodule and 0.3 cm left upper lobe groundglass pulmonary nodule. No new or suspicious pulmonary nodule. 2. Liver hypodense metastatic lesions are stable if not slightly smaller as compared to previous contrast enhanced study on 06/23/2024. No new liver lesion. 3. Status post sigmoidectomy. 4. No new or progressive disease within the chest, abdomen, or pelvis. Electronically signed by: Priyanka Meraz DO 10/14/2024 04:54 PM EST
[2024-10-14] MEDS: iohexoL 350 MG/ML 100 ML INFUS..BTL IV (12:27)
[2024-10-14] MEDS: Barium Sulfate Oral (Vanilla) 450 ML ORAL.SUSP PO ×2 (12:27)
== END 2024-10-14 09:34 | disposition home or self-care (01) ==
LOC: HO.CT 09:33
PROVIDERS: Visit Provider Internal Medicine Medical Oncology
DX: R91.8 Other nonspecific abnormal finding of lung field (principal); C18.7 Malignant neoplasm of sigmoid colon
CPT/HCPCS: 71260; 74177; Q9967

== ENCOUNTER 2024-10-31 10:23 | Outpatient (AMB) | payer OTHER, SELFPAY ==
--- NOTE | 2024-10-31 10:34 | A.OFFPC_ITS ---
Vital Signs 10/31/24 10:35 Height 5 ft Weight 114 lb BMI 22.3 BP 136/68 Blood Pressure Location Lt brachial Position Sitting Pulse 78 Pulse Source Pulse Oximeter Pulse Oximetry (%) 99 Oxygen Delivery Method Room Air Intake Visit Reasons: Colon cancer Allergies No Known Allergies Allergy (Verified 10/31/24 10:35) Tobacco use date assessed: 10/31/24 Fall risk assessment: No Falls in past year Last assessed Fall Risk: 10/31/24 Dental Screening Dental Screen Date: 06/20/24 HPI Colon cancer HPI Details The patient is a 69-year-old female presenting with a follow-up appointment for chemotherapy management and diabetes monitoring. She has a detailed medical history that includes colon cancer, where she underwent a sigmoid resection in March 2024. Subsequent liver biopsy in May 2024 showed metastatic, moderately differentiated adenocarcinoma. The patient is under the care of hematology and oncology for chemotherapy treatments, last seen in September 2024. A recent CAT scan showed stable metastatic liver lesions and small pulmonary nodules, with no suspicious changes. The patient has essential hypertension, hypercholesterolemia with good management (cholesterol at 85), and asthma. Her diabetes diagnosis is recent, linked to steroid (dexamethasone) use for chemotherapy, with a hemoglobin A1c of 6.9 in August 2024. Blood results indicate anemia with a hemoglobin level of 9.9, stable white blood cell, and platelet counts. The patient reports impaired glucose tolerance and struggles with dietary management. She has been counseled to mitigate high blood sugar levels exacerbated by chemotherapy medications. The patient also has a history of major depressive disorder, managed with ongoing treatment and support. - Hemoglobin A1c testing to be conducted every three months due to elevated sugar levels linked to steroid use. - Dietary guidance for diabetes manageme nt includes limiting simple carbohydrates. - Recommendation for annual ophthalmolog y visit due to diabetes diagnosis. - Cholesterol management recorded as goo d with a May result of 85. - Up-to-date mammogram screening. - Pneumonia vaccination administered; shyam marino advised regarding flu season due to current immunocompromised status. 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 - Nutrition: Currently working on dietar y modifications to manage diabetes; advised on reducing intake of high sugar foods and liquids. - Functional Status: Expressed fatigue a ttributed to chemotherapy. - Family: Potential exposure to infectio ns discussed; advised on maintaining distance from persons with respiratory symptoms. - Respiratory: Denies current respirator y symptoms beyond stable pulmonary nodules. - General: Reports fatigue associated wi th anemia and treatment side effects. - Endocrine: Denies prior history of ari betes but acknowledges current management due to chemotherapy. FOR[facility]LY [facility], [facility] Medical History (Updated 10/31/24 @ 12:31 by Fran Lazaro MD) Impaired glucose tolerance Annual physical exam Anemia Encounter for well woman exam with routine gynecological exam Colon cancer Colonic mass Recurrent UTI COVID-19 Abnormal weight loss Abdominal pain Abdominal cramping Pre-op examination Colon cancer screening Anemia Plantar fasciitis Low back pain Low back pain Pain of right hip Vulvar itching Encounter for annual routine gynecological examination Headache Cervical cancer screening Breast cancer screening by mammogram Colon cancer screening declined Colonoscopy refused Overweight (BMI 25.0-29.9) Vitamin B12 deficiency Hypothyroid Hypercholesterolemia Hypertension Insomnia Carpal tunnel syndrome Surgical History Hx of surgical procedure (~04/22/24) H/O colonoscopy Family History Father No problems noted. Mother No problems noted. Sister History of breast cancer, Onset Age: 50 Daughter Colon cancer Son Colon cancer Social History Household Members: None Housing: Apartment Are you a primary patient care coordinator to a significant other at home: No Do you presently have visiting nurse or other home services: No Alcohol intake: never Patient Tobacco Use Status: Never used Tobacco Tobacco use type: Cigarette e-Cigarette/Vaping Use: Never Used Second Hand Smoke Exposure: No service: No Current occupational status: retired Sexual orientation: Straight/Heterosexual Gender identity: Female Cognitive needs: No Hearing needs: No Vision needs: Yes Female Reproductive History Menstrual Age of Menarche: 16 Questionnaire PHQ-9 Over the last 2 weeks, how often have you been bothered by any of the following problems? 1. Little interest or pleasure in doing things: several days 2. Feeling down, depressed, or hopeless: several days 3. Trouble falling or staying asleep, or sleeping too much: several days 4. Feeling tired or having little energy: several days 5. Poor appetite or overeating: several days 6. Feeling bad about yourself - or that you are a failure or have let yourself or your family down: several days 7. Trouble concentrating on things, such as reading the newspaper or watching television: several days 8. Moving or speaking so slowly that other people could have noticed. Or the opposite - being so fidgety or restless that you have been moving around a lot more than usual: several days 9. Thoughts that you would be better off or of hurting yourself in some way: not at all Total score: 8 Depression Screening Interpretation: Positive Depression Screening Follow-up: E xisting condition Depression Screening Done: Yes 56664 - PHQ-9 Billing: Yes Source: Developed by Drs. Torres Anderson, Sony Galvin and colleagues, with an educational farooq from [employer]. Thrive Questionnaire Date Thrive assessed: 04/23/24 AUDIT C Alcohol Use Questionnaire (AUDIT-C) 1. How often do you have a drink containing alcohol?: Never 2. How many drinks containing alcohol do you have on a typical day when you are drinking?: 1 or 2 3. How often do you have six or more drinks on one occasion?: Never Total Score: 0 DAVID-7 AMB Questionnaire DAVID-7 Date DAVID - 7 assessed: 06/20/24 Source: Developed by Drs. Torres Anderson, Leida Obrien, Sony Treadwell and colleagues, with an educational farooq from [employer]. Physical exam (Primary Care) Vital Signs: Last Vital Signs Pulse 78 10/31/24 10:35 BP 136/68 10/31/24 10:35 Pulse Ox 99 10/31/24 10:35 Oxygen Delivery Method Room Air 10/31/24 10:35 BMI result Body Mass Index 22.3 Tobacco/Smoking Status: Tobacco use Status Tobacco use date assessed 10/31/24 10/31/24 10:39 Patient Tobacco Use Status Never used Tobacco 10/31/24 10:39 Tobacco use type Cigarette 10/31/24 10:39 e-Cigarette/Vaping Use Never Used 10/31/24 10:39 PHQ-9: PHQ-9 Score PHQ-9: Total score 8 10/31/24 10:39 Depression Screening Interpretation: Positive Depression Screening Follow-up: Existing condition Thrive Assessment: Date of Thrive Assessment Date Thrive assessed 04/23/24 10/31/24 10:39 Const General: alert; No acute distress Eyes Conjunctivae: conjunctivae normal Resp Auscultation: clear to auscultation bilaterally Cardio Rate: regular rate Rhythm: regular rhythm GI Inspection: Yes normal to inspection Extrem General: Yes normal to inspection and No edema Coding Level of Care Code Est Pt Level 4 (28899) Complex EM visit Add On G2211 Diagnoses Malignant neoplasm of colon, unspecified part of colon C18.9 Colon location: unspecified part of colon Type 2 diabetes mellitus with hyperglycemia, without long-term current use of insulin E11.65 Diabetes mellitus vice president of compliance insulin use: without vice president of compliance use Acquired hypothyroidism E03.9 Hypothyroidism type: acquired Hypercholesterolemia E78.00 Primary hypertension I10 Hypertension type: primary hypertension Additional Codes PHQ-9 - 96679 - PHQ-9 Billing: Yes ([id number]) Assessment & Plan Assessment & Plan (1) Colon cancer: Comment: February 2024 Intramucosal adenocarcinoma, at least. Liver biopsy May 2024 metastatic moderately differentiated adeno carcinoma Code(s): C18.9 - Malignant neoplasm of colon, unspecified Category: Medical Qualifiers: Colon location: unspecified part of colon Qualified Code(s): C18.9 - Malignant neoplasm of colon, unspecified Plan: Follows up with Hematology-Oncology and on chemotherapy (2) Type 2 diabetes mellitus with hyperglycemia: Code(s): E11.65 - Type 2 diabetes mellitus with hyperglycemia Category: Medical Qualifiers: Diabetes mellitus usp insulin use: without usp use Qualified Code(s): E11.65 - Type 2 diabetes mellitus with hyperglycemia Plan: Decrease the amount of carbohydrate intake, pasta, bread, rice and potatoes are all sugar and that is aside from all the sweet stuff, remember that fruits are good but they are Sweet also. Hemoglobin A1c goal of less than 7.0 patient is presently on steroids (3) Hypothyroid: Code(s): E03.9 - Hypothyroidism, unspecified Category: Medical Qualifiers: Hypothyroidism type: acquired Qualified Code(s): E03.9 - Hypothyroidism , unspecified Plan: Continue with thyroid medication at 75 mcg once a day (4) Hypercholesterolemia: Code(s): E78.00 - Pure hypercholesterolemia, unspecified Category: Medical Plan: Avoid fried foods, chicken skin, eggs, butter margarine, pastries and meat. Be it pork or beef they have a lot of cholesterol May 2024 last blood work on simvastatin 20 mg once a day LDL goal of less than 100 (5) Hypertension: Code(s): I10 - Essential (primary) hypertension Category: Medical Qualifiers: Hypertension type: primary hypertension Qualified Code(s): I10 - Essential (primary) hypertension Plan: Continue with blood pressure medication. Decrease salt intake and exercise patient is on metoprolol 25 mg once a day Plan - Diabetes Management: Continue dietary modifications to manage blood glucose and monitor with quarterly A1c tests. Caution advised against high carbohydrate foods and sugary drinks. - Liver Metastasis: Ongoing chemotherapy as prescribed by oncology. - Anemia: Monitor hemoglobin periodically; maintain adequate nutrition and hydration. - Psychosocial: Continue support for major depressive disorder. - Preventative Care: Reinforce health maintenance interventions, including preventive vaccine adherence and flu season precautions. - Diabetes Management: Continue dietary modifications to manage blood glucose and monitor with quarterly A1c tests. Caution advised against high carbohydrate foods and sugary drinks. - Liver Metastasis: Ongoing chemotherapy as prescribed by oncology. - Anemia: Monitor hemoglobin periodically; maintain adequate nutrition and hydration. - Psychosocial: Continue support for major depressive disorder. - Preventative Care: Reinforce health maintenance interventions, including preventive vaccine adherence and flu season precautions. We discussed the current status of her treatments and the importance of managing her blood glucose levels, particularly due to the ongoing use of dexamethasone with chemotherapy. The patient expressed concerns about her new diabetes diagnosis; reassurance was provided regarding its management through diet and monitoring. She was aware of the recent CAT scan results showing stability. We reviewed her cholesterol status and emphasized the need for regular eye check- ups because of her diabetes. Practical dietary guidelines were shared to prevent high spikes in blood sugar. - Follow a low-carbohydrate, low-sugar diet avoiding bread, rice, potatoes, and sugary drinks. - Drink water instead of juices or sodas. - Monitor for any changes in health, particularly signs of high blood sugar or infections. - Plan a follow-up in three months or as needed for changes or concerns. - Contact healthcare if significant fatigue or other new symptoms emerge.
[2024-10-31 10:35] VITALS: BP 136/68; PULSE 78; O2SAT 99; BMI 22.3
== END 2024-10-31 11:10 | disposition home or self-care (01) ==
PROVIDERS: Visit Provider Internal Medicine
DX: C18.9 Malignant neoplasm of colon, unspecified (principal); E11.65 Type 2 diabetes mellitus with hyperglycemia; E03.9 Hypothyroidism, unspecified; E78.00 Pure hypercholesterolemia, unspecified; I10 Essential (primary) hypertension

== ENCOUNTER → 2024-10-31 10:23 | Outpatient (BNVA) | payer OTHER, SELFPAY | PROVIDERS: Visit Provider Internal Medicine | DX: C18.9 Malignant neoplasm of colon, unspecified (principal); E11.65 Type 2 diabetes mellitus with hyperglycemia; E03.9 Hypothyroidism, unspecified; E78.00 Pure hypercholesterolemia, unspecified; I10 Essential (primary) hypertension | CPT/HCPCS: 96127; 99212 ==

== ENCOUNTER 2025-01-06 10:22 | Outpatient (REF) | payer OTHER, SELFPAY ==
[2025-01-06] MEDS: iohexoL 350 MG/ML 100 ML INFUS..BTL IV (13:36)
== END 2025-01-06 10:23 | disposition home or self-care (01) ==
LOC: HO.CT 10:22
PROVIDERS: Visit Provider Internal Medicine Medical Oncology
DX: C18.9 Malignant neoplasm of colon, unspecified (principal)
CPT/HCPCS: 71260; 74177; Q9967

== ENCOUNTER → 2025-01-06 10:25 | Outpatient (BNV) | payer OTHER, SELFPAY | PROVIDERS: Visit Provider Radiology Diagnostic Radiology | DX: C18.7 Malignant neoplasm of sigmoid colon (principal); R91.1 Solitary pulmonary nodule | CPT/HCPCS: 71260; 74177 ==

== ENCOUNTER 2025-02-17 08:28 | Outpatient (AMB) | payer OTHER, SELFPAY ==
[2025-02-17 08:42] VITALS: BP 128/73; PULSE 69; BMI 22.4
--- NOTE | 2025-02-17 08:42 | A.OFFVIS_ITS ---
Vital Signs 02/17/25 08:42 Height 5 ft Weight 114 lb 10.246 oz BMI 22.4 BP 128/73 Blood Pressure Location Rt brachial Position Sitting Pulse 69 Intake Visit Reasons: 8 month CRC repeat Intake Note: Sandra presents to in office follow up of CRC. CC: Patient reports doing well and denies having any new GI symptoms or concerns. Reinforcing Iron Worker Helper Required: Yes Reinforcing Iron Worker Helper Language: Asw/Asuw Tactical Air Controller Services: Reinforcing Iron Worker Helper Present Reinforcing Iron Worker Helper Name: Binh Accompanied by: Self / Same As Patient Allergies No Known Allergies Allergy (Verified 02/17/25 10:30) Medication List - Last Reconciled 02/17/25 by BOLA Jauregui albuterol sulfate 90 mcg/actuation (Ventolin HFA) 2 puffs inhalation Q6H PRN ascorbic acid (vitamin C) (Vitamin C) 500 mg PO DAILY dexamethasone 4 mg PO BID disposable gloves (Vinyl Gloves) As directed duloxetine 20 mg PO BID ferrous sulfate 325 mg PO DAILY fluticasone propionate 50 mcg/actuation 1 spray intranasal BID 30 days [HUMIDIFIER As directed] levothyroxine 75 mcg PO DAILY@0600 lidocaine 5% 1 patch topical DAILY lidocaine HCl 2% (Lidocaine Viscous) 1 appl mucous membrane QID loperamide mg PO metoprolol succinate ER 25 mg PO DAILY [non-slip shower mat As directed] nut.tx.gluc intol,lf,soy-fiber 0.08-1.5 gram-kcal/mL (Glucerna 1.5 Xavi) 1 ea PO BID ondansetron 8 mg PO Q8H PRN psyllium husk (Metamucil) 1 tsp PO BID sertraline 25 mg PO DAILY simvastatin 20 mg PO DAILY sodium chloride 0.65% (Saline Mist) 1 - 2 sprays intranasal QID PRN 30 days tramadol 50 mg PO BID 30 days [wipes As directed] zolpidem 5 mg PO BEDTIME HPI HPI 8 month CRC repeat: Details: Assessment & Plan (1) Cancer of sigmoid colon: Comment: Sigmoid resection 03/2024 Dr. Decker Code(s): C18.7 - Malignant neoplasm of sigmoid colon Category: Medical (2) Colon cancer: Comment: February 2024 Intramucosal adenocarcinoma, at least. Code(s): C18.9 - Malignant neoplasm of colon, unspecified Category: Medical Plan Chinese # Lela LIve She already had a resection of the mass with Dr. Decker. She just saw oncology and will be undergoing chemo and has a central line/port in the4 right clavicular area. She is healing well except for occasional abd discomfort that seems to be gas related. She was given Gas X but this did not work for her. She is not constipated and is moving her bowels well. She has had iron transfusions and is feeling better. ROV 8 mos. COnsider if she needs repeat scope for polyp evaluation. Since we could not pass the sigmoid. TODAYS VISIT Czech # Dc She continues to do well with her appetite, stooling and she no longer has nausea since stopping chemo. She is now off, but will have a CT in 3 mos to assess and see if it remains in remission. She is c/o neuropathy of her hands and feet that is a well known possible s/e of her chemo. she was started on cymbalta but it is not helping (however she has only been taking it 3 weeks). I will add carmen twice a day or she can take it at bedtime since it is uncertain whether this will cause her any drowsiness. She has complained of the Cymbalta causing her drowsiness. She continues on occasional loperamide for short-bowel, fiber supplement, and occasional simethicone will be given since she is complaining of on and off bloating. ROV 8 weeks. Xeloda [facility] Medical History (Updated 02/17/25 @ 11:17 by BOLA Jauregui) Colon cancer Abnormal ultrasound of breast Shingles Constipation Paronychia of finger Impacted cerumen of both ears Annual physical exam Impaired glucose tolerance Anemia Encounter for well woman exam with routine gynecological exam Colonic mass Recurrent UTI COVID-19 Abnormal weight loss Abdominal pain Abdominal cramping Pre-op examination Colon cancer screening Anemia Plantar fasciitis Low back pain Low back pain Pain of right hip Vulvar itching Encounter for annual routine gynecological examination Headache Cervical cancer screening Breast cancer screening by mammogram Colon cancer screening declined Colonoscopy refused Overweight (BMI 25.0-29.9) Vitamin B12 deficiency Hypothyroid Hypercholesterolemia Hypertension Insomnia Carpal tunnel syndrome Surgical History Hx of surgical procedure (~04/22/24) H/O colonoscopy Family History Father No problems noted. Mother No problems noted. Sister History of breast cancer, Onset Age: 50 Daughter Colon cancer Son Colon cancer Social History Household Members: None Housing: Apartment Are you a primary personal care aid to a significant other at home: No Do you presently have visiting nurse or other home services: No Alcohol intake: never Patient Tobacco Use Status: Never used Tobacco Tobacco use type: Cigarette e-Cigarette/Vaping Use: Never Used Second Hand Smoke Exposure: No service: No Current occupational status: retired Sexual orientation: Straight/Heterosexual Gender identity: Female Cognitive needs: No Hearing needs: No Vision needs: Yes Female Reproductive History Menstrual Age of Menarche: 16 Review of Systems Const Denies fatigue, Denies fever(s), Denies night sweats, Denies poor appetite and Denies weight loss ENT Reports Normal hearing present, Denies dental pain, Denies dysphagia, Denies hearing loss, Denies mouth pain, Denies odynophagia, Denies throat swelling, Denies tongue swelling and Reports other (Dentition adequate) Card Reports no additional complaints Resp Reports no additional complaints GI Details: Denies abdominal pain, Denies melena, Reports bloating, Denies hematochezia, Denies constipation, Denies GI cramping, Denies dysphagia, Denies excessive flatus, Denies early satiety, Denies heartburn, Denies diarrhea, Reports loose stools, Denies nausea, Denies odynophagia, Denies vomiting and Denies hematemesis Skin/Breast Denies pruritus, Denies lesions, Denies rash and Denies jaundice Neuro Reports Normal hearing present, Denies Abnormal speech present and Reports paresthesias Endo Denies fatigue Aller/Immun Denies throat swelling and Denies tongue swelling Physical Exam Vital Signs: Last Vital Signs Pulse 69 02/17/25 08:42 BP 128/73 02/17/25 08:42 BMI result Body Mass Index 22.4 Const General: cooperative, no acute distress, well developed and well groomed Nutritional Appearance: average body habitus and well nourished Orientation/consciousness: oriented to person, oriented to place and oriented to time Limitations: language barrier HEENT Head: Yes normocephalic and Yes atraumatic Eyes General: appearance normal, both eyes and all related structures Pupils: Equal, round and reactive pupils present Neck Neck: Yes normal visual inspection and Yes no lymphadenopathy Thyroid: Thyroid normal Resp Effort & Inspection: normal respiratory effort and able to speak in complete sentences Auscultation: clear to auscultation bilaterally Cardio Rate: regular rate Rhythm: regular rhythm Heart sounds: Normal, physiologic split S2 sound present Peripheral pulses: radial pulses present and posterior tibial pulses present GI Inspection: No distended and No Abdominal panniculus present Palpation (GI): Soft to palpation, nontender, no guarding, not rigid and No hepatosplenomegaly present Percussion: Yes normal to percussion Auscultation: normal bowel sounds Rectal Exam - Female: deferred Skin General skin exam: no rashes or lesions noted, turgor normal, skin not dry, no jaundice, No spider nevi and no striae Rashes: no rashes Nails: normal Neuro General: oriented to person, oriented to place and oriented to time Cranial nerves: Yes Equal, round and reactive pupils present and Yes Normal hearing present Speech: No Abnormal speech present Extrem General: Yes normal to inspection, No clubbing, No cyanosis and No edema Psych Appearance: grossly normal and well kempt Mental Status: mental status grossly normal Speech and movement: Normal speech and movement present Affect: normal affect Attitude: cooperative Thought process: Normal thought process present and not confabulating Thought content: Normal thought content present Insight: Limited insight present (Psych) Judgement: Limited judgement present (Psych) Assessment & Plan Assessment & Plan (1) 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 Decker Code(s): C18.7 - Malignant neoplasm of sigmoid colon Category: Medical Plan Czech # Tachira She continues to do well with her appetite, stooling and she no longer has nausea since stopping chemo. She is now off, but will have a CT in 3 mos to assess and see if it remains in remission. She is c/o neuropathy of her hands and feet that is a well known possible s/e of her chemo. she was started on cymbalta but it is not helping (however she has only been taking it 3 weeks). I will add carmen twice a day or she can take it at bedtime since it is uncertain whether this will cause her any drowsiness. She has complained of the Cymbalta causing her drowsiness. She continues on occasional loperamide for short-bowel, fiber supplement, and occasional simethicone will be given since she is complaining of on and off bloating. ROV 8 weeks. Xeloda Medications: New gabapentin 100 mg PO BID 60 caps 6RF BOLA Jauregui G62.9 - Polyneuropathy, unspecified simethicone (Gas Relief (simethicone)) 125 mg PO BID-QID PRN 60 tabs 6RF abdominal distention BOLA Jauregui R14.0 - Abdominal distension (gaseous) Changed From ondansetron 8 mg PO Q8H 60 tabs 3RF To ondansetron 8 mg PO Q8H PRN yes Papa Rosado MD From duloxetine 20 mg PO BID 60 caps 3RF To duloxetine 20 mg PO .qhs 60 caps 3RF BOLA Jauregui Coding Level of Care Code Est Pt Level 3 (94669) Diagnoses Neuropathy G62.9 Abdominal bloating R14.0 Cancer of sigmoid colon C18.7
== END 2025-02-17 09:34 | disposition home or self-care (01) ==
LOC: HO.HGI 08:28
PROVIDERS: PCP Internal Medicine; Visit Provider Nurse Practitioner
DX: G62.9 Polyneuropathy, unspecified (principal); R14.0 Abdominal distension (gaseous); C18.7 Malignant neoplasm of sigmoid colon
CPT/HCPCS: 99213

== ENCOUNTER → 2025-02-17 08:28 | Outpatient (BNVA) | payer OTHER, SELFPAY | PROVIDERS: PCP Internal Medicine; Visit Provider Nurse Practitioner | DX: G62.9 Polyneuropathy, unspecified (principal); R14.0 Abdominal distension (gaseous); C18.7 Malignant neoplasm of sigmoid colon | CPT/HCPCS: 99212 ==

== ENCOUNTER → 2025-03-10 13:54 | Outpatient (BNVA) | payer OTHER, SELFPAY | PROVIDERS: PCP Internal Medicine; Visit Provider Internal Medicine | DX: E11.65 Type 2 diabetes mellitus with hyperglycemia (principal); C18.9 Malignant neoplasm of colon, unspecified; I10 Essential (primary) hypertension; E78.00 Pure hypercholesterolemia, unspecified; E03.9 Hypothyroidism, unspecified; J45.909 Unspecified asthma, uncomplicated; G62.9 Polyneuropathy, unspecified | CPT/HCPCS: 83036; 96127; 99212 ==

== ENCOUNTER 2025-03-10 15:20 | Outpatient (AMB) | payer OTHER, SELFPAY ==
[2025-03-10 14:16] VITALS: BP 112/64; PULSE 74; O2SAT 97; BMI 22.3
--- NOTE | 2025-03-10 14:16 | A.OFFPC_ITS ---
Vital Signs 03/10/25 14:16 03/10/25 14:16 Height 5 ft 5 ft Weight 114 lb 2 oz BMI 22.3 BP 112/64 Blood Pressure Location Lt brachial Lt brachial Position Sitting Sitting Pulse 74 Pulse Source Pulse Oximeter Pulse Oximeter Temp Source Temporal Artery Scan Pulse Oximetry (%) 97 Oxygen Delivery Method Room Air Room Air Intake Visit Reasons: DM, colon cancer Production Control Supervisor Required: Yes Production Control Supervisor Language: Tamazight Accompanied by: Self / Same As Patient Allergies No Known Allergies Allergy (Verified 03/10/25 14:19) Medication List - Last Reconciled 03/10/25 by Fran Lazaro MD albuterol sulfate 90 mcg/actuation (Ventolin HFA) 2 puffs inhalation Q6H PRN ascorbic acid (vitamin C) (Vitamin C) 500 mg PO DAILY dexamethasone 4 mg PO BID disposable gloves (Vinyl Gloves) As directed duloxetine 20 mg PO .qhs ferrous sulfate 325 mg PO DAILY fluticasone propionate 50 mcg/actuation 1 spray intranasal BID 30 days gabapentin 100 mg PO BID [HUMIDIFIER As directed] levothyroxine 75 mcg PO DAILY@0600 lidocaine 5% 1 patch topical DAILY lidocaine HCl 2% (Lidocaine Viscous) 1 appl mucous membrane QID loperamide 2 mg PO DAILY metoprolol succinate ER 25 mg PO DAILY [non-slip shower mat As directed] nut.tx.gluc intol,lf,soy-fiber 0.08-1.5 gram-kcal/mL (Glucerna 1.5 Xavi) 1 ea PO BID nystatin PO ondansetron 8 mg PO Q8H PRN psyllium husk (Metamucil) 1 tsp PO BID sertraline 25 mg PO DAILY simethicone (Gas Relief (simethicone)) 125 mg PO BID-QID PRN simvastatin 20 mg PO DAILY sodium chloride 0.65% (Saline Mist) 1 - 2 sprays intranasal QID PRN 30 days tramadol 50 mg PO BID 30 days [wipes As directed] zolpidem 5 mg PO BEDTIME Tobacco use date assessed: 03/10/25 Fall risk assessment: No Falls in past year Last assessed Fall Risk: 03/10/25 Dental Screening Dental Screen Date: 03/10/25 Did you have a dental visit in the last 12 months?: No Did you have a dental problem in the last 6 months where you did not have access to dental care?: No Was dental information given to patient?: No HPI DM, colon cancer HPI Details linda [id number] [email or web address] interpret. [facility] Medical History (Updated 03/10/25 @ 14:58 by Fran Lazaro MD) Impacted cerumen of both ears Paronychia of finger Anemia Encounter for well woman exam with routine gynecological exam Colon cancer Colonic mass Recurrent UTI COVID-19 Abnormal weight loss Abdominal pain Abdominal cramping Pre-op examination Colon cancer screening Constipation Anemia Plantar fasciitis Low back pain Shingles Low back pain Pain of right hip Abnormal ultrasound of breast Vulvar itching Encounter for annual routine gynecological examination Annual physical exam Headache Cervical cancer screening Breast cancer screening by mammogram Colon cancer screening declined Colonoscopy refused Overweight (BMI 25.0-29.9) Vitamin B12 deficiency Impaired glucose tolerance Hypothyroid Hypercholesterolemia Hypertension Insomnia Carpal tunnel syndrome Surgical History Hx of surgical procedure (~04/22/24) H/O colonoscopy Family History Father No problems noted. Mother No problems noted. Sister History of breast cancer, Onset Age: 50 Daughter Colon cancer Son Colon cancer Social History Household Members: None Housing: Apartment Are you a primary healthcare educator to a significant other at home: No Do you presently have visiting nurse or other home services: No Alcohol intake: never Patient Tobacco Use Status: Never used Tobacco Tobacco use type: Cigarette e-Cigarette/Vaping Use: Never Used Second Hand Smoke Exposure: No service: No Current occupational status: retired Sexual orientation: Straight/Heterosexual Gender identity: Female Cognitive needs: No Hearing needs: No Vision needs: Yes Female Reproductive History Menstrual Age of Menarche: 16 Questionnaire PHQ-9 Over the last 2 weeks, how often have you been bothered by any of the following problems? 1. Little interest or pleasure in doing things: several days 2. Feeling down, depressed, or hopeless: several days 3. Trouble falling or staying asleep, or sleeping too much: several days 4. Feeling tired or having little energy: several days 5. Poor appetite or overeating: several days 6. Feeling bad about yourself - or that you are a failure or have let yourself or your family down: several days 7. Trouble concentrating on things, such as reading the newspaper or watching television: several days 8. Moving or speaking so slowly that other people could have noticed. Or the opposite - being so fidgety or restless that you have been moving around a lot more than usual: several days 9. Thoughts that you would be better off or of hurting yourself in some way: not at all Total score: 8 Depression Screening Interpretation: Positive Depression Screening Follow-up: Existing condition Depression Screening Done: Yes 32310 - PHQ-9 Billing: Yes Source: Developed by Drs. Torres Anderson, Leida Obrien, Sony Treadwell and colleagues, with an educational farooq from [employer]. Thrive Questionnaire Date Thrive assessed: 03/10/25 I am a: Patient What is your living situation today?: I have a steady place to live Within the past 12 months, did the food you bought not last and you didn't have the money to get more?: Never true Within the past 12 months, did you worry whether your food would run out before you got money to buy more?: Never true Do you have trouble paying for medicines?: No Do you have trouble getting transportation to medical appointments?: No Do you have trouble paying your heating and electricity bill?: No Do you have trouble taking care of your child, family member or friend?: No Do you have trouble with day-to-day activities such as bathing, preparing meals, shopping, managing finances, etc.?: No Are you currently unemployed and looking for a job?: No Are you interested in more education?: No Please select the resources that you would like help with: None Currently or been in a relationship where the following occur: No concerns reported THRIVE Score: 0 AUDIT C Alcohol Use Questionnaire (AUDIT-C) 1. How often do you have a drink containing alcohol?: Never 3. How often do you have six or more drinks on one occasion?: Never Total Score: 0 Score Reviewed/Action Taken: No DAVID-7 AMB Questionnaire DAVID-7 Date DAVID - 7 assessed: 03/10/25 Feeling nervous, anxious, or on edge: 0 = Not at all Not being able to stop or control worryin = Not at all Worrying too much about different things: 0 = Not at all Trouble relaxin = Not at all Being so restless that it is hard to sit still: 0 = Not at all Becoming easily annoyed or irritable: 0 = Not at all Feeling afraid as if something awful might happen: 0 = Not at all Total DAVID-7 score (0-4 normal; 5-9 mild; 10-14 moderate; 15-21 severe): 0 Source: Developed by Drs. Torres Anderson, Leida Obrien, Sony Treadwell and colleagues, with an educational farooq from [employer]. Physical exam (Primary Care) Vital Signs: Last Vital Signs Pulse 74 03/10/25 14:16 BP 112/64 03/10/25 14:16 Pulse Ox 97 03/10/25 14:16 Oxygen Delivery Method Room Air 03/10/25 14:16 BMI result Body Mass Index 22.3 Tobacco/Smoking Status: Tobacco use Status Tobacco use date assessed 03/10/25 03/10/25 14:20 Patient Tobacco Use Status Never used Tobacco 03/10/25 14:20 Tobacco use type Cigarette 03/10/25 14:20 e-Cigarette/Vaping Use Never Used 03/10/25 14:20 PHQ-9: PHQ-9 Score PHQ-9: Total score 8 03/10/25 14:42 Depression Screening Interpretation: Positive Depression Screening Follow-up: Existing condition Thrive Assessment: Date of Thrive Assessment Date Thrive assessed 03/10/25 03/10/25 14:20 Currently or been in a relationship where the following occur: No concerns reported Const General: alert; No acute distress Eyes Conjunctivae: conjunctivae normal Resp Auscultation: clear to auscultation bilaterally Cardio Rate: regular rate Rhythm: regular rhythm GI Inspection: Yes normal to inspection Extrem General: Yes normal to inspection and No edema Results AMB Hemoglobin A1c AMB Hemoglobin A1c 6.1 % Last Edit by TACO Duarte on 03/10/25 14 :35 Results Reviewed Results Reviewed: Laboratory Last Values Hgb A1c (Clinic) 6.1 % (4.0-6.0) H 03/10/25 14:22 Coding Level of Care Code Est Pt Level 4 (16152) Complex EM visit Add On G2211 Diagnoses Malignant neoplasm of colon, unspecified part of colon C18.9 Colon location: unspecified part of colon Type 2 diabetes mellitus with hyperglycemia, without long-term current use of insulin E11.65 Diabetes mellitus rodent exterminator insulin use: without senior living use Primary hypertension I10 Hypertension type: primary hypertension Hypercholesterolemia E78.00 Acquired hypothyroidism E03.9 Hypothyroidism type: acquired Asthma J45.909 Peripheral neuropathy G62.9 Additional Codes PHQ-9 - 35556 - PHQ-9 Billing: Yes ([id number]) Assessment & Plan Assessment & Plan (1) Colon cancer: Comment: February 2024 Intramucosal adenocarcinoma, at least. Liver biopsy May 2024 metastatic moderately differentiated adeno carcinoma Code(s): C18.9 - Malignant neoplasm of colon, unspecified Category: Medical Qualifiers: Colon location: unspecified part of colon Qualified Code(s): C18.9 - Malignant neoplasm of colon, unspecified Plan: You to follow-up with Hematology-Oncology and continuing to be on surveillance. (2) Type 2 diabetes mellitus with hyperglycemia: Comment: Dr. Cervantes Code(s): E11.65 - Type 2 diabetes mellitus with hyperglycemia Category: Medical Qualifiers: Diabetes mellitus senior living insulin use: without senior living use Qualified Code(s): E11.65 - Type 2 diabetes mellitus with hyperglycemia Plan: Decrease the amount of carbohydrate intake, pasta, bread, rice and potatoes are all sugar and that is aside from all the sweet stuff, remember that fruits are good but they are Sweet also. Hemoglobin A1c goal of less than 7.0 patient is diet controlled (3) Hypertension: Code(s): I10 - Essential (primary) hypertension Category: Medical Qualifiers: Hypertension type: primary hypertension Qualified Code(s): I10 - Essential (primary) hypertension Plan: Continue with blood pressure medication. Decrease salt intake and exercise on metoprolol 25 mg once a day (4) Hypercholesterolemia: Code(s): E78.00 - Pure hypercholesterolemia, unspecified Category: Medical Plan: Avoid fried foods, chicken skin, eggs, butter margarine, pastries and meat. Be it pork or beef they have a lot of cholesterol LDL goal of less than 100 and triglyceride of less than 150 on simvastatin 20 mg once a day (5) Hypothyroid: Code(s): E03.9 - Hypothyroidism, unspecified Category: Medical Qualifiers: Hypothyroidism type: acquired Qualified Code(s): E03.9 - Hypothyroidism, unspecified Plan: Continue with thyroid medication and advised blood work (6) Asthma: Code(s): J45.909 - Unspecified asthma, uncomplicated Category: Medical Plan: Continue with albuterol inhaler as needed (7) Peripheral neuropathy: Code(s): G62.9 - Polyneuropathy, unspecified Category: Medical Plan: discussed the concern on peripheral neuropathy Plan History of Present Illness The patient is a 70-year-old female presenting for follow-up management of multiple chronic medical conditions, including hypertension, diabetes mellitus with peripheral neuropathy, past sigmoid colon cancer, and others. The recent concern revolves around persistent neuropathy in the extremities, exacerbated likely by chemotherapy and diabetes, as well as inadequate symptom relief from initial treatments. Imaging from 2023 corroborates the stabilization of her oncologic status. Diabetes management reflects effective control with an A1c of 6.1%, and current depression therapy aligns with her functional capacity. Her mammography and colonoscopic screenings are recent, proposing adequate surveillance in this domain. Health Maintenance - Hypertension management with metoprolol - Hypercholesterolemia management on simvastatin, LDL goal <100 mg/dL, Triglycerides <150 mg/dL - Review of recent mammogram (March 2024) and last colon test (February 2024) - Surveillance by hematology-oncology with routine imaging and blood work - Diabetes management aiming for HbA1c <7.0%, currently controlled at 6.1% - Education on diet control and regular exercise to balance sugar levels - Addressed dental hygiene relating to gum inflammation and risk for gingivitis Social History - Experienced barriers in finding consistent eye care - Dietary practices involve sugar-free options though increased consumption of protein suggested - Engagement with lifestyle changes impacting health, facing barriers to mobility affecting sugar levels - Suffers from dental issues complicating comfort and hygiene Review of Systems - Constitutional: Reports fatigue - Neurological: Reports numbness and tingling in fingers and toes, confirmed neuropathy symptoms - Endocrine: Denies hyperglycemia, diabetes management stable - Gastrointestinal: Reports occasional gastritis; negative for recent weight changes - Musculoskeletal: Denies joint pain; concerns primarily neuropathic - Psychiatric: Denies worsening depression, current therapy ongoing Physical Exam Results - Imaging showed stable 0.3 cm right upper lobe nodule and stable liver hypodense lesions (Sep 2024) - CT chest (Dec 2024) revealed unchanged nodules - Chronic anemia noted in blood work; normal renal function; controlled hemoglobin A1c Plan Patient was informed and verbally consented to the use of an ambient scribe for clinic note documentation during this visit. Discussion Notes I discussed likely pathogenesis and treatment options related to her neuropathic symptoms, stressing the importance of dose adjustments for current medications. The plan to increase gabapentin was detailed, with potential benefits explained to the patient. We reviewed her scan results affirming stability in her oncological status and ongoing surveillance as outlined. Her blood sugar management was commended, and lifestyle adaptations reinforcing diet and exercise were reemphasized. I encouraged follow-up dental consultations to address gingivitis concerns and clarified treatment rationales for her comorbid conditions. The patient was informed of the importance of monitoring and reporting any new symptoms promptly. Patient Instructions - Continue current medication regimen as adjusted - Increase protein intake and engage in regular physical activity - Follow-up with dental care for gingivitis management - Monitor blood glucose levels regularly and maintain a diet low in carbohydrates - Report any new symptom developments or changes in neuropathic pain - Schedule regular visits for ongoing management of chronic conditions - Notify of any barriers to accessing eye care, and pursue alternatives - Adhere to established cancer surveillance routines, ensuring physician follow- up Orders: Orders Microalbumin, Random (w Creat) Today E11.65 - Type 2 diabetes mellitus with hyperglycemia Thyroid Stimulating Hormone Today E11.65 - Type 2 diabetes mellitus with hyperglycemia Reticulocyte Count Today E11.65 - Type 2 diabetes mellitus with hyperglycemia Ferritin Today E11.65 - Type 2 diabetes mellitus with hyperglycemia IRON PROFILE Today E11.65 - Type 2 diabetes mellitus with hyperglycemia AMB Hemoglobin A1c Today Z13.9 - Encounter for screening, unspecified Lipid Panel Today E11.65 - Type 2 diabetes mellitus with hyperglycemia, E78.00 - Pure hypercholesterolemia, unspecified Creatinine Urine Today E11.65 - Type 2 diabetes mellitus with hyperglycemia Free T4 (Free Thyroxine) Today E11.65 - Type 2 diabetes mellitus with hyperglycemia Vitamin B12 and Folate Today E11.65 - Type 2 diabetes mellitus with hyperglycemia Vitamin D 25-OH Total Today E11.65 - Type 2 diabetes mellitus with hyperglycemia Referrals Ophthalmology Referral E11.65 - Type 2 diabetes mellitus with hyperglycemia Medications: Changed From duloxetine 20 mg PO .qhs 60 caps 3RF E11.65 - Type 2 diabetes mellitus with hyperglycemia To duloxetine 40 mg PO .qhs 30 caps 3RF E11.65 - Type 2 diabetes mellitus with hyperglycemia Refilled disposable gloves (Vinyl Gloves) As directed 100 ea 11RF E11.65 - Type 2 diabetes mellitus with hyperglycemia [wipes] As directed 2 ea 11RF E11.65 - Type 2 diabetes mellitus with hyperglycemia
== END 2025-03-10 15:23 | disposition home or self-care (01) ==
PROVIDERS: PCP Internal Medicine; Visit Provider Internal Medicine
DX: C18.9 Malignant neoplasm of colon, unspecified (principal); E11.65 Type 2 diabetes mellitus with hyperglycemia; I10 Essential (primary) hypertension; E78.00 Pure hypercholesterolemia, unspecified; E03.9 Hypothyroidism, unspecified; J45.909 Unspecified asthma, uncomplicated; G62.9 Polyneuropathy, unspecified; Z13.9 Encounter for screening, unspecified

== ENCOUNTER 2025-04-03 07:34 | Outpatient (REF) | payer OTHER, SELFPAY | END 2025-04-03 07:35 | disposition home or self-care (01) | LOC: HO.MAMMO 07:34 | PROVIDERS: PCP Internal Medicine; Visit Provider Internal Medicine | DX: Z12.31 Encounter for screening mammogram for malignant neoplasm of breast (principal) | CPT/HCPCS: 77063; 77067 ==

== ENCOUNTER → 2025-04-03 08:00 | Outpatient (BNV) | payer OTHER, SELFPAY | PROVIDERS: PCP Internal Medicine; Visit Provider Internal Medicine | DX: Z12.31 Encounter for screening mammogram for malignant neoplasm of breast (principal) | CPT/HCPCS: 77063; 77067 ==

== ENCOUNTER 2025-04-14 09:22 | Outpatient (AMB) | payer OTHER, SELFPAY ==
--- NOTE | 2025-04-14 09:24 | A.OFFVIS_ITS ---
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 She is doing well with adhesive bandage machine operator concerns. Currently sexually active. Denies any vaginal dryness or irritation. STI testing offered; she declines. Attempting to eat a healthy diet with calcium and vitamin D and stays active with exercise. Last pap smear; 2021, negative. Last mammogram; 2024. Colonoscopy is UTD. Family history of breast and colon cancer. [facility] Medical History Encounter for annual routine gynecological examination Impacted cerumen of both ears Paronychia of finger Anemia Encounter for well woman exam with routine gynecological exam Colon cancer Colonic mass Recurrent UTI COVID-19 Abnormal weight loss Abdominal pain Abdominal cramping Pre-op examination Colon cancer screening Constipation Anemia Plantar fasciitis Low back pain Shingles Low back pain Pain of right hip Abnormal ultrasound of breast Vulvar itching Annual physical exam Headache Cervical cancer screening Breast cancer screening by mammogram Colon cancer screening declined Colonoscopy refused Overweight (BMI 25.0-29.9) Vitamin B12 deficiency Impaired glucose tolerance Hypothyroid Hypercholesterolemia Hypertension Insomnia Carpal tunnel syndrome Surgical History Hx of surgical procedure (~04/22/24) H/O colonoscopy Family History Father No problems noted. Mother No problems noted. Sister History of breast cancer, Onset Age: 50 Daughter Colon cancer Son Colon cancer Social History Household Members: None Housing: Apartment Are you a primary intensive care specialist to a significant other at home: No Do you presently have visiting nurse or other home services: No Alcohol intake: never Patient Tobacco Use Status: Never used Tobacco Tobacco use type: Cigarette e-Cigarette/Vaping Use: Never Used Second Hand Smoke Exposure: No service: No Current occupational status: retired Sexual orientation: Straight/Heterosexual Gender identity: Female Cognitive needs: No Hearing needs: No Vision needs: Yes Female Reproductive History Menstrual Age of Menarche: 16 Menopause type: natural Total pregnancies: 2 Full term: 2 Number of Living Children: 2 Date of last pap smear: 01/12/22 Date of Mammogram: 04/03/25 Review of Systems Const All systems reviewed & are unremarkable except as noted in HPI and below Reports as per HPI Eyes Reports no additional complaints ENT Reports no additional complaints Card Reports no additional complaints Resp Reports no additional complaints GI Reports as per HPI and Reports no additional complaints Reports as per HPI Musc Reports no additional complaints Skin/Breast Reports as per HPI Neuro Reports no additional complaints Psych Reports no additional complaints Endo Reports no additional complaints Ken/Lymph Reports no additional complaints Aller/Immun Reports no additional complaints Physical Exam Vital Signs: Last Vital Signs BP 120/78 04/14/25 09:26 BMI result Body Mass Index 21.9 Const General: cooperative, healthy appearing, no acute distress, well developed and alert Orientation/consciousness: patient oriented x3 HEENT Head: Yes normal to inspection Eyes General: appearance normal, both eyes and all related structures Neck Neck: Yes normal visual inspection Thyroid: Thyroid normal Chest Chest palpation & inspection: normal inspection of the chest and other (no puckering, dimpling, peau de orange, retraction, discharge, masses) Breast/axilla inspection: normal inspection of the breasts Breast/axilla palpation: normal palpation of the breasts Resp Effort & Inspection: normal respiratory effort GI Inspection: Yes normal to inspection Palpation (GI): Soft to palpation Rectal Exam - Female: deferred General: Yes bladder normal to palpation External Female Exam: normal external appearance and normal appearance of the urethra Speculum Exam - Vagina: normal appearance of the vagina, normal palpation, normal vaginal discharge and vagina atrophic Speculum Exam - Cervix: normal appearance of the cervix and normal palpation Bimanual exam- vagina & uterus: normal bimanual exam, normal palpation, uterine size normal, bladder normal to palpation, normal palpation and non-tender Bimanual Exam- Adnexa, other: no masses Skin General skin exam: no rashes or lesions noted Rashes: no rashes Neuro General: patient oriented x3 Cognition (Neuro): normal cognition Extrem General: Yes normal to inspection Psych Attitude: cooperative Thought process: Normal thought process present Assessment & Plan Assessment & Plan (1) Encounter for annual routine gynecological examination: Code(s): Z01.419 - Encounter for gynecological examination (general) (routine) without abnormal findings Category: Medical Plan Discussed: Current recommendations for pap smears per ASCCP guidelines. Breast awareness, periodic self breast exams and yearly mammogram. Maintain a healthy lifestyle, well balanced diet including Calcium 1,200 mg and Vitamin D 600 IU daily, and routine exercise. Contact the office with any postmenopausal bleeding. Patient verbalizes understanding and agrees to the plan of care. She was given opportunity to ask questions and all questions were answered to the best of my ability. 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 This note is constructed using voice recognition software. While every effort has been made to ensure accuracy, director of scientific research errors may have been included. Coding Level of Care Code Est Pt Prev Care >65y(49975) Diagnoses Encounter for annual routine gynecological examination Z01.419
[2025-04-14 09:26] VITALS: BP 120/78; BMI 21.9
== END 2025-04-14 09:53 | disposition home or self-care (01) ==
LOC: HO.HWS 09:22
PROVIDERS: PCP Internal Medicine; Visit Provider Advanced Practice Midwife
DX: Z01.419 Encounter for gynecological examination (general) (routine) without abnormal findings (principal)
CPT/HCPCS: 99397; 99459

== ENCOUNTER → 2025-04-14 09:22 | Outpatient (BNVA) | payer OTHER, SELFPAY | PROVIDERS: PCP Internal Medicine; Visit Provider Advanced Practice Midwife | DX: Z01.419 Encounter for gynecological examination (general) (routine) without abnormal findings (principal) | CPT/HCPCS: 99397; 99459 ==

== ENCOUNTER 2025-05-05 10:45 | Outpatient (REF) | payer OTHER, SELFPAY ==
--- NOTE | ~2025-05-05 | PE_ITS ---
PT/CT SKULL BASE TO MID THIGH HISTORY: Follow-up on colon cancer, restaging PET scan COMPARISON: Correlation is made with a CT of the chest, abdomen, and pelvis dated 01/06/2025. TECHNIQUE: Images were obtained from the skull base to the proximal thighs. Image reconstruction was performed in the axial, coronal, and sagittal planes. Fusion images were obtained and evaluated using the concurrently performed unenhanced CT scan. Images were obtained approximately 52 minutes after the intravenous administration of 15.8 mCi F18-FDG. A low dose 3.[address] scan was acquired for attenuation correction. PET and CT in-line fusion was performed for anatomical correlation of the functional information obtained from FDG PET imaging. FINDINGS: HEAD/NECK: No abnormal FDG uptake is identified in the head or neck. 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 CHEST: No abnormal FDG uptake is identified in the chest. Physiologic cardiac activity is noted. ABDOMEN/PELVIS: There is an intense focus of increased FDG uptake in the caudate lobe corresponding to a previously described metastatic deposit. This demonstrates an SUV max of 8.5. No additional abnormal liver uptake is identified. Physiologic activity is noted in the GI and tracts. SKELETAL: There is symmetric increased activity in the regions of the costovertebral joints bilaterally, likely related to muscular activity. No definite abnormal osseous uptake is identified. PET/CT SCAN PET/PET CT fusion skull to thigh IMPRESSION: Solitary focus of increased activity in the caudate lobe of the liver corresponding to a previously seen metastatic deposit. Electronically signed by: Torres uW MD 05/06/2025 09:11 AM EDT
== END 2025-05-05 10:46 | disposition home or self-care (01) ==
LOC: HO.PET 10:45
PROVIDERS: Visit Provider Internal Medicine Medical Oncology
DX: Z13.89 Encounter for screening for other disorder (principal)

== ENCOUNTER 2025-05-11 09:11 | Outpatient (REF) | payer OTHER, SELFPAY ==
[2025-05-11 09:21] LABS: MANUAL DIFF FLAG NO
[2025-05-11 09:26] LABS: Basophils Percent Auto 0.4 % (0-2); Eosinophils Absolute Auto 0.1 X10*3/uL (0.0-0.4); Eosinophils Percent Auto 2.7 % (0-4); Hematocrit 38.2 % (37.0-47.0); Hemoglobin 12.3 g/dl (12.0-16.0); Imm Gran Abs Auto 0.01 X10*3/uL (0.00-0.03); Imm Gran Pct Auto 0.2 % (0.0-0.4); Lymphocytes Absolute Auto 2.4 X10*3/uL (1.2-4.9); Lymphocytes Percent Auto 45.8 % (20-40); Mean Corpuscular HGB Conc 32.2 g/dl (31.0-35.0); Mean Corpuscular Hemoglobin 29.1 pg (27.0-33.0); Mean Corpuscular Volume 90.5 fL (80.0-98.0); Monocytes Absolute Auto 0.4 X10*3/uL (0.1-1.2); Monocytes Percent Auto 7.3 % (2-11); Neutrophils Absolute Auto 2.3 x10*3/uL (2.0-8.3); Neutrophils Percent Auto 43.6 % (45-73); Platelet Count 173 X10*3/uL (160-400); Red Blood Count 4.22 X10*6/uL (4.20-5.50); Red Cell Distribution Width 13.1 % (11.0-16.0); White Blood Count 5.2 X10*3/uL (4.8-10.8)
[2025-05-11 09:46] LABS: Alanine Aminotransferase 18 U/L (0-31); Albumin Level 4.4 g/dL (3.5-5.0); Alkaline Phosphatase 68 U/L (39-117); Anion Gap 12 (12-20); Aspartate Amino Transferase 25 U/L (5-31); Bilirubin Total 0.3 mg/dL (0.0-1.0); Blood Urea Nitrogen 15 mg/dL (9-16); Calcium 9.5 mg/dL (8.4-10.2); Carbon Dioxide 28 mmol/L (22-29); Chloride 108 mmol/L (96-108); Estimated Glomerular Filt Rate > 60; Glucose Random 115 mg/dL (60-115); Potassium 4.1 mmol/L (3.3-5.1); Sodium 144 mmol/L (135-145); Total Protein 6.9 g/dL (6.5-8.0)
== END 2025-05-11 09:12 | disposition home or self-care (01) ==
LOC: HO.LAB 09:11
PROVIDERS: PCP Internal Medicine; Visit Provider Nurse Practitioner Family
DX: C18.9 Malignant neoplasm of colon, unspecified (principal)
CPT/HCPCS: 36415; 80053; 82378; 85025

== ENCOUNTER 2025-06-25 10:58 | Outpatient (AMB) | payer OTHER, SELFPAY ==
--- NOTE | 2025-06-25 11:04 | MHC.PC.OV ---
Vital Signs 06/25/25 11:05 Height 5 ft Weight 110 lb 2 oz BMI 21.5 BP 110/62 Blood Pressure Location Lt brachial Position Sitting Respiration 18 Pulse 63 Pulse Source Pulse Oximeter Temp 97.3 F Temp Source Temporal Artery Scan Pulse Oximetry (%) 98 Oxygen Delivery Method Room Air Intake Visit Reasons: Annual Physical Cosmetic Consultant Required: Yes Cosmetic Consultant Language: Telugu Allergies No Known Allergies Allergy (Verified 06/25/25 11:28) Medication List - Last Reconciled 06/25/25 by Fran Lazaro MD albuterol sulfate 90 mcg/actuation (Ventolin HFA) 2 puffs inhalation Q6H PRN ascorbic acid (vitamin C) (Vitamin C) 500 mg PO DAILY budesonide-formoterol 80-4.5 mcg/actuation (Symbicort) 2 puffs inhalation BID dexamethasone 4 mg PO BID disposable gloves (Vinyl Gloves) As directed duloxetine 60 mg PO .qhs ferrous sulfate 325 mg PO DAILY fluticasone propionate 50 mcg/actuation 1 spray intranasal BID 30 days food supplemt, lactose-reduced (Boost) ea PO gabapentin 100 mg PO BID [HUMIDIFIER As directed] levothyroxine 75 mcg PO DAILY@0600 lidocaine 5% 1 patch topical DAILY lidocaine HCl 2% (Lidocaine Viscous) 1 appl mucous membrane QID loperamide 2 mg PO DAILY metoprolol succinate ER 25 mg PO DAILY [non-slip shower mat As directed] nystatin 100,000 units PO NEEDED ondansetron 8 mg PO Q8H psyllium husk (Metamucil) 1 tsp PO BID sertraline 25 mg PO DAILY simethicone (Gas Relief (simethicone)) 125 mg PO BID-QID PRN simvastatin 20 mg PO DAILY sodium chloride 0.65% (Saline Mist) 1 - 2 sprays intranasal QID PRN 30 days tramadol 50 mg PO BID 30 days [wipes As directed] zolpidem 5 mg PO BEDTIME Tobacco use date assessed: 06/25/25 Fall risk assessment: No Falls in past year Last assessed Fall Risk: 06/25/25 Dental Screening Dental Screen Date: 06/25/25 Did you have a dental visit in the last 12 months?: Yes Did you have a dental problem in the last 6 months where you did not have access to dental care?: No Was dental information given to patient?: Patient has dentist HPI Annual Physical HPI Details 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 Ella [id number] [facility] Medical History (Updated 06/25/25 @ 12:08 by Fran Lazaro MD) Annual physical exam Encounter for annual routine gynecological examination Impacted cerumen of both ears Paronychia of finger Anemia Encounter for well woman exam with routine gynecological exam Colon cancer Colonic mass Recurrent UTI COVID-19 Abnormal weight loss Abdominal pain Abdominal cramping Pre-op examination Colon cancer screening Constipation Anemia Plantar fasciitis Low back pain Shingles Low back pain Pain of right hip Abnormal ultrasound of breast Vulvar itching Headache Cervical cancer screening Breast cancer screening by mammogram Colon cancer screening declined Colonoscopy refused Overweight (BMI 25.0-29.9) Vitamin B12 deficiency Impaired glucose tolerance Hypothyroid Hypercholesterolemia Hypertension Insomnia Carpal tunnel syndrome Surgical History Hx of surgical procedure (~04/22/24) H/O colonoscopy Family History Father No problems noted. Mother No problems noted. Sister History of breast cancer, Onset Age: 50 Daughter Colon cancer Son Colon cancer Social History Household Members: None Housing: Apartment Are you a primary wound care rn to a significant other at home: No Do you presently have visiting nurse or other home services: No Alcohol intake: never Patient Tobacco Use Status: Never used Tobacco e-Cigarette/Vaping Use: Never Used Second Hand Smoke Exposure: No service: No Current occupational status: retired Sexual orientation: Straight/Heterosexual Gender identity: Female Cognitive needs: No Hearing needs: No Vision needs: Yes Female Reproductive History Menstrual Age of Menarche: 16 Questionnaire PHQ-9 Over the last 2 weeks, how often have you been bothered by any of the following problems? 1. Little interest or pleasure in doing things: several days 2. Feeling down, depressed, or hopeless: several days 3. Trouble falling or staying asleep, or sleeping too much: several days 4. Feeling tired or having little energy: several days 5. Poor appetite or overeating: several days 6. Feeling bad about yourself - or that you are a failure or have let yourself or your family down: several days 7. Trouble concentrating on things, such as reading the newspaper or watching television: several days 8. Moving or speaking so slowly that other people could have noticed. Or the opposite - being so fidgety or restless that you have been moving around a lot more than usual: several days 9. Thoughts that you would be better off or of hurting yourself in some way: not at all Total score: 8 Depression Screening Interpretation: Positive Depression Screening Follow-up: Existing condition Depression Screening Done: Yes Source: Developed by Drs. Torres Anderson, Leida Obrien, Sony Treadwell and colleagues, with an educational farooq from [employer]. Thrive Questionnaire Date Thrive assessed: 03/10/25 I am a: Patient What is your living situation today?: I have a steady place to live Within the past 12 months, did the food you bought not last and you didn't have the money to get more?: Never true Within the past 12 months, did you worry whether your food would run out before you got money to buy more?: Never true Do you have trouble paying for medicines?: No Do you have trouble getting transportation to medical appointments?: No Do you have trouble paying your heating and electricity bill?: No Do you have trouble taking care of your child, family member or friend?: No Do you have trouble with day-to-day activities such as bathing, preparing meals, shopping, managing finances, etc.?: No Are you currently unemployed and looking for a job?: No Are you interested in more education?: No Please select the resources that you would like help with: None Currently or been in a relationship where the following occur: No concerns reported THRIVE Score: 0 AUDIT C Alcohol Use Questionnaire (AUDIT-C) 1. How often do you have a drink containing alcohol?: Never 3. How often do you have six or more drinks on one occasion?: Never Total Score: 0 Score Reviewed/Action Taken: No DAVID-7 AMB Questionnaire DAVID-7 Date DAVID - 7 assessed: 03/10/25 Feeling nervous, anxious, or on edge: 0 = Not at all Not being able to stop or control worryin = Not at all Worrying too much about different things: 0 = Not at all Trouble relaxin = Not at all Being so restless that it is hard to sit still: 0 = Not at all Becoming easily annoyed or irritable: 0 = Not at all Feeling afraid as if something awful might happen: 0 = Not at all Total DAVID-7 score (0-4 normal; 5-9 mild; 10-14 moderate; 15-21 severe): 0 Source: Developed by Drs. Torres Anderson, Leida Obrien, Sony Treadwell and colleagues, with an educational farooq from [employer]. Review of Systems Const Denies poor appetite and Denies weakness Eyes Denies no additional complaints ENT Reports Normal hearing present, Denies dizziness, Denies nasal congestion, Denies tinnitus and Denies sore throat Card Denies chest pain, Denies syncope, Denies rapid heart rate and Denies dyspnea Resp Denies cough and Denies dyspnea GI Denies change in stool character, Reports constipation, Denies diarrhea, Denies nausea and Denies vomiting Denies urinary frequency, Denies difficulty voiding and Denies dysuria Neuro Reports Normal hearing present, Denies confusion, Denies dizziness, Denies syncope and Denies weakness Psych Denies confusion Physical exam (Primary Care) Vital Signs: Last Vital Signs Temp 97.3 F 06/25/25 11:05 Pulse 63 06/25/25 11:05 Resp 18 06/25/25 11:05 BP 110/62 06/25/25 11:05 Pulse Ox 98 06/25/25 11:05 Oxygen Delivery Method Room Air 06/25/25 11:05 BMI result Body Mass Index 21.5 Tobacco/Smoking Status: Tobacco use Status Tobacco use date assessed 06/25/25 06/25/25 11:06 Patient Tobacco Use Status Never used Tobacco 06/25/25 11:06 Tobacco use type 06/25/25 11:06 e-Cigarette/Vaping Use Never Used 06/25/25 11:06 PHQ-9: PHQ-9 Score PHQ-9: Total score 8 06/25/25 11:55 Depression Screening Interpretation: Positive Depression Screening Follow-up: Existing condition Thrive Assessment: Date of Thrive Assessment Date Thrive assessed 03/10/25 06/25/25 11:06 Currently or been in a relationship where the following occur: No concerns reported Const General: No confusion Orientation/consciousness: No confusion HENMT Head: Yes normocephalic Ears: external ears normal and TM's normal bilaterally Face and sinus: Yes normal facial exam Mouth: moist mucous membranes Throat: Yes tonsils normal Eyes Conjunctivae: conjunctivae normal Pupils: Equal, round and reactive pupils present and Pupil accommodation reflex normal Direct Ophthalmoscopy: normal light reflex Neck Neck: No lymphadenopathy Thyroid: Thyroid normal Chest Chest palpation & inspection: normal inspection of the chest Resp Effort & Inspection: normal respiratory effort and no audible wheezes Auscultation: clear to auscultation bilaterally, no crackles, no wheezes and lung sounds not diminished Cardio Rate: regular rate Rhythm: regular rhythm Peripheral pulses: radial pulses present and dorsalis pedis present GI Palpation (GI): no masses Auscultation: normal bowel sounds and normoactive bowel sounds Rectal Exam - Female: deferred Skin General skin exam: no rashes or lesions noted Rashes: no rashes Neuro General: No confusion Cranial nerves: Yes Equal, round and reactive pupils present and Yes Normal hearing present Cognition (Neuro): normal cognition Gait exam (Neuro): Normal gait present Motor exam (neuro): 5/5 motor strength present throughout Deep tendon reflexes (DTR's): Right brachioradialis reflex intensity grade: 2+, Left brachioradialis reflex intensity grade: 2+, Right patellar reflex intensity grade: 2+ and Left patellar reflex intensity grade: 2+ Extrem General: No edema Results AMB Hemoglobin A1c AMB Hemoglobin A1c 6.1 % Last Edit by Jennifer Albarran CMA on 06/25/25 11:33 Results Reviewed Results Reviewed: Laboratory Last Values Hgb A1c (Clinic) 6.1 % (4.0-6.0) H 06/25/25 11:29 Coding Level of Care Code Est Pt Prev Care >65y(25551) Diagnoses Cancer of sigmoid colon C18.7 Type 2 diabetes mellitus with hyperglycemia, without long-term current use of insulin E11.65 Diabetes mellitus ocean transportation intermediary insulin use: without ocean transportation intermediary use Acquired hypothyroidism E03.9 Hypothyroidism type: acquired Primary hypertension I10 Hypertension type: primary hypertension Hypercholesterolemia E78.00 Major depression F32.9 Ganglion cyst M67.40 Assessment & Plan Assessment & Plan (1) Cancer of sigmoid colon: Comment: Sigmoid resection 03/2024 Dr. Decker Code(s): C18.7 - Malignant neoplasm of sigmoid colon Category: Medical Plan: Patient follows up with Hematology-Oncology and gastroenterology (2) Type 2 diabetes mellitus with hyperglycemia: Comment: Dr. Cervantes Code(s): E11.65 - Type 2 diabetes mellitus with hyperglycemia Category: Medical Qualifiers: Diabetes mellitus ocean transportation intermediary insulin use: without ocean transportation intermediary use Qualified Code(s): E11.65 - Type 2 diabetes mellitus with hyperglycemia Plan: Decrease the amount of carbohydrate intake, pasta, bread, rice and potatoes are all sugar and that is aside from all the sweet stuff, remember that fruits are good but they are Sweet also. Hemoglobin A1c goal of less than 7.0 diet controlled (3) Hypothyroid: Code(s): E03.9 - Hypothyroidism, unspecified Category: Medical Qualifiers: Hypothyroidism type: acquired Qualified Code(s): E03.9 - Hypothyroidism, unspecified Plan: Continue with thyroid medication (4) Hypertension: Code(s): I10 - Essential (primary) hypertension Category: Medical Qualifiers: Hypertension type: primary hypertension Qualified Code(s): I10 - Essential (primary) hypertension Plan: Continue with blood pressure medication. Decrease salt intake and exercise patient takes metoprolol 25 mg once a day (5) Hypercholesterolemia: Code(s): E78.00 - Pure hypercholesterolemia, unspecified Category: Medical Plan: Avoid fried foods, chicken skin, eggs, butter margarine, pastries and meat. Be it pork or beef they have a lot of cholesterol patient will need blood work for cholesterol on simvastatin 20 (6) Major depression: Code(s): F32.9 - Major depressive disorder, single episode, unspecified Category: Medical Plan: Continue with therapy (7) Ganglion cyst: Comment: left hand Code(s): M67.40 - Ganglion, unspecified site Category: Medical Plan History of Present Illness The patient is a 70-year-old female presenting with a physical exam and management of chronic conditions. She has a history of diabetes mellitus, hypothyroidism, hypercholesterolemia, hypertension, and osteopenia. Her diabetes is diet-controlled with a hemoglobin A1c of 6.1, indicating good control. The patient has a history of colon cancer with a sigmoid resection performed in March 2024. She follows up with hematology oncology and had a PET scan in April showing a solitary focus of increased activity in the liver, suggesting a metastatic process. Her last colonoscopy was in February 2024, and she had a mammogram in March 2025. The patient reports peripheral neuropathy and depression, for which she is on duloxetine 60 mg at bedtime. She also takes gabapentin 100 mg twice a day for neuropathy. She experiences shortness of breath, using an albuterol inhaler three times a week. A new prescription for Symbicort was discussed to help control her symptoms. The patient has anemia with a hemoglobin level of 11.4, which has been a long-standing issue. Her electrolytes and renal function are normal, and liver function is good. She has a tendon cyst causing pain, and a referral to orthopedics was considered. Health Maintenance - Colon cancer screening with stool test last done in February 2024 - Mammogram performed in March 2025 - Blood work for cholesterol and thyroid requested but not completed Social History - Does not drink or smoke Review of Systems - General: Denies fever, nausea, or vomiting - Cardiovascular: Denies chest pain - Respiratory: Reports shortness of breath three times a week - Gastrointestinal: Denies constipation, reports occasional heartburn - Genitourinary: Denies dysuria, nocturia Physical Exam General: Cooperative, healthy appearing, comfortable, no acute distress and well developed Orientation: Patient oriented x3 Limitations: No limitations Head: Normal to inspection Ears: Hearing grossly normal bilaterally Nose: Normal external nose present Face and sinus: Normal facial exam Eyes: Appearance normal, both eyes and all related structures Neck: Normal visual inspection and Yes full ROM Respiratory: Normal respiratory effort and able to speak in complete sentences. Clear to auscultation bilaterally Cardiovascular: Regular rate and rhythm. Normal S1 and S2 GI: Normal to inspection. Soft to palpation and nontender Skin: No rashes or lesions noted Neuro: Patient oriented x3 Extremities: Normal to inspection Results - Labs: Hemoglobin 11.4, electrolytes normal, renal function normal, liver function good - Imaging: PET scan in April showing solitary focus of increased activity in the liver Plan The patient will continue with her current diabetes management plan, maintaining a hemoglobin A1c goal of less than 7.0, with diet control being emphasized. Her thyroid medication will be continued, and blood work for cholesterol and thyroid function will be scheduled to monitor her hypercholesterolemia and hypothyroidism. For her hypertension, the patient will continue taking metoprolol 25 mg once a day. A new prescription for Symbicort will be provided to help manage her shortness of breath, while continuing the use of albuterol as needed. The patient will be referred to orthopedics for evaluation of her painful tendon cyst. She will also follow up with hematology oncology for ongoing management of her colon cancer and any potential metastatic disease. Patient was informed and verbally consented to the use of an ambient scribe for clinic note documentation during this visit. Discussion Notes I discussed with the patient the importance of maintaining her diabetes management plan, emphasizing the goal of keeping her hemoglobin A1c below 7.0 through diet control. We talked about continuing her thyroid medication and the need for upcoming blood work to monitor her cholesterol and thyroid levels. I explained the rationale for prescribing Symbicort to help manage her shortness of breath and advised her to continue using albuterol as needed. We also discussed the referral to orthopedics for her tendon cyst and the importance of following up with hematology oncology for her colon cancer management. Patient Instructions - Continue with your diabetes management plan and aim to keep your hemoglobin A1c below 7.0. - Take your thyroid medication as prescribed and schedule blood work for cholesterol and thyroid function. - Use Symbicort daily as prescribed and continue using albuterol as needed for shortness of breath. - Follow up with orthopedics for your tendon cyst and with hematology oncology for colon cancer management. Orders: Orders AMB Hemoglobin A1c Today Z13.9 - Encounter for screening, unspecified XR DEXA axial skeleton Today E11.65 - Type 2 diabetes mellitus with hyperglycemia, M81.0 - Age-related osteoporosis without current pathological fracture Referrals Orthopedics Referral M67.40 - Ganglion, unspecified site Medications: New budesonide-formoterol 80-4.5 mcg/actuation (Symbicort) 2 puffs inhalation BID 10.2 grams 4RF J45.909 - Unspecified asthma, uncomplicated Changed From zolpidem 5 mg PO BEDTIME 30 tabs 1RF G47.00 - Insomnia, unspecified To zolpidem 10 mg PO BEDTIME 30 tabs 1RF G47.00 - Insomnia, unspecified
[2025-06-25 11:05] VITALS: BP 110/62; PULSE 63; RESP 18; TEMP 36.3; O2SAT 98; BMI 21.5
== END 2025-06-25 12:25 | disposition home or self-care (01) ==
LOC: HO.HMCH 10:58
PROVIDERS: Visit Provider Internal Medicine
DX: Z00.00 Encounter for general adult medical examination without abnormal findings (principal); C18.7 Malignant neoplasm of sigmoid colon; E11.65 Type 2 diabetes mellitus with hyperglycemia; E03.9 Hypothyroidism, unspecified; I10 Essential (primary) hypertension; E78.00 Pure hypercholesterolemia, unspecified; F32.9 Major depressive disorder, single episode, unspecified; M67.40 Ganglion, unspecified site

== ENCOUNTER → 2025-06-25 10:58 | Outpatient (BNVA) | payer OTHER, SELFPAY | PROVIDERS: Visit Provider Internal Medicine | DX: Z00.00 Encounter for general adult medical examination without abnormal findings (principal); C18.7 Malignant neoplasm of sigmoid colon; E11.65 Type 2 diabetes mellitus with hyperglycemia; E03.9 Hypothyroidism, unspecified; I10 Essential (primary) hypertension; E78.00 Pure hypercholesterolemia, unspecified; F32.9 Major depressive disorder, single episode, unspecified; M67.40 Ganglion, unspecified site; J45.909 Unspecified asthma, uncomplicated; G47.00 Insomnia, unspecified | CPT/HCPCS: 83036; 99397 ==

== ENCOUNTER 2025-07-31 09:50 | Outpatient (REF) | payer OTHER, SELFPAY ==
--- NOTE | ~2025-07-31 | CT_ITS ---
CLINICAL HISTORY: METASTASIS TO LIVER Exam: CT Abdomen With IV Contrast Comparison: 01/06/2025. Findings: The left lobe of the liver is enlarged due to a 6.3 cm mass consistent with neoplasm in the micky hepatis and posterior left lobe. Multiple additional hypodensities are present throughout the liver representing dilated bile ducts, metastasis and bile lakes due to biliary obstruction. A couple of the liver hypodensities may represent benign cysts or metastasis with necrotic centers masquerading as cysts. There is tumor encasement of the portal vein and 2nd portion of the duodenum with decreased caliber. There is obstruction of liver left lobe hepatic vein The spleen is normal in size No pancreatic ductal dilatation No hydronephrosis. There is are 2 benign left renal cortical cysts No signs of bowel obstruction in the upper abdomen. No secondary signs of acute appendicitis No free fluid/free air Few scattered periaortic and common iliac subcentimeter lymph nodes are present. No suspicious skeletal lesions Impression : There has been marked progression of liver metastasis now with bile duct obstruction that has progressed since the previous exam. Images of the pelvis are not included. This document has been electronically signed by: Chidi Sifuentes MD on 08/01/2025 16:53:31
--- OUTSIDE RECORDS SUMMARY | 2025-07-31 10:38 | XMS_ITS | Clinical Summary ---
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 Name Role Phone Physician, Pcp Unknown Primary Care Provider Francie vailable Allergies No known active allergies Medications gabapentin (NEURONTIN) 100 mg capsule TOME 1 C PSULA POR V A ORAL DOS VECES AL D A 02/18/20 25 Active levothyroxine (SYNTHROID, LEVOTHROID) 75 mcg tablet TOME 1 TABLETA POR V A ORAL TODOS LOS D AT 6AM 07/16/20 25 Active metoprolol succinate (TOPROL-XL) 25 mg 24 hr tablet TOME 1 TABLETA POR V A ORAL TODOS LOS D 07/17/20 25 Active nystatin (MYCOSTATIN) 100,000 unit/mL suspension TAKE 5 ML ORALLY 3 TIMES DAILY SWISH AND SWALLOW 02/22/20 25 Active simvastatin (ZOCOR) 20 mg tablet TOME FRANCIE TABLETA POR V A ORAL TODOS LOS D 07/17/20 25 Active traMADoL (ULTRAM) 50 mg tablet TOME 1 TABLETA POR V A ORAL DOS VECES AL D A 06/25/20 25 Active zolpidem (AMBIEN) 10 mg tablet TOME 1 TABLETA POR V A ORAL TODOS LOS D AL ACOSTARSE 06/25/20 25 Active zolpidem (AMBIEN) 5 mg tablet TOME 1 TABLETA POR V A ORAL TODOS LOS D AL ACOSTARSE 05/17/20 25 Active sertraline (ZOLOFT) 25 mg tablet TOME 1 TABLETA POR V A ORAL TODOS LOS D 07/17/20 25 Active Gas Relief Extra Strength 125 mg chewable tablet CHEW 1 TAB 2 TO 4 TIMES A DAY NEEDED FOR ABDOMINAL DISTENTION 05/11/20 25 Active ondansetron ODT (ZOFRAN-ODT) 8 mg disintegrating tablet TOME FARNCIE TABLETA POR V A ORAL CADA OCHO HORAS 06/25/20 25 Active lidocaine (XYLOCAINE) 2 % solution APLIQUE AL MIGUEL AFECTADA CUATRO VECES AL D A 06/01/20 25 Active lidocaine (LIDODERM) 5 % patch PLACE 1 PATCH TOPICALLY DAILY LEAVE ON MOST PAINFUL AREA FOR UP TO 12 HRS 03/21/20 25 Active fluticasone propionate (FLONASE) 50 mcg/actuation nasal spray 1 SPRAY INTRANASALLY 2 TIMES A DAY FOR 30 DAYS ADMINISTER INTO EACH NOSTRIL 06/09/20 25 Active ferrous sulfate 325 mg (65 mg elemental iron) tablet TOME FRANCIE TABLETA POR V A ORAL TODOS LOS D 10/02/20 24 Active dexAMETHasone (DECADRON) 4 mg tablet TOME FRANCIE TABLETA POR V A ORAL DOS VECES AL D A DAY 2 AND 3 OF CHEMOTHERAPY EVERY 14 DAYS 03/06/20 25 Active albuterol HFA (PROAIR HFA ; PROVENTIL HFA ; VENTOLIN HFA) 90 mcg/actuation inhaler TAKE 2 PUFFS EVERY 6 HOURS NEEDED FOR FOR WHEEZING 07/14/20 25 Active budesonide-formote roL (SYMBICORT) 80-4.5 mcg/actuation inhaler INHALE DANDO DOS SOPLIDOS POR V A ORAL DOS VECES AL D A 06/25/20 25 Active Encounters Date Type Department Care Team Description 07/22/2025 11:00 AM EDT Consult General Surgery - [address] [place] [phone] Don Contreras MD Metastasis to liver (CMS/HCC V24, CMS/HCC V28) (Primary Dx); Liver cancer, primary, with metastasis from liver to other site (CMS/HCC V24, CMS/HCC V28); Malignant neoplasm of overlapping sites of colon (CMS/HCC V24, CMS/HCC V28) from Last 3 Months Social History Tobacco Use Types Packs/Day Years Used Date Smoking Tobacco: Never Tobacco Cessation:Counseling Given: Not Answered Alcohol Use Standard Drinks/Week Comments Never 0 (1 standard drink = 0.6 oz pur e alcohol) Comments Unknown Sex and Gender Information Value Date Recorded Sex Assigned at Not on file Legal Sex Female 4:11 PM EDT Gender Identity Not on file Sexual Orientation Not on file Obstetrics History Last Filed Vital Signs Vital Sign Reading Time Taken Comments Blood Pressure 153/69 07/22/2025 11:05 AM EDT Pulse 76 07/22/2025 11:05 AM EDT Temperature 36.4 C (97.5 F) 07/22/2025 11:05 AM EDT Respiratory Rate - - Oxygen Saturation - - Inhaled Oxygen Concentration - - Weight 53.9 kg (118 lb 12.8 oz) 025 11:05 AM EDT Height 152.4 cm (5') 07/22/2025 11:05 AM EDT Body Mass Index 23.2 07/22/2025 11:05 AM EDT Plan of Treatment Health Maintenance Due Date Last Done Comments Breast Cancer Screening 1955 COVID-19 Vaccine (3 - Modern a risk series) 07/06/2021 06/08/2021, 05/11/2021 Pneumococcal Vaccine: 50+ Years (2 of 2 - PCV) 07/04/2022 07/04/2021 Depression Screening 11/26/2024 Colorectal Cancer Screening: Colonoscopy 07/01/2025 Falls Risk Assessment 07/01/2025 Hepatitis C Screening 07/01/2025 Medicare Annual Wellness Visit 07/01/2025 Osteoporosis Screening (Bone Density Screening) 07/01/2025 Social Influencers of Health Screening 07/01/2025 Influenza Vaccine (#1) 2025 RSV Immunization Adult Patients (1 - 1-dose 75+ series) 2031 DTaP,Tdap,and Td Vaccines (2 - Td or Tdap) 06/15/2033 06/15/2023 Zoster Vaccines Completed 08/07/2023, 04/04/2023 HIB Vaccines Aged Out No longer eligi ble based on patient's age to complete this topic HPV Vaccines Aged Out No longer eligi ble based on patient's age to complete this topic Hepatitis A Vaccines Aged Out No long er eligible based on patient's age to complete this topic Hepatitis B Vaccines Aged Out No long er eligible based on patient's age to complete this topic IPV Vaccines Aged Out No longer eligi ble based on patient's age to complete this topic MMR Vaccines Aged Out No longer eligi ble based on patient's age to complete this topic Meningococcal ACWY Vaccine Aged Out N o longer eligible based on patient's age to complete this topic Meningococcal B Vaccine Aged Out No l onger eligible based on patient's age to complete this topic RSV Immunization Patients Under 20 months Aged Out No longer eligible b ased on patient's age to complete this topic Varicella Vaccines Aged Out No longer eligible based on patient's age to complete this topic Procedures Procedure Name Priority Date/Time Associated Diagnosis Comments CBC WITH AUTO DIFFERENTIAL Routine 07/22/2025 12:15 PM EDT Metastasis to liver (CMS/HCC V24, CMS/HCC V28) COMPREHENSIVE METABOLIC PANEL Routine 07/22/2025 12:15 PM EDT Metastasis to liver (CMS/HCC V24, CMS/HCC V28) CANCER ANTIGEN 19-9 Routine 07/22/2025 1 2:15 PM EDT Metastasis to liver (CMS/HCC V24, CMS/HCC V28) CARCINOEMBRYONIC ANTIGEN Routine 025 12:15 PM EDT Metastasis to liver (CMS/HCC V24, CMS/HCC V28) Malignant neoplasm of overlapping sites of colon (CMS/HCC V24, CMS/HCC V28) CBC AND DIFFERENTIAL Routine 07/22/2025 12:15 PM EDT Metastasis to liver (CMS/HCC V24, CMS/HCC V28) from Last 3 Months Results * (ABNORMAL) CBC auto differential (07/22/2025 12:15 PM EDT) WBC 4.7(L) 4.8 - 10.8 K/mcL LAB HEMETOLOGY METHOD 07/22/2025 2:[address] [facility] RBC 4.20 3.80 - 4.80 M/mcL LAB HEMETOLOGY METHOD 07/22/2025 2:[address] [facility] Hemoglobin 11.8 11.5 - 16.0 g/dL LAB HEMETOLOGY METHOD 07/22/2025 2:[address] [facility] Hematocrit 38.4 35.0 - 47.0 % LAB HEMETOLOGY METHOD 07/22/2025 2:[address] [facility] MCV 92.5 79.0 - 98.0 FL LAB HEMETOLOGY METHOD 07/22/2025 2:[address] [facility] MCH 28.4 27.0 - 32.0 pcg LAB HEMETOLOGY METHOD 07/22/2025 2:[address] [facility] MCHC 30.7(L) 32.0 - 37.0 g/dL LAB HEMETOLOGY METHOD [facility] RDW 15.4(H) 11.0 - 15.0 % LAB HEMETOLOGY METHOD 07/22/2025 2:[address] [facility] Platelets 240 130 - 400 K/mcL LAB HEMETOLOGY METHOD 07/22/2025 2:[address] [facility] MPV 10.4 7.0 - 11.0 FL LAB HEMETOLOGY METHOD 07/22[facility]2025 [facility] NRBC 0.0 <1.0 % LAB HEMETOLOGY METHOD 07/22/2025 2:[address] [facility] NRBC Absolute 0.00 <0.10 K/mcL LAB HEMETOLOGY METHOD 07/22/2025 2:[address] [facility] Neutrophils Relative 62.5 % LAB HEMETOLOGY METHOD 07/22/2025 2:[address] [facility] Lymphocytes Relative 23.4 % LAB HEMETOLOGY METHOD 07/22[facility]2025 [facility] Monocytes Relative 9.5 % LAB HEMETOLOGY METHOD 07/22/2025 2:[address] [facility] Eosinophils Relative 3.6 % LAB HEMETOLOGY METHOD 07/22/2025 2:[address] [facility] Basophils Relative 0.6 % LAB HEMETOLOGY METHOD 07/22/2025 2:[address] [facility] Immature Granulocytes Relative 0.4 % LAB HEMETOLOGY METHOD 07/22/2025 2:[address] [facility] Neutrophils Absolute 2.96 1.50 - 7.00 K/mcL LAB HEMETOLOGY METHOD 07/22/2025 2:[address] [facility] Lymphocytes Absolute 1.11 1.00 - 5.00 K/mcL LAB HEMETOLOGY METHOD 07/22/2025 2:[address] [facility] Monocytes Absolute 0.45 0.20 - 1.00 K/mcL LAB HEMETOLOGY METHOD 07/22/2025 2:[address] [facility] Eosinophils Absolute 0.17 0.00 - 0.50 K/mcL LAB HEMETOLOGY METHOD 07/22/2025 2:[address] [facility] Basophils Absolute 0.03 0.00 - 0.20 K/mcL LAB HEMETOLOGY METHOD 07/22/2025 2:[address] [facility] Immature Granulocytes Absolute 0.02 0.00 - 0.03 K/mcL LAB HEMETOLOGY METHOD 07/22/2025 2:[address] [facility] Blood Venous blood specimen / Unknown Venipuncture / Unknown 07/22/2025 12:15 PM EDT 07/22/2025 12:15 PM EDT us Don Contreras MD LAB BLOOD ORDERABLES Final Result [facility] [address] [place] [address], * (ABNORMAL) Cancer antigen 19-9 (07/22/2025 12:15 PM EDT) CA 19-9 1396.3(H) <=35 U/mL 07/28/2025 2:33 PM EDT [facility] Comment: The Siemens Advia Centaur CA199 Chemiluminescent Immunoassay is used. Results obtained with different assay methods or kits cannot be used interchangeably. Results cannot be interpreted as absolute evidence of the presence or absence of malignant disease. Test performed at [facility], [address] , [place] [address] Martina Marcos MD, PhD - [employer] Blood Venous blood specimen / Unknown Venipuncture / Unknown 07/22/2025 12:15 PM EDT 07/22/2025 12:15 PM EDT us Don Contreras MD LAB BLOOD ORDERABLES Final Result Performing Organization Address [facility] Co de Phone Number [facility] [address] [place] [address] * (ABNORMAL) CEA (07/22/2025 12:15 PM EDT) Pathologist [facility] CEA 33.0(H) 0.0 - 5.0 ng/mL LAB CHEMISTRY METHOD 07/22/2025 4:[address] [facility] Blood Venous blood specimen / Unknown Venipuncture / Unknown 07/22/2025 12:15 PM EDT 07/22/2025 12:[address] [facility] - 07/22/2025 4:45 PM EDT The Siemens Advia Centaur Chemiluminescent Immunoassay is used. Results obtained with different assay methods or kits cannot be used interchangeably. Results cannot be interpreted as absolute evidence of the presence or absence of malignant disease. us Don Contreras MD LAB BLOOD ORDERABLES Final Result Performing Organization Address City/[facility]/ZIP Co de Phone Number [facility] [address] [place] [address], [place] [phone] * (ABNORMAL) Comprehensive metabolic panel (07/22/2025 12:15 PM EDT) Sodium 140 133 - 145 mmol/L LAB CHEMISTRY METHOD 07/22/2025 4:32 PM [facility] Potassium 4.4 3.5 - 5.5 mmol/L LAB CHEMISTRY METHOD 07/22/2025 4:32 PM [facility] Chloride 105 96 - 110 mmol/L LAB CHEMISTRY METHOD 07/22/2025 4:32 PM [facility] CO2 30 21 - 32 mmol/L LAB CHEMISTRY METHOD 07/22/2025 4:32 PM [facility] Anion Gap 5 3 - 11 LAB CHEMISTRY METHOD 07/22/2025 4:32 PM [facility] Glucose 94 70 - 100 mg/dL LAB CHEMISTRY METHOD 07/22/2025 4:32 PM [facility] BUN 13 5 - 25 mg/dL LAB CHEMISTRY METHOD 07/22/2025 4:32 PM [facility] Creatinine 0.67 0.50 - 1.10 mg/dL LAB CHEMISTRY METHOD 07/22/2025 4:32 PM [facility] eGFR 95 >=60 mL/min/1. 73m2 LAB CHEMISTRY METHOD 07/22/2025 4:32 PM [facility] Comment:Calculation based on the Chronic Kidney Disease Epidemiology Collaboration (CKD-EPI) equation refit without adjustment for race. BUN/Creatinine Ratio 19.4 LAB CHEMISTRY METHOD 07/22/2025 4:32 PM [facility] Calcium 9.4 8.5 - 10.5 mg/dL LAB CHEMISTRY METHOD 07/22/2025 4:32 PM [facility] AST (SGOT) 90(H) 10 - 42 unit/L LAB CHEMISTRY METHOD 07/22/2025 4:[address] [facility] ALT (SGPT) 119(H) 10 - 60 unit/L LAB CHEMISTRY METHOD 07/22/2025 4:[address] [facility] Alkaline Phosphatase 365(H) 42 - 121 unit/L LAB CHEMISTRY METHOD 07/22/2025 4:[address] [facility] Total Protein 7.1 6.0 - 8.0 g/dL LAB CHEMISTRY METHOD 07/22/2025 4:[address] [facility] Albumin 3.9 3.2 - 5.0 g/dL LAB CHEMISTRY METHOD 07/22/2025 4:[address] [facility] Total Bilirubin 0.5 0.0 - 1.4 mg/dL LAB CHEMISTRY METHOD 07/22/2025 4:[address] [facility] Blood Venous blood specimen / Unknown Venipuncture / Unknown 07/22/2025 12:15 PM EDT 07/22/2025 12:15 PM EDT Don Contreras MD LAB BLOOD ORDERABLES Final Result [facility] [address] [place] [address], from Last 3 Months Insurance [facility] [employer] Member Subscriber Plan / Payer (Ef fective 2021-Present) Name:Sandra Elizondo Relation to Subscriber:Self Name:Mikhail Sandra Payer ID:[id number] Group ID:Not on file Type:Not on file Address: [place] [address] [id number] [facility] Member Subscriber Plan / Payer (Ef fective 2021-Present) Name:Sandra Elizondo Relation to Subscriber:Self Name:Sandra Elizondo Payer ID:[id number] Group ID:[id number] Type:Not on file Address: [facility] [address] [id number] Care Teams Filtering Machine Tender Relationship Specialty Start Date End Date Physician, Pcp Unknown PCP - General 07/23/25
[2025-07-31] MEDS: iohexoL 350 MG/ML 100 ML INFUS..BTL IV (12:19)
[2025-07-31] MEDS: Barium Sulfate Oral (Mocha) 450 ML ORAL.SUSP 900 ML PO (12:20)
[2025-08-04 07:11] LABS: Creatinine POC 0.6 mg/dL (0.5-1.4); GFR POC > 60
== END 2025-07-31 09:51 | disposition home or self-care (01) ==
LOC: HO.CT 09:50
PROVIDERS: PCP Internal Medicine; Visit Provider Transplant Surgery
DX: C78.7 Secondary malignant neoplasm of liver and intrahepatic bile duct (principal)
CPT/HCPCS: 74160; 82565; Q9967

== ENCOUNTER → 2025-07-31 10:08 | Outpatient (BNV) | payer OTHER, SELFPAY | PROVIDERS: PCP Internal Medicine; Visit Provider Radiology Diagnostic Radiology | DX: C78.7 Secondary malignant neoplasm of liver and intrahepatic bile duct (principal) | CPT/HCPCS: 74160 ==

== ENCOUNTER 2025-10-18 12:18 | Inpatient (IN) | payer OTHER, SELFPAY ==
[2025-10-18] VITALS (8 sets, daily range): BP systolic 121–157; BP diastolic 56–78; PULSE 49–80; RESP 16; TEMP 36.1–37; O2SAT 98–99; BMI 24.4
--- NOTE | ~2025-10-18 | CT_ITS ---
CLINICAL HISTORY: fall, head strike, syncope CT head without contrast. COMPARISON: None provided. FINDINGS: The visualized paranasal sinuses are clear. The mastoid air cells are clear. No calvarial fracture. Atherosclerotic intracranial vasculature. No evidence for mass or mass effect. No intracranial hemorrhage or abnormal extra-axial fluid collection. No CT evidence of acute infarct. The ventricles are proportional with the degree of moderate global cerebral volume loss without evidence of hydrocephalus. Basilar cisterns are patent. There are periventricular areas of low attenuation compatible with moderate white matter small vessel disease. Posterior fossa appears unremarkable. IMPRESSION: 1. No acute intracranial findings. This document has been electronically signed by: Momo Samuels MD on 10/18/2025 14:23:08
--- NOTE | ~2025-10-18 | CT_ITS ---
CLINICAL HISTORY: multiple falls, pleuritic cp. CA hx CT angiography of the chest with IV contrast. 3D/MIP post processing reconstructions were performed. COMPARISON: CT abdomen dated 07/31/25 at 11:[address] chest dated 01/06/25 at 13:[address] chest dated 10/14/24 at 11:22 EST FINDINGS: There are no intraluminal filling defects to suggest pulmonary embolism. No evidence of right heart strain. No supraclavicular or axillary lymphadenopathy. Ascending aorta and main pulmonary artery are normal in caliber. No pericardial effusion. Normal esophagus. No mediastinal or hilar lymphadenopathy. No pleural effusion. Minimal linear atelectasis versus scarring within the lingula. Trachea and central airways are clear. No significant bronchial wall thickening. No bronchiectasis. Right upper lobe subpleural 2 mm pulmonary micronodule (series 16, image 53), stable since 2023. Left upper lobe 2 mm pulmonary nodule (series 16, image 61), stable since 2023. No new or growing pulmonary nodule identified. Multiple ill-defined hypoattenuating lesions present within the liver. Left renal cystic lesion measuring 1.7 cm. No acute fracture or suspicious bone lesion. IMPRESSION: 1. No evidence of pulmonary embolism. 2. No acute intrathoracic findings. No evidence of pneumonia. 3. Stable small pulmonary nodules in the upper lobes bilaterally since imaging performed in 2023. No new or growing pulmonary nodule identified. 4. Multiple ill-defined hepatic lesions similar to prior imaging and likely representing metastatic disease. This document has been electronically signed by: Momo Samuels MD on 10/18/2025 17:22:32
--- NOTE | ~2025-10-18 | XR_ITS ---
CLINICAL HISTORY: pain, injury Three views of the right foot. COMPARISON: XR right foot dated 04/16/23 at 08:38 EDT FINDINGS: Soft tissue swelling overlying the forefoot and midfoot. No ankle joint effusion. Atherosclerotic vascular calcifications. Small plantar calcaneal spur present. Nondisplaced transverse fractures of the base of the 3rd metatarsal. Likely additional nondisplaced transverse fracture of the base of the 2nd metatarsal. Question small chip fracture along the base of the 4th metatarsal. Tarsal bones appear intact. Phalanges appear intact. IMPRESSION: 1. Nondisplaced transverse fracture of the base of the 3rd metatarsal. Suspect additional nondisplaced transverse fractures of the bases of the 2nd and 4th metatarsals. Recommend CT of the right foot for further characterization. This document has been electronically signed by: Momo Samuels MD on 10/18/2025 14:08:10
--- NOTE | ~2025-10-18 | XR_ITS ---
CLINICAL HISTORY: pain, injury Three views of the right and left knees. COMPARISON: None provided. FINDINGS: Right knee: No appreciable right suprapatellar joint effusion. Joint spaces are maintained on the right. Osteophytes present along the patellofemoral compartment. Visualized portions of the right femur, patella, tibia and fibula appear intact. Left knee: No left suprapatellar joint effusion. Joint spaces are maintained on the left. Tiny osteophytes present along the patella. Visualized portions of the left femur, patella, tibia and fibula appear intact. IMPRESSION: 1. No radiographic evidence of acute injury to the right and left knees. This document has been electronically signed by: Momo Samuels MD on 10/18/2025 13:56:49
--- NOTE | ~2025-10-18 | XR_ITS ---
CLINICAL HISTORY: pain, injury Three views of the right ankle. COMPARISON: None provided. FINDINGS: No ankle joint effusion. Atherosclerotic vascular calcifications. Small plantar calcaneal spur present. Transverse fractures of the base of the 2nd, 3rd and likely 4th metatarsals. Remaining visualized tarsal bones appear intact. IMPRESSION: 1. Transverse fractures of the base of the 2nd, 3rd and likely 4th metatarsals. Recommend CT of the foot for further characterization. This document has been electronically signed by: Momo Samuels MD on 10/18/2025 14:01:05
--- NOTE | ~2025-10-18 | CT_ITS ---
CLINICAL HISTORY: fall, head strike, syncope CT cervical spine without contrast. COMPARISON: None provided. FINDINGS: Straightening of the normal cervical lordosis. Vertebral body heights are maintained. No evidence of acute vertebral body injury. Small amount of calcified plaque present at the carotid bulbs bilaterally. C4-C5: Anterior marginal osteophytes. Loss of disc space height. Posterior disc osteophyte complex. Uncovertebral joint hypertrophy. [id number] left and mild right neural foraminal narrowing. C5-6: Anterior marginal osteophytes. Loss of disc space height. Uncovertebral joint hypertrophy. Mild left neural foraminal narrowing. C6-7: Anterior marginal osteophytes. Remaining cervical levels are without significant degenerative changes. IMPRESSION: 1. No evidence of acute injury to the cervical spine. 2. Straightening of the normal cervical lordosis. This document has been electronically signed by: Momo Samuels MD on 10/18/2025 14:22:18
--- NOTE | ~2025-10-18 | XR_ITS ---
CLINICAL HISTORY: syncope Two views of the chest. COMPARISON: None provided. FINDINGS: Right-sided chest port tip overlies the cavoatrial junction. Normal heart and mediastinal contours. No consolidation. No pleural effusion or pneumothorax. No acute fracture. IMPRESSION: 1. No consolidation. This document has been electronically signed by: Momo Samuels MD on 10/18/2025 14:00:58
--- NOTE | ~2025-10-18 | CT_ITS ---
CLINICAL HISTORY: eval fxs CT of the right foot without IV contrast. COMPARISON: XR right foot dated 10/18/25 at 13:17 EST FINDINGS: Distal tibia and fibula are intact. Talus, calcaneus, cuboid, and navicular are intact. Nondisplaced comminuted fracture of the medial cuneiform. Nondisplaced fracture of the base of the 2nd metatarsal. Mildly-comminuted and displaced fracture of the base of the 3rd metatarsal. Mildly-comminuted and displaced fracture of the base of the 4th metatarsal. 5th metatarsal appears intact. Phalanges appear intact. Diffuse soft tissue edema overlying the forefoot and midfoot. Atherosclerotic vascular calcifications. IMPRESSION: 1. Nondisplaced comminuted fracture of the medial cuneiform. 2. Nondisplaced fracture of the base of the 2nd metatarsal. 3. Mildly-comminuted displaced fracture of the base of the 3rd and 4th metatarsals. 4. Diffuse soft tissue edema overlying the right forefoot and midfoot. This document has been electronically signed by: Momo Samuels MD on 10/18/2025 17:16:11
--- NOTE | 2025-10-18 12:27 | ED.GENADULT ---
HPI - General Adult General Chief complaint: Fall Stated complaint: Fall Time Seen by Provider: 10/18/25 13:43 Source: patient, RN notes reviewed and old records reviewed Mode of arrival: ambulatory History of Present Illness ED Provider: Adeline Crystal PA-C HPI narrative: 70-year-old female with a past medical history sigmoid colon cancer with liver metastasis currently on chemotherapy, anemia, HTN, HLD, hypothyroid, presenting to the ED complaining of two falls/questionable syncopal episodes while at [employer] 2 days ago. States she was feeling unwell prior to going shopping and then felt lightheaded / visual changes and fell with + head strike, states she stood up and then fell again. Patient cannot remember if she passed out or not. Reports pain to left ribs, bilateral knees, and right foot. Has been nonambulatory since incident secondary to foot pain. Reports pain to left chest with deep breaths. Denies SOB, abdominal pain, nausea /vomiting, neck/ back pain. Denies anticoagulation use. Last chemotherapy on Sunday - states recently started new regimen Related Data Home Medications ?Medication ?Instructions ?Recorded ?Confirmed ascorbic acid (vitamin C) 500 mg 500 mg PO DAILY 09/05/24 06/25/25 tablet (Vitamin C) ferrous sulfate 325 mg (65 mg 325 mg PO DAILY 02/17/25 06/25/25 iron) tablet loperamide 2 mg capsule 2 mg PO DAILY 02/17/25 06/25/25 nystatin 100,000 unit/mL oral 100,000 unit PO NEEDED 03/10/25 06/25/25 suspension food supplemt, lactose-reduced ea PO 06/25/25 06/25/25 0.04 gram-1 kcal/mL oral liquid (Boost) Previous Rx's ?Medication ?Instructions ?Recorded HUMIDIFIER #1 ea 10/26/23 psyllium husk 3.4 gram/5.4 gram 1 tsp PO BID #660 grams 07/22/24 oral powder (Metamucil) sodium chloride 0.65 % nasal spray 1 - 2 spray intranasal QID PRN 01/07/25 aerosol (Saline Mist) Nasal congestion 30 days #90 mL metoprolol succinate 25 mg 25 mg PO DAILY #90 tabs 01/23/25 tablet,extended release 24 hr gabapentin 100 mg capsule 100 mg PO BID #60 caps 02/17/25 disposable gloves (Vinyl Gloves) #100 ea 03/10/25 wipes #2 ea 03/10/25 duloxetine 60 mg capsule,delayed 60 mg PO .qhs #30 caps 03/11/25 release simvastatin 20 mg tablet 20 mg PO DAILY #90 tabs 04/20/25 ondansetron 8 mg disintegrating 8 mg PO Q8H #60 tabs 05/12/25 tablet lidocaine HCl 2 % mucosal solution 1 appl mucous membrane QID #250 mL 05/15/25 (Lidocaine Viscous) lidocaine 5 % topical patch 1 patch topical DAILY #30 ea 05/20/25 budesonide-formoterol HFA 80 2 puff inhalation BID #10.2 grams 06/25/25 mcg-4.5 mcg/actuation aerosol inhaler (Symbicort) Non slip mat #1 ea 07/09/25 levothyroxine 75 mcg tablet 75 mcg PO DAILY@0600 #90 tabs 07/16/25 Glucern/ vanilla flavor #30 ea 07/30/25 simethicone 125 mg chewable tablet 125 mg PO BID-QID PRN abdominal 08/12/25 (Gas Relief (simethicone)) distention #60 tabs omeprazole 20 mg capsule,delayed 20 mg PO DAILY #90 caps 08/13/25 release dexamethasone 4 mg tablet 4 mg PO BID #60 tabs 08/19/25 zolpidem 10 mg tablet 10 mg PO BEDTIME #30 tabs 08/25/25 Gloves medium #3 ea 08/28/25 Orthopedic pillow #1 ea 08/28/25 Wipes #3 ea 08/28/25 non-slip shower mat #1 ea 08/28/25 albuterol sulfate 90 mcg/actuation 2 puff inhalation Q6H PRN for 09/04/25 aerosol inhaler (Ventolin HFA) wheezing #18 grams Magic Mouthwash 10 ml PO TID #240 mL 09/08/25 Diphen/Nystat/Antacid 1:1:1 240 mL suspension orthopedic pillow #1 ea 09/22/25 tramadol 50 mg tablet 50 mg PO BID 30 days #60 tabs 09/23/25 fluticasone propionate 50 1 spray intranasal BID 30 days 09/28/25 mcg/actuation nasal #15.8 dalia spray,suspension loperamide 2 mg capsule 2 mg PO Q6H PRN Diarrhea #60 caps 10/07/25 sertraline 25 mg tablet 25 mg PO DAILY #90 tabs 10/12/25 Allergies Allergy/AdvReac Type Severity Reaction Status Date / Time No Known Allergies Allergy Verified 10/18/25 12:30 Review of Systems Review of Systems: Yes all other systems are reviewed and are negative Constitutional: Constitutional: Reports as per [facility] Past Medical History Attestation statement: The following information was validated with the patient. Source: old records reviewed Medical History Annual physical exam Encounter for annual routine gynecological examination Impacted cerumen of both ears Paronychia of finger Anemia Encounter for well woman exam with routine gynecological exam Colon cancer Colonic mass Recurrent UTI COVID-19 Abnormal weight loss Abdominal pain Abdominal cramping Pre-op examination Colon cancer screening Constipation Anemia Plantar fasciitis Low back pain Shingles Low back pain Pain of right hip Abnormal ultrasound of breast Vulvar itching Headache Cervical cancer screening Breast cancer screening by mammogram Colon cancer screening declined Colonoscopy refused Overweight (BMI 25.0-29.9) Vitamin B12 deficiency Impaired glucose tolerance Hypothyroid Hypercholesterolemia Hypertension Insomnia Carpal tunnel syndrome Surgical History Hx of surgical procedure (~04/22/24) H/O colonoscopy Family History Family History Father No problems noted. Mother No problems noted. Sister History of breast cancer, Onset Age: 50 Daughter Colon cancer Son Colon cancer Social History Social History Household Members: None Housing: Apartment Are you a primary assistant child care teacher to a significant other at home: No Do you presently have visiting nurse or other home services: No Alcohol intake: never Patient Tobacco Use Status: Never used Tobacco e-Cigarette/Vaping Use: Never Used Second Hand Smoke Exposure: No Advance Directives: No Advance Directives Information Provided: Yes service: No Current occupational status: retired Sexual orientation: Straight/Heterosexual Gender identity: Female Cognitive needs: No Hearing needs: No Vision needs: Yes Physical Exam ED Vital Signs: Vital Signs - 24 hr 10/18/25 12:25 10/18/25 16:45 10/18/25 16:49 Temperature 96.9 F Pulse Rate 77 49 L 59 Respiratory Rate 16 Blood Pressure 121/78 144/56 H 140/66 H Pulse Oximetry 98 Oxygen Delivery Method Room Air 10/18/25 16:55 10/18/25 17:03 Temperature 97.4 F Pulse Rate 80 52 Respiratory Rate 16 Blood Pressure 157/67 H 146/60 H Pulse Oximetry 99 Oxygen Delivery Method Room Air BMI result Body Mass Index 24.4 Const General: cooperative, healthy appearing and no acute distress Orientation/consciousness: patient oriented x3 Limitations: no limitations HENMT Other: + chin with swelling / ecchymosis and superficial abrasions. Closed laceration to right eyebrow Head: Yes normal to inspection Ears: hearing grossly normal bilaterally General nose exam: Normal external nose present Mouth: Normal oral and palatal mucosa present Eyes General: appearance normal, both eyes and all related structures Pupils: Equal, round and reactive pupils present EOM: EOMs intact bilaterally Neck Neck: Yes normal visual inspection and Yes no meningeal signs Chest Other: left anterior lateral lower rib reproducible tenderness. No rash or ecchymosis. No flail chest. Chest palpation & inspection: normal inspection of the chest, no crepitus and tenderness Resp Effort & Inspection: normal respiratory effort and no respiratory distress Auscultation: clear to auscultation bilaterally Cardio Rate: regular rate Heart sounds: S1 normal heart sound present and S2 normal heart sound present GI Inspection: Yes normal to inspection Palpation (GI): Soft to palpation, nontender, no guarding and not rigid Back/Spine/Pelvis Other: No midline cervical/thoracic/lumbar spinous tenderness/step-off or deformity Skin Rashes: no rashes Wounds: no wounds Neuro General: patient oriented x3, tone normal, moves all extremities, no meningeal signs, no focal motor deficits, CN's II-XI intact bilaterally and Unable to assess gait Cranial nerves: Yes CN's II-XII intact bilaterally, Yes Equal, round and reactive pupils present and Yes Bilaterally intact EOM present Gait exam (Neuro): Unable to assess gait Extrem Other: Bilateral knees with swelling/ ecchymosis and healing abrasions. Mildly tender to palpation. Right foot with noted swelling and ecchymosis. Tender to palpation. Neurovascularly intact distally bilaterally. Course Course Course Narrative: Rapid medical examination performed in triage by Rosalinda Land PA-C: Patient is a 70 year old assigned female at presenting to the emergency department with several episodes of passing out and falling. Detailed physical exam and review of systems are deferred to the admissions clinician. EKG, labs, imaging, and swabs ordered. Patient placed back in the waiting room pending room availability and results. - leukocytosis of 80.1 > suspect from chemotherapy / Neulasta. Low suspicion for severe sepsis. - BUN elevated to 23 - troponin 8.3 > will obtain repeat XR Knee Curtis 3V IMPRESSION: 1. No radiographic evidence of acute injury to the right and left knees. XR chest 2V IMPRESSION: 1. No consolidation. XR ankle RT min 3V IMPRESSION: 1. Transverse fractures of the base of the 2nd, 3rd and likely 4th metatarsals. Recommend CT of the foot for further characterization. XR foot RT min 3V IMPRESSION: 1. Nondisplaced transverse fracture of the base of the 3rd metatarsal. Suspect additional nondisplaced transverse fractures of the bases of the 2nd and 4th metatarsals. Recommend CT of the right foot for further characterization. > will obtain CT for further eval CT head/brain wo IV con IMPRESSION: 1. No acute intracranial findings. CT cervical spine wo IV con IMPRESSION: 1. No evidence of acute injury to the cervical spine. 2. Straightening of the normal cervical lordosis. -1600--lactic acid elevated to 2.6. No evidence of infectious etiology at this time. Case discussed with Heme/Onc Dr. Christian -suspect leukocytosis from Neulasta. Lactic acid not from chemo. We will cover empirically with antibiotics and plan for admission 1800--CT angio chest PE protocol IMPRESSION: 1. No evidence of pulmonary embolism. 2. No acute intrathoracic findings. No evidence of pneumonia. 3. Stable small pulmonary nodules in the upper lobes bilaterally since imaging performed in 2023. No new or growing pulmonary nodule identified. 4. Multiple ill-defined hepatic lesions similar to prior imaging and likely representing metastatic disease. CT foot RT wo IV con IMPRESSION: 1. Nondisplaced comminuted fracture of the medial cuneiform. 2. Nondisplaced fracture of the base of the 2nd metatarsal. 3. Mildly-comminuted displaced fracture of the base of the 3rd and 4th metatarsals. 4. Diffuse soft tissue edema overlying the right forefoot and midfoot. Coming in for >> posterior short-leg splint applied. Patient to be nonweightbearing -case discussed with hospitalist for admission Medications Administered Discontinued Medications Generic Name Dose Route Start Last Admin Trade Name Freq PRN Reason Stop Dose Admin Diphtheria/Tetanus/Acell Pertussis 0.5 ml 10/18/25 14:37 10/18/25 16:34 Diphth,Pertus(Acell),Tet Adult 0.5 Ml Syringe IM 10/18/25 14:38 0.5 ml .ONCE ONE Administration Sodium Chloride 1,000 mls @ 999 mls/hr 10/18/25 14:15 10/18/25 16:34 Ns IV 10/18/25 15:15 999 mls/hr .Q1H1M LOUIS Administration Sodium Chloride 1,000 mls @ 999 mls/hr 10/18/25 16:00 10/18/25 16:34 Ns IV 10/18/25 17:00 999 mls/hr .Q1H1M LOUIS Administration Piperacillin Sod/Tazobactam 50 mls @ 100 mls/hr 10/18/25 15:46 10/18/25 17:12 Sod 3.375 gm/ Sodium Chloride IV 10/18/25 16:15 Infused ONCE ONE Infusion Iohexol 100 ml 10/18/25 16:34 10/18/25 16:34 Iohexol 350 Mg/Ml 100 Ml Infus..Btl IV 10/18/25 16:35 65 ml ONCE ONE Administration Procedures Orthopedic Splinting/Casting Injury #1: Side: right Lower Extremity Injury Location: foot Lower Extremity Immobilizer: posterior splint Other Orthopedic Equipment: crutches Medical Decision Making Medical Decision Making MDM Narrative: 70-year-old female with a past medical history sigmoid colon cancer with liver metastasis currently on chemotherapy, anemia, HTN, HLD, hypothyroid, presenting to the ED complaining of two falls/questionable syncopal episodes while at [employer] 2 days ago. Reports pain to left ribs, bilateral knees, and right foot. On exam vital signs stable, NAD, nontoxic appearing, physical exam as noted above. No focal deficits. Concern for PE with patient's cancer history / ?syncopal episodes vs metabolic abnormalities vs reaction to new chemotherapy. Rule out infectious etiology. Rule out fractures and ICH. low suspicion for severe sepsis at this time Plan: EKG, labs, UA, x-rays/imaging Please refer to course for remaining clinical decision making, interpretation of labs/imaging results, and discussions with consultants and/or family members. 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 10/18/25 12:45 10/18/25 12:45 Labs: Lab Results 10/18/25 10/18/25 Range/Units 12:45 15:12 WBC 80.1 H* (4.8-10.8) X10*3/uL RBC 4.41 (4.20-5.50) X10*6/uL Hgb 13.1 (12.0-16.0) g/dl Hct 40.1 (37.0-47.0) % MCV 90.9 (80.0-98.0) fL MCH 29.7 (27.0-33.0) pg MCHC 32.7 (31.0-35.0) g/dl RDW 16.9 H (11.0-16.0) % Plt Count 114 L D (160-400) X10*3/uL MPV 10.2 (9.4-12.3) fL Immature Gran % (Auto) Cancelled Neut % (Auto) Cancelled Lymph % (Auto) Cancelled Citrus % (Auto) Cancelled Eos % (Auto) Cancelled Baso % (Auto) Cancelled Lymph # (Auto) Cancelled Citrus # (Auto) Cancelled Eos # (Auto) Cancelled Baso # (Auto) Cancelled Abs Immat Gran (auto) Cancelled Absolute Neuts (auto) Cancelled Absolute Nucleated RBC 0.000 (0.0-0.012) X10*3/uL Nucleated RBC % (auto) 0.0 (0.0-0.2) /100WBC Neutrophils % (Manual) 99 H (45-73) % Band Neutrophils % 0 L (3-5) % Lymphocytes % (Manual) 1 L (20-40) % Abs Neuts (Manual) 79.3 H (2.0-8.3) X10*3/uL Lymphocytes # (Manual) 0.8 L (1.2-4.9) X10*3/uL Hypersegmented Neuts PRESENT Toxic Vacuolation PRESENT Dohle Bodies PRESENT Platelet Estimate DECREASED (NORMAL) Plt Morphology Comment NORMAL RBC Morphology NOTED Ovalocytes 1+ (5-14) /OIF Lucian Cells 1+ (0-2) /OIF PT 13.1 (11.2-13.5) SEC INR 1.1 (0.9-1.1) Sodium 139 (135-145) mmol/L Potassium 3.7 (3.3-5.1) mmol/L Chloride 102 (96-108) mmol/L Carbon Dioxide 24 (22-29) mmol/L Anion Gap 17 (12-20) BUN 23 H (9-16) mg/dL Creatinine 0.82 (0.5-1.4) mg/dL Estim Creat Clear Calc 51.1 Estimated GFR > 60 Random Glucose 166 H (60-115) mg/dL Lactic Acid 2.6 H* (0.5-2.0) mmol/L Calcium 8.7 (8.4-10.2) mg/dL Magnesium 2.0 (1.6-2.6) mg/dL Total Bilirubin 0.9 (0.0-1.0) mg/dL AST 30 (5-31) U/L ALT 19 (0-31) U/L Alkaline Phosphatase 341 H (39-117) U/L Troponin I High Sens 8.3 D 10.9 (<3.5-17.0) ng/L Total Protein 6.2 L (6.5-8.0) g/dL Albumin 4.0 (3.5-5.0) g/dL Influenza Type A (PCR) NEGATIVE (Negative) Influenza Type B (PCR) NEGATIVE (Negative) RSV RNA Qual (PCR) NEGATIVE (Negative) SARS-CoV-2 RNA (RT-PCR) NEGATIVE (Negative) Independent Interpretation I performed an independent interpretation of an: EKG ( my interpretation: EKG normal sinus rhythm rate of 69. MO interval 174. T-wave inversion no longer evident in anterior leads when compared to prior. No STEMI), Plain X-Ray and CT Scan Radiology Impression Discussion of test interpretation with radiology: I have reviewed the radiologist's reading. Independent Historian Clinical information obtained from an independent historian. History obtained from or confirmed by: Other ( daughter) External Record Review External record reviewed: Inpatient record, Office record, Outpatient record, Prior outpatient labs, Prior outpatient radiology, Primary care record and Outside ED record Tests considered The following testing was considered but not selected: As above Prescription Management I considered prescription management with: Pain Medication Chronic Conditions Patient?s care impacted by: Cancer Social Determinants Patient?s care significantly limited by Social Determinants of Health including: Other Social Determinant of Health Critical Care Time Critical Care Time Critical Care Time: Yes Total Critical Care Time: 45 Attestation: I have personally provided critical care time exclusive of time spent on separately billable procedures. Time includes review of lab data, radiology results, discussion with consultants, and monitoring for potential decompensation. Intervention performed as documented. Discharge Plan Discharge Clinical Impression: Metatarsal fracture, Fracture of medial cuneiform, Syncope, Leukocytosis, Acidosis, lactic Patient Disposition: Admitted As Inpatient Print Language: Persian
--- NOTE | 2025-10-18 12:28 | ECG_ITS ---
Test Reason : syncope Blood Pressure : */* mmHG Vent. Rate : 69 BPM Atrial Rate : 69 BPM P-R Int : 174 ms QRS Dur : 120 ms QT Int : 414 ms P-R-T Axes : 76 -45 26 degrees QTcB Int : 443 ms Normal sinus rhythm Right bundle branch block Left anterior fascicular block Bifascicular block Abnormal ECG When compared with ECG of 05-Sep-2024 14:41, T wave inversion no longer evident in Anterior leads Referred By: Rosalinda Land Electronically Signed By: Isaac Hussein
[2025-10-18 13:02] LABS: Hematocrit 40.1 % (37.0-47.0); Hemoglobin 13.1 g/dl (12.0-16.0); Mean Corpuscular HGB Conc 32.7 g/dl (31.0-35.0); Mean Corpuscular Hemoglobin 29.7 pg (27.0-33.0); Mean Corpuscular Volume 90.9 fL (80.0-98.0); NRBC Abs Auto 0.000 X10*3/uL (0.0-0.012); NRBC Pct Auto 0.0 /100WBC (0.0-0.2); Platelet Count 114 X10*3/uL (160-400); Red Blood Count 4.41 X10*6/uL (4.20-5.50)
[2025-10-18 13:10] LABS: INTERNATIONAL NORM RATIO 1.1 (0.9-1.1); Prothrombin Time 13.1 SEC (11.2-13.5)
[2025-10-18 13:11] LABS: WBC ABN SCTR FOR CBC 1
[2025-10-18 13:20] LABS: Alanine Aminotransferase 19 U/L (0-31); Albumin Level 4.0 g/dL (3.5-5.0); Alkaline Phosphatase 341 U/L (39-117); Anion Gap 17 (12-20); Aspartate Amino Transferase 30 U/L (5-31); Blood Urea Nitrogen 23 mg/dL (9-16); Calcium 8.7 mg/dL (8.4-10.2); Carbon Dioxide 24 mmol/L (22-29); Chloride 102 mmol/L (96-108); Creatinine Clr Calc Pharmacy 51.1; Estimated Glomerular Filt Rate > 60; Magnesium 2.0 mg/dL (1.6-2.6); Potassium 3.7 mmol/L (3.3-5.1); Sodium 139 mmol/L (135-145); Total Protein 6.2 g/dL (6.5-8.0)
[2025-10-18 13:24] LABS: White Blood Count 80.1 X10*3/uL (4.8-10.8)
[2025-10-18 13:26] LABS: Band Neutrophils Percent 0 % (3-5); Lymphocytes Absolute Manual 0.8 X10*3/uL (1.2-4.9); Lymphocytes Percent Manual 1 % (20-40); Neutrophils Absolute Manual 79.3 X10*3/uL (2.0-8.3); Neutrophils Percent Manual 99 % (45-73)
[2025-10-18 13:27] LABS: Ovalocytes 1+ (5-14) /OIF; RBC Morphology NOTED; Troponin-I High Sensitivity 8.3 ng/L (<3.5-17.0)
[2025-10-18 13:28] LABS: Burr Cells 1+ (0-2) /OIF; Dohle Bodies PRESENT; Hypersegmented Neutrophils PRESENT; Toxic Vacuolation PRESENT
[2025-10-18 13:44] LABS: Resp Syncy Virus RNA Qual PCR NEGATIVE (Negative); SARS COV2 PCR INHOUSE NEGATIVE (Negative)
--- NOTE | 2025-10-18 13:54 | PC.NURSE ---
Pt states on Sunday at [facility] had episode of dizziness, fell, didnt feel right while in [place], went home and fell attempting to walk into her house. Pt states shes currently undergoing tx for liver CA and is undergoing chemo w/ the last infusion last treatment was last Sunday. Pt c/o L thoracic pain, bilat knee pain, and R foot pain.
--- OUTSIDE RECORDS SUMMARY | 2025-10-18 14:20 | XMS_ITS | Clinical Summary ---
Author Organization [address] [facility] Address [address] [place] [address] Phone Care Team Providers Care Director Network Development Name Role Phone Physician, Pcp Unknown Primary [...] ODT (ZOFRAN-ODT) 8 mg disintegrating tablet TOME FRANCIE TABLETA POR V A ORAL CADA OCHO [...] 11:00 AM EDT Consult General Surgery - [address] [place] [phone] Don Contreras MD Metastasis to liver [...] Last Done Comments Breast Cancer Screening 1955 Colorectal Cancer Screening: Colonoscopy 1955 COVID-19 Vaccine (3 - Modern a risk series) 07/06/2021 06/08/2021, 05/11/2021 Pneumococcal Vaccine: 50+ Years (2 of 2 - PCV) 07/04/2022 07/04/2021 Depression Screening 11/26/2024 Falls Risk Assessment 07/01/2025 Hepatitis C Screening [...] LAB HEMETOLOGY METHOD 07/22/2025 2:32 PM EDT [facility] RBC 4.20 3.80 - 4.80 M/mcL LAB HEMETOLOGY METHOD 07/22/2025 2:32 PM EDT [facility] Hemoglobin 11.8 11.5 - 16.0 g/dL LAB HEMETOLOGY METHOD 07/22/2025 2:32 PM EDT [facility] Hematocrit 38.4 35.0 - 47.0 % LAB HEMETOLOGY METHOD 07/22/2025 2:32 PM EDT [facility] MCV 92.5 79.0 - 98.0 FL LAB HEMETOLOGY METHOD 07/22/2025 2:32 PM EDT [facility] MCH 28.4 27.0 - 32.0 pcg LAB HEMETOLOGY METHOD 07/22/2025 2:32 PM EDT [facility] MCHC 30.7(L) 32.0 - 37.0 g/dL LAB HEMETOLOGY METHOD 07/22[facility]25 [facility] RDW 15.4(H) 11.0 - 15.0 % LAB HEMETOLOGY METHOD 07/22/2025 2:32 PM EDT [facility] Platelets 240 130 - 400 K/mcL LAB HEMETOLOGY METHOD 07/22/2025 2:32 PM EDT [facility] MPV 10.4 7.0 - 11.0 FL LAB HEMETOLOGY METHOD 07/22/2025 2:[facility] NRBC 0.0 <1.0 % LAB HEMETOLOGY METHOD 07/22/2025 2:32 PM EDT [facility] NRBC Absolute 0.00 <0.10 K/mcL LAB HEMETOLOGY METHOD 07/22/2025 2:32 PM EDT [facility] Neutrophils Relative 62.5 % LAB HEMETOLOGY METHOD 07/22/2025 2:32 PM EDT [facility] Lymphocytes Relative 23.4 % LAB HEMETOLOGY METHOD 07/22/2025 2:[facility] Monocytes Relative 9.5 % LAB HEMETOLOGY METHOD 07/22/2025 2:32 PM EDT [facility] Eosinophils Relative 3.6 % LAB HEMETOLOGY METHOD 07/22/2025 2:32 PM EDT [facility] Basophils Relative 0.6 % LAB HEMETOLOGY METHOD 07/22/2025 2:32 PM EDT [facility] Immature Granulocytes Relative 0.4 % LAB HEMETOLOGY METHOD 07/22/2025 2:32 PM EDT [facility] Neutrophils Absolute 2.96 1.50 - 7.00 K/mcL LAB HEMETOLOGY METHOD 07/22/2025 2:32 PM EDT [facility] Lymphocytes Absolute 1.11 1.00 - 5.00 K/mcL LAB HEMETOLOGY METHOD 07/22/2025 2:32 PM EDT [facility] Monocytes Absolute 0.45 0.20 - 1.00 K/mcL LAB HEMETOLOGY METHOD 07/22/2025 2:32 PM EDT [facility] Eosinophils Absolute 0.17 0.00 - 0.50 K/mcL LAB HEMETOLOGY METHOD 07/22/2025 2:32 PM EDT [facility] Basophils Absolute 0.03 0.00 - 0.20 K/mcL LAB HEMETOLOGY METHOD 07/22/2025 2:32 PM EDT [facility] Immature Granulocytes Absolute 0.02 0.00 - 0.03 K/mcL LAB HEMETOLOGY METHOD 07/22/2025 2:32 PM EDT [facility] Blood Venous blood specimen / Unknown Venipuncture / Unknown 07/22/2025 12:15 PM EDT 07/22/2025 12:15 PM EDT us Don Contreras MD LAB BLOOD ORDERABLES Final Result [facility] [address] [place] [address], * (ABNORMAL) Cancer antigen 19-9 (07/22/2025 12:15 PM EDT) CA 19-9 1396.3(H) <=35 U/mL 07/28/2025 2:33 PM EDT [facility] Comment: The Siemens Advia Centaur CA199 Chemiluminescent Immunoassay is used. Results obtained with different assay methods or kits cannot be used interchangeably. Results cannot be interpreted as absolute evidence of the presence or absence of malignant disease. Test performed at [facility], [address] , [place] [address] Martina Marcos MD, PhD - Regulatory Manager Blood Venous blood specimen / Unknown Venipuncture / Unknown 07/22/2025 12:15 PM EDT 07/22/2025 12:15 PM EDT us Don Contreras MD LAB BLOOD ORDERABLES Final Result Performing Organization Address [facility] Co de Phone Number [facility] [address] [place] [address] * (ABNORMAL) CEA (07/22/2025 12:15 PM EDT) Pathologist [facility] CEA 33.0(H) 0.0 - 5.0 ng/mL LAB CHEMISTRY METHOD 07/22/2025 4:45 PM EDT [facility] Blood Venous blood specimen / Unknown Venipuncture / Unknown 07/22/2025 12:15 PM EDT 07/22/2025 12:15 PM EDT Narrative [facility] - 07/22/2025 4:45 PM EDT The Siemens Advia Centaur Chemiluminescent Immunoassay is used. Results obtained with different assay methods or kits cannot be used interchangeably. Results cannot be interpreted as absolute evidence of the presence or absence of malignant disease. us Don Contreras MD LAB BLOOD ORDERABLES Final Result Performing Organization Address City/[facility]/ZIP Co de Phone Number [facility] [address] [place] [address], [place] [phone] * (ABNORMAL) Comprehensive metabolic panel (07/22/2025 12:15 PM EDT) Sodium 140 133 - 145 mmol/L LAB CHEMISTRY METHOD 07/22/2025 4:32 PM [facility] Potassium 4.4 3.5 - 5.5 mmol/L LAB CHEMISTRY METHOD 07/22/2025 4:32 PM [facility] Chloride 105 96 - 110 mmol/L LAB CHEMISTRY METHOD 07/22/2025 4:32 PM [facility] CO2 30 21 - 32 mmol/L LAB CHEMISTRY METHOD 07/22/2025 4:32 PM [facility] Anion Gap 5 3 - 11 LAB CHEMISTRY METHOD 07/22/2025 4:32 PM [facility] Glucose 94 70 - 100 mg/dL LAB CHEMISTRY METHOD 07/22/2025 4:32 PM [facility] BUN 13 5 - 25 mg/dL LAB CHEMISTRY METHOD 07/22/2025 4:32 PM [facility] Creatinine 0.67 0.50 - 1.10 mg/dL LAB CHEMISTRY METHOD 07/22/2025 4:32 PM [facility] eGFR 95 >=60 mL/min/1. 73m2 LAB CHEMISTRY METHOD 07/22/2025 4:32 PM [facility] Comment:Calculation based on the Chronic Kidney Disease Epidemiology Collaboration (CKD-EPI) equation refit without adjustment for race. BUN/Creatinine Ratio 19.4 LAB CHEMISTRY METHOD 07/22/2025 4:32 PM [facility] Calcium 9.4 8.5 - 10.5 mg/dL LAB CHEMISTRY METHOD 07/22/2025 4:32 PM [facility] AST (SGOT) 90(H) 10 - 42 unit/L LAB CHEMISTRY METHOD 07/22/2025 4:32 PM EDT [facility] ALT (SGPT) 119(H) 10 - 60 unit/L LAB CHEMISTRY METHOD 07/22/2025 4:32 PM EDT [facility] Alkaline Phosphatase 365(H) 42 - 121 unit/L LAB CHEMISTRY METHOD 07/22/2025 4:32 PM EDT [facility] Total Protein 7.1 6.0 - 8.0 g/dL LAB CHEMISTRY METHOD 07/22/2025 4:32 PM EDT [facility] Albumin 3.9 3.2 - 5.0 g/dL LAB CHEMISTRY METHOD 07/22/2025 4:32 PM EDT [facility] Total Bilirubin 0.5 0.0 - 1.4 mg/dL LAB CHEMISTRY METHOD 07/22/2025 4:32 PM EDT [facility] Blood Venous blood specimen / Unknown Venipuncture / Unknown 07/22/2025 12:15 PM EDT 07/22/2025 12:15 PM EDT Don Contreras MD LAB BLOOD ORDERABLES Final Result [facility] [address] [place] [address], from Last 3 Months Insurance [facility] [employer] Member Subscriber Plan / Payer (Ef fective 2021-Present) Name:Sandra Elizondo Relation to Subscriber:Self Name:Mikhail Sandra Payer ID:[id number] Group ID:Not on file Type:Not on file Address: [place] [address] [id number] [facility] Member Subscriber Plan / Payer (Ef fective 2021-Present) Name:Sandra Elizondo Relation to Subscriber:Self Name:Sandra Elizondo Payer ID:[id number] Group ID:[id number] Type:Not on file Address: [facility] [address] [id number] Care Teams Director Network Development Relationship Specialty Start Date End Date Physician, Pcp Unknown PCP - General 07/23/25
[2025-10-18 15:39] LABS: Troponin-I High Sensitivity 10.9 ng/L (<3.5-17.0)
[2025-10-18] MEDS: iohexoL 350 MG/ML 100 ML INFUS..BTL IV (16:34)
[2025-10-18] MEDS: Diphth,Pertus(ACell),Tet Adult 0.5 ML SYRINGE IM (16:34)
[2025-10-18 17:18] LABS: Reflex Lactate? Lactic Acid Added
[2025-10-18 18:39] LABS: Appearance Urine Clear; Glucose Urine UA Negative (Negative); PH 7.0 (5.0-9.0); Specific Gravity - Urine 1.025 (1.005-1.025)
[2025-10-18 19:05] LABS: ~Lactic Acid-LAB USE ONLY 2.5 mmol/L (0.5-2.0)
--- NOTE | 2025-10-18 19:25 | P.HPHOSP_ITS ---
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 Patient states she walked approximately 1 mi from in the rain from her home where she lives alone to the stop and shop and fell within the stop and shop. Patient then continued with her shopping needs and returned home and fell again. Patient reports possible loss of consciousness as she has a strike to the chin and above the right eye with a small laceration as well as severe foot pain in the right foot. Pt unsure how long she was out for with the second fall. Patient denies any chest pain at the time of these events and currently denies any chest pain or shortness of breath, nausea or vomiting. Patient did not have any fever or chills. Patient states she has done this before (walked to the store) and she is very stubborn and felt she could do it again. Patient states her son does help her with many of her IADLs and she does not currently have help coming into the home. Patient's last chemotherapy was this past Sunday and patient's continuous chemo finished on . Patient has been receiving Neulasta per Hem/Onc tp ED provider. Hemodynamics currently stable. Workup in the ED included head CT and CT of the cervical spine which were negative for any acute findings.X-ray of the foot noted possible nondisplaced transverse fracture of the base of the 3rd metatarsal as well as the 2nd and 4th metatarsals. CT of the foot confirmed nondisplaced comminuted fracture of the medial cuneiform, of the 2nd metatarsal and mildly comminuted displaced fracture of the base of the 3rd and 4th metatarsals. Diffuse soft tissue edema noted overlying the right forefoot and midfoot. A splint is currently in place done by ED provider. Patient is reporting 7/10 right foot pain. CTA negative for PE or consolidations. Knee x-rays negative for effusions noting patient has bilateral abrasions from her falls. Patient is not currently on blood thinners. Pt does have an abrasion to lower chin from her fall but denies any problems opening mouth, swallowing, loss of dentition or tongue issues. Laceration above R eye does not require intervention. ECG noted for Bifasicular block, new for this pt after review of previous ECGs with noted RBBB. Patient came in with a leukocytosis of 80 K. ED provider reviewed this with Hematology Oncology and states that patient is on Neulasta which may be prompting this although the numbers higher than expected. Again to reiterate patient does not have fever, chills, nausea or vomiting or evidence of sepsis. Lactic acid is elevated 2.6 - 2.5. UA is negative. CTA neg for consolidations, PNA. PT neg for COVID, FLU and RSV. Hem/Onc will see pt in the AM per ED record. Review of Systems 2 Review of Systems: Patient currently denies any chest pain, shortness of breath at rest, nausea, vomiting, abdominal pain. Patient denies any diarrhea or constipation issues at this time. Patient is reporting 7/10 in the right foot secondary to noted fractures of the metatarsals, currently 2-day-old. Patient denies any headache, visual, trouble swallowing. Patient believes she did have some loss of consciousness with likely the 2nd fall that occurred at home after patient walked [address] to the stop and shop in the rain. Patient's 1st fall state she states occurred at stop and shop. Yes all other systems are reviewed and are negative [facility] History Annual physical exam Encounter for annual routine gynecological examination Impacted cerumen of both ears Paronychia of finger Anemia Encounter for well woman exam with routine gynecological exam Colon cancer Colonic mass Recurrent UTI COVID-19 Abnormal weight loss Abdominal pain Abdominal cramping Pre-op examination Colon cancer screening Constipation Anemia Plantar fasciitis Low back pain Shingles Low back pain Pain of right hip Abnormal ultrasound of breast Vulvar itching Headache Cervical cancer screening Breast cancer screening by mammogram Colon cancer screening declined Colonoscopy refused Overweight (BMI 25.0-29.9) Vitamin B12 deficiency Impaired glucose tolerance Hypothyroid Hypercholesterolemia Hypertension Insomnia Carpal tunnel syndrome Cognitive capacity: Alert and orientated x3 Functional capacity: independent ambulation (Prior to falls) Patient : No Family History Father No problems noted. Mother No problems noted. Sister History of breast cancer, Onset Age: 50 Daughter Colon cancer Son Colon cancer Surgical History Hx of surgical procedure (~04/22/24) H/O colonoscopy Social History Household Members: None Housing: Apartment Are you a primary account executive healthcare to a significant other at home: No Do you presently have visiting nurse or other home services: No Alcohol intake: never Patient Tobacco Use Status: Never used Tobacco Smoked in Last 30 Days: No e-Cigarette/Vaping Use: Never Used Second Hand Smoke Exposure: No Use of substances other than those prescribed or required for medical reasons: No Advance Directives: No Advance Directives Information Provided: Yes Patient : No service: No Current occupational status: retired Sexual orientation: Straight/Heterosexual Gender identity: Female Cognitive needs: No Hearing needs: No Vision needs: Yes Ebola Risk: Travel/Contact With Anyone From Affected Area/s: No Has Patient Experienced Ebola Symptoms: No Meds Allergies Allergy/AdvReac Type Severity Reaction Status Date / Time No Known Allergies Allergy Verified 10/18/25 12:30 Active Medications: Current Medications Acetaminophen (Acetaminophen 325 Mg Tablet) 650 mg PO Q6H PRN PRN Reason: Pain, Mild 1-3,fever,headache Albuterol/Ipratropium (Albuterol/Iprat 2.5/0.5mg 3 Ml Ampul.Neb) 3 ml INHALE Q4H PRN PRN Reason: Shortness of Breath/Wheezing Calcium Carbonate (Calcium Carbonate 750 Mg Tab.Chew) 750 mg PO Q4H PRN PRN Reason: Heartburn Enoxaparin Sodium (Enoxaparin Sodium 40 Mg/0.4 Ml Syringe) 40 mg SUBCUT Q24H L[place]IS Magnesium Hydroxide (Milk Of Magnesia 30 Ml Oral.Susp) 30 ml PO DAILY PRN PRN Reason: Constipation Melatonin (Melatonin 3 Mg Tablet) 6 mg PO BEDTIME PRN PRN Reason: Insomnia Polyethylene Glycol (Polyethylene Glycol 3350 17 Gm Powd.Pack) 17 gm PO DAILY PRN PRN Reason: Constipation Senna (Sennosides 8.6 Mg Tablet) 17.2 mg PO BEDTIME LOUIS Sodium Chloride (0.9 % Sodium Chloride Flush 3 Ml Syringe) 3 ml IVFLUSH QSHIFT LOUIS Home Medications ?Medication ?Instructions ?Recorded ?Confirmed ?Last Taken ?Type ascorbic acid (vitamin C) 500 mg 500 mg PO DAILY 09/0506/25/25 09/03/24 History tablet (Vitamin C) ferrous sulfate 325 mg (65 mg 325 mg PO DAILY 02/17/25 06/25/25 Unknown History iron) tablet loperamide 2 mg capsule 2 mg PO DAILY 02/17/2506/25 Unknown History nystatin 100,000 unit/mL oral 100,000 unit PO NEEDE D 03/10/25 06/25/25 Unknown History suspension food supplemt, lactose-reduced ea PO 06/25/25 06/25/25 Unknown History 0.04 gram-1 kcal/mL oral liquid (Boost) Physical Exam 2 Vital Signs and Narrative: Vital Signs: Last Vital Signs Temp 97.4 F 10/18/25 17:03 Pulse 52 10/18/25 17:03 Resp 16 10/18/25 17:03 BP 146/60 H 10/18/25 17:03 Pulse Ox 99 10/18/25 17:03 O2 Del Method Room Air 10/18/25 17:03 BMI result Body Mass Index 24.4 Alert and orientated X3, able to give good history. Guamanian-speaking only, marketing information coordinator used Neuro: CN II-X11 intact, no deficits, visual acuity intact EYES: PERRLA, EOM intact, sclerae nonicteric, conjunctiva pink ENT: hearing intact, no issues with swallowing, uvula midline, lips moist, nares patent no epistaxis, bruising noted left lower chin, no evidence of lost dentition or tongue laceration, 1/2 inch linear abrasion above right eye currently closed Cardiac: S1 S2 RRR, no murmur, no JVD, no edema inL Lower ext Pulmonary: lungs clear to auscultation B Abdominal: BS active in all 4 quadrants, no guarding, tenderness, rebounding MSK: strength 4/5 upper and L lower extremities, unable to assess strength in right lower extremity : no CVA tenderness no bladder distension Extremities: no edema in L lower extremityy, PT and DP pulses palpable +2 B, RLE wrapped, splinted, swollen toes warm cap refill Less than 2 sec Psych: mood stable, judgement and insight good Skin: 0.5 in laceration above r eye, closed. Bruising under R chin. Abrasions and bruising B knees. Unable to view AR foot, as it is splinted and wrapped. Results Labs 10/18/25 12:45 10/18/25 12:45 Labs: Laboratory Results - last 24 hr 10/18/25 10/18/25 10/18/25 12:45 15:12 18:21 MCV 90.9 MCH 29.7 MCHC 32.7 RDW 16.9 H Plt Count 114 L D MPV 10.2 Immature Gran % (Auto) Cancelled Neut % (Auto) Cancelled Lymph % (Auto) Cancelled [place] % (Auto) Cancelled Eos % (Auto) Cancelled Baso % (Auto) Cancelled Lymph # (Auto) Cancelled [place] # (Auto) Cancelled Eos # (Auto) Cancelled Baso # (Auto) Cancelled Abs Immat Gran (auto) Cancelled Absolute Neuts (auto) Cancelled Absolute Nucleated RBC 0.000 Nucleated RBC % (auto) 0.0 Neutrophils % (Manual) 99 H Band Neutrophils % 0 L Lymphocytes % (Manual) 1 L Abs Neuts (Manual) 79.3 H Lymphocytes # (Manual) 0.8 L Hypersegmented Neuts PRESENT Toxic Vacuolation PRESENT Dohle Bodies PRESENT Platelet Estimate DECREASED Plt Morphology Comment NORMAL RBC Morphology NOTED Ovalocytes 1+ (5-14) Lucian Cells 1+ (0-2) PT 13.1 INR 1.1 Anion Gap 17 Estim Creat Clear Calc 51.1 Estimated GFR > 60 Random Glucose 166 H Lactic Acid 2.6 H* Lactic Acid F/U @ 2Hr Calcium 8.7 Magnesium 2.0 Total Bilirubin 0.9 AST 30 ALT 19 Alkaline Phosphatase 341 H Troponin I High Sens 8.3 D 10.9 Total Protein 6.2 L Albumin 4.0 Urine Color Yellow Urine Appearance Clear Urine pH 7.0 Ur Specific [place] 1.025 Urine Protein Negative Urine Glucose (UA) Negative Urine Ketones Negative Urine Blood Negative Urine Nitrite Negative Ur Leukocyte Esterase Negative Influenza Type A (PCR) NEGATIVE Influenza Type B (PCR) NEGATIVE RSV RNA Qual (PCR) NEGATIVE SARS-CoV-2 RNA (RT-PCR) NEGATIVE 10/18/25 18:30 MCV MCH MCHC RDW Plt Count MPV Immature Gran % (Auto) Neut % (Auto) Lymph % (Auto) [place] % (Auto) Eos % (Auto) Baso % (Auto) Lymph # (Auto) [place] # (Auto) Eos # (Auto) Baso # (Auto) Abs Immat Gran (auto) Absolute Neuts (auto) Absolute Nucleated RBC Nucleated RBC % (auto) Neutrophils % (Manual) Band Neutrophils % Lymphocytes % (Manual) Abs Neuts (Manual) Lymphocytes # (Manual) Hypersegmented Neuts Toxic Vacuolation Dohle Bodies Platelet Estimate Plt Morphology Comment RBC Morphology Ovalocytes Lucian Cells PT INR Anion Gap Estim Creat Clear Calc Estimated GFR Random Glucose Lactic Acid Lactic Acid F/U @ 2Hr 2.5 H* Calcium Magnesium Total Bilirubin AST ALT Alkaline Phosphatase Troponin I High Sens Total Protein Albumin Urine Color Urine Appearance Urine pH Ur Specific [place] Urine Protein Urine Glucose (UA) Urine Ketones Urine Blood Urine Nitrite Ur Leukocyte Esterase Influenza Type A (PCR) Influenza Type B (PCR) RSV RNA Qual (PCR) SARS-CoV-2 RNA (RT-PCR) Assessment and Plan (1) Syncope: Qualifiers: Syncope type: unspecified Qualified Code(s): R55 - Syncope and collapse Status: Acute (2) Metatarsal fracture: Qualifiers: Encounter type: initial encounter Fracture alignment: nondisplaced F racture type: closed Laterality: right Metatarsal bone: unspecified metatarsal Qualified Code(s): S92.301A - Fracture of unspecified metatarsal bone(s), right foot, initial encounter for closed fracture Status: Acute (3) Fracture of medial cuneiform: Qualifiers: Encounter type: initial encounter Fracture alignment: nondisplaced F racture type: closed Laterality: right Qualified Code(s): S92.244A - Nondisplaced fracture of medial cuneiform of right foot, initial encounter for closed fracture Status: Acute Plan Patient is a 70 year old female Guamanian-speaking only with past medical history prediabetes, 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 Patient states she walked approximately 1 mi from home in the rain from her home where she lives alone to the stop and shop and fell within the stop and shop. Patient then continued with her shopping needs and returned home and fell again. Patient reports possible loss of consciousness as she has a strike to the chin and above the right eye with a small laceration as well as severe foot pain in the right foot. Pt lives alone and was alone during fall at home. Patient being admitted for noted leukocytosis on Neulasta, right foot fracture and possible syncopal episodes. Syncope with fall X2, walked 2 plus miles to and from store, recent chemo ECG with new Bifasicular block, hx of RBBB - neg for CP Cardiology consulted Echo ordered Telemetry Electrolytes stable Orthostatics Qs X3 CT HEAD, Spine neg for acute fractures, noted R foot fractures, see below Pt is not currently on blood thinners Leukocytosis/ thrombocytopenia on Chemotherapy for stage 4 colon cancer (mets to liver) HEM/ONC consulted, aware pt is admitted, will see in AM No obvious infection or sepsis, no bandemia Pt is on neulasta Monitor for fever, chills BC X2 pending Neg for COVID, FLU and RSV Pt received one dose of Zosyn in ED, will hold on continuing ABX as UA, CTA negative PLts 114 K, stable no indication for platelet transfusion Metatarsal fractures secondary to fall Orthopedics consulted for overview and DC plan Dilaudid low dose for severe pain Oxycodone for moderate pain, bowel regimen ordered Non wt bearing R foot Elevate R leg PT eval as needed Acute Lactic acidosis Likely secondary to falls, liver metastasies Checking CK level, pt unsure how long she was out with second fall As above, note leukocytosis on neulasta Subclinical Hypothyroidism on Levothyroxine TSH 28, FT4 WNL Increasing Levothyroxine to 100 mcg daily, as TSH is >10, take 30 mins prior to eating Repeat labs in 4 weeks HTN Hold metoprolol noting syncopal episodes, abd ECG Hydralazine prn IV for now HLD Continue simivastatin LFTs stable GERD Continue omeprazole Avoid food triggers DVT prophylaxis: Lovenox Med rec pending Full code status: Reviewed with patient at the bedside Patient requires at least 2 midnight stay for professional consultation noting diagnoses above, to include hematology oncology, Orthopedics and Cardiology. Patient will require hemodynamic monitoring via telemetry during her stay. Quality Stroke Does the patient have a stroke diagnosis?: No Reason for No Anti-thrombotic by Day Two: N/A - Med Ordered VTE Prior VTE?: No VTE Risk Level:: Medical - moderate - high VTE Device Contraindication: N/A - Device Ordered VTE Drug Contraindication: N/A - Med Ordered
[2025-10-18 19:48] LABS: NT Pro B Type Natriuretic Pept 211.7 pg/mL (<300)
[2025-10-18 20:34] LABS: Reflex Lactate? 2 Y
[2025-10-18 20:54] LABS: Free T4 (Free Thyroxine) 0.94 ng/dL (0.71-1.85)
[2025-10-18 22:21] LABS: ~Lactic Acid-LAB USE ONLY 2.5 mmol/L (0.5-2.0)
[2025-10-19] VITALS (12 sets, daily range): BP systolic 132–188; BP diastolic 63–82; PULSE 54–73; RESP 16–18; TEMP 36.5–37.2; O2SAT 98–99; BMI 23.2
--- NOTE | 2025-10-19 07:00 | CA_ITS ---
Transthoracic Echocardiogram Patient (Last, First, Middle): Sandra Elizondo J Gender: Female Date of : 1955 Age: 70 Procedure Date: 10/19/2025 Procedure Type: Transthoracic Echocardiogram [place] [facility] [place]: 152.4 cm Weight: 53.98 kg BSA: 1.50 m2 Heart Rate: 56 bpm BP: 136 / 63 mmHg Outside Property Agent: JOE Referring MD: Linda Billingsley HOUSESMITH- Symptoms: R55 syncope Study Quality: Good ECG Rhythm: Bradycardia Conclusions: - Normal left ventricular cavity size. There is normal left ventricular wall thickness. The left ventricular systolic function is mildly decreased. The visually estimated ejection fraction is between 40-45%. - Normal right ventricular cavity size and systolic function. Findings Left Ventricle Normal left ventricular cavity size. There is normal left ventricular wall thickness. The left ventricular systolic function is mildly decreased. The visually estimated ejection fraction is between 40-45%. Regional wall motion abnormalities can not be excluded due to suboptimal endocardial definition. Abnormal diastolic function is noted. Spectral Doppler is indicative of an impaired relaxation filling pattern. Normal left ventricular filling pressures. Right Ventricle Normal right ventricular cavity size and systolic function. Atria The left atrium is normal in size. The right atrium is normal in size. Aortic Valve Normal aortic valve structure and function. There is no aortic valve stenosis. There is trace (trivial) aortic valve regurgitation. Mitral Valve The mitral valve appears normal. There is trace mitral valve regurgitation. There is no mitral valve stenosis. Pulmonic Valve The pulmonic valve is normal. There is trace pulmonic valve regurgitation. Tricuspid Valve Normal tricuspid valve structure. There is trace tricuspid valve regurgitation. Normal right atrial pressure. There is no evidence of pulmonary hypertension. Great Vessels All visible segments of the aorta are normal in size. Venous The inferior vena cava is normal in size and collapses greater than 50% with inspiration. Pericardium/Pleural There is a trivial pericardial effusion. Prior Study Comparison No prior study available for comparison. Measurements 2D Linear Measurements IVSd: 0.66 0.6-0.9/0.6-1.0 cm LVIDd: 5.05 3.9-5.3/4.2-5.9 cm LVIDd Index: 3.37 2.4-3.2/2.2-3.1 cm/m2 LVIDs: 3.30 2.0-3.6 cm LVPWd: 0.74 0.7-1.1 cm LA Diam: 2.90 2.7-3.8/3.0-4.0 cm LAIDs Index: 1.93 1.5-2.3 cm/m2 LV Mass: 145.00 67-162/88-224 g LV Mass Index: 96.67 43-95/49-115 g/m2 LVOT Diam: 2.20 3.0+(-)1.3 cm 2D Systolic Function EF 4C: 50.80 >55% EF 2C: 38.70 >55% EF BiP: 43.90 >55% Mitral Valve MV Pk E: 0.42 MV PK A: 0.63 MV Decel Time: 399.00 E/A: 0.70 E'Lateral: 6.42 E'Medial: 4.03 E/E' Med: 10.50 E/E' Lat: 6.60 PHT: 117.00 MVA PHT: 1.88 Decel [place]: 1.06 Aortic Valve AoV Pk Domo: 1.16 AoV Mn Domo: 0.77 AoV VTI: 0.24 AoV Pk Grad: 5.00 Aov Mn Grad: 3.00 DEBBI Cont.VTI: 2.84 AI Pk Domo: 4.60 AI [place]: 1.64 LVOT LVOT Pk Domo: 0.90 LVOT Mn Domo: 0.61 LVOT VTI: 0.18 LVOT Pk Grad: 3.00 LVOT Mn Grad: 2.00 LVOT Diam: 2.20 LVOT Area: 3.80 Diastolic Function MV Pk E: 0.42 MV Pk A: 0.63 E/A: 0.70 E'Medial: 4.03 E/E' Med: 10.50 E' Laterial: 6.42 E/E' Lat: 6.60 Right Ventricle TAPSE (mm): 24.00 TVS' Domo: 14.00 Tricuspid Valve TR Pk Domo: 2.05 TR Pk Grad: 17.00 RA Press: 3.00 RVSP: 20.00 Great Vessels Aorta Sinus of Valsalva: 3.20 2.0-3.5 cm Ao Asc: 3.20 2.1-3.4 cm Pulmonary Veins Pulm Vein S/D 0.90 Pulmonary Valve PV Pk Domo: 0.70 Peak PV Grad: 2.00 Updated in Other Vendor System with Status of Final Isaac Hussein MD electronically signed on 10/20/2025 4:04:57 PM with status of Final
[2025-10-19 08:02] LABS: Hematocrit 33.3 % (37.0-47.0); Hemoglobin 10.6 g/dl (12.0-16.0); Mean Corpuscular HGB Conc 31.8 g/dl (31.0-35.0); Mean Corpuscular Hemoglobin 29.7 pg (27.0-33.0); Mean Corpuscular Volume 93.3 fL (80.0-98.0); NRBC Abs Auto 0.000 X10*3/uL (0.0-0.012); NRBC Pct Auto 0.0 /100WBC (0.0-0.2); Red Blood Count 3.57 X10*6/uL (4.20-5.50)
[2025-10-19 08:14] LABS: WBC ABN SCTR FOR CBC 1
--- NOTE | 2025-10-19 08:23 | PM.HEMONCCN ---
Subjective - Subjective Chief complaint: Consult for: Colon cancer, S/P Fall. Patient: known to practice within the last 3 years Consult date: 10/19/25 Requesting Physician: Siddhartha Fernandez. Primary Care Provider: Fran Lazaro MD Family Provider: Dr. Lazaro. Medical Summary: DIAGNOSIS: Colon Cancer, S/P fall. 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 Patient states she walked approximately 1 mi in the rain from her home where she lives alone to the stop and shop and fell within the stop and shop. Patient then continued with her shopping needs and returned home and fell again. Patient reports possible loss of consciousness as she has a strike to the chin and above the right eye with a small laceration as well as severe foot pain in the right foot. Pt unsure how long she was out for with the second fall. Patient denies any chest pain at the time of these events and currently denies any chest pain or shortness of breath, nausea or vomiting. Patient did not have any fever or chills. Patient states she has done this before (walked to the store) and she is very stubborn and felt she could do it again. Patient states her son does help her with many of her IADLs and she does not currently have help coming into the home. Patient's last chemotherapy was this past Sunday and patient's continuous chemo finished on . Patient has been receiving Neulasta. Hemodynamically stable. 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 CT of the foot confirmed nondisplaced comminuted fracture of the medial cuneiform, of the 2nd metatarsal and mildly comminuted displaced fracture of the base of the 3rd and 4th metatarsals. Diffuse soft tissue edema noted overlying the right forefoot and midfoot. A splint is currently in place done by ED provider. Patient is reporting 7/10 right foot pain. CTA negative for PE or consolidations. Knee x-rays negative for effusions noting patient has bilateral abrasions from her falls. Patient is not currently on blood thinners. Pt does have an abrasion to lower chin from her fall but denies any problems opening mouth, swallowing, loss of dentition or tongue issues. Laceration above R eye does not require intervention. ECG noted for Bifasicular block, new for this pt after review of previous ECGs with noted RBBB. Patient came in with a leukocytosis of 80 K. Patient is on Neulasta which may be prompting this although the numbers higher than expected. Patient does not have fever, chills, nausea or vomiting or evidence of sepsis. Lactic acid is elevated 2.6 - 2.5. UA is negative. CTA neg for consolidations, PNA. PT neg for COVID, FLU and RSV. Past medical history: Prediabetes,RIK, UTI, COVID, shingles, hyperlipidemia, hypertension, asthma, hypothyroidism, GERD, CTS, and insomnia. Review of Systems - Constitutional Reports system reviewed and no additional complaints, except as documented, Reports lack of energy, Reports malaise, Reports weight loss - Eyes Reports system reviewed and no additional complaints, except as documented - ENT Reports system reviewed and no additional complaints, except as documented - Cardiovascular Reports system reviewed and no additional complaints, except as documented - Respiratory Reports no additional respiratory complaints - Gastrointestinal Reports system reviewed and no additional complaints, except as documented - Genitourinary Reports no additional female genitourinary complaints - Musculoskeletal Reports system reviewed and no additional complaints, except as documented - Integumentary/Breasts Skin/Breast: Reports no additional skin complaints - Neurologic Reports system reviewed and no additional complaints, except as documented - Psychiatric Reports system reviewed and no additional complaints, except as documented - Endocrine Reports no additional endocrine complaints - Hematologic/Lymphatic Reports system reviewed and no additional complaints, except as documented - Allergic/Immunologic Reports system reviewed and no additional complaints, except as documented Oncology Screenings - ECOG Performance Status ECOG Performance Status: 0 PMFSH Medical History: Medical History (Last Reviewed 10/19/25 @ 06:10 by Jeremiah Berrios RN) Abdominal cramping Abdominal pain Abnormal ultrasound of breast Abnormal weight loss Anemia Anemia Annual physical exam Breast cancer screening by mammogram Carpal tunnel syndrome Cervical cancer screening Colon cancer Colon cancer screening Colon cancer screening declined Colonic mass Colonoscopy refused Constipation COVID-19 Encounter for annual routine gynecological examination Encounter for well woman exam with routine gynecological exam Headache Hypercholesterolemia Hypertension Hypothyroid Impacted cerumen of both ears Impaired glucose tolerance Insomnia Low back pain Low back pain Overweight (BMI 25.0-29.9) Pain of right hip Paronychia of finger Plantar fasciitis Pre-op examination Recurrent UTI Shingles Vitamin B12 deficiency Vulvar itching Functional capacity: independent ambulation (Prior to falls) Patient : No Family History: Family History (Last Reviewed 10/19/25 @ 06:10 by Jeremiah Berrios RN) Father No problems noted. Mother No problems noted. Sister History of breast cancer, Onset Age: 50 Daughter Colon cancer Son Colon cancer Surgical History: Surgical History (Last Reviewed 10/19/25 @ 06:10 by Jeremiah Berrios RN) H/O colonoscopy Hx of surgical procedure Onset Date: ~04/22/24 Social History: Social History (Last Reviewed 10/19/25 @ 06:10 by Jeremiah Berrios RN) Living Situation History: Household Members: Children Housing: House Are you a primary foster care social worker to a significant other at home: No Do you presently have visiting nurse or other home services: No Tobacco History: Patient Tobacco Use Status: Never used Tobacco e-Cigarette/Vaping Use: Never Used Second Hand Smoke Exposure: No Occupation Assessmet: service: No Current occupational status: retired Sex/Gender Assessment: Sexual orientation: Straight/Heterosexual Gender identity: Female - Travel History Ebola Risk: Travel/Contact With Anyone From Affected Area/s: No Has Patient Experienced Ebola Symptoms: No Home Medications and Allergies Current Medications: Current Medications Acetaminophen (Acetaminophen 325 Mg Tablet) 650 mg PO Q6H PRN PRN Reason: Pain, Mild 1-3,fever,headache Albuterol/Ipratropium (Albuterol/Iprat 2.5/0.5mg 3 Ml Ampul.Neb) 3 ml INHALE Q4H PRN PRN Reason: Shortness of Breath/Wheezing Calcium Carbonate (Calcium Carbonate 750 Mg Tab.Chew) 750 mg PO Q4H PRN PRN Reason: Heartburn Enoxaparin Sodium (Enoxaparin Sodium 40 Mg/0.4 Ml Syringe) 40 mg SUBCUT Q24H [facility] Last Admin: 10/18/25 21:39 Dose: 40 mg Hydromorphone HCl (Hydromorphone Hcl 1 Mg/Ml Syringe) 0.5 mg IVPUSH Q3H PRN; Protocol PRN Reason: Pain, Severe (Pain Scale 7-10) Last Admin: 10/18/25 21:50 Dose: 0.5 mg Sodium Chloride (Ns) 1,000 mls @ 100 mls/hr IVCONT .Q10H [facility] Last Admin: 10/19/25 07:23 Dose: 100 mls/hr Levothyroxine Sodium (Levothyroxine Sodium 100 Mcg Tablet) 100 mcg PO DAILY@0600 [facility] Last Admin: 10/19/25 06:36 Dose: 100 mcg Magnesium Hydroxide (Milk Of Magnesia 30 Ml Oral.Susp) 30 ml PO DAILY PRN PRN Reason: Constipation Melatonin (Melatonin 3 Mg Tablet) 6 mg PO BEDTIME PRN PRN Reason: Insomnia Omeprazole (Omeprazole 20 Mg Capsule.Dr) 20 mg PO DAILY@0630 [facility] Last Admin: 10/19/25 06:36 Dose: 20 mg Oxycodone HCl (Oxycodone Hcl Immed Release 5 Mg Tablet) 5 mg PO Q4H PRN PRN Reason: Pain, Moderate(Pain Scale 4-6) Polyethylene Glycol (Polyethylene Glycol 3350 17 Gm Powd.Pack) 17 gm PO DAILY PRN PRN Reason: Constipation Senna (Sennosides 8.6 Mg Tablet) 17.2 mg PO BEDTIME [facility] Last Admin: 10/18/25 21:39 Dose: 17.2 mg Sodium Chloride (0.9 % Sodium Chloride Flush 3 Ml Syringe) 3 ml IVFLUSH QSHIFT [facility] Last Admin: 10/18/25 23:39 Dose: Not Given Home Medications ?Medication ?Instructions ?Recorded ?Confirmed ?Type ascorbic acid (vitamin C) 500 mg 500 mg PO DAILY 09/05/24 10/19/25 History tablet (Vitamin C) ferrous sulfate 325 mg (65 mg 325 mg PO DAILY 02/17/25 10/19/25 History iron) tablet nystatin 100,000 unit/mL oral 5 ml PO TID PRN Mouth Pain 03/10/25 10/19/25 History suspension duloxetine 20 mg capsule,delayed 40 mg PO BEDTIME 10/19/25 10/19/25 History release fluticasone propionate 50 1 spray intranasal BID PRN Allergy 10/19/25 10/19/25 History mcg/actuation nasal Symptoms spray,suspension gabapentin 100 mg capsule 100 mg PO DAILY 10/19/25 10/19/25 History lidocaine 5 % topical patch 1 patch topical DAILY PRN Pain 10/19/25 10/19/25 History ondansetron 8 mg disintegrating 8 mg PO Q8H PRN Nausea And Vomiting 10/19/25 10/19/25 History tablet simethicone 125 mg chewable tablet 125 mg PO BID PRN abdominal 10/19/25 10/19/25 History (Gas Relief (simethicone)) distention tramadol 50 mg tablet 50 mg PO BID PRN Pain 10/19/25 10/19/25 History zolpidem 10 mg tablet 10 mg PO BEDTIME PRN Insomnia 10/19/25 10/19/25 History Allergies Allergy/AdvReac Type Severity Reaction Status Date / Time No Known Allergies Allergy Verified 10/18/25 12:30 Physical Exam Vital signs: Vital Signs Temp 98.6 F 10/19/25 07:27 Pulse 58 10/19/25 07:27 Resp 18 10/19/25 07:27 BP 160/75 H 10/19/25 07:27 Pulse Ox 98 10/19/25 07:27 O2 Del Method Room Air 10/19/25 07:27 Intake & Output 10/18/25 10/19/25 10/19/25 18:59 06:59 18:59 Intake Total 2049 961.667 / 961.667 Balance 2049 961.667 / 961.667 Intake: Intake, IV Amount 2049 961.667 / 961.667 0.9 % Sodium Chloride 1,000 ml 1999 @ 999 mls/hr IV .Q1H1M [facility] Rx#: [id number] Piperacillin Sodium/Tazobactam 50 / 50 3.375 gm In 0.9 % Sodium Chloride 50 ml @ 100 mls/hr IV ONCE ONE Rx#:[id number] 0.9 % Sodium Chloride 1,000 ml 961.667 / 961.667 @ 100 mls/hr IVCONT .Q10H [facility] Rx#:[id number] Other: Number of Unmeasured Voids 1 Weight 56.699 kg 54 kg Weight 54 kg - Constitutional Present: mild distress - Routine HEENT Exam Head: Present: normal inspection, normocephalic Eye: Present: normal appearance ENT: Present: mucous membranes moist - Routine Neck Exam Present: supple Hem/Onc Consult Result - Labs CBC & Chem 7: 10/20/25 06:47 10/20/25 06:47 Labs: Short CBC 10/18/25 10/19/25 Range/Units 12:45 07:48 WBC 80.1 H* (4.8-10.8) X10*3/uL Hgb 13.1 10.6 L (12.0-16.0) g/dl Hct 40.1 33.3 L (37.0-47.0) % Plt Count 114 L D (160-400) X10*3/uL BMP 10/18/25 12:45 Sodium 139 Potassium 3.7 Chloride 102 Carbon Dioxide 24 BUN 23 H Creatinine 0.82 Calcium 8.7 Cardiac Enzymes 10/18/25 Range/Units 12:45 Total Creatine Kinase 114 (26-140) U/L Liver Function 10/18/25 Range/Units 12:45 Total Bilirubin 0.9 (0.0-1.0) mg/dL AST 30 (5-31) U/L ALT 19 (0-31) U/L Alkaline Phosphatase 341 H (39-117) U/L Albumin 4.0 (3.5-5.0) g/dL Urine 10/18/25 Range/Units 18:21 Urine Color Yellow Urine Appearance Clear Urine pH 7.0 (5.0-9.0) Ur Specific Trail 1.025 (1.005-1.025) Urine Protein Negative (Neg-Trace) mg/dL Urine Glucose (UA) Negative (Negative) mg/dL Assessment and Plan Patient Active problem list reviewed?: Yes (1) Colon cancer metastasized to liver Status: Acute Assessment and plan: This is a pleasant 70-year-old lady with recent diagnosis of carcinoma of the sigmoid colon. This was noted on colonoscopy from 02/27, by Dr. Alvarez. It revealed: Mucosa: Spontaneously bleeding, ulcerated friable mass was noted in sigmoid colon at 35 cm. The mass was partially obstructing and scope could not traverse through it. Cold forceps biopsies were taken for histology. Hemospray applied towards the end of the procedure to cease bleeding temporarily. Protruding lesions: Medium internal hemorrhoids without stigmata of recent bleeding. Pathology revealed: At least intramucosal adenocarcinoma. MSI:Preserved. CEA level: 3.50. Iron studies: /07/10. CT scan of the chest from 03/31 revealed: Small pulmonary nodules largest measuring 3 mm in the right upper lobe. Chest CT follow-up as per oncology protocol. She had a CT scan of her abdomen and pelvis on 03/31: Large apple core lesion in the sigmoid colon suggestive of neoplasm. This measures 5 cm in length. Small adjacent mesenteric lymph nodes.Constipation and diverticulosis. Several liver cysts. There is a 1 cm lesion high in the dome of the right lobe of the liver not suggestive of a simple cyst by CT. Further evaluation with liver MRI recommended. She was referred to Dr. Decker. She underwent surgery. STATUS POST SIGMOID RESECTION ON 04/22/24. PATHOLOGY: Invasive mucinous adenocarcinoma, moderately differentiated, extending to serosal surface, margins negative. 12/20 lymph nodes positive for metastatic carcinoma. Tumor size: 4.5 cm. G2, Invasion extent: Serosal surface. Tumor deposits: 0. LVI: Not identified. Perineural invasion: Present. CT scan of the abdomen/pelvis from 06/23 had revealed: 1. At least 2 liver lesions are not simple cysts and are new/larger and suspicious for metastatic disease. 2. Status post resection of sigmoid colon cancer with some soft tissue thickening seen on the right of the suture line. This should be followed on future studies to assess if local recurrence. l proceeded with a biopsy of the larger liver lesion. This revealed metastatic moderately differentiated adenocarcinoma consistent with her known colon primary. She was started on modified FOLFOX 6 on 06/24. She completed 16 cycles on 02/16/25. Subsequently decided to take a break from treatment. PET CT obtained on 05/05/25 revealed: An intense focus of increased FDG uptake in the caudate lobe corresponding to a previously described metastatic deposit. This demonstrates an SUV max of 8.5. No additional abnormal liver uptake is identified. Imaging results were reviewed with patient. She was referred to Dr. Carvajal to explore local liver directed therapy options. She was seen on 05/22/2025. The plan was to proceed with Yittrium 90. Mapping date: 06/17/2025. Treatment date: 06/30/2025. Unfortunately repeat CAT scan from 08/03/25 revealed: There has been marked progression of liver metastases, now with bile duct obstruction that has progressed since the previous exam. Repeat imaging revealed considerable progression. CEA level: 146, previously, 134.60. From 06/09 CEA: 9.90. Increased up to 165.9. I offered her second-line chemotherapy. She was willing. Her liver biopsy from 08/08/2024 had revealed: KRAS exon2 (G 12 A/D/R/V/S or G 13 D, NOT G12C: DETECTED. As such she would not be a candidate for cetuximab. She was started on FOLFIRI and bevacizumab based regimen on 08/18. She had cycle 2 on 09/01. Had cycle 3. Cycle 5 on 10/13. She has been tolerating the treatment very well. The good news was that her pain resolved. This is encouraging. She has now been admitted after a couple of falls, after walking in the rain for a mile. CTA of chest: 1. No evidence of pulmonary embolism. 2. No acute intrathoracic findings. No evidence of pneumonia. 3. Stable small pulmonary nodules in the upper lobes bilaterally since imaging performed in 2023. No new or growing pulmonary nodule identified. 4. Multiple ill-defined hepatic lesions similar to prior imaging and likely representing metastatic disease. Fortunately, CT HEAD, Spine neg for acute fractures. However R foot fractures, noted. Her EKG revealed new Bifasicular block. Hx of RBBB - neg for CP. She is being monitored in Telemetry. Cardiology is being consulted Meanwhile Echo has been ordered. Has been noted to have Leukocytosis. This is related to the Neulasta that she received. No obvious infection or sepsis, no bandemia. Neg for COVID, FLU and RSV. UA, CTA negative BC X2 pending. Pt received one dose of Zosyn in ED. Will monitor for chills, fever >100.5. Thrombocytopenia on Chemotherapy for stage 4 colon cancer (mets to liver) PLts 114 K. These are stable no need for platelet transfusion Metatarsal fractures secondary to fall. Orthopedics consulted: 1. Nondisplaced comminuted fracture of the medial cuneiform. 2. Nondisplaced fracture of the base of the 2nd metatarsal. 3. Mildly-comminuted displaced fracture of the base of the 3rd and 4th metatarsals. 4. Diffuse soft tissue edema overlying the right forefoot and midfoot. PLAN: Nonweightbearing left lower extremity Follow up with podiatry in 1 week PAIN MANAGEMENT: Pain is much better, today. Received Oxycodone for moderate pain, yesterday. Dilaudid low dose for severe pain PLAN: PT stefano in progress. Recommended Short-term rehab, since she can not bear weight on the affected foot. However patient prefers to go home. I will see her back as an outpatient, to continue her treatment. Thank you, CC: Dr. Lazaro. - Time Spent With Patient Time Spent with Patient (in minutes): 30
[2025-10-19 08:25] LABS: Alanine Aminotransferase 11 U/L (0-31); Albumin Level 3.1 g/dL (3.5-5.0); Alkaline Phosphatase 250 U/L (39-117); Anion Gap 10 (12-20); Aspartate Amino Transferase 26 U/L (5-31); Blood Urea Nitrogen 15 mg/dL (9-16); Carbon Dioxide 24 mmol/L (22-29); Chloride 110 mmol/L (96-108); Cholesterol 121 mg/dL (<200); Creatinine Clr Calc Pharmacy 65.7; Estimated Glomerular Filt Rate > 60; HDL Cholesterol 49 mg/dL (>40); Potassium 3.5 mmol/L (3.3-5.1); Sodium 140 mmol/L (135-145); Total Protein 4.8 g/dL (6.5-8.0); Triglycerides 107 mg/dL (<150)
[2025-10-19 08:33] LABS: Calcium 7.7 mg/dL (8.4-10.2)
--- NOTE | 2025-10-19 08:40 | PM.CNOR ---
History of Present Illness HPI Consult date: 10/19/25 Chief complaint: fall, leukocytosis Narrative: 70-year-old female admitted to the medical service status post fall which resulted in a left foot fracture. She was placed in a posterior splint and nonweightbearing. Orthopedics consulted for recommendations. Review of Systems Review of Systems: Yes all other systems are reviewed and are negative PMFSH Past Medical History Medical History Annual physical exam Encounter for annual routine gynecological examination Impacted cerumen of both ears Paronychia of finger Anemia Encounter for well woman exam with routine gynecological exam Colon cancer Colonic mass Recurrent UTI COVID-19 Abnormal weight loss Abdominal pain Abdominal cramping Pre-op examination Colon cancer screening Constipation Anemia Plantar fasciitis Low back pain Shingles Low back pain Pain of right hip Abnormal ultrasound of breast Vulvar itching Headache Cervical cancer screening Breast cancer screening by mammogram Colon cancer screening declined Colonoscopy refused Overweight (BMI 25.0-29.9) Vitamin B12 deficiency Impaired glucose tolerance Hypothyroid Hypercholesterolemia Hypertension Insomnia Carpal tunnel syndrome Family History Family History Father No problems noted. Mother No problems noted. Sister History of breast cancer, Onset Age: 50 Daughter Colon cancer Son Colon cancer Surgical History Surgical History Hx of surgical procedure (~04/22/24) H/O colonoscopy Social History Social History Household Members: Children Housing: House Are you a primary continuum of care manager to a significant other at home: No Do you presently have visiting nurse or other home services: No Alcohol intake: never Patient Tobacco Use Status: Never used Tobacco Smoked in Last 30 Days: No e-Cigarette/Vaping Use: Never Used Second Hand Smoke Exposure: No Use of substances other than those prescribed or required for medical reasons: No Have you been hit, kicked, punched, or otherwise hurt by someone within the past year? If so, by whom?: No Do you feel safe in your current relationship?: No Current Relationship Is there a partner from a previous relationship who is making you feel unsafe now?: No Are you made to feel afraid or neglected: No Advance Directives: No Advance Directives Information Provided: Yes Do you have a plan to hurt others: No Plan Recently lost weight without trying: No How much weight loss: Not applicable Eating poorly because of decreased appetite: No Nutrition screen score: 0 Nutrition Risks: No Nutritional Risk Patient : No Poor oral hygiene: No service: No Current occupational status: retired Sexual orientation: Straight/Heterosexual Gender identity: Female Cognitive needs: No Hearing needs: No Vision needs: Yes Travel History Ebola Risk: Travel/Contact With Anyone From Affected Area/s: No Has Patient Experienced Ebola Symptoms: No Meds Allergies Allergy/AdvReac Type Severity Reaction Status Date / Time No Known Allergies Allergy Verified 10/18/25 12:30 Active Medications: Current Medications Acetaminophen (Acetaminophen 325 Mg Tablet) 650 mg PO Q6H PRN PRN Reason: Pain, Mild 1-3,fever,headache Albuterol/Ipratropium (Albuterol/Iprat 2.5/0.5mg 3 Ml Ampul.Neb) 3 ml INHALE Q4H PRN PRN Reason: Shortness of Breath/Wheezing Calcium Carbonate (Calcium Carbonate 750 Mg Tab.Chew) 750 mg PO Q4H PRN PRN Reason: Heartburn Enoxaparin Sodium (Enoxaparin Sodium 40 Mg/0.4 Ml Syringe) 40 mg SUBCUT Q24H [facility] Last Admin: 10/18/25 21:39 Dose: 40 mg Hydromorphone HCl (Hydromorphone Hcl 1 Mg/Ml Syringe) 0.5 mg IVPUSH Q3H PRN; Protocol PRN Reason: Pain, Severe (Pain Scale 7-10) Last Admin: 10/18/25 21:50 Dose: 0.5 mg Sodium Chloride (Ns) 1,000 mls @ 100 mls/hr IVCONT .Q10H [facility] Last Admin: 10/19/25 07:23 Dose: 100 mls/hr Levothyroxine Sodium (Levothyroxine Sodium 100 Mcg Tablet) 100 mcg PO DAILY@0600 [facility] Last Admin: 10/19/25 06:36 Dose: 100 mcg Magnesium Hydroxide (Milk Of Magnesia 30 Ml Oral.Susp) 30 ml PO DAILY PRN PRN Reason: Constipation Melatonin (Melatonin 3 Mg Tablet) 6 mg PO BEDTIME PRN PRN Reason: Insomnia Omeprazole (Omeprazole 20 Mg Capsule.) 20 mg PO DAILY@0630 [facility] Last Admin: 10/19/25 06:36 Dose: 20 mg Oxycodone HCl (Oxycodone Hcl Immed Release 5 Mg Tablet) 5 mg PO Q4H PRN PRN Reason: Pain, Moderate(Pain Scale 4-6) Polyethylene Glycol (Polyethylene Glycol 3350 17 Gm Powd.Pack) 17 gm PO DAILY PRN PRN Reason: Constipation Senna (Sennosides 8.6 Mg Tablet) 17.2 mg PO BEDTIME [facility] Last Admin: 10/18/25 21:39 Dose: 17.2 mg Sodium Chloride (0.9 % Sodium Chloride Flush 3 Ml Syringe) 3 ml IVFLUSH QSHIFT [facility] Last Admin: 10/18/25 23:39 Dose: Not Given Home Medications ?Medication ?Instructions ?Recorded ?Confirmed ?Last Taken ?Type ascorbic acid (vitamin C) 500 mg 500 mg PO DAILY 09/05/24 06/25/25 09/03/24 History tablet (Vitamin C) ferrous sulfate 325 mg (65 mg 325 mg PO DAILY 02/17/25 06/25/25 Unknown History iron) tablet loperamide 2 mg capsule 2 mg PO DAILY 02/17/25 06/25/25 Unknown History nystatin 100,000 unit/mL oral 100,000 unit PO NEEDED 03/10/25 06/25/25 Unknown History suspension food supplemt, lactose-reduced ea PO 06/25/25 06/25/25 Unknown History 0.04 gram-1 kcal/mL oral liquid (Boost) Physical Exam Vital Signs: Vital Signs: Last Vital Signs Temp 98.6 F 10/19/25 07:27 Pulse 58 10/19/25 07:27 Resp 18 10/19/25 07:27 BP 160/75 H 10/19/25 07:27 Pulse Ox 98 10/19/25 07:27 O2 Del Method Room Air 10/19/25 07:27 BMI result Body Mass Index 23.2 Const: General: cooperative, healthy appearing and comfortable Extrem: Other: Left foot splint clean dry and intact. She is able to move her toes and has good sensation and cap refill. Results Labs 10/19/25 07:48 10/19/25 07:48 Labs: Abnormal lab results 10/18/25 10/18/25 10/18/25 Range/Units 12:45 15:12 18:30 WBC 80.1 H* (4.8-10.8) X10*3/uL RBC (4.20-5.50) X10*6/uL Hgb (12.0-16.0) g/dl Hct (37.0-47.0) % RDW 16.9 H (11.0-16.0) % Plt Count 114 L D (160-400) X10*3/uL Neutrophils % (Manual) 99 H (45-73) % Band Neutrophils % 0 L (3-5) % Lymphocytes % (Manual) 1 L (20-40) % Abs Neuts (Manual) 79.3 H (2.0-8.3) X10*3/uL Lymphocytes # (Manual) 0.8 L (1.2-4.9) X10*3/uL Chloride (96-108) mmol/L Anion Gap (12-20) BUN 23 H (9-16) mg/dL Random Glucose 166 H (60-115) mg/dL Lactic Acid 2.6 H* (0.5-2.0) mmol/L Lactic Acid F/U @ 2Hr 2.5 H* (0.5-2.0) mmol/L Lactic Acid F/U @ 4Hr (0.5-2.0) mmol/L Calcium (8.4-10.2) mg/dL Alkaline Phosphatase 341 H (39-117) U/L Total Protein 6.2 L (6.5-8.0) g/dL Albumin (3.5-5.0) g/dL TSH 28.90 H (0.32-4.0) uIU/mL 10/18/25 10/19/25 Range/Units 21:52 07:48 WBC (4.8-10.8) X10*3/uL RBC 3.57 L (4.20-5.50) X10*6/uL Hgb 10.6 L (12.0-16.0) g/dl Hct 33.3 L (37.0-47.0) % RDW 16.8 H (11.0-16.0) % Plt Count (160-400) X10*3/uL Neutrophils % (Manual) (45-73) % Band Neutrophils % (3-5) % Lymphocytes % (Manual) (20-40) % Abs Neuts (Manual) (2.0-8.3) X10*3/uL Lymphocytes # (Manual) (1.2-4.9) X10*3/uL Chloride 110 H (96-108) mmol/L Anion Gap 10 L (12-20) BUN (9-16) mg/dL Random Glucose 129 H (60-115) mg/dL Lactic Acid (0.5-2.0) mmol/L Lactic Acid F/U @ 2Hr (0.5-2.0) mmol/L Lactic Acid F/U @ 4Hr 2.5 H* (0.5-2.0) mmol/L Calcium 7.7 L D (8.4-10.2) mg/dL Alkaline Phosphatase 250 H (39-117) U/L Total Protein 4.8 L (6.5-8.0) g/dL Albumin 3.1 L (3.5-5.0) g/dL TSH (0.32-4.0) uIU/mL H & H 10/18/25 10/19/25 Range/Units 12:45 07:48 Hgb 13.1 10.6 L (12.0-16.0) g/dl Hct 40.1 33.3 L (37.0-47.0) % Coagulation 10/18/25 Range/Units 12:45 INR 1.1 (0.9-1.1) All other labs normal. Assessment and Plan (1) Fracture of medial cuneiform: Qualifiers: Encounter type: initial encounter Fracture alignment: nondisplaced Fracture type: closed Laterality: right Qualified Code(s): S92.244A - Nondisplaced fracture of medial cuneiform of right foot, initial encounter for closed fracture Status: Acute (2) Metatarsal fracture: Qualifiers: Encounter type: initial encounter Fracture alignment: nondisplaced Fracture type: closed Laterality: right Metatarsal bone: unspecified metatarsal Qualified Code(s): S92.301A - Fracture of unspecified metatarsal bone(s), right foot, initial encounter for closed fracture Status: Acute Plan IMPRESSION: 1. Nondisplaced comminuted fracture of the medial cuneiform. 2. Nondisplaced fracture of the base of the 2nd metatarsal. 3. Mildly-comminuted displaced fracture of the base of the 3rd and 4th metatarsals. 4. Diffuse soft tissue edema overlying the right forefoot and midfoot. Nonweightbearing left lower extremity Follow up with podiatry in 1 week Procedures Date of Service Date of Service: 10/19/25
[2025-10-19 08:59] LABS: Band Neutrophils Percent 4 % (3-5); Lymphocytes Percent Manual 4 % (20-40); Monocytes Percent Manual 1 % (2-11); Neutrophils Percent Manual 91 % (45-73)
[2025-10-19 09:00] LABS: RBC Morphology NOTED
[2025-10-19 09:01] LABS: Acanthocytes 3+ (>5) /OIF; Burr Cells 3+ (>5) /OIF; Dohle Bodies PRESENT; Lymphocytes Absolute Manual 1.0 X10*3/uL (1.2-4.9); Monocytes Absolute Manual 0.2 X10*3/uL (0.1-1.2); Neutrophils Absolute Manual 22.7 X10*3/uL (2.0-8.3); Platelet Count 67 X10*3/uL (160-400); White Blood Count 23.9 X10*3/uL (4.8-10.8)
--- NOTE | 2025-10-19 09:22 | PHA.MEDREC ---
Pharmacy Consult ? Medication Reconciliation Pharmacy has completed the medication reconciliation. Spoke to patient via senior mobile application developer to confirm medication list. Patient confirmed she is not taking symbicort..she still takes dexamethasone...duloxetine 40 mg at bedtime...gabapentin 100 mg once a day and nystatin 5 ml swish and spit tid prn mouth sore. Last dose of mediations was sunday10/16/25.
--- NOTE | 2025-10-19 11:04 | P.CONCA_ITS ---
History of Present Illness History of Present Illness Date of Service: 10/19/25 Requesting physician: Siddhartha Fernandez Chief complaint: fall, leukocytosis Narrative: [age] year female with metastatic colon cancer to liver on chemotherapy presenting with 2 falls. She said it was raining and she slipped and fell. She scraped her knees unfortunately and also hit her face on walk way. She is saying she did not have any syncope. She is on chemotherapy and has received chemotherapy recently before this happened. She is saying that when she gets chemo she does not eat and drink much and potentially that led to some weakness. EKGs has shown bifascicular block which is unchanged compared to previous EKGs. Denying chest discomfort shortness of breath. [facility] Past Medical History Medical History Annual physical exam Encounter for annual routine gynecological examination Impacted cerumen of both ears Paronychia of finger Anemia Encounter for well woman exam with routine gynecological exam Colon cancer Colonic mass Recurrent UTI COVID-19 Abnormal weight loss Abdominal pain Abdominal cramping Pre-op examination Colon cancer screening Constipation Anemia Plantar fasciitis Low back pain Shingles Low back pain Pain of right hip Abnormal ultrasound of breast Vulvar itching Headache Cervical cancer screening Breast cancer screening by mammogram Colon cancer screening declined Colonoscopy refused Overweight (BMI 25.0-29.9) Vitamin B12 deficiency Impaired glucose tolerance Hypothyroid Hypercholesterolemia Hypertension Insomnia Carpal tunnel syndrome Family History Family History Father No problems noted. Mother No problems noted. Sister History of breast cancer, Onset Age: 50 Daughter Colon cancer Son Colon cancer Surgical History Surgical History Hx of surgical procedure (~04/22/24) H/O colonoscopy Social History Social History Household Members: Children Housing: House Are you a primary personal care assistant to a significant other at home: No Do you presently have visiting nurse or other home services: No Alcohol intake: never Patient Tobacco Use Status: Never used Tobacco Smoked in Last 30 Days: No e-Cigarette/Vaping Use: Never Used Second Hand Smoke Exposure: No Use of substances other than those prescribed or required for medical reasons: No Have you been hit, kicked, punched, or otherwise hurt by someone within the past year? If so, by whom?: No Do you feel safe in your current relationship?: No Current Relationship Is there a partner from a previous relationship who is making you feel unsafe now?: No Are you made to feel afraid or neglected: No Advance Directives: No Advance Directives Information Provided: Yes Do you have a plan to hurt others: No Plan Recently lost weight without trying: No How much weight loss: Not applicable Eating poorly because of decreased appetite: No Nutrition screen score: 0 Nutrition Risks: No Nutritional Risk Patient : No Poor oral hygiene: No service: No Current occupational status: retired Sexual orientation: Straight/Heterosexual Gender identity: Female Cognitive needs: No Hearing needs: No Vision needs: Yes Travel History Ebola Risk: Travel/Contact With Anyone From Affected Area/s: No Has Patient Experienced Ebola Symptoms: No Meds Allergies Allergy/AdvReac Type Severity Reaction Status Date / Time No Known Allergies Allergy Verified 10/18/25 12:30 Active Medications: Current Medications Acetaminophen (Acetaminophen 325 Mg Tablet) 650 mg PO Q6H PRN PRN Reason: Pain, Mild 1-3,fever,headache Albuterol/Ipratropium (Albuterol/Iprat 2.5/0.5mg 3 Ml Ampul.Neb) 3 ml INHALE Q4H PRN PRN Reason: Shortness of Breath/Wheezing Calcium Carbonate (Calcium Carbonate 750 Mg Tab.Chew) 750 mg PO Q4H PRN PRN Reason: Heartburn Enoxaparin Sodium (Enoxaparin Sodium 40 Mg/0.4 Ml Syringe) 40 mg SUBCUT Q24H [facility] Last Admin: 10/18/25 21:39 Dose: 40 mg Hydromorphone HCl (Hydromorphone Hcl 1 Mg/Ml Syringe) 0.5 mg IVPUSH Q3H PRN; Protocol PRN Reason: Pain, Severe (Pain Scale 7-10) Last Admin: 10/18/25 21:50 Dose: 0.5 mg Sodium Chloride (Ns) 1,000 mls @ 100 mls/hr IVCONT .Q10H [facility] Last Admin: 10/19/25 07:23 Dose: 100 mls/hr Levothyroxine Sodium (Levothyroxine Sodium 100 Mcg Tablet) 100 mcg PO DAILY@0600 [facility] Last Admin: 10/19/25 06:36 Dose: 100 mcg Magnesium Hydroxide (Milk Of Magnesia 30 Ml Oral.Susp) 30 ml PO DAILY PRN PRN Reason: Constipation Melatonin (Melatonin 3 Mg Tablet) 6 mg PO BEDTIME PRN PRN Reason: Insomnia Omeprazole (Omeprazole 20 Mg Capsule.Dr) 20 mg PO DAILY@0630 [facility] Last Admin: 10/19/25 06:36 Dose: 20 mg Oxycodone HCl (Oxycodone Hcl Immed Release 5 Mg Tablet) 5 mg PO Q4H PRN PRN Reason: Pain, Moderate(Pain Scale 4-6) Polyethylene Glycol (Polyethylene Glycol 3350 17 Gm Powd.Pack) 17 gm PO DAILY PRN PRN Reason: Constipation Senna (Sennosides 8.6 Mg Tablet) 17.2 mg PO BEDTIME [facility] Last Admin: 10/18/25 21:39 Dose: 17.2 mg Sodium Chloride (0.9 % Sodium Chloride Flush 3 Ml Syringe) 3 ml IVFLUSH QSHIFT [facility] Last Admin: 10/18/25 23:39 Dose: Not Given Home Medications ?Medication ?Instructions ?Recorded ?Confirmed ?Last Taken ?Type ascorbic acid (vitamin C) 500 mg 500 mg PO DAILY 09/0510/19/25 10/16/25 History tablet (Vitamin C) ferrous sulfate 325 mg (65 mg 325 mg PO DAILY 02/17/25 10/19/25 10/16/25 History iron) tablet nystatin 100,000 unit/mL oral 5 ml PO TID PRN Mouth Pa in 03/10/25 10/19/25 Unknown History suspension duloxetine 20 mg capsule,delayed 40 mg PO BEDTIME 09/2710/19/25 10/16/25 History release fluticasone propionate 50 1 spray intranasal BID PRN A llergy 10/19/25 10/19/25 Unknown History mcg/actuation nasal Symptoms spray,suspension gabapentin 100 mg capsule 100 mg PO DAILY 10/19/2510/16/25 History lidocaine 5 % topical patch 1 patch topical DAILY PRN Pain 10/19/25 10/19/25 Unknown History ondansetron 8 mg disintegrating 8 mg PO Q8H PRN Nausea And Vomiting 10/19/25 10/19/25 Unknown History tablet simethicone 125 mg chewable tablet 125 mg PO BID PRN a bdominal 10/19/25 10/19/25 Unknown History (Gas Relief (simethicone)) distention tramadol 50 mg tablet 50 mg PO BID PRN Pain 10/19/25 Unknown History zolpidem 10 mg tablet 10 mg PO BEDTIME PRN Insomni a 10/19/25 10/19/25 Unknown History Physical Exam 2 Vital Signs: Vital Signs: Last Vital Signs Temp 98.6 F 10/19/25 07:27 Pulse 73 10/19/25 09:14 Resp 18 10/19/25 07:27 BP 132/82 10/19/25 09:14 Pulse Ox 98 10/19/25 07:27 O2 Del Method Room Air 10/19/25 07:27 BMI result Body Mass Index 23.2 GENERAL APPEARANCE: in no acute distress, pleasant. NECK: no carotid bruit, no jugular venous distention. SKIN: Small bruise on the left side of the chin. Bilateral knee bruising/scrapes. HEART: no murmurs, regular rate and rhythm. LUNGS: clear to auscultation bilaterally. ABDOMEN: soft, nontender. EXTREMITIES: no edema. Right ankle in cast. PERIPHERAL PULSES: equal. NEUROLOGIC: No gross deficits, AAO X 3 Objective Labs and Meds 10/19/25 07:48 10/19/25 07:48 Lab results: Laboratory Results - last 24 hr 10/18/25 10/18/25 10/18/25 12:45 15:12 18:21 WBC 80.1 H* RBC 4.41 Hgb 13.1 Hct 40.1 MCV 90.9 MCH 29.7 MCHC 32.7 RDW 16.9 H Plt Count 114 L D MPV 10.2 Immature Gran % (Auto) Cancelled Neut % (Auto) Cancelled Lymph % (Auto) Cancelled [place] % (Auto) Cancelled Eos % (Auto) Cancelled Baso % (Auto) Cancelled Lymph # (Auto) Cancelled [place] # (Auto) Cancelled Eos # (Auto) Cancelled Baso # (Auto) Cancelled Abs Immat Gran (auto) Cancelled Absolute Neuts (auto) Cancelled Absolute Nucleated RBC 0.000 Nucleated RBC % (auto) 0.0 Neutrophils % (Manual) 99 H Band Neutrophils % 0 L Lymphocytes % (Manual) 1 L Monocytes % (Manual) Abs Neuts (Manual) 79.3 H Lymphocytes # (Manual) 0.8 L Monocytes # (Manual) Hypersegmented Neuts PRESENT Toxic Vacuolation PRESENT Dohle Bodies PRESENT Platelet Estimate DECREASED Plt Morphology Comment NORMAL RBC Morphology NOTED Ovalocytes 1+ (5-14) Lucian Cells 1+ (0-2) Acanthocytes (Spur) PT 13.1 INR 1.1 Sodium 139 Potassium 3.7 Chloride 102 Carbon Dioxide 24 Anion Gap 17 BUN 23 H Creatinine 0.82 Estim Creat Clear Calc 51.1 Estimated GFR > 60 Random Glucose 166 H Lactic Acid 2.6 H* Lactic Acid F/U @ 2Hr Lactic Acid F/U @ 4Hr Calcium 8.7 Magnesium 2.0 Total Bilirubin 0.9 AST 30 ALT 19 Alkaline Phosphatase 341 H Total Creatine Kinase 114 Troponin I High Sens 8.3 D 10.9 NT-Pro-B Natriuret Pep 211.7 Total Protein 6.2 L Albumin 4.0 Triglycerides Cholesterol LDL Cholesterol, Calc HDL Cholesterol TSH 28.90 H Free T4 0.94 Urine Color Yellow Urine Appearance Clear Urine pH 7.0 Ur Specific Dobson 1.025 Urine Protein Negative Urine Glucose (UA) Negative Urine Ketones Negative Urine Blood Negative Urine Nitrite Negative Ur Leukocyte Esterase Negative Influenza Type A (PCR) NEGATIVE Influenza Type B (PCR) NEGATIVE RSV RNA Qual (PCR) NEGATIVE SARS-CoV-2 RNA (RT-PCR) NEGATIVE 10/18/25 10/18/25 10/19/25 18:30 21:52 07:48 WBC 23.9 H RBC 3.57 L Hgb 10.6 L Hct 33.3 L MCV 93.3 MCH 29.7 MCHC 31.8 RDW 16.8 H Plt Count 67 L D MPV 11.0 Immature Gran % (Auto) Cancelled Neut % (Auto) Cancelled Lymph % (Auto) Cancelled [place] % (Auto) Cancelled Eos % (Auto) Cancelled Baso % (Auto) Cancelled Lymph # (Auto) Cancelled [place] # (Auto) Cancelled Eos # (Auto) Cancelled Baso # (Auto) Cancelled Abs Immat Gran (auto) Cancelled Absolute Neuts (auto) Cancelled Absolute Nucleated RBC 0.000 Nucleated RBC % (auto) 0.0 Neutrophils % (Manual) 91 H Band Neutrophils % 4 Lymphocytes % (Manual) 4 L Monocytes % (Manual) 1 L Abs Neuts (Manual) 22.7 H Lymphocytes # (Manual) 1.0 L Monocytes # (Manual) 0.2 Hypersegmented Neuts Toxic Vacuolation Dohle Bodies PRESENT Platelet Estimate DECREASED Plt Morphology Comment NORMAL RBC Morphology NOTED Ovalocytes Arnold Cells 3+ (>5) Acanthocytes (Spur) 3+ (>5) PT INR Sodium 140 Potassium 3.5 Chloride 110 H Carbon Dioxide 24 Anion Gap 10 L BUN 15 Creatinine 0.58 Estim Creat Clear Calc 65.7 Estimated GFR > 60 Random Glucose 129 H Lactic Acid Lactic Acid F/U @ 2Hr 2.5 H* Lactic Acid F/U @ 4Hr 2.5 H* Calcium 7.7 L D Magnesium Total Bilirubin 0.5 AST 26 ALT 11 Alkaline Phosphatase 250 H Total Creatine Kinase Troponin I High Sens NT-Pro-B Natriuret Pep Total Protein 4.8 L Albumin 3.1 L Triglycerides 107 Cholesterol 121 LDL Cholesterol, Calc 51 HDL Cholesterol 49 TSH Free T4 Urine Color Urine Appearance Urine pH Ur Specific Dobson Urine Protein Urine Glucose (UA) Urine Ketones Urine Blood Urine Nitrite Ur Leukocyte Esterase Influenza Type A (PCR) Influenza Type B (PCR) RSV RNA Qual (PCR) SARS-CoV-2 RNA (RT-PCR) Assessment and Plan (1) Bifascicular block: Status: Acute (2) Fall: Status: Acute Plan Pleasant 70 year lady presenting with mechanical fall with no syncope. She has bifascicular block on the EKG which is old. She is stating clearly that she did not have syncope. She is on chemotherapy for metastatic colon cancer. Gentle hydration. Check orthostatics. Stop the metoprolol succinate. Blood pressure is elevated and if continues to be elevated then we can consider adding amlodipine 2.5 mg daily. We will follow along with you. Thank you for allowing me to participate in the care of your patient. Please feel free to contact me if you have any questions. Procedures Date of Service Date of Service: 10/19/25
--- NOTE | 2025-10-19 12:58 | MHC.CM.PN ---
IMM 10/19/25,Pt. lives alone, PCP confirmed: Dr. Lazaro, HCP is at her home and names her son and dtr: Miguel and Anahy. Her son is her DIRECTOR INTERNAL COMMUNICATIONS, she has 7 hrs per week. She does not use DME. PT has rec. AR or STR. CM discussed this with pt., she said she is not sure if she wants to go, she will think about it. CM explained that referrals will be initiated. If pt goes home, family can provide transportation. CM to follow for DC needs.
--- NOTE | 2025-10-19 17:17 | P.PNIM_ITS ---
Subjective Subjective Date of Service: 10/19/25 Interval History: No acute issues overnight. Still with pain right lower extremity Review of Systems Denies chest pain Denies shortness of breath Denies nausea vomiting diarrhea Denies fever chills Physical Exam 2 Vital Signs: Vital Signs: Last Vital Signs Temp 97.7 F 10/19/25 11:05 Pulse 71 10/19/25 15:41 Resp 18 10/19/25 11:05 BP 139/72 10/19/25 15:41 Pulse Ox 98 10/19/25 11:05 O2 Del Method Room Air 10/19/25 11:05 BMI result Body Mass Index 23.2 Const: Other: Awake alert no acute distress Resp: Other: Clear to auscultation bilaterally no rales rhonchi or wheezes Cardio: Other: No S4; positive S1-S2; no S3 murmurs rubs or gallops GI: Other: Soft nontender nondistended bowel sounds x4 Extrem: Other: No edema bilaterally Objective Data Active Medications Acetaminophen (Acetaminophen 325 Mg Tablet) 650 mg PO Q6H PRN PRN Reason: Pain, Mild 1-3,fever,headache Albuterol/Ipratropium (Albuterol/Iprat 2.5/0.5mg 3 Ml Ampul.Neb) 3 ml INHALE Q4H PRN PRN Reason: Shortness of Breath/Wheezing Calcium Carbonate (Calcium Carbonate 750 Mg Tab.Chew) 750 mg PO Q4H PRN PRN Reason: Heartburn Enoxaparin Sodium (Enoxaparin Sodium 40 Mg/0.4 Ml Syringe) 40 mg SUBCUT Q24H [facility] Last Admin: 10/18/25 21:39 Dose: 40 mg Documented By: KYA Hydromorphone HCl (Hydromorphone Hcl 1 Mg/Ml Syringe) 0.5 mg IVPUSH Q3H PRN; Protocol PRN Reason: Pain, Severe (Pain Scale 7-10) Last Admin: 10/18/25 21:50 Dose: 0.5 mg Documented By: KYA Sodium Chloride (Ns) 1,000 mls @ 100 mls/hr IVCONT .Q10H [facility] Last Admin: 10/19/25 07:23 Dose: 100 mls/hr Documented By: DAYRON Levothyroxine Sodium (Levothyroxine Sodium 100 Mcg Tablet) 100 mcg PO DAILY@0600 [facility] Last Admin: 10/19/25 06:36 Dose: 100 mcg Documented By: CAROLYN Magnesium Hydroxide (Milk Of Magnesia 30 Ml Oral.Susp) 30 ml PO DAILY PRN PRN Reason: Constipation Melatonin (Melatonin 3 Mg Tablet) 6 mg PO BEDTIME PRN PRN Reason: Insomnia Omeprazole (Omeprazole 20 Mg Capsule.Dr) 20 mg PO DAILY@0630 [facility] Last Admin: 10/19/25 06:36 Dose: 20 mg Documented By: CAROLYN Oxycodone HCl (Oxycodone Hcl Immed Release 5 Mg Tablet) 5 mg PO Q4H PRN PRN Reason: Pain, Moderate(Pain Scale 4-6) Polyethylene Glycol (Polyethylene Glycol 3350 17 Gm Powd.Pack) 17 gm PO DAILY PRN PRN Reason: Constipation Senna (Sennosides 8.6 Mg Tablet) 17.2 mg PO BEDTIME [facility] Last Admin: 10/18/25 21:39 Dose: 17.2 mg Documented By: KYA Sodium Chloride (0.9 % Sodium Chloride Flush 3 Ml Syringe) 3 ml IVFLUSH QSHIFT [facility] Last Admin: 10/19/25 16:18 Dose: Not Given Documented By: DAYRON Non-Admin Reason: IV Running Labs 10/19/25 07:48 10/19/25 07:48 Labs: Laboratory Results - last 24 hr 10/18/25 10/18/25 10/18/25 12:45 15:12 18:21 MCV MCH MCHC RDW Plt Count MPV Immature Gran % (Auto) Neut % (Auto) Lymph % (Auto) Dukes % (Auto) Eos % (Auto) Baso % (Auto) Lymph # (Auto) Dukes # (Auto) Eos # (Auto) Baso # (Auto) Abs Immat Gran (auto) Absolute Neuts (auto) Absolute Nucleated RBC Nucleated RBC % (auto) Neutrophils % (Manual) Band Neutrophils % Lymphocytes % (Manual) Monocytes % (Manual) Abs Neuts (Manual) Lymphocytes # (Manual) Monocytes # (Manual) Dohle Bodies Platelet Estimate Plt Morphology Comment RBC Morphology Lucian Cells Acanthocytes (Spur) Smear Path Review SEE NOTE Anion Gap Estim Creat Clear Calc Estimated GFR Random Glucose Lactic Acid F/U @ 2Hr Lactic Acid F/U @ 4Hr Calcium Total Bilirubin AST ALT Alkaline Phosphatase Total Creatine Kinase 114 NT-Pro-B Natriuret Pep 211.7 Total Protein Albumin Triglycerides Cholesterol LDL Cholesterol, Calc HDL Cholesterol TSH 28.90 H Free T4 0.94 Urine Color Yellow Urine Appearance Clear Urine pH 7.0 Ur Specific Britton 1.025 Urine Protein Negative Urine Glucose (UA) Negative Urine Ketones Negative Urine Blood Negative Urine Nitrite Negative Ur Leukocyte Esterase Negative 10/18/25 10/18/25 10/19/25 18:30 21:52 07:48 MCV 93.3 MCH 29.7 MCHC 31.8 RDW 16.8 H Plt Count 67 L D MPV 11.0 Immature Gran % (Auto) Cancelled Neut % (Auto) Cancelled Lymph % (Auto) Cancelled Dukes % (Auto) Cancelled Eos % (Auto) Cancelled Baso % (Auto) Cancelled Lymph # (Auto) Cancelled Dukes # (Auto) Cancelled Eos # (Auto) Cancelled Baso # (Auto) Cancelled Abs Immat Gran (auto) Cancelled Absolute Neuts (auto) Cancelled Absolute Nucleated RBC 0.000 Nucleated RBC % (auto) 0.0 Neutrophils % (Manual) 91 H Band Neutrophils % 4 Lymphocytes % (Manual) 4 L Monocytes % (Manual) 1 L Abs Neuts (Manual) 22.7 H Lymphocytes # (Manual) 1.0 L Monocytes # (Manual) 0.2 Dohle Bodies PRESENT Platelet Estimate DECREASED Plt Morphology Comment NORMAL RBC Morphology NOTED Lucian Cells 3+ (>5) Acanthocytes (Spur) 3+ (>5) Smear Path Review Anion Gap 10 L Estim Creat Clear Calc 65.7 Estimated GFR > 60 Random Glucose 129 H Lactic Acid F/U @ 2Hr 2.5 H* Lactic Acid F/U @ 4Hr 2.5 H* Calcium 7.7 L D Total Bilirubin 0.5 AST 26 ALT 11 Alkaline Phosphatase 250 H Total Creatine Kinase NT-Pro-B Natriuret Pep Total Protein 4.8 L Albumin 3.1 L Triglycerides 107 Cholesterol 121 LDL Cholesterol, Calc 51 HDL Cholesterol 49 TSH Free T4 Urine Color Urine Appearance Urine pH Ur Specific [place]on Urine Protein Urine Glucose (UA) Urine Ketones Urine Blood Urine Nitrite Ur Leukocyte Esterase Microbiology Microbiology Results: Microbiology 10/18/25 15:12 Blood Culture - Preliminary Blood - Venous No growth after 24 hours. 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 Patient states she walked approximately 1 mi from home in the rain from her home where she lives alone to the stop and shop and fell within the stop and shop. Patient then continued with her shopping needs and returned home and fell again. Patient reports possible loss of consciousness as she has a strike to the chin and above the right eye with a small laceration as well as severe foot pain in the right foot. Pt lives alone and was alone during fall at home. Patient being admitted for noted leukocytosis on Neulasta, right foot fracture and possible syncopal episodes. 1. Multiple fractures right foot -appreciate ortho input -PT eval -nonweightbearing follow up with Podiatry 1 week -adamantly denies syncope 2.Leukocytosis/ thrombocytopenia on Chemotherapy for stage 4 colon cancer (mets to liver) -appreciate oncology input -treatment as outlined 3.Subclinical Hypothyroidism on Levothyroxine -TSH 28, FT4 WNL -Increasing Levothyroxine to 100 mcg daily, as TSH is >10, take 30 mins prior to eating -Repeat labs in 4 weeks 4.HTN -abnormal EKG; appreciate cardiac input -acceptable control off therapies add back as clinically appropriate Lovenox Full code status: Reviewed with patient at the bedside Patient requires ongoing hospitalization.To determine safe placement Quality Stroke Does the patient have a stroke diagnosis?: No Reason for No Anti-thrombotic by Day Two: N/A - Med Ordered VTE Prior VTE?: No VTE Risk Level:: Medical - moderate - high VTE Device Contraindication: N/A - Device Ordered VTE Drug Contraindication: N/A - Med Ordered
[2025-10-20] VITALS (9 sets, daily range): BP systolic 138–168; BP diastolic 74–91; PULSE 56–79; RESP 16–20; TEMP 36.7–37; O2SAT 98–100
--- NOTE | 2025-10-20 06:06 | PC.NURSE ---
Complains of left rib pain and soreness inferior to breast/lateral ribs region. worse with coughing and twisting of the torso/getting up out of bed. Patient states she feels like this is from her two falls.No obvious markings on skin. Appears symmetrical. No dyspnea. Mildly tender palpating around region. No guarding. Vitals stable. Medicated with prn for this and her right foot pain. I don?t not see this rib pain documented so wanted to reach out out of precaution. MD Rodriguez aware
[2025-10-20 07:07] LABS: Hematocrit 30.5 % (37.0-47.0); Hemoglobin 9.8 g/dl (12.0-16.0); Mean Corpuscular HGB Conc 32.1 g/dl (31.0-35.0); Mean Corpuscular Hemoglobin 29.3 pg (27.0-33.0); Mean Corpuscular Volume 91.3 fL (80.0-98.0); NRBC Abs Auto 0.000 X10*3/uL (0.0-0.012); NRBC Pct Auto 0.0 /100WBC (0.0-0.2); Red Blood Count 3.34 X10*6/uL (4.20-5.50)
[2025-10-20 07:13] LABS: Platelet Count 48 X10*3/uL (160-400); WBC ABN SCTR FOR CBC 1
[2025-10-20 07:24] LABS: Alanine Aminotransferase 7 U/L (0-31); Albumin Level 3.0 g/dL (3.5-5.0); Alkaline Phosphatase 232 U/L (39-117); Anion Gap 10 (12-20); Aspartate Amino Transferase 20 U/L (5-31); Blood Urea Nitrogen 8 mg/dL (9-16); Calcium 7.7 mg/dL (8.4-10.2); Carbon Dioxide 25 mmol/L (22-29); Chloride 109 mmol/L (96-108); Creatinine Clr Calc Pharmacy 66.9; Estimated Glomerular Filt Rate > 60; Potassium 3.5 mmol/L (3.3-5.1); Sodium 140 mmol/L (135-145); Total Protein 4.6 g/dL (6.5-8.0)
[2025-10-20 07:27] LABS: Band Neutrophils Percent 5 % (3-5); Basophils Percent Manual 1 % (0-2); Eosinophils Percent Manual 2 % (0-4); Lymphocytes Percent Manual 9 % (20-40); Neutrophils Percent Manual 83 % (45-73)
[2025-10-20 07:29] LABS: Acanthocytes 2+ (3-5) /OIF; Dohle Bodies PRESENT; Ovalocytes 1+ (5-14) /OIF; RBC Morphology NOTED; Tear Drop Cells 1+ (0-2) /OIF
[2025-10-20 07:30] LABS: Basophils Abs Manual 0.1 X10*3/uL (0.0-0.2); Eosinophils Absolute Manual 0.2 X10*3/uL (0.0-0.4); Lymphocytes Absolute Manual 1.0 X10*3/uL (1.2-4.9); Neutrophils Absolute Manual 10.1 X10*3/uL (2.0-8.3); White Blood Count 11.5 X10*3/uL (4.8-10.8)
[2025-10-20] MEDS: Metoprolol Succinate ER 25 MG TAB.ER.24H PO (08:30)
--- NOTE | 2025-10-20 14:33 | P.PNIM_ITS ---
Subjective Subjective Date of Service: 10/20/25 Interval History: Pain control adequate. PT recommended short-term rehab. .. Patient deciding Review of Systems Denies chest pain Denies shortness of breath Denies nausea vomiting diarrhea Denies fever chills Physical Exam 2 Vital Signs: Vital Signs: Last Vital Signs Temp 98.0 F 10/20/25 11:06 Pulse 61 10/20/25 11:06 Resp 18 10/20/25 11:06 BP 161/77 H 10/20/25 11:06 Pulse Ox 98 10/20/25 11:06 O2 Del Method Room Air 10/20/25 11:06 BMI result Body Mass Index 23.2 Const: Other: Awake alert no acute distress Resp: Other: Clear to auscultation bilaterally no rales rhonchi or wheezes Cardio: Other: No S4; positive S1-S2; no S3 murmurs rubs or gallops GI: Other: Soft nontender nondistended bowel sounds x4 Extrem: Other: No edema bilaterally Objective Data Active Medications Acetaminophen (Acetaminophen 325 Mg Tablet) 650 mg PO Q6H PRN PRN Reason: Pain, Mild 1-3,fever,headache Albuterol Sulfate (Albuterol Sulfate 90 Mcg 8 Gm Inhaler) 2 puff INHALE Q6H PRN PRN Reason: for wheezing Albuterol/Ipratropium (Albuterol/Iprat 2.5/0.5mg 3 Ml Ampul.Neb) 3 ml INHALE Q4H PRN PRN Reason: Shortness of Breath/Wheezing Ascorbic Acid (Ascorbic Acid 500 Mg Tablet) 500 mg PO DAILY [facility] Last Admin: 10/20/25 08:30 Dose: 500 mg Documented By: MECHELLE Calcium Carbonate (Calcium Carbonate 750 Mg Tab.Chew) 750 mg PO Q4H PRN PRN Reason: Heartburn Duloxetine HCl (Duloxetine Hcl 20 Mg Capsule.Dr) 40 mg PO BEDTIME [facility] Last Admin: 10/19/25 20:46 Dose: Not Given Documented By: GREYSON Non-Admin Reason: Patient Refused Enoxaparin Sodium (Enoxaparin Sodium 40 Mg/0.4 Ml Syringe) 40 mg SUBCUT Q24H [facility] Last Admin: 10/19/25 20:42 Dose: 40 mg Documented By: GREYSON Fluticasone Propionate (Fluticasone Propionate Nasal 16 Gm [place]) 1 spray NOSTRIL-B BID PRN PRN Reason: Allergy Symptoms Gabapentin (Gabapentin 100 Mg Capsule) 100 mg PO DAILY [facility] Last Admin: 10/20/25 08:30 Dose: 100 mg Documented By: MECHELLE Hydromorphone HCl (Hydromorphone Hcl 1 Mg/Ml Syringe) 0.5 mg IVPUSH Q3H PRN; Protocol PRN Reason: Pain, Severe (Pain Scale 7-10) Last Admin: 10/20/25 04:22 Dose: 0.5 mg Documented By: CAROLYN Sodium Chloride (Ns) 1,000 mls @ 100 mls/hr IVCONT .Q10H [facility] Last Admin: 10/20/25 07:19 Dose: 100 mls/hr Documented By: CAROLYN Levothyroxine Sodium (Levothyroxine Sodium 100 Mcg Tablet) 100 mcg PO DAILY@0600 [facility] Last Admin: 10/20/25 04:21 Dose: 100 mcg Documented By: CAROLYN Loperamide HCl (Loperamide Hcl 2 Mg Capsule) 2 mg PO Q6H PRN PRN Reason: Diarrhea Magnesium Hydroxide (Milk Of Magnesia 30 Ml Oral.Susp) 30 ml PO DAILY PRN PRN Reason: Constipation Melatonin (Melatonin 3 Mg Tablet) 6 mg PO BEDTIME PRN PRN Reason: Insomnia Metoprolol Succinate (Metoprolol Succinate Er 25 Mg Tab.Er.24h) 25 mg PO DAILY [facility]; Protocol Last Admin: 10/20/25 08:30 Dose: 25 mg Documented By: MECHELLE Omeprazole (Omeprazole 20 Mg Capsule.) 20 mg PO DAILY@0630 [facility] Last Admin: 10/20/25 07:18 Dose: 20 mg Documented By: CAROLYN Ondansetron HCl (Ondansetron Hcl 4 Mg/2 Ml Vial) 4 mg IVPUSH Q4H PRN PRN Reason: Nausea and Vomiting Last Admin: 10/20/25 13:58 Dose: 4 mg Documented By: MECHELLE Oxycodone HCl (Oxycodone Hcl Immed Release 5 Mg Tablet) 5 mg PO Q4H PRN PRN Reason: Pain, Moderate(Pain Scale 4-6) Polyethylene Glycol (Polyethylene Glycol 3350 17 Gm Powd.Pack) 17 gm PO DAILY PRN PRN Reason: Constipation Senna (Sennosides 8.6 Mg Tablet) 17.2 mg PO BEDTIME [facility] Last Admin: 10/19/25 20:42 Dose: 17.2 mg Documented By: GREYSON Sertraline HCl (Sertraline Hcl 25 Mg Tablet) 25 mg PO DAILY [facility] Last Admin: 10/20/25 08:31 Dose: 25 mg Documented By: MECHELLE Sodium Chloride (0.9 % Sodium Chloride Flush 3 Ml Syringe) 3 ml IVFLUSH QSHIFT [facility] Last Admin: 10/20/25 08:31 Dose: Not Given Documented By: MECHELLE Non-Admin Reason: IV Running Labs 10/20/25 06:47 10/20/25 06:47 Labs: Laboratory Results - last 24 hr 10/20/25 06:47 MCV 91.3 MCH 29.3 MCHC 32.1 RDW 16.4 H Plt Count 48 L D MPV 10.3 Immature Gran % (Auto) Cancelled Neut % (Auto) Cancelled Lymph % (Auto) Cancelled [place] % (Auto) Cancelled Eos % (Auto) Cancelled Baso % (Auto) Cancelled Lymph # (Auto) Cancelled [place] # (Auto) Cancelled Eos # (Auto) Cancelled Baso # (Auto) Cancelled Abs Immat Gran (auto) Cancelled Absolute Neuts (auto) Cancelled Absolute Nucleated RBC 0.000 Nucleated RBC % (auto) 0.0 Neutrophils % (Manual) 83 H Band Neutrophils % 5 Lymphocytes % (Manual) 9 L Eosinophils % (Manual) 2 Basophils % (Manual) 1 Abs Neuts (Manual) 10.1 H Lymphocytes # (Manual) 1.0 L Eosinophils # (Manual) 0.2 Basophils # (Manual) 0.1 Dohle Bodies PRESENT Platelet Estimate DECREASED Plt Morphology Comment NORMAL RBC Morphology NOTED Tear Drop Cells 1+ (0-2) Ovalocytes 1+ (5-14) Acanthocytes (Spur) 2+ (3-5) Anion Gap 10 L Estim Creat Clear Calc 66.9 Estimated GFR > 60 Fasting Glucose 113 H Calcium 7.7 L Total Bilirubin 0.7 AST 20 ALT 7 Alkaline Phosphatase 232 H Total Protein 4.6 L Albumin 3.0 L Microbiology Microbiology Results: Microbiology 10/18/25 15:12 Blood Culture - Preliminary Blood - Venous No growth after 24 hours. 10/18/25 15:12 Blood Culture - Preliminary Blood - Venous No growth after 24 hours. 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 Patient states she walked approximately 1 mi from home in the rain from her home where she lives alone to the [place] and shop and fell within the stop and shop. Patient then continued with her shopping needs and returned home and fell again. Patient reports possible loss of consciousness as she has a strike to the chin and above the right eye with a small laceration as well as severe foot pain in the right foot. Pt lives alone and was alone during fall at home. Patient being admitted for noted leukocytosis on Neulasta, right foot fracture and possible syncopal episodes. 1. Multiple fractures right foot -appreciate ortho input -PT eval... Recommended short-term rehab. Patient deciding -nonweightbearing follow up with Podiatry 1 week -adamantly denies syncope 2.Leukocytosis/ thrombocytopenia on Chemotherapy for stage 4 colon cancer (mets to liver) -appreciate oncology input -treatment as outlined 3.Subclinical Hypothyroidism on Levothyroxine -TSH 28, FT4 WNL -Increasing Levothyroxine to 100 mcg daily, as TSH is >10, take 30 mins prior to eating -Repeat labs in 4 weeks 4.HTN -abnormal EKG; appreciate cardiac input -acceptable control off therapies add back as clinically appropriate Lovenox Full code status: Reviewed with patient at the bedside Patient requires ongoing hospitalization.To determine safe placement Quality Stroke Does the patient have a stroke diagnosis?: No Reason for No Anti-thrombotic by Day Two: N/A - Med Ordered VTE Prior VTE?: No VTE Risk Level:: Medical - moderate - high VTE Device Contraindication: N/A - Device Ordered VTE Drug Contraindication: N/A - Med Ordered
[2025-10-21] VITALS (7 sets, daily range): BP systolic 132–157; BP diastolic 71–85; PULSE 51–79; RESP 17–18; TEMP 36.5–36.7; O2SAT 97–99
[2025-10-21] MEDS: Metoprolol Succinate ER 25 MG TAB.ER.24H PO (08:38)
[2025-10-21] MEDS: 0.9 % Sodium Chloride Flush 3 ML SYRINGE IVFLUSH (08:50)
--- NOTE | 2025-10-21 12:56 | P.DS_ITS ---
DS: Providers Provider Date of Service: 10/21/25 Date of admission: 10/18/25 18:18 Date of discharge: 10/21/25 Primary care physician: Fran Lazaro MD Consults: 10/18/25 19:22 Consult to Hematology / Oncology Routine Consulting Provider: [facility] Oncology/Hematology Reason for consultation: currently on chemo, high WBC, falls Has provider been notified: No Consult to Orthopedics Routine Consulting Provider: [facility] Orthopedic Surgeons Reason for consultation: multple right foot fractures s/p falls Has provider been notified: No 10/18/25 23:26 Consult to Cardiology Routine Consulting Provider: [facility] Cardiovascular Specialists Reason for consultation: syncope, abn ECG Has provider been notified: No DS: Diagnosis Discharge Diagnosis (1) Metatarsal fracture: Status: Acute (2) Fracture of medial cuneiform: Status: Acute (3) Colon cancer: Status: Acute (4) Leukocytosis: Status: Acute DS: Summary Hospital Course Hospital Course: 70 year old female Citizen Of [place]-speaking only with past medical history prediabetes, 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 Patient states she walked approximately 1 mi from in the rain from her home where she lives alone to the stop and shop and fell within the stop and shop. Patient then continued with her shopping needs and returned home and fell again. Patient reports possible loss of consciousness as she has a strike to the chin and above the right eye with a small laceration as well as severe foot pain in the right foot. Pt unsure how long she was out for with the second fall. Patient denies any chest pain at the time of these events and currently denies any chest pain or shortness of breath, nausea or vomiting. Patient did not have any fever or chills. Patient states she has done this before (walked to the store) and she is very stubborn and felt she could do it again. Patient states her son does help her with many of her IADLs and she does not currently have help coming into the home. Patient's last chemotherapy was this past Sunday and patient's continuous chemo finished on . Patient has been receiving Neulasta per Hem/Onc tp ED provider. Hemodynamics currently stable. Workup in the ED included head CT and CT of the cervical spine which were negative for any acute findings.X-ray of the foot noted possible nondisplaced transverse fracture of the base of the 3rd metatarsal as well as the 2nd and 4th metatarsals. CT of the foot confirmed nondisplaced comminuted fracture of the medial cuneiform, of the 2nd metatarsal and mildly comminuted displaced fracture of the base of the 3rd and 4th metatarsals. Diffuse soft tissue edema noted overlying the right forefoot and midfoot. A splint is currently in place done by ED provider. Hospital course Patient admitted to telemetry where monitor failed to demonstrate any acute dysrhythmias. Seen by Cardiology who felt there were no acute issues with the changes in the cardiogram. She was seen by Orthopedics splint applied. Plan is for discharge home with services nonweightbearing until seen by ortho 1-2 weeks in the office. PT saw patient recommended short-term rehab however patient declined stating she needs to follow up with the chemotherapy early next week. At this point in time she is medically acceptable for discharge and will be discharged home with walker. Time Attestation Discharge Coordination Time (in mins): 35 Quality: Safe Use of Opioids Does Pt have an Active Cancer Diagnosis on the Problem List?: No Quality: Stroke Does the patient have a stroke diagnosis?: No Physical Exam Vital Signs: Vital Signs: Last Vital Signs Temp 98.1 F 10/21/25 11:07 Pulse 58 10/21/25 11:07 Resp 18 10/21/25 11:07 BP 141/71 H 10/21/25 11:07 Pulse Ox 99 10/21/25 11:07 O2 Del Method Room Air 10/21/25 11:07 BMI result Body Mass Index 23.2 Const: Other: Awake alert no acute distress Resp: Other: Clear to auscultation bilaterally no rales rhonchi or wheezes Cardio: Other: No S4; positive S1-S2; no S3 murmurs rubs or gallops GI: Other: Soft nontender nondistended normoactive bowel sounds Extrem: Other: No edema bilaterally. Splint right lower extremity DS: Data Data Completed and Pending Completed studies during hospitalization [Text1]: Procedures Excision of Sigmoid Colon, Open Approach (04/22/24) Labs on day of discharge: Preliminary micro results at discharge 10/18/25 15:12 Blood Culture - Preliminary Blood - Venous No growth after 48 hours. 10/18/25 15:12 Blood Culture - Preliminary Blood - Venous No growth after 48 hours. Discharge Plan Discharge Anticipated Discharge Date/Time: 10/21/25 12:46 Patient Disposition: Home Health Service Discharge Diagnosis: SYNCOPE Referrals: Po,Fran Childers MD [Primary Care Provider, Internal Medicine] - 1 Week Discharge Medications: New levothyroxine [Synthroid] 100 mcg Tablet 100 mcg PO DAILY@0600 Qty: 30 0RF oxycodone 5 mg Tablet 5 mg PO Q4H PRN (Reason: Pain, Moderate(Pain Scale 4-6)) Qty: 30 0RF Rx Instructions: Partial Fill upon patient request. Continued (DME) HUMIDIFIER See Rx Instructions .Route .MEDSUPPLY Qty: 1 0RF Rx Instructions: As directed metoprolol succinate 25 mg tablet extended release 24 hr 25 mg PO DAILY Qty: 90 3RF simvastatin 20 mg tablet 20 mg PO DAILY Qty: 90 3RF (DME) Non slip mat See Rx Instructions .Route .MEDSUPPLY Qty: 1 0RF Rx Instructions: As directedOrthopedic Pillow/wipes/gloves/non-slip josesito levothyroxine 75 mcg tablet 75 mcg PO DAILY@0600 Qty: 90 1RF (DME) Glucern/ vanilla flavor See Rx Instructions .Route .MEDSUPPLY Qty: 30 3RF Rx Instructions: As directed (DME) Gloves medium See Rx Instructions .Route .MEDSUPPLY Qty: 3 11RF Rx Instructions: As directed (DME) Orthopedic pillow See Rx Instructions .Route .MEDSUPPLY Qty: 1 0RF Rx Instructions: as directed (DME) Wipes See Rx Instructions .Route .MEDSUPPLY Qty: 3 11RF Rx Instructions: as directed (DME) non-slip shower mat See Rx Instructions .Route .MEDSUPPLY Qty: 1 0RF Rx Instructions: As directed albuterol sulfate [Ventolin HFA] 90 mcg/actuation HFA aerosol inhaler 2 puff inhalation Q6H PRN (Reason: for wheezing) Qty: 18 2RF (DME) orthopedic pillow See Rx Instructions .Route .MEDSUPPLY Qty: 1 0RF Rx Instructions: As directed sertraline 25 mg tablet 25 mg PO DAILY Qty: 90 2RF omeprazole 20 mg Capsule,Delayed Release(Dr/Ec) 20 mg PO DAILY Qty: 90 3RF dexamethasone 4 mg Tablet 4 mg PO BID Qty: 60 1RF Rx Instructions: Take 4 mg p.o. b.i.d. day 2 and 3 of chemotherapy every 14 days. loperamide 2 mg Capsule 2 mg PO Q6H PRN (Reason: Diarrhea) Qty: 60 4RF ascorbic acid (vitamin C) [Vitamin C] 500 mg tablet 500 mg PO DAILY duloxetine 20 mg capsule,delayed release(DR/EC) 40 mg PO BEDTIME tramadol 50 mg tablet 50 mg PO BID PRN (Reason: Pain) ondansetron 8 mg tablet,disintegrating 8 mg PO Q8H PRN (Reason: Nausea And Vomiting) lidocaine 5 % adhesive patch,medicated 1 patch topical DAILY PRN (Reason: Pain) Rx Instructions: leave on most painful area for up to 12 hrs simethicone [Gas Relief (simethicone)] 125 mg tablet,chewable 125 mg PO BID PRN (Reason: abdominal distention) gabapentin 100 mg capsule 100 mg PO DAILY zolpidem 10 mg tablet 10 mg PO BEDTIME PRN (Reason: Insomnia) fluticasone propionate 50 mcg/actuation spray,suspension 1 spray INTRANASAL BID PRN (Reason: Allergy Symptoms) Rx Instructions: administer into each nostril ferrous sulfate 325 mg (65 mg iron) tablet 325 mg PO DAILY nystatin 100,000 unit/mL suspension 5 ml PO TID PRN (Reason: Mouth Pain) Rx Instructions: SWISH AND SPIT (DME) disposable gloves [Vinyl Gloves] Misc See Rx Instructions .Route Qty: 100 11RF Rx Instructions: As directed (DME) wipes See Rx Instructions .Route .MEDSUPPLY Qty: 2 11RF Rx Instructions: As directed Discharge Orders: Discharge Order (Routine); Ordered 10/21/25 Ordered By: Siddhartha Fernandez Diet: Advance to usual diet Activity on Discharge: As tolerated Stand Alone Forms: Patient Portal Discharge page Print Language: Citizen Of [place] Care Plan Goals: No weight-bearing right leg. Script has been given to you 4 wheeled walker. You can bring it to [facility] [address] Health Concerns: Your thyroid medicine has been adjusted. Otherwise there have been no changes to all your medicines. Take them as he did before the hospital. Oxycodone has been called to the pharmacy for pain Plan of Treatment: Orthopedics we will be calling you with a follow up appointment in 1-2 weeks Assessment: See discharge summary
--- NOTE | 2025-10-25 07:36 | P.F2F_ITS ---
Service Date Service Date: 10/25/25 Encounter Date of encounter: 10/21/25 Encounter: Acute hospitalacute hospitalization Reasons for Services Signs and symptoms assessed: Pain managementpain management and medication education as well as home physical therapy Reason for senior care: medication management and teach disease management Reason for physical therapy: home safety and mobility and gait/transfer training Homebound: Leaving the home is medically contraindicated at this time without the asist of a device and/or another person due th the listed conditions above and below. Reason homebound: unsteady gait / fall risk, non-weight bearing and unable to drive Certification: Based on the above findings, I certify that this patient is confined to the home and needs intermittent senior care care, physical therapy and/or speech therapy, or continues to need occupational therapy. The patient is under my care, and I have initiated the establishment of the plan of care. The patient will be followed by a physician who will periodically review the plan of care. Time Spent With Patient Time: Total time managing care of this patient today ____ minutes.
== END 2025-10-21 14:59 | disposition home health service (06) | DRG 563 ==
LOC: HO.ED 18:08 → HO.EDOVER 18:24 → HO.IMC 10-19 03:20
PROVIDERS: Nurse Practitioner Family; Physician Assistant; Physician Assistant Medical; Admitting Provider Internal Medicine; Emergency Provider Emergency Medicine Emergency Medical Services; PCP Internal Medicine; Visit Provider Hospitalist
DX: S92.331A Displaced fracture of third metatarsal bone, right foot, initial encounter for closed fracture (principal); C18.7 Malignant neoplasm of sigmoid colon; C78.7 Secondary malignant neoplasm of liver and intrahepatic bile duct; I45.2 Bifascicular block; E87.21 Acute metabolic acidosis; S92.341A Displaced fracture of fourth metatarsal bone, right foot, initial encounter for closed fracture; S92.324A Nondisplaced fracture of second metatarsal bone, right foot, initial encounter for closed fracture; S92.244A Nondisplaced fracture of medial cuneiform of right foot, initial encounter for closed fracture; W19.XXXA Unspecified fall, initial encounter; I10 Essential (primary) hypertension; R29.6 Repeated falls; D69.6 Thrombocytopenia, unspecified; E03.8 Other specified hypothyroidism; E78.5 Hyperlipidemia, unspecified; K21.9 Gastro-esophageal reflux disease without esophagitis; Z20.822 Contact with and (suspected) exposure to COVID-19; Z79.890 Hormone replacement therapy; Z79.899 Other long term (current) drug therapy
CPT/HCPCS: 36415; 70450; 71046; 71275; 72125; 73562; 73610; 73630; 73700; 80053; 80061; 81003; 82550; 83605; 83735; 83880; 84439; 84443; 84484; 85007; 85025; 85027; 85610; 87040; 87637; 90715; 93005; 93306; 97162; 99285; J1171; J1650; J2405; J2543; Q9967

== ENCOUNTER → 2025-10-18 12:28 | Outpatient (BNV) | payer OTHER, SELFPAY | PROVIDERS: PCP Internal Medicine; Visit Provider Radiology Diagnostic Radiology | DX: R91.1 Solitary pulmonary nodule (principal); S09.90XA Unspecified injury of head, initial encounter; R55 Syncope and collapse; S92.244A Nondisplaced fracture of medial cuneiform of right foot, initial encounter for closed fracture; S92.324A Nondisplaced fracture of second metatarsal bone, right foot, initial encounter for closed fracture; S92.334A Nondisplaced fracture of third metatarsal bone, right foot, initial encounter for closed fracture; R60.0 Localized edema; Z04.3 Encounter for examination and observation following other accident; S80.911A Unspecified superficial injury of right knee, initial encounter; S80.912A Unspecified superficial injury of left knee, initial encounter; S92.321A Displaced fracture of second metatarsal bone, right foot, initial encounter for closed fracture; S92.351A Displaced fracture of fifth metatarsal bone, right foot, initial encounter for closed fracture | CPT/HCPCS: 70450; 71046; 71275; 72125; 73562; 73610; 73630; 73700 ==

== ENCOUNTER 2025-10-18 18:18 | Outpatient (BNV) | payer OTHER, SELFPAY | END 2025-10-19 07:00 | PROVIDERS: Admitting Provider Internal Medicine; Emergency Provider Emergency Medicine Emergency Medical Services; PCP Internal Medicine; Visit Provider Internal Medicine Cardiovascular Disease | DX: I51.89 Other ill-defined heart diseases (principal); R55 Syncope and collapse | CPT/HCPCS: 93306 ==

== ENCOUNTER → 2025-10-18 18:18 | Outpatient (BNV) | payer OTHER, SELFPAY | PROVIDERS: Admitting Provider Internal Medicine; Emergency Provider Emergency Medicine Emergency Medical Services; PCP Internal Medicine; Visit Provider Physician Assistant | DX: S92.244A Nondisplaced fracture of medial cuneiform of right foot, initial encounter for closed fracture (principal); S92.334A Nondisplaced fracture of third metatarsal bone, right foot, initial encounter for closed fracture; S92.321A Displaced fracture of second metatarsal bone, right foot, initial encounter for closed fracture; S92.341A Displaced fracture of fourth metatarsal bone, right foot, initial encounter for closed fracture | CPT/HCPCS: 99221 ==

== ENCOUNTER → 2025-10-18 18:18 | Outpatient (BNV) | payer OTHER, SELFPAY | PROVIDERS: Admitting Provider Internal Medicine; Emergency Provider Emergency Medicine Emergency Medical Services; PCP Internal Medicine; Visit Provider Nurse Practitioner Family | DX: S92.301A Fracture of unspecified metatarsal bone(s), right foot, initial encounter for closed fracture (principal); S92.244A Nondisplaced fracture of medial cuneiform of right foot, initial encounter for closed fracture; C18.9 Malignant neoplasm of colon, unspecified; D72.829 Elevated white blood cell count, unspecified; R55 Syncope and collapse | CPT/HCPCS: 99223; 99233 ==

== ENCOUNTER → 2025-10-18 18:18 | Outpatient (BNV) | payer OTHER, SELFPAY | PROVIDERS: Admitting Provider Internal Medicine; Emergency Provider Emergency Medicine Emergency Medical Services; PCP Internal Medicine; Visit Provider Internal Medicine Cardiovascular Disease | DX: I45.2 Bifascicular block (principal); W19.XXXA Unspecified fall, initial encounter | CPT/HCPCS: 93010; 99222 ==

== ENCOUNTER → 2025-10-18 18:18 | Outpatient (BNV) | payer OTHER, SELFPAY | PROVIDERS: Admitting Provider Internal Medicine; Emergency Provider Emergency Medicine Emergency Medical Services; PCP Internal Medicine; Visit Provider Internal Medicine Medical Oncology | DX: C18.7 Malignant neoplasm of sigmoid colon (principal); C78.7 Secondary malignant neoplasm of liver and intrahepatic bile duct; D72.829 Elevated white blood cell count, unspecified; D69.59 Other secondary thrombocytopenia | CPT/HCPCS: 99222 ==

== ENCOUNTER 2025-11-05 14:07 | Outpatient (AMB) | payer OTHER, SELFPAY ==
[2025-11-05 14:22] VITALS: BMI 22.5
--- NOTE | 2025-11-05 14:22 | A.OFFVIS_ITS ---
Vital Signs 11/05/25 14:22 Height 5 ft Weight 115 lb BMI 22.5 Intake Visit Reasons: foot fracture Intake Note: Sandra is a 70 year old female who presents today as a new patient for an evaluation of her right foot fracture. Patient reports she had fallen back in September before thanks giving on 10/18/25. While she was seen at the ED she was prescribed oxycodone and they had applied a splint to the patient. She denies any previous history of foot fracture and she states she is only having slight pain if she touches her martinez. Foot CT scan is all set in patients chart. Pet Caregiver ID [id number] Allergies No Known Allergies Allergy (Verified 10/18/25 12:30) HPI HPI foot fracture: Details: Sandra is a 70 year old female past medical history of colon cancer with liver metastasis, hypothyroidism, HTN, hypercholesterolemia, osteopenia, diabetes mellitus type 2 with neuropathy, seen today for initial evaluation of right foot fractures. On 10/16/2025, the patient had a questionable syncope episode and sustained a fall. She was then seen in the emergency room on 10/18/2025 and noted to have right foot metatarsal fractures. She was discharged in a splint. She states she has been nonweightbearing since then using a rolling walker how ever she finds it extremely difficult to ambulate using it and to remain nonweightbearing in her splint. She is currently taking oxycodone for pain, denies significant pain to her foot. [facility] Medical History (Updated 11/05/25 @ 16:02 by Charles Stacy DPM) Fall Bifascicular block Colon cancer metastasized to liver Leukocytosis Fracture of medial cuneiform Metatarsal fracture Annual physical exam Encounter for annual routine gynecological examination Impacted cerumen of both ears Paronychia of finger Anemia Encounter for well woman exam with routine gynecological exam Colon cancer Colonic mass Recurrent UTI COVID-19 Abnormal weight loss Abdominal pain Abdominal cramping Pre-op examination Colon cancer screening Constipation Anemia Plantar fasciitis Low back pain Shingles Low back pain Pain of right hip Abnormal ultrasound of breast Vulvar itching Headache Cervical cancer screening Breast cancer screening by mammogram Colon cancer screening declined Colonoscopy refused Overweight (BMI 25.0-29.9) Vitamin B12 deficiency Impaired glucose tolerance Hypothyroid Hypercholesterolemia Hypertension Insomnia Carpal tunnel syndrome Surgical History Hx of surgical procedure (~04/22/24) H/O colonoscopy Family History Father No problems noted. Mother No problems noted. Sister History of breast cancer, Onset Age: 50 Daughter Colon cancer Son Colon cancer Social History Household Members: Children Housing: House Are you a primary child care lead teacher to a significant other at home: No Do you presently have visiting nurse or other home services: No Alcohol intake: never Patient Tobacco Use Status: Never used Tobacco e-Cigarette/Vaping Use: Never Used Second Hand Smoke Exposure: No service: No Current occupational status: retired Sexual orientation: Straight/Heterosexual Gender identity: Female Cognitive needs: No Hearing needs: No Vision needs: Yes Female Reproductive History Menstrual Age of Menarche: 16 Review of Systems Const All systems reviewed & are unremarkable except as noted in HPI and below Physical Exam Vital Signs: BMI result Body Mass Index 22.5 Extrem Other: *Bilateral Lower Extremity Focused Exam Vascular: DP/PT 2/4, CFT<3s to all digits, TG warm to cool, moderate right foot edema, no ankle edema Derm: Moderate ecchymosis to the distal forefoot. No tenting, no open wounds. No signs of infection. Neuro: Protective sensation diminished to bilateral lower extremities MSK: Moderate tenderness on palpation of the bases of the right foot metatarsals 2 through 4, tenderness to the 3rd and 4th Metatarsal-phalangeal joint. No pain to the ankle joint. Office Procedures AMB Podiatry Dressing Details of Procedure: Procedure: Strapping of the foot/ankle Indication: Right lower extremity metatarsal fractures with swelling Description: A compression wrap was applied using 4in webril and 4in Hussain bandage with the ankle held in neutral position. Tolerance: Patient tolerated procedure well, no immediate complications. 46567 - Strapping of foot/ankle Procedure code (CPT) selection complete Results Reviewed Results Reviewed: X-ray Read: 10/18/2025 X-ray right foot 3 views (AP, MO, Lateral) reviewed which shows nondisplaced 2nd, 3rd, and 4th metatarsal base fractures. Lisfranc ligament a ppears intact due to alignment of the medial base of the 2nd metatarsal and the intermediate cuneiform, no diastasis of the 1st and 2nd metatarsals. I personally reviewed the imaging and my findings are listed above. Ordering Physician: Adeline Crystal Date of Service: 10/18/25 Procedure(s): CT foot RT wo IV con IMPRESSION: 1. Nondisplaced comminuted fracture of the medial cuneiform. 2. Nondisplaced fracture of the base of the 2nd metatarsal. 3. Mildly-comminuted displaced fracture of the base of the 3rd and 4th metatarsals. 4. Diffuse soft tissue edema overlying the right forefoot and midfoot. Assessment & Plan Assessment & Plan (1) Fracture of metatarsal of right foot, closed: Code(s): S92.301A - Fracture of unspecified metatarsal bone(s), right foot, initial encounter for closed fracture Category: Medical Qualifiers: Encounter type: initial encounter Metatarsal bone: second Fracture alignment: nondisplaced Qualified Code(s): S92.324A - Nondisplaced fracture of second metatarsal bone, right foot, initial encounter for closed fracture Plan: * Reviewed right foot x-rays and CT scan with the patient * Discontinued posterior splint. Transitioned to Cam boot. * Continue nonweightbearing right lower extremity with a Cam boot. May weightbear using heel for transferring. Instructed the patient to remain in her cam boot at all times * Applied Cade compressive dressing to right lower extremity * F/u in 3 weeks with new x-rays Orders: Orders XR foot RT min 3V 2 Weeks S92.324A - Nondisplaced fracture of second metatarsal bone, right foot, initial encounter for closed fracture Coding Level of Care Code New Pt Level 4 (32338) Diagnoses Closed nondisplaced fracture of second metatarsal bone of right foot, initial encounter S92.324A Encounter type: initial encounter Metatarsal bone: second Fracture alignment: nondisplaced CPT Codes Podiatry Dressing - CPT: 52301 - Strapping of foot/ankle ([id number]) Time Spent (min) 35
--- OUTSIDE RECORDS SUMMARY | 2025-11-05 21:36 | XMS_ITS | Clinical Summary ---
Author Organization [address] [facility] Address [address] [place] [address] Phone Care Team Providers Care Party Coordinator Name Role Phone Physician, Pcp Unknown Primary [...] VECES AL D A 06/25/20 25 Active Social History Tobacco Use Types Packs/Day Years [...] on file Sexual Orientation Not on file Last Filed Vital Signs Vital Sign Reading [...] Screening 1955 Colorectal Cancer Screening: Colonoscopy 1955 Drug Screen 1955 Non-Opioid Controlled Substance Agreement 1955 Pneumococcal Vaccine: 50+ Years (2 of 2 - PCV) 07/04/2022 07/04/2021 Depression Screening 11/26/2024 Falls Risk Assessment 07/01/2025 Hepatitis C Screening 07/01/2025 Medicare Annual Wellness Visit 07/01/2025 Osteoporosis Screening (Bone Density Screening) 07/01/2025 Social Influencers of Health Screening 07/01/2025 COVID-19 Vaccine (3 - 2024-2 6 season) 2025 06/08/2021, 05/11/2021 Influenza Vaccine (#1) 2025 RSV Immunization Adult [...] on patient's age to complete this topic Insurance [facility] Member Subscriber Plan / Payer (Ef fective 2021-Present) Name:Sandra Elizondo Relation to Subscriber:Self Name:Sandra Elizondo Payer ID:[id number] Group ID:Not on file Type:Not on file Address: [address] [place] [address] [facility] Member Subscriber Plan / Payer ( fective 2021-Present) Name:Sandra Elizondo Relation to Subscriber:Self Name:Sandra Elizondo Payer ID:[id number] Group ID:[id number] Type:Not on file Address: [address] [place] [id number] Care Teams Party Coordinator Relationship Specialty Start Date End Date Physician, Pcp Unknown PCP - General 07/23/25
== END 2025-11-05 14:51 | disposition home or self-care (01) ==
LOC: HO.HPODS 14:08
PROVIDERS: PCP Internal Medicine; Visit Provider Student in an Organized Health Care Education/Training Program
DX: S92.324A Nondisplaced fracture of second metatarsal bone, right foot, initial encounter for closed fracture (principal)
CPT/HCPCS: 29540; 99204

== ENCOUNTER → 2025-11-05 14:07 | Outpatient (BNVA) | payer OTHER, SELFPAY | PROVIDERS: PCP Internal Medicine; Visit Provider Student in an Organized Health Care Education/Training Program | DX: S92.324A Nondisplaced fracture of second metatarsal bone, right foot, initial encounter for closed fracture (principal); W19.XXXA Unspecified fall, initial encounter; Y93.9 Activity, unspecified; Y92.9 Unspecified place or not applicable; Y99.9 Unspecified external cause status | CPT/HCPCS: 29540; 99202 ==

== ENCOUNTER 2025-11-20 15:29 | Inpatient (IN) | payer OTHER, SELFPAY ==
--- NOTE | ~2025-11-20 | XR_ITS ---
CLINICAL HISTORY: Neutropenia; SOB 2 view chest x-ray Comparison: CT/REG/SR - CT ANGIO CHEST PE PROTOCOL - 10/18/25 15:57 EST CR - XR CHEST 2V - 10/18/25 13:05 EST Findings: There is a right-sided chest port with the catheter tip overlying the cavoatrial junction. Normal heart size. Hyperinflated lungs, which can be seen in emphysema. No focal consolidation, pleural effusion, or pneumothorax. Unremarkable osseous structures. Metallic radiopaque foreign body in the right paraspinal midline abdomen, as noted on prior exams. IMPRESSION: No acute findings. This document has been electronically signed by: Stef Bangura MD on 11/21/2025 01:28:32
[2025-11-20 15:44] VITALS: BP 112/66; PULSE 101; RESP 18; TEMP 36.4; O2SAT 96; BMI 18.2
--- NOTE | 2025-11-20 15:44 | ED.GENADULT ---
HPI - General Adult General Chief complaint: General Medical Stated complaint: fatigue, loss of appetite, dehydration on Chemo Time Seen by Provider: 11/20/25 22:52 Source: patient Mode of arrival: ambulatory Limitations: language barrier (Clinical Nurse Reviewer services utilized) History of Present Illness ED Provider: Victor Manuel CHEN HPI narrative: The patient is a 70-year-old female with history of hypertension, hyperlipidemia, hypothyroidism, anemia, and sigmoid colon cancer with liver metastasis, currently on chemotherapy, last chemotherapy completed 8 days ago, who presents to the ED for evaluation of severe fatigue and malaise with the associated poor appetite and diarrhea. The patient reports she experienced similar symptoms for 2-3 days after most rounds of chemotherapy, however symptoms this time are lasting over a week, prompting ED evaluation. The patient reports associated shortness of breath with the exertion, denies shortness of breath at rest. The patient also reports she has been experiencing associated epigastric abdominal pain for which she was prescribed an antacid by her oncologist, took 1 tablet today with good effect, denies any abdominal pain while in the ED. The patient denies associated fever, and arrives to the ED afebrile. The patient denies associated chest pain, headache, cough, hematochezia, melena, hemoptysis, or hematuria. The patient does report hesitancy when attempting to urinate, states this is abnormal following chemotherapy. Related Data Home Medications ?Medication ?Instructions ?Recorded ?Confirmed ascorbic acid (vitamin C) 500 mg 500 mg PO DAILY 09/05/24 10/26/25 tablet (Vitamin C) ferrous sulfate 325 mg (65 mg 325 mg PO DAILY 02/17/25 10/26/25 iron) tablet nystatin 100,000 unit/mL oral 5 ml PO TID PRN Mouth Pain 03/10/25 10/26/25 suspension duloxetine 20 mg capsule,delayed 40 mg PO BEDTIME 10/19/25 10/26/25 release fluticasone propionate 50 1 spray intranasal BID PRN Allergy 10/19/25 10/26/25 mcg/actuation nasal Symptoms spray,suspension gabapentin 100 mg capsule 100 mg PO DAILY 10/19/25 10/26/25 lidocaine 5 % topical patch 1 patch topical DAILY PRN Pain 10/19/25 10/26/25 ondansetron 8 mg disintegrating 8 mg PO Q8H PRN Nausea And Vomiting 10/19/25 10/26/25 tablet simethicone 125 mg chewable tablet 125 mg PO BID PRN abdominal 10/19/25 10/26/25 (Gas Relief (simethicone)) distention Previous Rx's ?Medication ?Instructions ?Recorded HUMIDIFIER #1 ea 10/26/23 metoprolol succinate 25 mg 25 mg PO DAILY #90 tabs 01/23/25 tablet,extended release 24 hr disposable gloves (Vinyl Gloves) #100 ea 03/10/25 wipes #2 ea 03/10/25 simvastatin 20 mg tablet 20 mg PO DAILY #90 tabs 04/20/25 Non slip mat #1 ea 07/09/25 Glucern/ vanilla flavor #30 ea 07/30/25 omeprazole 20 mg capsule,delayed 20 mg PO DAILY #90 caps 08/13/25 release dexamethasone 4 mg tablet 4 mg PO BID #60 tabs 08/19/25 Gloves medium #3 ea 08/28/25 Orthopedic pillow #1 ea 08/28/25 Wipes #3 ea 08/28/25 non-slip shower mat #1 ea 08/28/25 albuterol sulfate 90 mcg/actuation 2 puff inhalation Q6H PRN for 09/04/25 aerosol inhaler (Ventolin HFA) wheezing #18 grams orthopedic pillow #1 ea 09/22/25 sertraline 25 mg tablet 25 mg PO DAILY #90 tabs 10/12/25 levothyroxine 100 mcg tablet 100 mcg PO DAILY@0600 #30 tabs 10/21/25 (Synthroid) oxycodone 5 mg tablet 5 mg PO Q4H PRN Pain, 10/29/25 Moderate(Pain Scale 4-6) #30 tabs tramadol 50 mg tablet 50 mg PO BID PRN Pain #30 tabs 11/02/25 zolpidem 10 mg tablet 10 mg PO BEDTIME PRN Insomnia #30 11/02/25 tabs loperamide 2 mg capsule 2 mg PO Q6H PRN Diarrhea #60 caps 11/10/25 loratadine 5 mg-pseudoephedrine ER 1 tab PO Q12H #60 tabs 11/11/25 120 mg tablet,extended release,12hr (Claritin-D 12 Hour) diphenoxylate-atropine 2.5 1 tab PO QID PRN Diarrhea #30 tabs 11/17/25 mg-0.025 mg tablet Allergies Allergy/AdvReac Type Severity Reaction Status Date / Time No Known Allergies Allergy Verified 11/20/25 15:54 Review of Systems Review of Systems: Yes all other systems are reviewed and are negative [facility] Past Medical History Medical History (Updated 11/21/25 @ 06:34 by Victor Manuel Sexton PA-C) Anemia Fall Bifascicular block Colon cancer metastasized to liver Leukocytosis Fracture of medial cuneiform Metatarsal fracture Annual physical exam Encounter for annual routine gynecological examination Impacted cerumen of both ears Paronychia of finger Anemia Encounter for well woman exam with routine gynecological exam Colon cancer Colonic mass Recurrent UTI COVID-19 Abnormal weight loss Abdominal pain Abdominal cramping Pre-op examination Colon cancer screening Constipation Plantar fasciitis Low back pain Shingles Low back pain Pain of right hip Abnormal ultrasound of breast Vulvar itching Headache Cervical cancer screening Breast cancer screening by mammogram Colon cancer screening declined Colonoscopy refused Overweight (BMI 25.0-29.9) Vitamin B12 deficiency Impaired glucose tolerance Hypothyroid Hypercholesterolemia Hypertension Insomnia Carpal tunnel syndrome Surgical History Hx of surgical procedure (~04/22/24) H/O colonoscopy Family History Family History Father No problems noted. Mother No problems noted. Sister History of breast cancer, Onset Age: 50 Daughter Colon cancer Son Colon cancer Social History Social History Household Members: Children Housing: House Are you a primary health care consultant to a significant other at home: No Do you presently have visiting nurse or other home services: No Alcohol intake: never Patient Tobacco Use Status: Never used Tobacco Smoked in Last 30 Days: No e-Cigarette/Vaping Use: Never Used Second Hand Smoke Exposure: No Use of substances other than those prescribed or required for medical reasons: No Advance Directives: No Advance Directives Information Provided: Yes Do you have a plan to hurt others: No Plan service: No Current occupational status: retired Sexual orientation: Straight/Heterosexual Gender identity: Female Cognitive needs: No Hearing needs: No Vision needs: Yes Physical Exam ED Vital Signs: Vital Signs - 24 hr 11/20/25 15:44 11/20/25 20:52 11/20/25 23:29 Temperature 97.6 F 98.7 F 97.7 F Pulse Rate 101 H 88 73 Respiratory Rate 18 20 18 Blood Pressure 112/66 121/73 117/70 Pulse Oximetry 96 99 98 Oxygen Delivery Method Room Air Room Air Room Air 11/21/25 01:40 Temperature 97.3 F Pulse Rate 69 Respiratory Rate 16 Blood Pressure 105/59 L Pulse Oximetry 99 Oxygen Delivery Method Room Air BMI result Body Mass Index 18.2 CONSTITUTIONAL: The patient appears chronically ill, mildly cachectic, but otherwise non-toxic and in no acute distress. Vital signs as documented. HEAD: Atraumatic, normocephalic. EYES: EOMs grossly intact, pupils equal, conjunctiva clear, no exudate. ENT: Nares patent, no discharge. Airway patent, no audible stridor, visible mucosa is pink and moist without noted lesions. NECK: Trachea is midline, no obvious masses or gross abnormalities. CHEST: Symmetric movement, normal appearance. LUNGS: LS present and CTAB, no w/r/r. Non-labored work of breathing. CARDIAC: Regular Rhythm, S1/S2 appreciated, no murmurs, rubs or gallops. ABDOMEN: Abdomen soft and non-tender x4 quadrants, no palpable masses or organomegaly. : Deferred. EXTREMITIES: Normal tone, moves all extremities spontaneously without reported pain. No obvious acute injury or deformity noted. NEURO: Alert and oriented x3, CN II-XII appear grossly intact. Cerebellar Functioning grossly intact. No obvious sensory or motor deficits. Speech clear and appropriate. PSYCH: normal affect, appropriate eye contact, fluid speech, with appropriate response to questioning. No reported suicidality or homicidality. SKIN: Warm, dry, color appropriate, normal turgor. No rashes noted. Course Course Course Narrative: This is a Rapid Medical Exam performed in triage by Adleine Crystal PA-C. Full HPI, ROS and PE to be performed by primary ED provider. 70-year-old female with a past medical history sigmoid colon cancer with liver metastasis currently on chemotherapy, anemia, HTN, HLD, hypothyroid, presenting to the ED complaining of weakness, decreased appetite/p.o. intake & diarrhea. Reports intermittent abdominal pain, denies at present PE: NAD, nontoxic appearing, ambulating with steady gait Plan: EKG, labs, SARs Medications Administered Generic Name Dose Route Start Last Admin Trade Name Freq PRN Reason Stop Dose Admin Pantoprazole Sodium 40 mg 11/21/25 06:30 11/21/25 06:01 Pantoprazole Sodium 40 Mg/10 Ml Vial IVPUSH 40 mg DAILY@0630 [facility] Administration Discontinued Medications Generic Name Dose Route Start Last Admin Trade Name Freq PRN Reason Stop Dose Admin Sodium Chloride 1,000 mls @ 999 mls/hr 11/20/25 23:30 11/21/25 04:12 Ns IV 11/21/25 00:30 Infused .Q1H1M L[facility]IS Infusion Sodium Chloride 250 mls @ 999 mls/hr 11/21/25 01:30 11/21/25 03:01 Ns IV 11/21/25 01:45 Infused .Q16M [facility] Infusion Ceftriaxone Sodium 1 gm/ 50 mls @ 100 mls/hr 11/21/25 01:20 11/21/25 02:26 Sodium Chloride IV 11/21/25 01:49 Infused ONCE ONE Infusion Medical Decision Making Medical Decision Making MDM Narrative: 11:33 PM 11/20/2025 (Blaire CHEN): The patient is a 70-year-old female with history of hypertension, hyperlipidemia, hypothyroidism, anemia, and sigmoid colon cancer with liver metastasis, currently on chemotherapy, last chemotherapy completed 8 days ago, who presents to the ED for evaluation of severe fatigue and malaise with the associated poor appetite and diarrhea. The patient reports she experienced similar symptoms for 2-3 days after most rounds of chemotherapy, however symptoms this time are lasting over a week, prompting ED evaluation. The patient reports associated shortness of breath with the exertion, denies shortness of breath at rest. The patient also reports she has been experiencing associated epigastric abdominal pain for which she was prescribed an antacid by her oncologist, took 1 tablet today with good effect, denies any abdominal pain while in the ED. The patient denies associated fever, and arrives to the ED afebrile. The patient denies associated chest pain, headache, cough, hematochezia, melena, hemoptysis, or hematuria. The patient does report hesitancy when attempting to urinate, states this is abnormal following chemotherapy. On exam patient is well-appearing, in no acute distress, vital signs show no hypotension, tachycardia, tachypnea, hypoxia, or fever. The patient's lung sounds are clear throughout, abdomen is nontender. The patient's laboratory evaluation unfortunately shows evidence of neutropenia with WBC 1.3 with 24% neutrophils, and 9% bandemia. Platelet count is low at 118, but no evidence of anemia or pancytopenia. The patient's chemistry shows mild hyponatremia of 132, no other electrolyte abnormalities, no RAGINI. The patient's LFTs are unremarkable with the exception of a mildly elevated alkaline phosphatase of 130. Lipase is normal. The patient's viral swabs are negative for influenza, COVID, and RSV. The patient's strep swab is negative. At this time the patient appears neutropenic but does not have a neutropenic fever. Patient will receive IV fluid hydration for hyponatremia and to facilitate urinalysis. We will also obtain chest x-ray due to reported exertional shortness of breath. We will also add on blood cultures due to patient's symptoms and neutropenic state. 11:44 PM 11/20/2025 (Blaire CHEN): Patient was able to provide a urinalysis, RN reports urinalysis shows ashlee blood. We will await urinalysis results, if no evidence of infection patient will undergo CT abdomen and pelvis to evaluate for rectovesicular fistula or other acute process in the setting of known sigmoid cancer. 1:23 AM 11/21/2025 (Blaire CHEN): The patient's urinalysis has resulted and shows evidence of UTI with large blood, positive nitrites, 21-50 WBCs, 3+ bacteria, and only 6-10 squamous cells. This infection is likely contributing to patient's fatigue and urinary hesitancy and hematuria. The patient will be initiated on sepsis protocol, patient's chest port will be accessed and we will treat with 30 cc/kilogram IV fluid bolus, Rocephin, and plan for admission for neutropenic infection/UTI. Admission/Observation Consideration of admission/observation: Escalation of care including admission/observation considered Lab Data MDM Lab Attestation statement: I reviewed the patient's lab results. 11/21/25 04:12 11/21/25 04:12 Labs: Lab Results 11/20/25 11/21/25 11/21/25 Range/Units 16:14 00:02 02:34 WBC 1.3 L (4.8-10.8) X10*3/uL RBC 3.86 L (4.20-5.50) X10*6/uL Hgb 11.2 L (12.0-16.0) g/dl Hct 35.0 L (37.0-47.0) % MCV 90.7 (80.0-98.0) fL MCH 29.0 (27.0-33.0) pg MCHC 32.0 (31.0-35.0) g/dl RDW 17.1 H (11.0-16.0) % Plt Count 118 L D (160-400) X10*3/uL MPV 9.9 (9.4-12.3) fL Immature Gran % (Auto) Cancelled Neut % (Auto) Cancelled Lymph % (Auto) Cancelled [place] % (Auto) Cancelled Eos % (Auto) Cancelled Baso % (Auto) Cancelled Lymph # (Auto) Cancelled [place] # (Auto) Cancelled Eos # (Auto) Cancelled Baso # (Auto) Cancelled Abs Immat Gran (auto) Cancelled Absolute Neuts (auto) Cancelled Absolute Nucleated RBC 0.000 (0.0-0.012) X10*3/uL Nucleated RBC % (auto) 0.0 (0.0-0.2) /100WBC Neutrophils % (Manual) 24 L (45-73) % Band Neutrophils % 9 H (3-5) % Lymphocytes % (Manual) 40 (20-40) % Atypical Lymphs % (Man) 2 (0-6) % Monocytes % (Manual) 22 H (2-11) % Eosinophils % (Manual) 1 (0-4) % Myelocytes % 2 % Abs Neuts (Manual) 0.4 L (2.0-8.3) X10*3/uL Lymphocytes # (Manual) 0.5 L (1.2-4.9) X10*3/uL Monocytes # (Manual) 0.3 (0.1-1.2) X10*3/uL Toxic Granulation PRESENT Platelet Estimate SLIGHTLY DECREASED (NORMAL) Large Platelets PRESENT Plt Morphology Comment NOTED RBC Morphology NOTED Tear Drop Cells 1+ (0-2) /OIF Ovalocytes 1+ (5-14) /OIF [place] Cells 1+ (0-2) /OIF Sodium 132 L (135-145) mmol/L Potassium 3.8 (3.3-5.1) mmol/L Chloride 99 (96-108) mmol/L Carbon Dioxide 22 (22-29) mmol/L Anion Gap 15 (12-20) BUN 11 (9-16) mg/dL Creatinine 0.78 (0.5-1.4) mg/dL Estim Creat Clear Calc 45.4 Estimated GFR > 60 Random Glucose 176 H (60-115) mg/dL Lactic Acid 3.5 H* (0.5-2.0) mmol/L Lactic Acid F/U @ 2Hr 1.5 (0.5-2.0) mmol/L Calcium 8.6 (8.4-10.2) mg/dL Magnesium 1.6 (1.6-2.6) mg/dL Total Bilirubin 0.9 (0.0-1.0) mg/dL Direct Bilirubin 0.4 (0.0-0.5) mg/dL AST 12 (5-31) U/L ALT < 6 (0-31) U/L Alkaline Phosphatase 130 H (39-117) U/L Total Protein 5.8 L (6.5-8.0) g/dL Albumin 3.8 (3.5-5.0) g/dL Lipase 8 (8-78) U/L Urine Color BROWN Urine Appearance Turbid Urine pH 6.5 (5.0-9.0) Ur Specific [place] 1.025 (1.005-1.025) Urine Protein 100 (2+) H (Neg-Trace) mg/dL Urine Glucose (UA) Negative (Negative) mg/dL Urine Ketones 15 (Negative) mg/dL Urine Blood Large (3+) H (Negative) Urine Nitrite Positive H (Negative) Ur Leukocyte Esterase Negative (Negative) Urine RBC >20 H (0-2) /HPF Urine WBC 21-50 H (0-5) /HPF Ur Squamous Epith Cells 6-10 (0-2) /HPF Urine Bacteria 3+ (None Seen) Hyaline Casts 0-2 (0-2) /LPF Influenza Type A (PCR) NEGATIVE (Negative) Influenza Type B (PCR) NEGATIVE (Negative) RSV RNA Qual (PCR) NEGATIVE (Negative) SARS-CoV-2 RNA (RT-PCR) NEGATIVE (Negative) S. pyogenes GrpA KAELYN Negative (Negative) Radiology Impression Discussion of test interpretation with radiology: I have reviewed the radiologist's reading. Radiologist Impression: 2 view chest x-ray Comparison: CT/REG/SR - CT ANGIO CHEST PE PROTOCOL - 10/18/25 15:57 EST CR - XR CHEST 2V - 10/18/25 13:05 EST Findings: There is a right-sided chest port with the catheter tip overlying the cavoatrial junction. Normal heart size. Hyperinflated lungs, which can be seen in emphysema. No focal consolidation, pleural effusion, or pneumothorax. Unremarkable osseous structures. Metallic radiopaque foreign body in the right paraspinal midline abdomen, as noted on prior exams. IMPRESSION: No acute findings. This document has been electronically signed by: Stef Bangura MD on 11/21/2025 01:28:32 External Record Review External record reviewed: Outpatient record and Prior outpatient labs Discharge Plan Discharge Clinical Impression: Neutropenia, Urinary tract infection Patient Disposition: Admitted As Inpatient
--- NOTE | 2025-11-20 15:54 | ECG_ITS ---
Test Reason : weakness Blood Pressure : */* mmHG Vent. Rate : 91 BPM Atrial Rate : 91 BPM P-R Int : 182 ms QRS Dur : 116 ms QT Int : 380 ms P-R-T Axes : 81 -52 72 degrees QTcB Int : 467 ms Normal sinus rhythm with sinus arrhythmia Right bundle branch block Left anterior fascicular block Bifascicular block Abnormal ECG When compared with ECG of 18-Oct-2025 12:52, No significant change was found Referred By: Adeline Crystal Electronically Signed By: AMERICA CATALAN MD
[2025-11-20 16:32] LABS: Hematocrit 35.0 % (37.0-47.0); Hemoglobin 11.2 g/dl (12.0-16.0); Mean Corpuscular HGB Conc 32.0 g/dl (31.0-35.0); Mean Corpuscular Hemoglobin 29.0 pg (27.0-33.0); Mean Corpuscular Volume 90.7 fL (80.0-98.0); NRBC Abs Auto 0.000 X10*3/uL (0.0-0.012); NRBC Pct Auto 0.0 /100WBC (0.0-0.2); Platelet Count 118 X10*3/uL (160-400); Red Blood Count 3.86 X10*6/uL (4.20-5.50)
[2025-11-20 16:33] LABS: Strep A Nucleic Acid Negative (Negative); WBC ABN SCTR FOR CBC 1
[2025-11-20 16:37] LABS: White Blood Count 1.3 X10*3/uL (4.8-10.8)
[2025-11-20 16:43] LABS: Alanine Aminotransferase < 6 U/L (0-31); Albumin Level 3.8 g/dL (3.5-5.0); Alkaline Phosphatase 130 U/L (39-117); Anion Gap 15 (12-20); Aspartate Amino Transferase 12 U/L (5-31); Blood Urea Nitrogen 11 mg/dL (9-16); Calcium 8.6 mg/dL (8.4-10.2); Carbon Dioxide 22 mmol/L (22-29); Chloride 99 mmol/L (96-108); Creatinine Clr Calc Pharmacy 45.4; Estimated Glomerular Filt Rate > 60; Lipase 8 U/L (8-78); Magnesium 1.6 mg/dL (1.6-2.6); Potassium 3.8 mmol/L (3.3-5.1); Sodium 132 mmol/L (135-145); Total Protein 5.8 g/dL (6.5-8.0)
[2025-11-20 17:17] LABS: Resp Syncy Virus RNA Qual PCR NEGATIVE (Negative); SARS COV2 PCR INHOUSE NEGATIVE (Negative)
[2025-11-20 17:26] LABS: Atypical Lymphs Percent Manual 2 % (0-6); Band Neutrophils Percent 9 % (3-5); Eosinophils Percent Manual 1 % (0-4); Lymphocytes Absolute Manual 0.5 X10*3/uL (1.2-4.9); Lymphocytes Percent Manual 40 % (20-40); Monocytes Absolute Manual 0.3 X10*3/uL (0.1-1.2); Monocytes Percent Manual 22 % (2-11); Myelocytes Percent 2 %; Neutrophils Absolute Manual 0.4 X10*3/uL (2.0-8.3); Neutrophils Percent Manual 24 % (45-73)
[2025-11-20 17:27] LABS: Ovalocytes 1+ (5-14) /OIF; RBC Morphology NOTED; Tear Drop Cells 1+ (0-2) /OIF
[2025-11-20 17:28] LABS: Burr Cells 1+ (0-2) /OIF; Large Platelet PRESENT
[2025-11-20 17:29] LABS: Toxic Granulation PRESENT
[2025-11-20 20:52] VITALS: BP 121/73; PULSE 88; RESP 20; TEMP 37.1; O2SAT 99
[2025-11-20 23:29] VITALS: BP 117/70; PULSE 73; RESP 18; TEMP 36.5; O2SAT 98
[2025-11-21] VITALS (7 sets, daily range): BP systolic 105–120; BP diastolic 59–72; PULSE 58–69; RESP 16–185; TEMP 36.2–36.6; O2SAT 98–100; BMI 19.3
[2025-11-21 00:29] LABS: Appearance Urine Turbid; Glucose Urine UA Negative (Negative); PH 6.5 (5.0-9.0); Specific Gravity - Urine 1.025 (1.005-1.025); UMIC TRIGGER UACC YES
[2025-11-21 00:50] LABS: UACC Culture Trigger YES
--- NOTE | 2025-11-21 02:05 | PC.NURSE ---
Addendum entered by Daria Davila RN 11/21/25 03:52: pts fluids still infusing via port. Original Note: delay in first liter of fluids as she was a hard stick and chest port had to be accessed.
[2025-11-21 02:11] LABS: Reflex Lactate? Lactic Acid Added
[2025-11-21 02:53] LABS: ~Lactic Acid-LAB USE ONLY 1.5 mmol/L (0.5-2.0)
--- NOTE | 2025-11-21 04:38 | PM.IMHP ---
History of Present Illness Date of Service: 11/21/25 Attending physician on admission: Cesario Hensley Chief Complaint: Worsening weakness Sandra Elizondo is a 70 years old woman with past medical history significant for metastatic (liver) moderately differentiated adenocarcinoma of the colon on chemotherapy status post resection, hypothyroidism, hyperlipidemia and essential hypertension presents to the emergency department complaining of generalized weakness and tiredness that has been going on for 8 days. She also reported appetite loss. She also noted bright red blood in urine but denied pain with urination. Last chemotherapy session was on November 01 of this year. She does follow as an outpatient with Dr. Rosado. She currently denied any abdominal pain, headache, dizziness, nausea, vomiting, diarrhea, fever or chills She did not report constipation. Denied alcohol abuse, illicit drug use or tobacco smoking. In the ED, she was found to have normal vital signs. Blood workup was remarkable for WBC of 1.3, hemoglobin 11.2 and and platelets 118. There is bandemia of 9% a monocytosis of 22%. Also, differential showed teardrop cells, ovalocytes and per service. There is a mild degree of hyponatremia. There are no significant electrolyte imbalances. Initial lactic acid was 3.5 but decreased to 1.5 after IV fluids. Urinalysis showed proteinuria 2+, blood 3+, nitrite positive, RBC > 20 and WBC 21-50. Viral testing is negative for influenza, RSV and COVID-19. ECG showed normal sinus rhythm with sinus arrhythmia and right bundle branch block. ED Tx: NS 1250 mL bolus, ceftriaxone 1 g IV Review of Systems Review of Systems: All 12 systems were reviewed and normal except as noted in HPI. [facility] Medical History (Updated 11/21/25 @ 05:26 by Cesario Hensley MD) Anemia Fall Bifascicular block Colon cancer metastasized to liver Leukocytosis Fracture of medial cuneiform Metatarsal fracture Annual physical exam Encounter for annual routine gynecological examination Impacted cerumen of both ears Paronychia of finger Anemia Encounter for well woman exam with routine gynecological exam Colon cancer Colonic mass Recurrent UTI COVID-19 Abnormal weight loss Abdominal pain Abdominal cramping Pre-op examination Colon cancer screening Constipation Plantar fasciitis Low back pain Shingles Low back pain Pain of right hip Abnormal ultrasound of breast Vulvar itching Headache Cervical cancer screening Breast cancer screening by mammogram Colon cancer screening declined Colonoscopy refused Overweight (BMI 25.0-29.9) Vitamin B12 deficiency Impaired glucose tolerance Hypothyroid Hypercholesterolemia Hypertension Insomnia Carpal tunnel syndrome Family History Father No problems noted. Mother No problems noted. Sister History of breast cancer, Onset Age: 50 Daughter Colon cancer Son Colon cancer Surgical History Hx of surgical procedure (~04/22/24) H/O colonoscopy Social History Household Members: Children Housing: House Are you a primary skin care therapist to a significant other at home: No Do you presently have visiting nurse or other home services: No Alcohol intake: never Patient Tobacco Use Status: Never used Tobacco Smoked in Last 30 Days: No e-Cigarette/Vaping Use: Never Used Second Hand Smoke Exposure: No Use of substances other than those prescribed or required for medical reasons: No Advance Directives: No Advance Directives Information Provided: Yes Do you have a plan to hurt others: No Plan service: No Current occupational status: retired Sexual orientation: Straight/Heterosexual Gender identity: Female Cognitive needs: No Hearing needs: No Vision needs: Yes Meds Allergies Allergy/AdvReac Type Severity Reaction Status Date / Time No Known Allergies Allergy Verified 11/20/25 15:54 Active Medications: Current Medications Acetaminophen (Acetaminophen 325 Mg Tablet) 975 mg PO Q6H PRN PRN Reason: Pain, Mild 1-3,fever,headache Sodium Chloride (0.9 % Sodium Chloride Flush 3 Ml Syringe) 3 ml IVFLUSH QSHIFT [facility] Medications ?Medication ?Instructions ?Recorded ?Confirmed ?Last Taken ?Type ascorbic acid (vitamin C) 500 mg 500 mg PO DAILY 09/05/24 10/26/25 10/16/25 History tablet (Vitamin C) ferrous sulfate 325 mg (65 mg 325 mg PO DAILY 02/17/25 10/26/25 10/16/25 History iron) tablet nystatin 100,000 unit/mL oral 5 ml PO TID PRN Mouth Pain 03/10/25 10/26/25 Unknown History suspension duloxetine 20 mg capsule,delayed 40 mg PO BEDTIME 10/19/25 10/26/25 10/16/25 History release fluticasone propionate 50 1 spray intranasal BID PRN Allergy 10/19/25 10/26/25 Unknown History mcg/actuation nasal Symptoms spray,suspension gabapentin 100 mg capsule 100 mg PO DAILY 10/19/25 10/26/25 10/16/25 History lidocaine 5 % topical patch 1 patch topical DAILY PRN Pain 10/19/25 10/26/25 Unknown History ondansetron 8 mg disintegrating 8 mg PO Q8H PRN Nausea And Vomiting 10/19/25 10/26/25 Unknown History tablet simethicone 125 mg chewable tablet 125 mg PO BID PRN abdominal 10/19/25 10/26/25 Unknown History (Gas Relief (simethicone)) distention Physical Exam Vital Signs and Narrative: Vital Signs: Last Vital Signs Temp 97.3 F 11/21/25 01:40 Pulse 59 11/21/25 04:14 Resp 185 H 11/21/25 04:14 BP 118/60 11/21/25 04:14 Pulse Ox 99 11/21/25 04:14 O2 Del Method Room Air 11/21/25 04:14 BMI result Body Mass Index 18.2 General: Alert, oriented, in no acute distress. Underweight. Cooperative. Pleasant. Afebrile. HEENT: Head normocephalic, atraumatic. PER, EOMI. Sclerae anicteric, conjunctiva clear. Oropharynx without erythema or exudate. Mucous membranes moist. Neck: Supple, no lymphadenopathy, or JVD. Heart: RRR, no murmurs, rubs or gallops. Lungs: Clear to auscultation bilaterally. No wheezes, rales, or rhonchi. Normal respiratory effort. Abdomen: Soft, non tenderness, nondistended, normoactive bowel sounds. No hepatosplenomegaly, masses or masses. Extremities: No calf tenderness bilaterally, no swelling Musculoskeletal: Full range of motion. No joint swelling, deformity, or tenderness. Generalized atrophy. Skin: Warm/Dry. No pallor. No jaundice. Neurologic: Alert & oriented x4. Moving all extremities spontaneously. Normal speech. Psychological: Normal mood and affect. Thought process coherent. Results Labs 11/20/25 16:14 11/20/25 16:14 Labs: Laboratory Results - last 24 hr 11/20/25 11/21/25 11/21/25 16:14 00:02 02:34 MCV 90.7 MCH 29.0 MCHC 32.0 RDW 17.1 H Plt Count 118 L D MPV 9.9 Immature Gran % (Auto) Cancelled Neut % (Auto) Cancelled Lymph % (Auto) Cancelled [place] % (Auto) Cancelled Eos % (Auto) Cancelled Baso % (Auto) Cancelled Lymph # (Auto) Cancelled [place] # (Auto) Cancelled Eos # (Auto) Cancelled Baso # (Auto) Cancelled Abs Immat Gran (auto) Cancelled Absolute Neuts (auto) Cancelled Absolute Nucleated RBC 0.000 Nucleated RBC % (auto) 0.0 Neutrophils % (Manual) 24 L Band Neutrophils % 9 H Lymphocytes % (Manual) 40 Atypical Lymphs % (Man) 2 Monocytes % (Manual) 22 H Eosinophils % (Manual) 1 Myelocytes % 2 Abs Neuts (Manual) 0.4 L Lymphocytes # (Manual) 0.5 L Monocytes # (Manual) 0.3 Toxic Granulation PRESENT Platelet Estimate SLIGHTLY DECREASED Large Platelets PRESENT Plt Morphology Comment NOTED RBC Morphology NOTED Tear Drop Cells 1+ (0-2) Ovalocytes 1+ (5-14) [place] Cells 1+ (0-2) Anion Gap 15 Estim Creat Clear Calc 45.4 Estimated GFR > 60 Random Glucose 176 H Lactic Acid 3.5 H* Lactic Acid F/U @ 2Hr 1.5 Calcium 8.6 Magnesium 1.6 Total Bilirubin 0.9 Direct Bilirubin 0.4 AST 12 ALT < 6 Alkaline Phosphatase 130 H Total Protein 5.8 L Albumin 3.8 Lipase 8 Urine Color BROWN Urine Appearance Turbid Urine pH 6.5 Ur Specific [place] 1.025 Urine Protein 100 (2+) H Urine Glucose (UA) Negative Urine Ketones 15 Urine Blood Large (3+) H Urine Nitrite Positive H Ur Leukocyte Esterase Negative Urine RBC >20 H Urine WBC 21-50 H Ur Squamous Epith Cells 6-10 Urine Bacteria 3+ Hyaline Casts 0-2 Influenza Type A (PCR) NEGATIVE Influenza Type B (PCR) NEGATIVE RSV RNA Qual (PCR) NEGATIVE SARS-CoV-2 RNA (RT-PCR) NEGATIVE S. pyogenes GrpA KAELYN Negative Assessment and Plan (1) Hemorrhagic cystitis: Status: Acute (2) Anemia: Qualifiers: Anemia type: unspecified type Qualified Code(s): D64.9 - Anemia, unspecified Status: Acute Plan Sandra J Colon is a 70 y/o woman with a PMHx significant for metastatic (liver) moderately differentiated adenocarcinoma of the colon on chemotherapy s/p sigmoid resection, who presents with: Hemorrhagic cystitis in the setting of severe neutropenia and thrombocytopenia (ANC 430) due to chemotherapy. No fever. Continue empiric IV antibiotic therapy with ceftriaxone (prior UC grew E.coli pansensitive except for ampicillin). Blood and urine cultures obtained -will follow results. Continue to monitor H&H. Platelets transfusions if > 50,000. Hematology consult. Worsening anemia, likely multifactorial: acute blood loss anemia due to hematuria, chemotherapy induced. Consider PRBC transfusion if hemoglobin < 7 or hemodynamically unstable. Continue to monitor. Hematology consult. Mild hyponatremia. Likely secondary to poor p.o. intake. Received IV fluids in the ED. Continue to monitor. Acute lactic acidosis, resolved. Likely secondary to liver meds. Essential hypertension. Continue metoprolol if blood pressure allows. Hypothyroidism. Continue levothyroxine. Check TSH. Mood disorder. Continue home meds. Hyperlipidemia. Continue statin. Asthma. Asymptomatic. Continue home inhalers. med rec pending Code status: Full DVT prophylaxis: SCDs (platelets count < 100,000) GI prophylaxis: Protonix IV Patient will need hospitalization for at least 2 midnights for hemorrhage systolic treatment in the setting of neutropenia/pancytopenia with IV antibiotics and close monitoring of WBC count, hemoglobin and platelets. Quality Stroke Does the patient have a stroke diagnosis?: No VTE Prior VTE?: No VTE Risk Level:: Medical - moderate - high VTE Device Contraindication: N/A - Device Ordered VTE Drug Contraindication: Treatment Not Indicated
[2025-11-21 05:04] LABS: Hematocrit 28.2 % (37.0-47.0); Hemoglobin 9.2 g/dl (12.0-16.0); Mean Corpuscular HGB Conc 32.6 g/dl (31.0-35.0); Mean Corpuscular Hemoglobin 29.6 pg (27.0-33.0); Mean Corpuscular Volume 90.7 fL (80.0-98.0); NRBC Pct Auto 0.0 /100WBC (0.0-0.2); Red Blood Count 3.11 X10*6/uL (4.20-5.50)
[2025-11-21 05:05] LABS: NRBC Abs Auto 0.000 X10*3/uL (0.0-0.012); Platelet Count 99 X10*3/uL (160-400); WBC ABN SCTR FOR CBC 1
[2025-11-21 05:08] LABS: Anion Gap 13 (12-20); Blood Urea Nitrogen 10 mg/dL (9-16); Calcium 7.6 mg/dL (8.4-10.2); Carbon Dioxide 22 mmol/L (22-29); Chloride 105 mmol/L (96-108); Creatinine Clr Calc Pharmacy 56.3; Estimated Glomerular Filt Rate > 60; Potassium 3.8 mmol/L (3.3-5.1); Sodium 136 mmol/L (135-145)
[2025-11-21 05:39] LABS: Atypical Lymphs Percent Manual 3 % (0-6); Band Neutrophils Percent 4 % (3-5); Basophils Percent Manual 3 % (0-2); Burr Cells 3+ (>5) /OIF; Eosinophils Percent Manual 2 % (0-4); Lymphocytes Percent Manual 34 % (20-40); Monocytes Percent Manual 20 % (2-11); Neutrophils Percent Manual 34 % (45-73); Polychromasia 1+ (0-2) /OIF; RBC Morphology NOTED; Tear Drop Cells 1+ (0-2) /OIF
[2025-11-21 05:40] LABS: Schistocytes 1+ (0-2) /OIF
[2025-11-21 06:07] LABS: Atypical Lymph Absolute Manual 0.1 x10*3/uL; Basophils Abs Manual 0.1 X10*3/uL (0.0-0.2); Eosinophils Absolute Manual 0.1 X10*3/uL (0.0-0.4); Lymphocytes Absolute Manual 0.9 X10*3/uL (1.2-4.9); Monocytes Absolute Manual 0.5 X10*3/uL (0.1-1.2); Neutrophils Absolute Manual 1.0 X10*3/uL (2.0-8.3); White Blood Count 2.5 X10*3/uL (4.8-10.8)
--- NOTE | 2025-11-21 06:35 | HO.NURTONUR ---
70 F AxOx4 Full Code Admitting diagnosis:neutropenic, uti chemotherapy x 8 days ago for colon CA w/ mets to liver- tired, poor po since. rep panel { -} sepsis workup lactice 3.5, 1.5 after IV hydration IND- has boot on r foot due to fall/broken toes R chest port- accessed in ED cardiac diet hem/oncology consult
[2025-11-21] MEDS: 0.9 % Sodium Chloride Flush 3 ML SYRINGE IVFLUSH ×2 (08:24→15:25)
--- NOTE | 2025-11-21 09:10 | PHA.MEDREC ---
Pharmacy Consult ? Medication Reconciliation Pharmacy has completed the medication reconciliation.Med rec complete, spoke to patient via real property appraiser and compared with recent pharmacy claims and discharge info. Levothyroxine 100 mcg and 75 mcg have both been recently filled, patient states she was told to take both together, but she has only been taking 75 mcg
[2025-11-21 11:08] LABS: Hematocrit 29.7 % (37.0-47.0); Hemoglobin 9.7 g/dl (12.0-16.0); Mean Corpuscular HGB Conc 32.7 g/dl (31.0-35.0); Mean Corpuscular Hemoglobin 29.6 pg (27.0-33.0); Mean Corpuscular Volume 90.5 fL (80.0-98.0); NRBC Abs Auto 0.000 X10*3/uL (0.0-0.012); NRBC Pct Auto 0.0 /100WBC (0.0-0.2); Platelet Count 115 X10*3/uL (160-400); Red Blood Count 3.28 X10*6/uL (4.20-5.50); WBC ABN SCTR FOR CBC 1
[2025-11-21 11:09] LABS: White Blood Count 2.8 X10*3/uL (4.8-10.8)
[2025-11-21 11:30] LABS: Atypical Lymph Absolute Manual 0.1 x10*3/uL; Atypical Lymphs Percent Manual 3 % (0-6); Band Neutrophils Percent 9 % (3-5); Basophils Percent Manual 1 % (0-2); Eosinophils Percent Manual 1 % (0-4); Lymphocytes Absolute Manual 0.8 X10*3/uL (1.2-4.9); Lymphocytes Percent Manual 29 % (20-40); Metamyelocytes Absolute 0.1 X10*3/uL; Metamyelocytes Percent 2 %; Monocytes Absolute Manual 0.3 X10*3/uL (0.1-1.2); Monocytes Percent Manual 12 % (2-11); Neutrophils Absolute Manual 1.5 X10*3/uL (2.0-8.3); Neutrophils Percent Manual 43 % (45-73)
[2025-11-21 11:31] LABS: Acanthocytes 2+ (3-5) /OIF; Macrocytosis 1+ (5-14) /OIF; Ovalocytes 1+ (5-14) /OIF; RBC Morphology NOTED
[2025-11-21 11:32] LABS: Burr Cells 2+ (3-5) /OIF; Dohle Bodies PRESENT; Polychromasia 1+ (0-2) /OIF; Toxic Granulation PRESENT; Toxic Vacuolation PRESENT
--- NOTE | 2025-11-21 17:32 | P.EN_ITS ---
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 Hemorrhagic Cystitis / Complicated UTI Presented with gross hematuria, UA with 3+ blood, nitrite positive, bacteriuria, and pyuria in the setting of profound neutropenia. No flank pain or fever. Prior urine cultures reportedly grew roberts-sensitive?E. coli?except ampicillin.? Plan: * Continue?IV ceftriaxone?empirically * Follow?urine and blood cultures?and tailor antibiotics per sensitivities * Monitor for fever or clinical decompensation (low threshold to broaden antibiotics if febrile) * Strict I&O; monitor urine color and output * Trend inflammatory markers as clinically indicated Severe Neutropenia (Chemotherapy-Induced) ANC 430 with bandemia; no current neutropenic fever. Likely secondary to recent chemotherapy.? Plan: * Neutropenic precautions * Daily?CBC with differential * Monitor closely for signs of infection * Hematology consult?for guidance on G-CSF consideration and cytopenia management Anemia (Acute on Chronic, Multifactorial) Baseline anemia with acute contribution from hematuria and chemotherapy-related marrow suppression. Hemodynamically stable.? Plan: * Trend?Hgb/Hct daily * Transfuse?PRBCs if Hgb <7 g/dL?or if symptomatic/hemodynamically unstable * Coordinate management with Hematology Thrombocytopenia Platelets 118K, likely chemotherapy-related; contributing to bleeding risk.? Plan: * Monitor platelet count daily * Transfuse platelets if?<50K with active bleeding?or per Hematology recommendations * Avoid pharmacologic anticoagulation at this time Lactic Acidosis (Resolved) Initial lactate 3.5, improved to 1.5 after IV fluids; no ongoing signs of hypoperfusion.? Plan: * No further intervention required * Monitor clinically Hyponatremia (Mild) Likely secondary to poor oral intake and dehydration; improved with IV fluids.? Plan: * Encourage oral intake as tolerated * Monitor BMP daily Metastatic Colon Cancer on Chemotherapy Active treatment with outpatient Oncology; last chemotherapy on 11/01/25.? Plan: * Notify?Oncology?of admission * Hold chemotherapy during acute illness * Resume outpatient oncology follow-up after discharge Hypothyroidism Known history; previously elevated TSH with recent dose adjustment.? Plan: * Continue?levothyroxine 100 mcg daily * Check?TSH?during admission if not recently obtained Hypertension Stable blood pressures during admission.? Plan: * Resume home antihypertensives as tolerated * Monitor BP routinely Hyperlipidemia Chronic condition, not contributing to current admission.? Plan: * Continue home statin therapy Asthma No current respiratory symptoms.? Plan: * Continue home inhalers PRN Mood Disorder Stable on home regimen.? Plan: * Continue home psychiatric medications QUALITY METRICS * VTE:?SCDs only (platelets <100K / bleeding risk) * CODE STATUS:?FULL CODE * DIET:?REGULAR * LINES/DEVICES:?Chest port in place * DISPOSITION: 24-48 hours more for admission Time Spent With Patient Time: Total time managing care of this patient today 35 minutes.
--- NOTE | 2025-11-21 17:32 | PM.EVENT ---
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 Hemorrhagic Cystitis / Complicated UTI Presented with gross hematuria, UA with 3+ blood, nitrite positive, bacteriuria, and pyuria in the setting of profound neutropenia. No flank pain or fever. Prior urine cultures reportedly grew roberts-sensitive?E. coli?except ampicillin.? Plan: Continue?IV ceftriaxone?empirically Follow?urine and blood cultures?and tailor antibiotics per sensitivities Monitor for fever or clinical decompensation (low threshold to broaden antibiotics if febrile) Strict I&O; monitor urine color and output Trend inflammatory markers as clinically indicated Severe Neutropenia (Chemotherapy-Induced) ANC 430 with bandemia; no current neutropenic fever. Likely secondary to recent chemotherapy.? Plan: Neutropenic precautions Daily?CBC with differential Monitor closely for signs of infection Hematology consult?for guidance on G-CSF consideration and cytopenia management Anemia (Acute on Chronic, Multifactorial) Baseline anemia with acute contribution from hematuria and chemotherapy-related marrow suppression. Hemodynamically stable.? Plan: Trend?Hgb/Hct daily Transfuse?PRBCs if Hgb <7 g/dL?or if symptomatic/hemodynamically unstable Coordinate management with Hematology Thrombocytopenia Platelets 118K, likely chemotherapy-related; contributing to bleeding risk.? Plan: Monitor platelet count daily Transfuse platelets if?<50K with active bleeding?or per Hematology recommendations Avoid pharmacologic anticoagulation at this time Lactic Acidosis (Resolved) Initial lactate 3.5, improved to 1.5 after IV fluids; no ongoing signs of hypoperfusion.? Plan: No further intervention required Monitor clinically Hyponatremia (Mild) Likely secondary to poor oral intake and dehydration; improved with IV fluids.? Plan: Encourage oral intake as tolerated Monitor BMP daily Metastatic Colon Cancer on Chemotherapy Active treatment with outpatient Oncology; last chemotherapy on 11/01/25.? Plan: Notify?Oncology?of admission Hold chemotherapy during acute illness Resume outpatient oncology follow-up after discharge Hypothyroidism Known history; previously elevated TSH with recent dose adjustment.? Plan: Continue?levothyroxine 100 mcg daily Check?TSH?during admission if not recently obtained Hypertension Stable blood pressures during admission.? Plan: Resume home antihypertensives as tolerated Monitor BP routinely Hyperlipidemia Chronic condition, not contributing to current admission.? Plan: Continue home statin therapy Asthma No current respiratory symptoms.? Plan: Continue home inhalers PRN Mood Disorder Stable on home regimen.? Plan: Continue home psychiatric medications QUALITY [employer] VTE:?SCDs only (platelets <100K / bleeding risk) CODE STATUS:?FULL CODE DIET:?REGULAR LINES/DEVICES:?Chest port in place DISPOSITION: 24-48 hours more for admission Time Spent With Patient Time: Total time managing care of this patient today 35 minutes.
--- NOTE | 2025-11-21 18:37 | PC.NURSE ---
Pt has home meds stored in pharmacy. From filled out with vending route driver present.
--- NOTE | 2025-11-21 18:41 | HO.SKINPHOTO ---
Location: Right foot Pt states she broke 3rd 4th and 5th toe on right foot and has had boot and teresa wrap on for some time. Pt states was due for a f/u appointment with in November. Boot, teresa, and fluff removed skin intact underneath boot but bruising noted, +CMS and pedal pulse. New fluff and gauze wrap applied.
[2025-11-22 03:27] VITALS: BP 111/62; PULSE 65; RESP 16; TEMP 36.5; O2SAT 99
[2025-11-22 05:38] LABS: Hematocrit 28.0 % (37.0-47.0); Hemoglobin 9.0 g/dl (12.0-16.0); Mean Corpuscular HGB Conc 32.1 g/dl (31.0-35.0); Mean Corpuscular Hemoglobin 29.1 pg (27.0-33.0); Mean Corpuscular Volume 90.6 fL (80.0-98.0); NRBC Abs Auto 0.000 X10*3/uL (0.0-0.012); NRBC Pct Auto 0.0 /100WBC (0.0-0.2); Platelet Count 144 X10*3/uL (160-400); Red Blood Count 3.09 X10*6/uL (4.20-5.50)
[2025-11-22 05:43] LABS: WBC ABN SCTR FOR CBC 1
[2025-11-22 05:59] LABS: Anion Gap 13 (12-20); Blood Urea Nitrogen 8 mg/dL (9-16); Calcium 8.0 mg/dL (8.4-10.2); Carbon Dioxide 22 mmol/L (22-29); Chloride 107 mmol/L (96-108); Creatinine Clr Calc Pharmacy 65.9; Estimated Glomerular Filt Rate > 60; Potassium 3.1 mmol/L (3.3-5.1); Sodium 139 mmol/L (135-145)
[2025-11-22 06:06] LABS: Atypical Lymphs Percent Manual 2 % (0-6); Band Neutrophils Percent 7 % (3-5); Basophils Percent Manual 1 % (0-2); Lymphocytes Percent Manual 24 % (20-40); Monocytes Percent Manual 8 % (2-11); Neutrophils Percent Manual 58 % (45-73)
[2025-11-22 06:08] LABS: RBC Morphology NOTED
[2025-11-22 06:09] LABS: Tear Drop Cells 1+ (0-2) /OIF
[2025-11-22 06:12] LABS: Burr Cells 3+ (>5) /OIF; Polychromasia 1+ (0-2) /OIF; Schistocytes 1+ (0-2) /OIF; Toxic Granulation PRESENT
[2025-11-22 06:15] LABS: Thyroid Stimulating Hormone 77.49 uIU/mL (0.32-4.0)
[2025-11-22 06:19] LABS: Atypical Lymph Absolute Manual 0.1 x10*3/uL; Lymphocytes Absolute Manual 0.9 X10*3/uL (1.2-4.9); Monocytes Absolute Manual 0.3 X10*3/uL (0.1-1.2); Neutrophils Absolute Manual 2.5 X10*3/uL (2.0-8.3); White Blood Count 3.8 X10*3/uL (4.8-10.8)
[2025-11-22 07:36] VITALS: BP 97/58; PULSE 62; RESP 14; TEMP 36.3; O2SAT 99
[2025-11-22] MEDS: 0.9 % Sodium Chloride Flush 3 ML SYRINGE IVFLUSH (07:56)
--- NOTE | 2025-11-22 08:59 | P.DS_ITS ---
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 Hemorrhagic Cystitis / Complicated UTI (Improved) Presented with gross hematuria and UA consistent with UTI in the setting of chemotherapy-induced neutropenia. Remained afebrile throughout admission with no flank pain or systemic signs of infection. Treated with IV ceftriaxone with clinical and laboratory improvement.? Plan: * Discontinue IV ceftriaxone. * Start?Augmentin 500/125 mg PO BID x 5 days?to complete treatment for complicated UTI in the setting of recent neutropenia. * Encourage oral hydration. * Return precautions reviewed for fever, worsening hematuria, dysuria, or systemic symptoms. Severe Neutropenia (Chemotherapy-Induced, Resolved) Initial ANC 430 on admission, likely secondary to recent chemotherapy. No neutropenic fever. ANC improved to 2.5 with supportive care.? Plan: * No further inpatient intervention required. * Resume routine outpatient oncology monitoring. * Reinforce infection precautions at home. * Follow closely with Oncology. Anemia (Chronic, Stable) Baseline chronic anemia with transient contribution from hematuria and chemotherapy-related marrow suppression. Hemoglobin remained stable during adm ission.? Plan: * No transfusion indicated at this time. * Outpatient CBC monitoring per Oncology. * Continue home iron supplementation as previously prescribed. Thrombocytopenia (Mild, Improving) Mild thrombocytopenia likely chemotherapy-related; no ongoing bleeding.? Plan: * No intervention required. * Outpatient monitoring with Oncology. Metastatic Colon Cancer on Chemotherapy Active treatment with outpatient Oncology.? Plan: * Follow up with primary Oncologist promptly after discharge. * Resume chemotherapy per Oncology guidance. * Ensure Oncology aware of this hospitalization and antibiotic course. Hypothyroidism TSH elevated to 77 Patient noncompliant with her levothyroxine Endorses using medication as needed Reenforced that the patient needs to take medication daily in am, preprandially Plan: * Continue?levothyroxine 100 mcg daily. * Outpatient TSH monitoring as previously planned. Hypertension Blood pressures stable during hospitalization.? Plan: * Resume home antihypertensive regimen. * Routine outpatient BP monitoring. Hyperlipidemia Chronic condition.? Plan: * Continue home statin therapy. Asthma No exacerbation during admission.? Plan: * Continue home inhalers PRN. Status at Discharge Cognitive/behavioral status at discharge: Alert and oriented to person place time and situation Functional status at discharge: independent ambulation Overall status at discharge: patient is back to baseline Time Attestation Total time managing care of this patient today: 45 mintues. Discharge Coordination Time (in mins): 45 Quality: Safe Use of Opioids Does Pt have an Active Cancer Diagnosis on the Problem List?: No Quality: Stroke Does the patient have a stroke diagnosis?: No Physical Exam Exam: Exam: General:?Alert, oriented ?3, pleasant, in no acute distress. Appears well. Afebrile. HEENT:?Normocephalic, atraumatic. PERRL, EOMI. Sclera anicteric. Oropharynx clear with moist mucous membranes. Neck:?Supple, no JVD or lymphadenopathy. Cardiovascular:?Regular rate and rhythm. Normal S1/S2. No murmurs, rubs, or gallops. Pulmonary:?Clear to auscultation bilaterally. No wheezes, rales, or rhonchi. Normal work of breathing on room air. Abdomen:?Soft, non-tender, non-distended. Normoactive bowel sounds. No suprapubic tenderness. Genitourinary:?No costovertebral angle tenderness. Extremities:?No peripheral edema. No calf tenderness. Skin:?Warm and dry. No rashes, bruising, or petechiae. Neurologic:?Alert and oriented ?3. Moving all extremities spontaneously. No focal deficits. Psychiatric:?Normal mood and affect. Cooperative. Thought process linear. Vital Signs: Vital Signs: Last Vital Signs Temp 97.4 F 11/22/25 07:36 Pulse 62 11/22/25 07:36 Resp 14 11/22/25 07:36 BP 97/58 L 11/22/25 07:36 Pulse Ox 99 11/22/25 07:36 O2 Del Method Room Air 11/22/25 07:36 BMI result Body Mass Index 19.3 DS: Data Data Completed and Pending Completed studies during hospitalization [Text1]: Procedures Excision of Sigmoid Colon, Open Approach (04/22/24) Labs on day of discharge: Laboratory Results - last 24 hr 11/21/25 11/22/25 10:55 05:27 WBC 2.8 L 3.8 L RBC 3.28 L 3.09 L Hgb 9.7 L 9.0 L Hct 29.7 L 28.0 L MCV 90.5 90.6 MCH 29.6 29.1 MCHC 32.7 32.1 RDW 17.2 H 17.2 H Plt Count 115 L 144 L D MPV 10.1 9.9 Immature Gran % (Auto) Cancelled Cancelled Neut % (Auto) Cancelled Cancelled Lymph % (Auto) Cancelled Cancelled [place] % (Auto) Cancelled Cancelled Eos % (Auto) Cancelled Cancelled Baso % (Auto) Cancelled Cancelled Lymph # (Auto) Cancelled Cancelled [place] # (Auto) Cancelled Cancelled Eos # (Auto) Cancelled Cancelled Baso # (Auto) Cancelled Cancelled Abs Immat Gran (auto) Cancelled Cancelled Absolute Neuts (auto) Cancelled Cancelled Absolute Nucleated RBC 0.000 0.000 Nucleated RBC % (auto) 0.0 0.0 Neutrophils % (Manual) 43 L 58 Band Neutrophils % 9 H 7 H Lymphocytes % (Manual) 29 24 Atypical Lymphs % (Man) 3 2 Monocytes % (Manual) 12 H 8 Eosinophils % (Manual) 1 Basophils % (Manual) 1 1 Metamyelocytes % 2 Abs Neuts (Manual) 1.5 L 2.5 Lymphocytes # (Manual) 0.8 L 0.9 L Atyp Lymphs # (Manual) 0.1 0.1 Monocytes # (Manual) 0.3 0.3 Metamyelocytes # 0.1 Toxic Granulation PRESENT PRESENT Toxic Vacuolation PRESENT Dohle Bodies PRESENT Platelet Estimate SLIGHTLY DECREASED SLIGHTLY DECREASED Plt Morphology Comment NOTED NORMAL RBC Morphology NOTED NOTED Polychromasia 1+ (0-2) 1+ (0-2) Macrocytosis 1+ (5-14) Tear Drop Cells 1+ (0-2) Ovalocytes 1+ (5-14) [place] Cells 2+ (3-5) 3+ (>5) Acanthocytes (Spur) 2+ (3-5) Schistocytes 1+ (0-2) Sodium 139 Potassium 3.1 L Chloride 107 Carbon Dioxide 22 Anion Gap 13 BUN 8 L Creatinine 0.57 Estim Creat Clear Calc 65.9 Estimated GFR > 60 Random Glucose 101 Calcium 8.0 L TSH 77.49 H Preliminary micro results at discharge 11/21/25 00:01 Blood Culture - Preliminary Blood - Venous No growth after 24 hours. 11/21/25 00:01 Blood Culture - Preliminary Blood - Venous No growth after 24 hours. Discharge Plan Discharge Anticipated Discharge Date/Time: 11/22/25 09:09 Patient Disposition: Home, Self-Care Discharge Diagnosis: Hemorrhagic cystitis/complicated urinary tract infection with neutropenia Referrals: Po,Fran Childers MD [Primary Care Provider, Internal Medicine] - 1 Week Discharge Medications: New amoxicillin-pot clavulanate [Augmentin] 500-125 mg tablet 1 tab PO BID 5 Days Qty: 10 0RF Continued (DME) HUMIDIFIER See Rx Instructions .Route .MEDSUPPLY Qty: 1 0RF Rx Instructions: As directed metoprolol succinate 25 mg tablet extended release 24 hr 25 mg PO DAILY Qty: 90 3RF simvastatin 20 mg tablet 20 mg PO DAILY Qty: 90 3RF (DME) Non slip mat See Rx Instructions .Route .MEDSUPPLY Qty: 1 0RF Rx Instructions: As directedOrthopedic Pillow/wipes/gloves/non-slip josesito (DME) Glucern/ vanilla flavor See Rx Instructions .Route .MEDSUPPLY Qty: 30 3RF Rx Instructions: As directed (DME) Gloves medium See Rx Instructions .Route .MEDSUPPLY Qty: 3 11RF Rx Instructions: As directed (DME) Orthopedic pillow See Rx Instructions .Route .MEDSUPPLY Qty: 1 0RF Rx Instructions: as directed (DME) Wipes See Rx Instructions .Route .MEDSUPPLY Qty: 3 11RF Rx Instructions: as directed (DME) non-slip shower mat See Rx Instructions .Route .MEDSUPPLY Qty: 1 0RF Rx Instructions: As directed albuterol sulfate [Ventolin HFA] 90 mcg/actuation HFA aerosol inhaler 2 puff inhalation Q6H PRN (Reason: for wheezing) Qty: 18 2RF (DME) orthopedic pillow See Rx Instructions .Route .MEDSUPPLY Qty: 1 0RF Rx Instructions: As directed sertraline 25 mg tablet 25 mg PO DAILY Qty: 90 2RF tramadol 50 mg tablet 50 mg PO BID PRN (Reason: Pain) Qty: 30 0RF Rx Instructions: covering for Dr. Po zolpidem 10 mg tablet 10 mg PO BEDTIME PRN (Reason: Insomnia) Qty: 30 0RF omeprazole 20 mg Capsule,Delayed Release(Dr/Ec) 20 mg PO DAILY Qty: 90 3RF dexamethasone 4 mg Tablet 4 mg PO BID Qty: 60 1RF Rx Instructions: Take 4 mg p.o. b.i.d. day 2 and 3 of chemotherapy every 14 days. oxycodone 5 mg Tablet 5 mg PO Q4H PRN (Reason: Pain, Moderate(Pain Scale 4-6)) Qty: 30 0RF Rx Instructions: Partial Fill upon patient request. loperamide 2 mg Capsule 2 mg PO Q6H PRN (Reason: Diarrhea) Qty: 60 4RF diphenoxylate-atropine 2.5-0.025 mg Tablet 1 tab PO QID PRN (Reason: Diarrhea ) Qty: 30 1RF lidocaine HCl 2 % Solution 1 appl MUCOUS MEMBRANE QID PRN (Reason: Mouth Pain) budesonide-formoterol 80-4.5 mcg/actuation HFA aerosol inhaler 2 puff INHALATION BID levothyroxine 75 mcg tablet 75 mcg PO QAM ascorbic acid (vitamin C) [Vitamin C] 500 mg tablet 500 mg PO DAILY duloxetine 20 mg capsule,delayed release(DR/EC) 40 mg PO BEDTIME ondansetron 8 mg tablet,disintegrating 8 mg PO Q8H PRN (Reason: Nausea And Vomiting) lidocaine 5 % adhesive patch,medicated 1 patch topical DAILY PRN (Reason: Pain) Rx Instructions: leave on most painful area for up to 12 hrs simethicone [Gas Relief (simethicone)] 125 mg tablet,chewable 125 mg PO BID PRN (Reason: abdominal distention) fluticasone propionate 50 mcg/actuation spray,suspension 1 spray INTRANASAL BID PRN (Reason: Allergy Symptoms) Rx Instructions: administer into each nostril ferrous sulfate 325 mg (65 mg iron) tablet 325 mg PO DAILY nystatin 100,000 unit/mL suspension 5 ml PO TID PRN (Reason: Mouth Pain) Rx Instructions: SWISH AND SPIT (DME) disposable gloves [Vinyl Gloves] Misc See Rx Instructions .Route Qty: 100 11RF Rx Instructions: As directed (DME) wipes See Rx Instructions .Route .MEDSUPPLY Qty: 2 11RF Rx Instructions: As directed Discharge Orders: Discharge Order (Routine); Ordered 11/22/25 Ordered By: Jayson Moreland Diet: Advance to usual diet Activity on Discharge: As tolerated Stand Alone Forms: Patient Portal Discharge page Print Language: Mosotho Care Plan Goals: As above Health Concerns: As above Plan of Treatment: As above Assessment: As above
--- NOTE | 2025-11-22 09:05 | MHC.CM.PN ---
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 SHE WILL CALL HER SUPPLY COORDINATOR TO GET THE CORRECT DME COPY OF HCP REQUESTED PCP: JO ANN SWIFT DELIVERED PT CLEARED TO OR HOME TODAY WITH RESUMPTION OF HER [employer] SHE REPORTS HER DAUGHTER WILL TRANSPORT AFTER LUNCH SHE JUST GOT OUT OF WORK AT 0700.
[2025-11-22] MEDS: Heparin Sodium,Porcine Flush 500 UNIT/5 ML SYRINGE IVFLUSH (12:50)
[2025-11-22 12:57] VITALS: BP 114/67; PULSE 73; RESP 20; O2SAT 99
[2025-11-22 12:59] VITALS: TEMP 36.1
--- NOTE | 2025-11-22 13:00 | PC.NURSE ---
Right chest port de-accessed per [facility] policies/procedures, pt tolerated well.
[2025-11-22 13:06] VITALS: BP 104/61; PULSE 74; RESP 16; TEMP 36.2; O2SAT 97
== END 2025-11-22 13:22 | disposition home or self-care (01) | DRG 689 ==
LOC: HO.ED 22:53 → HO.EDOVER 11-21 03:38 → HO.S3 11-21 13:32
PROVIDERS: Physician Assistant; Admitting Provider Internal Medicine; Emergency Provider Emergency Medicine; PCP Internal Medicine; Visit Provider Hospitalist
DX: N30.01 Acute cystitis with hematuria (principal); D61.810 Antineoplastic chemotherapy induced pancytopenia; C18.7 Malignant neoplasm of sigmoid colon; D62 Acute posthemorrhagic anemia; E87.21 Acute metabolic acidosis; C78.7 Secondary malignant neoplasm of liver and intrahepatic bile duct; E87.1 Hypo-osmolality and hyponatremia; E03.9 Hypothyroidism, unspecified; T45.1X5A Adverse effect of antineoplastic and immunosuppressive drugs, initial encounter; E86.0 Dehydration; F39 Unspecified mood [affective] disorder; I10 Essential (primary) hypertension; E78.5 Hyperlipidemia, unspecified; J45.909 Unspecified asthma, uncomplicated; Z20.822 Contact with and (suspected) exposure to COVID-19; Z79.890 Hormone replacement therapy; Z79.899 Other long term (current) drug therapy; Z87.440 Personal history of urinary (tract) infections
CPT/HCPCS: 36415; 71046; 80048; 80076; 81001; 82306; 83605; 83690; 83735; 84443; 85007; 85025; 85027; 87040; 87086; 87088; 87186; 87637; 87651; 93005; 99285; J0696; J1642; J2470

== ENCOUNTER → 2025-11-20 15:54 | Outpatient (BNV) | payer OTHER, SELFPAY | PROVIDERS: Admitting Provider Internal Medicine; Emergency Provider Emergency Medicine; PCP Internal Medicine; Visit Provider Internal Medicine Cardiovascular Disease | DX: I45.2 Bifascicular block (principal); I49.8 Other specified cardiac arrhythmias | CPT/HCPCS: 93010 ==

== ENCOUNTER → 2025-11-20 23:29 | Outpatient (BNV) | payer OTHER, SELFPAY | PROVIDERS: Emergency Provider Emergency Medicine; PCP Internal Medicine; Visit Provider Student in an Organized Health Care Education/Training Program | DX: R06.02 Shortness of breath (principal); D70.9 Neutropenia, unspecified | CPT/HCPCS: 71046 ==

== ENCOUNTER → 2025-11-21 03:19 | Outpatient (BNV) | payer OTHER, SELFPAY | PROVIDERS: Admitting Provider Internal Medicine; Emergency Provider Emergency Medicine; PCP Internal Medicine; Visit Provider Internal Medicine | DX: N30.91 Cystitis, unspecified with hematuria (principal); D64.9 Anemia, unspecified | CPT/HCPCS: 99222; 99239; 99499 ==